=== PATIENT | male | born 1945 | race Caucasian/White ===

== ENCOUNTER 2020-01-21 09:49 | Outpatient (CLI) | payer MEDICARE, BC, SELFPAY ==
--- NOTE | 2020-01-21 10:15 | US_ITS ---
WS: [id number] RENAL ULTRASOUND HISTORY: stone COMPARISON: 07/17/2019 TECHNIQUE: 2-D and color Doppler imaging of the kidney submitted. Right kidney: 10.8 cm x 5.7 cm x 7.2 cm. Normal size kidney. Calcification lower pole RIGHT kidney measures 1.8 cm. Slightly increased in size since the prior examination. No hydronephrosis. No solid mass. Left kidney: 10.8 cm x 5.7 cm x 6.1 cm. Normal echogenicity with no hydronephrosis or mass. Exophytic cortical cyst from the mid kidney measu res 1.7 x 2.2 x 1.2 cm. Aorta: Normal. Urinary Bladder: Minimally distended urinary bladder. Prostate gland is enlarged measuring 5.1 x 3.2 x 4.7 cm. US/US renal BI* [id number] IMPRESSION: 1. No hydronephrosis or solid renal mass. 2. RIGHT renal calcification lower pole measures 1.8 cm with slight increase i n size since the prior study. 3. Prostate enlargement.
== END 2020-01-21 09:50 | disposition home or self-care (01) ==
LOC: RAD 09:53
PROVIDERS: Family Provider Family Medicine; Visit Provider Urology
DX: N20.0 Calculus of kidney (principal); N40.0 Benign prostatic hyperplasia without lower urinary tract symptoms
CPT/HCPCS: 76770; 81001

== ENCOUNTER 2020-12-21 13:49 | Outpatient (CLI) | payer MEDICARE, BC, SELFPAY ==
--- NOTE | 2020-12-21 13:57 | CT_ITS ---
WS: [id number] CT ABDOMEN PELVIS TECHNIQUE: Noncontrast CT of the abdomen and pelvis with coronal and sagittal reformatted images. CLINICAL INFORMATION: LOW BACK PAIN/HEMATURIA COMPARISON: CT March 2018 DLP: 1771.[address] scans at [facility] use at least one of these dose optimization techniques: automat ed exposure control; mA and/or kV adjustment per patient size (includes targeted exams where dose is matched to clinical indication); or iterative reconstruction. FINDINGS: Noncontrast liver is normal. Cholecystectomy. Normal GE junction. Normal noncontrast spleen. Small in cidental hepatic cyst. Normal GE junction. Lung bases are well aerated. Fatty atrophy of the pancreas . Adrenal glands are normal. Bilateral renal cortical atrophy. Numerous clustered right renal pelvic calculi with mild pelvocalie ctasis. No hydronephrosis. Right ureter is decompressed. No hydronephrosis in the left kidney. Left u reter is decompressed. Tiny calculus at the left UVJ measuring 1.7 mm. Minimal bladder wall thickenin g with mild prostate enlargement. Prostate measures 3.1 x 2.2 CM. No abdominal lymphadenopathy. Sigmoid diverticulosis. No evidence of acute diverticulitis. Prior righ t hemicolectomy and ileocolic anastomosis CT/CT kidney stone [id number] IMPRESSION: 1. Tiny 1.7 mm calculus at the left UVJ. No significant left ureterectasis or hydronephrosis. 2. Clustered calcifications in the right renal pelvis similar to 2018. No evid ence of acute obstruction. No hydronephrosis in right kidney. 3. Bilateral renal cysts are similar in appearance. 4. Mild diffuse bladder wall thickening with mild prominence of the prostate. 5. Prior cholecystectomy. 6. Sigmoid diverticulosis. No evidence of acute diverticulitis.
== END 2020-12-21 13:50 | disposition home or self-care (01) ==
PROVIDERS: PCP Family Medicine; Visit Provider Nurse Practitioner Family
DX: R31.9 Hematuria, unspecified (principal); R82.998 Other abnormal findings in urine; M54.5 Low back pain; K57.30 Diverticulosis of large intestine without perforation or abscess without bleeding; Z90.49 Acquired absence of other specified parts of digestive tract; Q61.02 Congenital multiple renal cysts; N20.0 Calculus of kidney
CPT/HCPCS: 74176; 81003

== ENCOUNTER → 2021-01-13 11:28 | Outpatient (BNVA) | payer MEDICARE, BC, SELFPAY | PROVIDERS: PCP Nurse Practitioner Family; Visit Provider Nurse Practitioner Family | DX: N30.00 Acute cystitis without hematuria (principal); N40.1 Benign prostatic hyperplasia with lower urinary tract symptoms; N20.9 Urinary calculus, unspecified | CPT/HCPCS: 81003; 87077; 87086; 87184 ==

== ENCOUNTER 2021-01-20 09:03 | Outpatient (CLI) | payer MEDICARE, BC, SELFPAY ==
--- NOTE | 2021-01-20 08:45 | US_ITS ---
WS: [id number] RENAL ULTRASOUND HISTORY: N40.1 - Benign prostatic hyperplasia with lower urinary tract hyperplasia. COMPARISON: 01/21/2020 TECHNIQUE: 2-D and color Doppler imaging of the kidney submitted. Right kidney: 11.4 cm x 5.7 cm x 8.1 cm. Normal size kidney. No cortical thinning. Mild increase in the sinus fat similar to the prior study. No solid mass. Calcification in the lower pole is not definitely visualized today. Left kidney: 10.2 cm x 5.9 cm x 6.6 cm. Normal size kidney. Hyperechoic focus measuring 5 mm in the mid renal cortex. May be a calcification or fat. Mild cortical thinning. Mild increase in sinus fat. No solid mass. Aorta: Normal. Urinary Bladder: Normally distended. US/US renal BI* [id number] IMPRESSION: 1. No hydronephrosis or solid mass. 2. Mild cortical thinning LEFT kidney. 3. No renal stones are identified by ultrasound today.
== END 2021-01-20 09:04 | disposition home or self-care (01) ==
LOC: RAD 09:05
PROVIDERS: PCP Nurse Practitioner Family; Visit Provider Urology
DX: N40.1 Benign prostatic hyperplasia with lower urinary tract symptoms (principal); N20.9 Urinary calculus, unspecified; R31.0 Gross hematuria
CPT/HCPCS: 76770; 81003

== ENCOUNTER 2021-05-05 14:33 | Outpatient (CLI) | payer MEDICARE, BC, SELFPAY ==
--- NOTE | 2021-05-05 15:00 | USCV_ITS ---
Antoine Denis Age: 76 Gender: M : 1945 Exam Date: 05/05/2021 15:13 Ordering Phys: Peng Dillon M.D ([email or web address]) Technologist: LYNDON [place] [facility] [place]: EDEMA BP: 137 / 67 HR: 59 Rhythm: Other Technical Quality: Technically difficult study MEASUREMENTS (Male / Female) Normal Values 2D ECHO LV Diastolic Diameter PLAX 4.8 cm 4.2 - 5.9 / 3.9 - 5.3 cm LV Systolic Diameter PLAX 3.2 cm IVS Diastolic Thickness 1.1 cm 0.6 - 1.0 / 0.6 - 0.9 cm IVS Systolic Thickness 1.4 cm LVPW Diastolic Thickness 1.4 cm 0.6 - 1.0 / 0.6 - 0.9 cm LVPW Systolic Thickness 2.2 cm LVOT Diameter 2.0 cm LV Ejection Fraction 2D Teich 61.7 % LV Ejection Fraction MOD 2C 64.6 % LV Ejection Fraction 2C AL 64.4 % LA Diameter 4.5 cm LA Width 4.5 cm LA Height 5.2 cm RA Width 4.0 cm RA Height 4.8 cm Aorta at Sinotubular Diameter 2.3 cm DOPPLER AV Peak Velocity 228.0 cm/s LVOT Peak Velocity 120.0 cm/s AV Area Cont Eq vti 1.6 cm squared AV Area Cont Eq pk 1.7 cm squared MV Peak Velocity 560.0 cm/s MV Area PHT 4.5 cm squared Mitral E to A Ratio 1.3 MV E' Velocity 35.0 cm/s Mitral E to MV E' Ratio 6.7 Mitral E to LV E' Lateral Ratio 6.2 Mitral E to LV E' Septal Ratio 7.5 TR Peak Velocity 153.5 cm/s TR Peak Gradient 9.4 mmHg TR Mean Velocity 126.9 cm/s TR Mean Gradient 6.6 mmHg TR Velocity Time Integral 39.6 cm Right Atrial Pressure 3.0 mmHg Pulmonary Artery Systolic Pressu 12.4 mmHg RV Acceleration Time 0.1 s RV Ejection Time 0.3 s RV AcT/ET 0.2 FINDINGS Left Ventricle Normal left ventricular size. LV systolic function is normal with EF of 55-60%.No regional wall motion abnormalities. Normal diastolic filling pattern. Right Ventricle The right ventricle is normal in size and function. Right Atrium The right atrium is normal in size. Left Atrium The left atrium is normal in size. Mitral Valve Thickened mitral valve without significant stenosis or prolapse. There is trace mitral regurgitation. Aortic Valve Thickened aortic valve. There is mild aortic stenosis with aortic valve area of 1.6cm2 and mean gradient across the aortic valve of 10.6mmHg. There is no aortic regurgitation. Tricuspid Valve Structurally normal tricuspid valve without significant stenosis or regurgitation. Insufficient TR jet to calculate RVSP Pulmonic Valve Structurally normal pulmonic valve without significant stenosis. There is no pulmonic regurgitation. Pericardium Normal pericardium without effusion. Aorta Normal ascending aorta dimension. CONCLUSIONS Technically limited quality echocardiogram because of poor ultrasonic windows. LV systolic function is normal LVEF of 55 to 60%. Normal diastolic function. Trace mitral regurgitation is seen. Thickened aortic valve. There is mild aortic stenosis with aortic valve area 1.6 cm squared and mean gradient across aortic valve of 10.6 mmHg. Compared to prior echocardiogram from 09/29/2016, no signficant changes are noted Peng Dillon MD (Electronically Signed) Final Date: 09 May 2021 12:35 S
== END 2021-05-05 14:34 | disposition home or self-care (01) ==
PROVIDERS: PCP Nurse Practitioner Family; Visit Provider Internal Medicine
DX: R60.0 Localized edema (principal); I35.0 Nonrheumatic aortic (valve) stenosis; I34.0 Nonrheumatic mitral (valve) insufficiency
CPT/HCPCS: 93306

== ENCOUNTER → 2021-08-30 16:07 | Outpatient (BNVA) | payer MEDICARE, SELFPAY | PROVIDERS: PCP Nurse Practitioner Family; Visit Provider Internal Medicine | DX: I48.91 Unspecified atrial fibrillation (principal); R00.2 Palpitations | CPT/HCPCS: 85610 ==

== ENCOUNTER → 2021-09-06 15:03 | Outpatient (BNVA) | payer MEDICARE, SELFPAY | PROVIDERS: PCP Nurse Practitioner Family; Visit Provider Internal Medicine | DX: I48.91 Unspecified atrial fibrillation (principal) | CPT/HCPCS: 85610 ==

== ENCOUNTER → 2021-09-13 14:56 | Outpatient (BNVA) | payer MEDICARE, SELFPAY | PROVIDERS: PCP Nurse Practitioner Family; Visit Provider Internal Medicine | DX: I48.91 Unspecified atrial fibrillation (principal) | CPT/HCPCS: 85610 ==

== ENCOUNTER → 2021-09-20 14:59 | Outpatient (BNVA) | payer MEDICARE, SELFPAY | PROVIDERS: PCP Nurse Practitioner Family; Visit Provider Internal Medicine | DX: I48.91 Unspecified atrial fibrillation (principal) | CPT/HCPCS: 85610 ==

== ENCOUNTER → 2021-10-18 14:59 | Outpatient (BNVA) | payer MEDICARE, SELFPAY | PROVIDERS: PCP Nurse Practitioner Family; Visit Provider Internal Medicine | DX: I48.91 Unspecified atrial fibrillation (principal); Z79.01 Long term (current) use of anticoagulants ==

== ENCOUNTER → 2021-11-15 14:52 | Outpatient (BNVA) | payer MEDICARE, SELFPAY | PROVIDERS: PCP Nurse Practitioner Family; Visit Provider Internal Medicine | DX: I48.91 Unspecified atrial fibrillation (principal); Z79.01 Long term (current) use of anticoagulants | CPT/HCPCS: 85610 ==

== ENCOUNTER → 2021-11-22 14:54 | Outpatient (BNVA) | payer MEDICARE, SELFPAY | PROVIDERS: PCP Nurse Practitioner Family; Visit Provider Internal Medicine | DX: I48.91 Unspecified atrial fibrillation (principal) | CPT/HCPCS: 85610 ==

== ENCOUNTER → 2021-11-29 14:54 | Outpatient (BNVA) | payer MEDICARE, SELFPAY | PROVIDERS: PCP Nurse Practitioner Family; Visit Provider Internal Medicine | DX: Z79.01 Long term (current) use of anticoagulants (principal) ==

== ENCOUNTER → 2021-12-10 12:52 | Outpatient (BNVA) | payer MEDICARE, SELFPAY | PROVIDERS: PCP Nurse Practitioner Family; Referring Provider Nurse Practitioner Family; Visit Provider Surgery | DX: C18.9 Malignant neoplasm of colon, unspecified (principal); I48.91 Unspecified atrial fibrillation | CPT/HCPCS: 99204 ==

== ENCOUNTER → 2021-12-13 14:52 | Outpatient (BNVA) | payer MEDICARE, SELFPAY | PROVIDERS: PCP Nurse Practitioner Family; Visit Provider Internal Medicine | DX: Z79.01 Long term (current) use of anticoagulants (principal) ==

== ENCOUNTER → 2021-12-20 14:56 | Outpatient (BNVA) | payer MEDICARE, SELFPAY | PROVIDERS: PCP Nurse Practitioner Family; Visit Provider Internal Medicine | DX: Z79.01 Long term (current) use of anticoagulants (principal) | CPT/HCPCS: 85610 ==

== ENCOUNTER → 2022-01-11 15:00 | Outpatient (BNVA) | payer MEDICARE, SELFPAY | PROVIDERS: PCP Nurse Practitioner Family; Visit Provider Internal Medicine | DX: Z79.01 Long term (current) use of anticoagulants (principal) | CPT/HCPCS: 85610 ==

== ENCOUNTER 2022-01-26 06:14 | Day surgery (SDC) | payer MEDICARE, SELFPAY ==
[2022-01-24 14:23] VITALS: BMI 32.5
[2022-01-26 06:51] VITALS: BP 163/115; PULSE 86; RESP 18; TEMP 36.3; O2SAT 98
[2022-01-26] MEDS: sodium chloride 0.9% 1,000 ML 30 ML IV (06:54)
--- NOTE | 2022-01-26 07:02 | P.HP_ITS ---
Same Day Surgery H&P Indication for Procedure/HPI DATE OF PROCEDURE: January 26, 2022 CHIEF COMPLAINT/INDICATIONFOR SURGICAL PROCEDURE: colonoscopy PREOP DIAGNOSIS: diagnostic PLANNED PROCEDURE: Operation Date: 01/26/22 07:45 Proposed Procedures p Colonoscopy 36703/c18.9(Not Applicable) - Callum Cortes MD Medications/Allergies* Home Medications Medication Instructions Recorded Confirmed Type finasteride 5 mg tablet 5 mg PO DAILY 01/20/20 01/24/22 History gemfibrozil 600 mg tablet 600 mg PO BID 01/20/20 01/24/22 History metformin 1,000 mg tablet See Rx Instructions PO .COMPLEX 01/20/20 01/24/22 History chlorthalidone 25 mg tablet 12.5 mg PO DAILY tab 08/19/20 01/24/22 History ascorbic acid (vitamin C) 500 mg 500 mg PO DAILY 01/13/21 01/24/22 History capsule garlic 300 mg PO DAILY 01/13/21 01/24/22 History lactobacillus combination no.8 3 3,000 mmu cells PO DAILY 01/13/21 01/24/22 History billion cell capsule (Adult Probiotic) phyto nutrients 01/13/21 12/28/21 History potassium citrate 15 mEq (1,620 15 meq PO BID 01/24/22 01/24/22 History mg) tablet,extended release tamsulosin 0.4 mg capsule 0.4 mg PO DAILY 01/24/22 01/24/22 History silver sulfadiazine 1 % topical 1 applic TOPICAL BID PRN 01/26/22 01/24/22 History cream Allergies/Adverse Reactions Allergy/AdvReac Type Severity Reaction Status Date / Time lisinopril Allergy NA Verified 12/28/21 14:54 Ymrrxwu-VAD-EzW Reductase Allergy Rash Verified 12/28/21 14:54 Inhibitor [Lyjlvwf-Bys-Nqi Reductase Inhibitor] Current Medications: Generic Name Dose Route Start Last Admin Trade Name Freq PRN Reason Stop Dose Admin Sodium Chloride 1,000 mls @ 30 mls/hr 01/26/22 06:45 01/26/22 06:54 Sodium Chloride 0.9% IV 01/27/22 06:44 30 mls/hr .Q24H TRACEY Administration Pertinent History/Comorbid Conditions* Medical History (Updated 12/10/21 @ 13:18 by Callum Cortes MD) Atrial fibrillation BPH loc w urin obs/LUTS Colon cancer Diabetes HTN (hypertension) Hyperlipidemia Subdural hematoma Uric acid urolithiasis Surgical History (Updated 12/10/21 @ 13:18 by Callum Cortes MD) History of colonoscopy S/P appendectomy S/P cholecystectomy S/P colon resection S/P shoulder surgery Family History (Updated 01/20/20 @ 09:22 by Mary Lim RN) Father, AGE 81 Mother, AGE 75 CAD (coronary artery disease) Mother Cancer Brother Family/Other Stroke Father Social History Smoking and tobacco status: former smoker Alcohol intake: current Alcohol intake frequency: holidays/special occasions only Alcohol type: beer Adopted: No Caregiver/support person: No Lives independently: No Household members: spouse Marital status: Current occupational status: retired History of recent travel: No Current gender identity: Male Pertinent Exam Findings alert, oriented x 3 and regular rate & rhythm Recommendations Surgery/Procedure today Coding Level of Care Code Acute [employer]er for Joyce Whyte
--- NOTE | 2022-01-26 07:09 | P.ANESASSM_ITS ---
Pre-Anesthetic Assessment Height/Weight: Height 1.78 m Weight 102.965 kg Temp Pulse Resp BP Pulse Ox 97.4 F L 86 18 163/115 98 01/26/22 06:51 01/26/22 06:51 01/26/22 06:51 01/26/22 06:51 01/26/22 06:51 Preop Diagnosis: diagnostic Operation Date: 01/26/22 07:45 Proposed Procedures p Colonoscopy 90376/c18.9(Not Applicable) - Callum Cortes MD Familial anesthetic complications: none Was Beta Sajan taken within 24 hours: N/A Was Clonidine taken within 24 hours: N/A Last intake: Intake Last Liquid Date 01/25/22 Last Liquid Time 22:45 Last Solid Date 01/25/22 Last Solid Time 09:00 Social No alcohol and No tobacco Exam alert, oriented x 3, clear to auscultation bilaterally and regular rate & rhythm Airway Mallampati: Class IV Dentition: false Pulmonary None reported CV/HEM Atrial Fibrillation and Hypertension None reported Hepatic None reported GI None reported Metabolic Diabetes Mellitus [facility] None reported Neuropsych None reported Anesthetic Plan Anesthesia: MAC Risk of > 500 ml blood loss (7ml/kg in children): No Medications/Allergies Home Medications Medication Instructions Recorded Confirmed Last Taken Type finasteride 5 mg tablet 5 mg PO DAILY 01/20/20 01/24/22 01/25/22 History gemfibrozil 600 mg tablet 600 mg PO BID 01/20/20 01/24/22 01/25/22 History metformin 1,000 mg tablet See Rx Instructions PO .COMPLEX 01/20/20 01/24/22 01/25/22 History chlorthalidone 25 mg tablet 12.5 mg PO DAILY tab 08/19/20 01/24/22 01/25/22 History ascorbic acid (vitamin C) 500 mg 500 mg PO DAILY 01/13/21 01/24/22 01/25/22 History capsule garlic 300 mg PO DAILY 01/13/21 01/24/22 Unknown History lactobacillus combination no.8 3 3,000 mmu cells PO DAILY 01/13/21 01/24/22 01/25/22 History billion cell capsule (Adult Probiotic) phyto nutrients 01/13/21 12/28/21 Unknown History losartan 25 mg tablet 25 mg PO DAILY #90 tab 05/20/21 01/24/22 01/25/22 Rx amiodarone 200 mg tablet 200 mg PO DIRECTED #90 tab 08/25/21 01/24/22 01/25/22 Rx warfarin 5 mg tablet 5 mg PO DAILY #90 tab 11/30/21 01/24/22 01/21/22 Rx potassium citrate 15 mEq (1,620 15 meq PO BID 01/24/22 01/24/22 01/25/22 History mg) tablet,extended release tamsulosin 0.4 mg capsule 0.4 mg PO DAILY 01/24/22 01/24/22 01/25/22 History silver sulfadiazine 1 % topical 1 applic TOPICAL BID PRN 01/26/22 01/24/22 Unknown History cream Allergies Allergy/AdvReac Type Severity Reaction Status Date / Time lisinopril Allergy NA Verified 12/28/21 14:54 Bfdpcxp-JIS-WlJ Reductase Allergy Rash Verified 12/28/21 14:54 Inhibitor [Zpzgqxq-Tee-Pem Reductase Inhibitor] Current Medications Generic Name Dose Route Start Last Admin Trade Name Freq PRN Reason Stop Dose Admin Sodium Chloride 1,000 mls @ 30 mls/hr 01/26/22 06:45 01/26/22 06:54 Sodium Chloride 0.9% IV 01/27/22 06:44 30 mls/hr .Q24H TRACEY Administration PFSH Anesthesia Medical History Atrial fibrillation BPH loc w urin obs/LUTS Colon cancer Diabetes HTN (hypertension) Hyperlipidemia Subdural hematoma Uric acid urolithiasis Surgical History History of colonoscopy S/P appendectomy S/P cholecystectomy S/P colon resection S/P shoulder surgery Family History Brother Cancer Family/Other Cancer Father , AGE 81 Stroke Mother , AGE 75 CAD (coronary artery disease) Social History Smoking and tobacco status: former smoker Alcohol intake: current Alcohol intake frequency: holidays/special occasions only Alcohol type: beer Adopted: No Caregiver/support person: No Lives independently: No Household members: spouse Marital status: Current occupational status: retired History of recent travel: No Current gender identity: Male Data Anesthesia Cardiac Studies: Echocardiogram 05/05/21 Holter Monitor 08/30/21
[2022-01-26 08:19] VITALS: BP 106/76; PULSE 91; RESP 16; TEMP 36.1; O2SAT 96
[2022-01-26 08:30] VITALS: BP 130/73; PULSE 86; RESP 18; O2SAT 96
--- NOTE | 2022-01-26 14:22 | ANE.PACU2 ---
Inpatient post-anesthesia follow up: Airway intact: Yes Vital signs: Temperature 97.0 F Pulse Rate 86 Respiratory Rate 18 Blood Pressure 130/73 Pulse Oximetry 96 Oxygen Delivery Me thod Room Air Oxygen Flow Rate Fraction of Inspir ed Oxygen Hydration adequate: Yes Nausea and vomiting: No Pain level: 1 Mental status: Baseline
== END 2022-01-26 08:50 | disposition home or self-care (01) ==
PROVIDERS: PCP Nurse Practitioner Family; Visit Provider Surgery
PROC: 0DJD8ZZ Inspection of Lower Intestinal Tract, Via Natural or Artificial Opening Endoscopic (ICD-10-PCS; CPT 45378; principal; 2022-01-26 07:45)
DX: C18.9 Malignant neoplasm of colon, unspecified (principal); D12.3 Benign neoplasm of transverse colon; K57.30 Diverticulosis of large intestine without perforation or abscess without bleeding; K64.8 Other hemorrhoids; I48.91 Unspecified atrial fibrillation; I10 Essential (primary) hypertension; E11.9 Type 2 diabetes mellitus without complications; Z79.84 Long term (current) use of oral hypoglycemic drugs; Z79.01 Long term (current) use of anticoagulants; N40.1 Benign prostatic hyperplasia with lower urinary tract symptoms; N13.8 Other obstructive and reflux uropathy; E78.5 Hyperlipidemia, unspecified; Z87.891 Personal history of nicotine dependence
CPT/HCPCS: 45385; 88305; J2704; J7030

== ENCOUNTER → 2022-02-04 14:47 | Outpatient (BNVA) | payer MEDICARE, SELFPAY | PROVIDERS: PCP Nurse Practitioner Family; Visit Provider Internal Medicine | DX: Z79.01 Long term (current) use of anticoagulants (principal) ==

== ENCOUNTER → 2022-02-11 10:47 | Outpatient (BNVA) | payer MEDICARE, SELFPAY | PROVIDERS: PCP Nurse Practitioner Family; Visit Provider Internal Medicine | DX: Z79.01 Long term (current) use of anticoagulants (principal) ==

== ENCOUNTER → 2022-02-18 13:46 | Outpatient (BNVA) | payer MEDICARE, SELFPAY | PROVIDERS: PCP Nurse Practitioner Family; Visit Provider Internal Medicine | DX: Z79.01 Long term (current) use of anticoagulants (principal) ==

== ENCOUNTER → 2022-02-25 13:27 | Outpatient (BNVA) | payer MEDICARE, SELFPAY | PROVIDERS: PCP Nurse Practitioner Family; Visit Provider Internal Medicine | DX: Z79.01 Long term (current) use of anticoagulants (principal) ==

== ENCOUNTER → 2022-03-08 10:40 | Outpatient (BNVA) | payer MEDICARE, SELFPAY | PROVIDERS: PCP Nurse Practitioner Family; Visit Provider Internal Medicine | DX: Z79.01 Long term (current) use of anticoagulants (principal) ==

== ENCOUNTER 2022-03-22 18:29 | Outpatient (CLI) | payer MEDICARE, SELFPAY ==
--- NOTE | 2022-03-22 | XRR_ITS ---
PROCEDURE INFORMATION: Exam: XR Chest Exam date and time: 03/22/2022 6:41 PM Age: 77 years old Clinical indication: Cough and shortness of breath; Additional info: Cough/sob TECHNIQUE: Imaging protocol: Radiologic exam of the chest. Views: 2 views. Total images: 318 COMPARISON: CR Chest 1 [place] [id number] 05/21/2019 3:25 AM FINDINGS: Lungs: No acute focal pulmonary opacities are detected. Pleural spaces: Unremarkable. No pleural effusion. No pneumothorax. Heart/Mediastinum: Mild cardiomegaly stable. Bones/joints: Osseous structures are unchanged from the prior exam. XR/XR chest 2V* [id number] IMPRESSION: 1. Mild cardiomegaly stable. 2. No acute focal pulmonary opacities are detected.
== END 2022-03-22 18:30 | disposition home or self-care (01) ==
PROVIDERS: PCP Nurse Practitioner Family; Visit Provider Nurse Practitioner Family
DX: R05.9 Cough, unspecified (principal); R06.02 Shortness of breath; I51.7 Cardiomegaly
CPT/HCPCS: 71046

== ENCOUNTER 2022-07-28 22:10 | Emergency (ER) | payer MEDICARE, SELFPAY ==
[2022-07-28 22:12] VITALS: BP 171/97; PULSE 98; RESP 16; O2SAT 94; BMI 31.4
--- NOTE | 2022-07-28 22:18 | CTR_ITS ---
PROCEDURE INFORMATION: Exam: CT Head Without Contrast Exam date and time: 07/28/2022 10:55 PM Age: 77 years old Clinical indication: Pain and condition or disease; Convulsions or seizures; Headache; Patient HX: Witnessed seizure. C/O LOVE. TECHNIQUE: Imaging protocol: Computed tomography of the head without contrast. Radiation optimization: All CT scans at this facility use at least one of these dose optimization techniques: automated exposure control; mA and/or kV adjustment per patient size (includes targeted exams where dose is matched to clinical indication); or iterative reconstruction. COMPARISON: CT head wo con* [id number] 07/17/2017 11:31 AM RADIATION DOSE METRICS: Total DLP (mGy-cm): 1055.08 FINDINGS: Brain: There is moderate cerebral atrophy. There is moderate diffuse heterogeneity of the white matter attenuation, consistent with chronic white matter ischemic changes. Negative for intracranial mass. Negative for intracranial hemorrhage. Negative for mass effect on the brain. Negative for midline shift of the brain. No acute brain ischemia. Swain matter and white matter interfaces are preserved. Cerebral ventricles: No ventriculomegaly. Paranasal sinuses: Visualized sinuses are unremarkable. No fluid levels. Mastoid air cells: Visualized mastoid air cells are well aerated. Bones/joints: Unremarkable. No acute fracture. Soft tissues: Unremarkable. CT/CT head wo con* [id number] IMPRESSION: Negative for acute intracranial abnormality.
--- NOTE | 2022-07-28 22:18 | ECG_ITS ---
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 Measurements Intervals [place] Rate: 86 P: 0 RI: 0 QRS: -69 QRSD: 145 T: 91 QT: 402 QTc: 483 Interpretive Statements ATRIAL FIBRILLATION RIGHT BUNDLE BRANCH BLOCK [120+ ms QRS DURATION, UPRIGHT V1, 40+ ms S IN I/aVL/V4/V5/V6] LEFT ANTERIOR FASCICULAR BLOCK [QRS AXIS <= -45, QR IN I, RS IN II] VOLTAGE CRITERIA FOR LVH [MEETS CRITERIA IN ONE OF: R(aVL), S(V1), R(V5), R(V5/V6)+S(V1)] POSSIBLE SEPTAL MYOCARDIAL INFARCTION , OF INDETERMINATE AGE [30 ms Q WAVE IN V1/V2] Compared to ECG 05/21/2019 03:05:31 Myocardial infarct finding now present Sinus rhythm no longer present First degree AV block no longer present ST (T wave) deviation no longer present Electronically Signed On 07-29-2022 13:47:00 BED LABORER by Peng Dillon M.D. [id number]
--- NOTE | 2022-07-28 22:18 | XRR_ITS ---
PROCEDURE INFORMATION: Exam: XR Chest Exam date and time: 07/28/2022 10:26 PM Age: 77 years old Clinical indication: Angina; Additional info: Cp TECHNIQUE: Imaging protocol: Radiologic exam of the chest. Views: 1 view. COMPARISON: CR XR chest 2V* [id number] 03/22/2022 6:41 PM FINDINGS: Lungs: Mild reticular changes of interstitium. No consolidation. Pleural spaces: Unremarkable. No pleural effusion. No pneumothorax. Heart/Mediastinum: Cardiac enlargement. Bones/joints: Unremarkable. XR/XR chest 1V portable [id number] IMPRESSION: No acute pulmonary disease identified.
--- NOTE | 2022-07-28 22:24 | W.ED.SEIZURE ---
HPI - Seizure General: Chief Complaint: Seizure Stated Complaint: SEIZURE Time Seen by Provider: 07/28/22 22:11 Source: patient and EMS Mode of arrival: EMS Limitations: no limitations History of Present Illness: HPI Narrative: 77-year-old male states he is not in his recliner this evening states he felt lightheaded and had a syncopal event roughly at 9 PM he states he is passed out for just a few seconds states that since waking up he is felt normal he denies any chest pain or headache before the event he states he had a similar event months ago unsure what caused that as well. He had no vomiting no diarrhea no fever Associated symptoms: Reports syncope; Deny chills or fever(s) Review of Systems Const: Denies: fever(s), chills, body aches or change in appetite Eyes: Denies: blurry vision or eye discomfort ENMT: Denies: throat pain or dental pain Card: Reports: syncope Resp: Denies: dyspnea GI: Denies: abdominal pain, nausea, vomiting or diarrhea : Denies: dysuria Musc: Denies: neck pain or back pain Skin/Breast: Denies: rash Neuro: Denies: headache(s) Psych: Denies: depression Gamal/Lymph: Denies: easy bruising All/Imm: Denies: urticaria PFSH ED PFSH: Medical History Atrial fibrillation BPH loc w urin obs/LUTS Colon cancer Diabetes HTN (hypertension) Hyperlipidemia Subdural hematoma Uric acid urolithiasis Surgical History History of colonoscopy (01/26/22) S/P appendectomy S/P cholecystectomy S/P colon resection S/P shoulder surgery Family History Brother Cancer Family/Other Cancer Father , AGE 81 Stroke Mother , AGE 75 CAD (coronary artery disease) Social History Smoking and tobacco status: former smoker Alcohol intake: current Alcohol intake frequency: holidays/special occasions only Alcohol type: beer Adopted: No Caregiver/support person: No Lives independently: No Household members: spouse Marital status: Current occupational status: retired History of recent travel: No Current gender identity: Male Physical Exam Const: COMMON NORMALS: no acute distress, patient oriented x3 and healthy appearing HENMT: COMMON NORMALS: normocephalic and atraumatic HEAD & SCALP: normocephalic and atraumatic Eye: COMMON NORMALS: Equal, round and reactive pupils present and EOMs intact bilaterally PUPIL: Yes Equal, round and reactive pupils present Neck/C-Spine: COMMON NORMALS: full ROM and supple Chest: COMMONS NORMALS: normal inspection of the chest and normal palpation of entire chest wall Resp: COMMON NORMALS: normal respiratory effort, No retractions, No use of accessory muscles and clear to auscultation bilaterally AUSCULTATION: clear to auscultation bilaterally Cardio: COMMON NORMALS: regular rate, regular rhythm and No murmurs present (Cardio) RATE: regular rate RHYTHM: regular rhythm GI: COMMON NORMALS: Normal to inspection, nondistended, normoactive bowel sounds present, Soft to palpation, non-tender and no masses PALPATION: Yes Soft to palpation Extremity: COMMON NORMALS: normal to inspection and full ROM Neuro: COMMON NORMALS: patient oriented x3, moves all extremities and no focal motor deficits Psych: COMMON NORMALS: mental status grossly normal, Normal thought process present and cooperative THOUGHT PROCESS: Normal thought process present Skin: COMMON NORMALS: no rashes or lesions noted and no wounds GENERAL SKIN EXAM: no rashes or lesions noted Course Vital Signs: Vital signs: Vital Signs Pulse Rate 82 07/29/22 01:06 Respiratory Rate 18 07/29/22 01:06 Blood Pressure 149/74 07/29/22 01:06 Pulse Oximetry 96 07/29/22 01:06 Oxygen Delivery Me thod 07/29/22 01:06 MDM - Seizure MDM Narrative Medical decision making narrative: Patient presents with a syncopal event he has been well-appearing here blood works normal patient stable for discharge he is to follow-up with PCP and return if worsening. Lab Data 07/28/22 22:17 07/28/22 22:17 Labs: Radiology Impressions Chest X-Ray 07/28/22 22:18 IMPRESSION: No acute pulmonary disease identified. Head CT 07/28/22 22:18 IMPRESSION: Negative for acute intracranial abnormality. Laboratory Results WBC 7.3 10^3/uL (4.0-10.0) 07/28/22 22:17 RBC 4.61 10^6/uL (4.1-5.3) 07/28/22 22:17 Hgb 14.0 g/dL (11.7-16.6) 07/28/22 22:17 Hct 42.1 % (42.0-52.0) 07/28/22 22:17 MCV 91.3 fl (80-94) 07/28/22 22:17 MCH 30.4 pg (28.0-34.0) 07/28/22 22:17 MCHC 33.3 g/dL (30.0-36.0) 07/28/22 22:17 RDW 12.9 % (12.1-15.1) 07/28/22:17 Plt Count 239 10^3/cmm (130-400) 07/28/22 22:17 MPV 11.3 fL (7.4-10.4) H 07/28/22 22:17 Neut % (Auto) 65.3 % 07/28/22 22:17 Lymph % (Auto) 24.9 % 07/28/22 22:17 Kimball % (Auto) 6.6 % 07/28/22 22:17 Eos % (Auto) 1.9 % 07/28/22 22:17 Baso % (Auto) 0.5 % 07/28/22 22:17 Neut # (Auto) 4.77 10^3/uL (1.8-7.7) 07/28/22 22:17 Lymph # (Auto) 1.8 10^3/uL (0.8-4.8) 07/28/22 22:17 Kimball # (Auto) 0.5 10^3/uL (0.2-0.9) 07/28/22 22:17 Eos # (Auto) 0.1 10^3/uL (0.0-0.8) 07/28/22 22:17 Baso # (Auto) 0.0 10^3/uL (0.0-0.1) 07/28/22 22:17 Nucleated RBC % (auto) 0 % 07/28/22 22:17 Nucleated RBCs # 0.0 /100WBC 07/28/22 22:17 PT 23.90 SECONDS (12.1-14.9) H 07/28/22 22:17 INR 2.10 (0.8-1.2) H 07/28/22 22:17 Sodium 142 mmol/L (136-145) 07/28/22 22:17 Potassium 4.0 mmol/L (3.5-5.1) 07/28/22 22:17 Chloride 103 mmol/L (98-107) 07/28/22 22:17 Carbon Dioxide 26 mmol/L (22-29) 07/28/22 22:17 Anion Gap 17.0 (5-19) 07/28/22 22:17 BUN 22 mg/dL (8-23) 07/28/22 22:17 Creatinine 1.4 mg/dL (0.7-1.2) H 07/28/22 22:17 GFR Calculation Not Reportable 07/28/22 22:17 Glucose 144 mg/dL (65-115) H 07/28/22 22:17 Calculated Osmolality 300 mOsm/kg (285-295) H 07/28/22 22:17 Calcium 9.7 mg/dL (8.5-10.5) 07/28/22 22:17 Total Bilirubin 0.3 mg/dL (0.15-1.2) 07/28/22 22:17 AST 14 U/L (0-40) 07/28/22 22:17 ALT 11 U/L (0-41) 07/28/22 22:17 Alkaline Phosphatase 108 U/L (40-130) 07/28/22 22:17 Troponin T Baseline 23 ng/L (0-15) H 07/28/22 22:17 Troponin T 120 Minute 29.47 ng/L (0-15) H 07/29/22 00:25 Delta Troponin T 6.47 ABS# (0-10) 07/29/22 00:25 Total Protein 7.6 g/dL (6.6-8.7) 07/28/22 22:17 Albumin 4.3 g/dL (3.5-5.2) 07/28/22 22:17 Globulin 3.3 g/dL (1.3-4.6) 07/28/22 22:17 Discharge Plan Discharge Patient Disposition: Home Clinical Impression: Syncope Condition: Stable Prescriptions: No Action garlic Tablet 300 mg PO DAILY (DME) phyto nutrients 0 .Route .MEDSUPPLY ascorbic acid (vitamin C) 500 mg capsule 500 mg PO DAILY Adult Probiotic 3 billion cell capsule 3,000 mmu cells PO DAILY Rx Instructions: administer with a meal amiodarone 200 mg tablet 200 mg PO DIRECTED Qty: 90 3RF Rx Instructions: Take 200mg twice daily for 1 week, then take 200mg daily finasteride 5 mg tablet 5 mg PO DAILY metformin 1,000 mg tablet See Rx Instructions PO .COMPLEX Rx Instructions: 500MG AM AND 1000MG PM PO; gemfibrozil 600 mg tablet 600 mg PO BID chlorthalidone 25 mg tablet 12.5 mg PO DAILY ketoconazole 2 % shampoo 1 applic topical ONCE Qty: 120 6RF Rx Instructions: Lather into scalp 2-3 times weekly. Allow to sit on scalp 5 minutes before rinsing warfarin 5 mg tablet 5 mg PO DAILY Qty: 90 0RF Protocol: Dose Management Condition: Monday Dose/Route: 2.5 mg Instruction: 0.5 x 5 mg tablets Condition: Monday Dose/Route: 2.5 mg Instruction: 0.5 x 5 mg tablets Condition: Monday Dose/Route: 2.5 mg Instruction: 0.5 x 5 mg tablets Condition: Monday Dose/Route: 5 mg Instruction: 1 x 5 mg tablet Condition: Dose/Route: 2.5 mg Instruction: 0.5 x 5 mg tablets Condition: Monday Dose/Route: 2.5 mg Instruction: 0.5 x 5 mg tablets Condition: Monday Dose/Route: 2.5 mg Instruction: 0.5 x 5 mg tablets Protocol Text: Adjustment Start Date: Monday07/27/22 INR Value: 2.1 INR Date: 07/25/22 Recheck Date: 08/03/22 Rx Instructions: 5mg 5 days a week 2.5mg 2 days a week tamsulosin 0.4 mg capsule 0.4 mg PO BID Qty: 60 6RF losartan 25 mg tablet 25 mg PO DAILY Qty: 90 0RF Rx Instructions: Needs follow-up for further refills potassium citrate 15 mEq tablet extended release 15 meq PO BID silver sulfadiazine 1 % cream 1 applic topical BID PRN (Reason: Outbreak) Rx Instructions: apply a 1.5 mm thickness Discharge Orders: Discharge ED (Routine); Ordered 07/29/22 Ordered By: Agnes Russo Referrals: Natasha Salas NP [Primary Care Provider] - 1-3 days Discharge Diet: Advance as tolerated Discharge Activity: Resume usual activity Patient Instructions: Syncope (ED) Coding Level of Care Code ED Mechanical Applications Engineer for Chg Fwd Exam Comprehensive
[2022-07-28 22:40] LABS: Basophils % 0.5 %; Eosinophils # 0.1 10^3/uL (0.0-0.8); Eosinophils % 1.9 %; Hematocrit 42.1 % (42.0-52.0); Lymphocytes # 1.8 10^3/uL (0.8-4.8); Lymphocytes % 24.9 %; Mean Corpuscular HGB Conc 33.3 g/dL (30.0-36.0); Mean Corpuscular Hemoglobin 30.4 pg (28.0-34.0); Mean Corpuscular Volume 91.3 fl (80-94); Mean Platelet Volume 11.3 fL (7.4-10.4); Monocytes # 0.5 10^3/uL (0.2-0.9); Monocytes % 6.6 %; Neutrophils # 4.77 10^3/uL (1.8-7.7); Neutrophils % 65.3 %; Nucleated Red Blood Cells % 0 %; Platelet Count 239 10^3/cmm (130-400); Red Blood Count 4.61 10^6/uL (4.1-5.3); Red Cell Distribution Width 12.9 % (12.1-15.1); White Blood Count 7.3 10^3/uL (4.0-10.0)
[2022-07-28 22:50] LABS: Alanine Aminotransferase 11 U/L (0-41); Albumin Level 4.3 g/dL (3.5-5.2); Alkaline Phosphatase 108 U/L (40-130); Aspartate Amino Transferase 14 U/L (0-40); Blood Urea Nitrogen 22 mg/dL (8-23); Calcium 9.7 mg/dL (8.5-10.5); Carbon Dioxide 26 mmol/L (22-29); Chloride 103 mmol/L (98-107); Creatinine Clr Calc Pharmacy 52.0456; Globulin 3.3 g/dL (1.3-4.6); Glucose 144 mg/dL (65-115); Osmolality Calculated 300 mOsm/kg (285-295); Sodium 142 mmol/L (136-145); Total Bilirubin 0.3 mg/dL (0.15-1.2); Total Protein 7.6 g/dL (6.6-8.7)
[2022-07-28 23:46] LABS: Troponin(5th) Baseline 23 ng/L (0-15)
--- NOTE | 2022-07-29 00:18 | ECG_ITS ---
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 Measurements Intervals [place] Rate: 83 P: 0 NM: 0 QRS: -70 QRSD: 154 T: 86 QT: 421 QTc: 497 Interpretive Statements ATRIAL FIBRILLATION RIGHT BUNDLE BRANCH BLOCK [120+ ms QRS DURATION, UPRIGHT V1, 40+ ms S IN I/aVL/V4/V5/V6] LEFT ANTERIOR FASCICULAR BLOCK [QRS AXIS <= -45, QR IN I, RS IN II] MODERATE VOLTAGE CRITERIA FOR LVH, CONSIDER NORMAL VARIANT [MEETS CRITERIA IN ONE OF: R(aVL), S(V1), R(V5), R(V5/V6)+S(V1)] ANTEROSEPTAL MYOCARDIAL INFARCTION , PROBABLY RECENT [40+ ms Q WAVE IN V1-V4] ACUTE NH Compared to ECG 07/28/2022 22:37:53 No significant changes Electronically Signed On 07-29-2022 13:51:52 COMPOSITOR APPRENTICE by Peng Dillon M.D. [id number]
[2022-07-29 00:51] LABS: Troponin 5 2HR 29.47 ng/L (0-15)
[2022-07-29 01:00] LABS: Troponin 5 2HR Delta 6.47 ABS# (0-10)
[2022-07-29 01:06] VITALS: BP 149/74; PULSE 82; RESP 18; O2SAT 96
== END 2022-07-29 01:22 | disposition home or self-care (01) ==
PROVIDERS: Emergency Provider Emergency Medicine; PCP Nurse Practitioner Family
DX: R55 Syncope and collapse (principal); Z79.84 Long term (current) use of oral hypoglycemic drugs; Z79.01 Long term (current) use of anticoagulants; Z87.891 Personal history of nicotine dependence; Z85.038 Personal history of other malignant neoplasm of large intestine; E11.9 Type 2 diabetes mellitus without complications; I10 Essential (primary) hypertension; E78.5 Hyperlipidemia, unspecified
CPT/HCPCS: 70450; 71045; 80053; 84484; 85025; 85610; 93005; 99285

== ENCOUNTER 2022-12-16 11:52 | Outpatient (CLI) | payer MEDICARE, SELFPAY ==
--- NOTE | 2022-12-16 13:21 | USCV_ITS ---
Antoine Denis Age: 77 Gender: M : 1945 Exam Date: 12/16/2022 13:52 Ordering Phys: Natasha Salas NP Technologist: Exam Location: [facility] [place] Indication: chest pain BP: 120 / 70 HR: 84 Rhythm: Atrial fibrillation Technical Quality: Suboptimal MEASUREMENTS (Male / Female) Normal Values 2D ECHO LV Diastolic Diameter PLAX 4.2 cm 4.2 - 5.9 / 3.9 - 5.3 cm LV Systolic Diameter PLAX 2.2 cm IVS Diastolic Thickness 1.1 cm 0.6 - 1.0 / 0.6 - 0.9 cm IVS Systolic Thickness 1.4 cm LVPW Diastolic Thickness 1.2 cm 0.6 - 1.0 / 0.6 - 0.9 cm LVPW Systolic Thickness 1.4 cm LVOT Diameter 2.2 cm LV Ejection Fraction 2D Teich 76.7 % LV Ejection Fraction MOD 2C 74.2 % LV Ejection Fraction 2C AL 75.8 % LA Diameter 5.1 cm Aorta at Sinotubular Diameter 2.7 cm IVC Diameter 2.4 cm M-MODE Aortic Annulus Diameter 3.9 cm LA Ao Ratio MM 1.2 MV E Point Septal Separation 1.3 cm DOPPLER AV Peak Velocity 277.7 cm/s LVOT Peak Velocity 97.0 cm/s AV Area Cont Eq vti 1.6 cm squared AV Area Cont Eq pk 1.3 cm squared MV Area PHT 5.9 cm squared Mitral E to A Ratio 4.4 MV E' Velocity 121.0 cm/s TR Peak Velocity 300.0 cm/s TR Peak Gradient 36.0 mmHg TV Peak E Velocity 76.0 cm/s Right Atrial Pressure 4.0 mmHg Pulmonary Artery Systolic Pressu 40.0 mmHg RV Acceleration Time 0.1 s FINDINGS Left Ventricle The rhythm is irregularly irregular and appears to be atrial fibrillation. The ventricle is normal in size and function. Ejection fraction 55 to 60%. No wall motion disturbances. Diastolic function cannot be determined due to the rhythm. Right Ventricle Normal right ventricular size and systolic function. Mild pulmonary hypertension, RVSP 40 mmHg. Right Atrium The right atrium is normal in size. Left Atrium Mildly increased left atrial size. Mitral Valve Structurally normal mitral valve. Mild mitral valve regurgitation. Aortic Valve Structurally normal trileaflet aortic valve. Mild aortic valve calcification. Mild aortic valve stenosis, mean gradient 14.2 mmHg, NOMI 1.6 cm squared. Mild aortic valve regurgitation. Tricuspid Valve Structurally normal tricuspid valve. Mild tricuspid valve regurgitation. Pulmonic Valve Pulmonic valve not well visualized. Pericardium Normal pericardium without effusion. Aorta Normal ascending aorta dimension. IVC The inferior vena cava appears normal. CONCLUSIONS The rhythm is irregularly irregular and appears to be atrial fibrillation. The ventricle is normal in size and function. Ejection fraction 55 to 60%. No wall motion disturbances. Diastolic function cannot be determined due to the rhythm. Normal right ventricular size and systolic function. Mild pulmonary hypertension, RVSP 40 mmHg. Mildly increased left atrial size. Structurally normal mitral valve. Mild mitral valve regurgitation. Structurally normal trileaflet aortic valve. Mild aortic valve calcification. Mild aortic valve stenosis, mean gradient 14.2 mmHg, NOMI 1.6 cm squared. Mild aortic valve regurgitation. From the previous study dated 05/09/2021, the atrial fibrillation is new. The aortic stenosis is the same. The aortic insufficiency is new. Dr. Colton Jeong MD (Electronically Signed) Final Date: 17 Dec 2022 09:42 S
== END 2022-12-16 11:53 | disposition home or self-care (01) ==
PROVIDERS: PCP Nurse Practitioner Family; Visit Provider Internal Medicine
DX: I48.91 Unspecified atrial fibrillation (principal); I10 Essential (primary) hypertension; E78.5 Hyperlipidemia, unspecified; E11.9 Type 2 diabetes mellitus without complications; Z87.891 Personal history of nicotine dependence; R60.0 Localized edema; I27.20 Pulmonary hypertension, unspecified; I51.7 Cardiomegaly
CPT/HCPCS: 93306; 99214

== ENCOUNTER 2023-04-28 12:42 | Emergency (ER) | payer MEDICARE, SELFPAY ==
--- NOTE | 2023-04-28 12:44 | XR_ITS ---
WS: [id number] Exam: XR chest 1V portable [id number] Date/Time of Exam: 04/28/2023 12:44 PM Reason For Exam: covid Comparison 03/22/2022. Mild ill-defined groundglass infiltrate in the mid LEFT lung suspicious for pneumonia. The lungs are otherwise clear and fully expanded. Mild plaque atelectasis in the lower RIGHT lung. Cardiac enlargem ent unchanged. The mediastinum and osseous thorax are unremarkable. IMPRESSION: 1. Mild ill-defined groundglass infiltrate in the mid LEFT lung suspicious for pneumonia. 2. Cardiac enlargement unchanged.
[2023-04-28 13:07] VITALS: BP 128/61; PULSE 78; RESP 17; TEMP 36.9; O2SAT 95; BMI 29.0
[2023-04-28 13:45] LABS: Basophils % 0.2 %; Eosinophils # 0.1 10^3/uL (0.0-0.8); Eosinophils % 0.9 %; Hematocrit 43.2 % (37-53); Lymphocytes # 1.1 10^3/uL (0.8-4.8); Mean Corpuscular HGB Conc 34.3 g/dL (30-55); Mean Corpuscular Hemoglobin 30.5 pg (27-33); Mean Corpuscular Volume 89.1 fl (82-101); Mean Platelet Volume 11.1 fL (7.4-10.4); Monocytes # 0.6 10^3/uL (0.2-0.9); Monocytes % 6.7 %; Neutrophils # 7.08 10^3/uL (1.8-7.7); Neutrophils % 79.2 %; Nucleated Red Blood Cells % 0 %; Platelet Count 286 10^3/cmm (157-399); Red Blood Count 4.85 10^6/uL (3.85-5.65); Red Cell Distribution Width 12.3 % (12.1-15.1); White Blood Count 8.94 10^3/uL (3.29-11.43)
--- NOTE | 2023-04-28 13:45 | W.ED.WEAKNES ---
HPI - Weakness General: Chief complaint: Weakness Stated complaint: covid+ Time Seen by Provider: 04/28/23 13:24 History of Present Illness: 78-year-old occasion male brought to emergency room by his due to generalized weakness, cough and positive home COVID testing. described patient's cough as productive cough with some yellow sputum. Patient has any shortness of breath, coughing up blood or vomiting blood. Cording to patient's patient is unable to eat or drink and was very weak prior comes emergency room today. No known sick contacts or foreign travel. No nausea, vomiting, dysuria, hematuria urine frequency. Associated symptoms: Denies chest pain, chills, diaphoresis, dysuria, fever(s), headache(s) or syncope Review of Systems General: Reports: 10 or more systems reviewed and unremarkable except in HPI and below Const: Reports: fatigue; Denies: fever(s), chills or diaphoresis Card: Denies: chest pain, palpitations, irregular heart rhythm, swelling of feet/ankles, lightheadedness or syncope Resp: Reports: productive cough; Denies: dyspnea, non-productive cough, pain on inspiration, hemoptysis, chest congestion or other : Denies: flank pain, difficulty urinating, dysuria, urinary frequency, urinary urgency, urinary hesitancy, urinary dribbling or difficulty starting urination Musc: Denies: joint swelling, joint redness, joint warmth, limited range of motion, muscle cramps, muscle weakness, decrease in muscle mass or loss of height Neuro: Reports: dizziness; Denies: headache(s), numbness in extremities, weakness in extremities, sensory changes, lack of coordination, difficulty walking, behavioral changes or Slurred speech present [facility] ED PFSH: Medical History Atrial fibrillation BPH loc w urin obs/LUTS Colon cancer Diabetes HTN (hypertension) Hyperlipidemia Subdural hematoma Uric acid urolithiasis Surgical History History of colonoscopy (01/26/22) S/P appendectomy S/P cholecystectomy S/P colon resection S/P shoulder surgery Family History Brother Cancer Family/Other Cancer Father , AGE 81 Stroke Mother , AGE 75 CAD (coronary artery disease) Social History Smoking and tobacco status: former smoker Alcohol intake: current Alcohol intake frequency: holidays/special occasions only Alcohol type: beer Substance/Drug Use: never Adopted: No Caregiver/support person: No Lives independently: No Household members: spouse Marital status: Current occupational status: retired Current gender identity: Male Physical Exam Const: COMMON NORMALS: no acute distress, average body habitus, patient oriented x3, no limitations, healthy appearing, alert and well nourished Neck/C-Spine: COMMON NORMALS: full ROM, no lymphadenopathy, supple, no meningeal signs, no JVD, Thyroid normal and No carotid bruits THYROID: Thyroid normal Chest: COMMONS NORMALS: normal inspection of the chest, normal palpation of entire chest wall, normal inspection of the breasts and normal palpation of the breasts Breast/axilla inspection: Yes normal inspection of the breasts BREAST/AXILLA PALPATION: Yes normal palpation of the breasts Resp: COMMON NORMALS: normal respiratory effort and No retractions; negative for No use of accessory muscles AUSCULTATION: diminished lung sounds, no bronchial breath sounds, no egophony, no tactile fremitus and No rub present Cardio: COMMON NORMALS: no JVD Neuro: COMMON NORMALS: patient oriented x3 SENSORIUM/ORIENTATION: Yes alert MENINGEAL SIGNS: Yes no meningeal signs SPEECH: speech normal MOTOR EXAM: 5/5 motor strength present throughout and Motor abnormalities not present Psych: COMMON NORMALS: mental status grossly normal, Normal thought process present, cooperative, normal affect, speech normal, activity/motor behavior normal, denies hallucinations, denies homicidal ideation and denies suicidal ideation SPEECH: Yes normal speech THOUGHT PROCESS: Normal thought process present Skin: COMMON NORMALS: no rashes or lesions noted, no wounds, turgor normal, no jaundice, no petechiae and no mottling GENERAL SKIN EXAM: no rashes or lesions noted and turgor normal Course Consultations: Consultation #1: Discussed patient with the hospitalist. Will admit patient for observation with IV fluid Vital Signs: Vital signs: Vital Signs Temperature 98.5 F 04/28/23 13:07 Pulse Rate 78 09/15/23 13:07 Respiratory Rate 17 04/28/23 13:07 Blood Pressure 128/61 04/28/23 13:07 Pulse Oximetry 95 04/28/23 13:07 Oxygen Delivery Me thod Room Air 04/28/23 13:07 MDM - Weakness Medical Decision Making Patient made comfortable emergency room. Patient was given IV fluid, IV antibiotics and IV steroid. Discussed patient with the hospitalist patient will be admitted for further evaluation and treatment. Differential Diagnosis Likely acute myocardial infarction, anemia, hypoglycemia, hypothyroidism, rhabdomyolysis, sepsis and dehydration Lab Data 04/28/23 13:31 04/28/23 13:31 Laboratory Results WBC 8.94 10^3/uL (3.29-11.43) 04/28/23 13:31 RBC 4.85 10^6/uL (3.85-5.65) 04/28/23 13:31 Hgb 14.80 g/dL (11.27-16.99) 04/28/23 13:31 Hct 43.2 % (37-53) 04/28/23 13:31 MCV 89.1 fl (82-101) 04/28/23 13:31 MCH 30.5 pg (27-33) 04/28/23 13:31 MCHC 34.3 g/dL (30-55) 04/28/23 13:31 RDW 12.3 % (12.1-15.1) 04/28/23 13:31 Plt Count 286 10^3/cmm (157-399) 04/28/23 13:31 MPV 11.1 fL (7.4-10.4) H 04/28/23 13:31 Neut % (Auto) 79.2 % 04/28/23 13:31 Lymph % (Auto) 12.0 % 04/28/23 13:31 [place] % (Auto) 6.7 % 04/28/23 13:31 Eos % (Auto) 0.9 % 04/28/23 13:31 Baso % (Auto) 0.2 % 04/28/23 13:31 Neut # (Auto) 7.08 10^3/uL (1.8-7.7) 04/28/23 13:31 Lymph # (Auto) 1.1 10^3/uL (0.8-4.8) 04/28/23 13:31 [place]idan # (Auto) 0.6 10^3/uL (0.2-0.9) 04/28/23 13:31 Eos # (Auto) 0.1 10^3/uL (0.0-0.8) 04/28/23 13:31 Baso # (Auto) 0.0 10^3/uL (0.0-0.1) 04/28/23 13:31 Nucleated RBC % (auto) 0 % 04/28/23 13:31 Nucleated RBCs # 0.0 /100WBC 04/28/23 13:31 Sodium 137 mmol/L (136-145) 04/28/23 13:31 Potassium 3.6 mmol/L (3.5-5.1) 04/28/23 13:31 Chloride 99 mmol/L (98-107) 04/28/23 13:31 Carbon Dioxide 25 mmol/L (22-29) 04/28/23 13:31 Anion Gap 16.6 (5-19) 04/28/23 13:31 BUN 21 mg/dL (8-23) 04/28/23 13:31 Creatinine 1.3 mg/dL (0.7-1.2) H 04/28/23 13:31 GFR Calculation Not Reportable 04/28/23 13:31 Glucose 134 mg/dL (65-115) H 04/28/23 13:31 Calculated Osmolality 289 mOsm/kg (285-295) 04/28/23 13:31 Lactic Acid 1.4 mmol/L (0.5-2.2) 04/28/23 13:37 Calcium 9.2 mg/dL (8.5-10.5) 04/28/23 13:31 Total Bilirubin 0.9 mg/dL (0.15-1.2) 04/28/23 13:31 AST 24 U/L (0-40) 04/28/23 13:31 ALT 34 U/L (0-41) 04/28/23 13:31 Alkaline Phosphatase 88 U/L (40-130) 04/28/23 13:31 Total Protein 7.7 g/dL (6.6-8.7) 04/28/23 13:31 Albumin 3.5 g/dL (3.5-5.2) 04/28/23 13:31 Globulin 4.2 g/dL (1.3-4.6) 04/28/23 13:31 XR interpretation done by ED provider, pending radiology final review Discharge Plan Discharge Patient Disposition: Placed in Observation Clinical Impression: Pneumonia, COVID, Weakness Coding Level of Care Code ED Cake Puncher for Joyce Whyte
[2023-04-28 14:12] LABS: Lactic Sepsis W/Reflex 1.4 mmol/L (0.5-2.2)
[2023-04-28] MEDS: cefTRIAXone 1,000 MG in sodium chloride 0.9% (plus) 50 ML 100 MG IV (14:14)
[2023-04-28] MEDS: sodium chloride 0.9% 1,000 ML 999 ML IV (14:15)
[2023-04-28 15:03] LABS: Alanine Aminotransferase 34 U/L (0-41); Albumin Level 3.5 g/dL (3.5-5.2); Alkaline Phosphatase 88 U/L (40-130); Blood Urea Nitrogen 21 mg/dL (8-23); Calcium 9.2 mg/dL (8.5-10.5); Carbon Dioxide 25 mmol/L (22-29); Chloride 99 mmol/L (98-107); Globulin 4.2 g/dL (1.3-4.6); Glucose 134 mg/dL (65-115); Osmolality Calculated 289 mOsm/kg (285-295); Sodium 137 mmol/L (136-145); Total Bilirubin 0.9 mg/dL (0.15-1.2); Total Protein 7.7 g/dL (6.6-8.7)
[2023-04-28 15:04] LABS: Anion Gap 16.6 (5-19); Aspartate Amino Transferase 24 U/L (0-40); Potassium 3.6 mmol/L (3.5-5.1)
== END 2023-04-28 16:56 | disposition still patient (30) ==
PROVIDERS: Emergency Medicine; Emergency Provider Family Medicine; PCP Nurse Practitioner Family
DX: U07.1 COVID-19 (principal); J12.82 Pneumonia due to coronavirus disease 2019; Z85.038 Personal history of other malignant neoplasm of large intestine; E11.9 Type 2 diabetes mellitus without complications; I10 Essential (primary) hypertension; E78.5 Hyperlipidemia, unspecified; Z87.891 Personal history of nicotine dependence
CPT/HCPCS: 36415; 71045; 80053; 83605; 85025; 87040; 96365; 99284; J0696; J7030

== ENCOUNTER → 2023-06-28 14:38 | Outpatient (BNVA) | payer MEDICARE, SELFPAY | PROVIDERS: PCP Nurse Practitioner Family; Visit Provider Dermatology | DX: L57.0 Actinic keratosis (principal); D36.11 Benign neoplasm of peripheral nerves and autonomic nervous system of face, head, and neck; L81.4 Other melanin hyperpigmentation; L57.8 Other skin changes due to chronic exposure to nonionizing radiation | CPT/HCPCS: 17000; 99214 ==

== ENCOUNTER 2024-01-02 14:48 | Outpatient (CLI) | payer MEDICARE, SELFPAY ==
--- NOTE | 2024-01-02 15:03 | XR_ITS ---
WS: [id number] KUB, AP view, 01/02/2024 Clinical Data: DYSURIA/ABDOMINAL PAIN Comparison: KUB, 07/17/2019 Findings: No abnormal intraabdominal masses or calcifications are seen. There is no dilatated small bowel or ev idence of obstruction. There are right upper quadrant surgical clips. 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 XR/XR KUB [id number] Impression: Negative KUB.
== END 2024-01-02 14:49 | disposition home or self-care (01) ==
PROVIDERS: PCP Nurse Practitioner Family; Visit Provider Nurse Practitioner Family
DX: R10.9 Unspecified abdominal pain (principal); R30.0 Dysuria
CPT/HCPCS: 74018

== ENCOUNTER → 2024-07-01 13:20 | Outpatient (BNVA) | payer MEDICARE, SELFPAY | PROVIDERS: PCP Nurse Practitioner Family; Visit Provider Nurse Practitioner Family | DX: D36.11 Benign neoplasm of peripheral nerves and autonomic nervous system of face, head, and neck (principal); L81.4 Other melanin hyperpigmentation; L57.8 Other skin changes due to chronic exposure to nonionizing radiation; D18.01 Hemangioma of skin and subcutaneous tissue; L57.0 Actinic keratosis | CPT/HCPCS: 17000; 99213 ==

== ENCOUNTER → 2024-11-01 11:39 | Outpatient (BNVA) | payer MEDICARE, SELFPAY | PROVIDERS: PCP Nurse Practitioner Family; Visit Provider Internal Medicine | DX: I48.91 Unspecified atrial fibrillation (principal); Z79.01 Long term (current) use of anticoagulants; I10 Essential (primary) hypertension; E78.5 Hyperlipidemia, unspecified; I35.0 Nonrheumatic aortic (valve) stenosis; E11.9 Type 2 diabetes mellitus without complications; Z79.84 Long term (current) use of oral hypoglycemic drugs; Z87.891 Personal history of nicotine dependence | CPT/HCPCS: 99214 ==

== ENCOUNTER 2024-11-18 09:08 | Outpatient (CLI) | payer OTHER, SELFPAY ==
[2024-11-18 09:51] LABS: Basophils # 0.1 10^3/uL (0.0-0.1); Basophils % 0.9 %; Eosinophils # 0.2 10^3/uL (0.0-0.8); Eosinophils % 2.6 %; Hematocrit 50.8 % (37-53); Lymphocytes # 1.8 10^3/uL (0.8-4.8); Lymphocytes % 22.6 %; Mean Corpuscular HGB Conc 32.7 g/dL (30-55); Mean Corpuscular Hemoglobin 29.5 pg (27-33); Mean Corpuscular Volume 90.2 fl (82-101); Mean Platelet Volume 11.5 fL (7.4-10.4); Monocytes # 0.5 10^3/uL (0.2-0.9); Monocytes % 5.9 %; Neutrophils # 5.35 10^3/uL (1.8-7.7); Neutrophils % 67.4 %; Nucleated Red Blood Cells % 0 %; Platelet Count 209 10^3/cmm (157-399); Red Blood Count 5.63 10^6/uL (3.85-5.65); Red Cell Distribution Width 12.9 % (12.1-15.1); White Blood Count 7.95 10^3/uL (3.29-11.43)
[2024-11-18 10:06] LABS: Albumin Level 4.2 g/dL (3.5-5.2); Anion Gap 15.8 (5-19); Blood Urea Nitrogen 28 mg/dL (8-23); Calcium 9.5 mg/dL (8.5-10.5); Calcium 9.6 mg/dL (8.5-10.5); Carbon Dioxide 27 mmol/L (22-29); Chloride 102 mmol/L (98-107); Glucose 138 mg/dL (65-115); Phosphorus 3.3 mg/dL (2.5-4.5); Potassium 3.8 mmol/L (3.5-5.1); Sodium 141 mmol/L (136-145)
[2024-11-18 10:13] LABS: Creatinine Urine, Random 79 mg/dL (39-259); Microalbum Creatinine Ratio Ur 13 mg/dL (0-20); Microalbumin Random Urine 1 ug/dL (0-20)
[2024-11-18 10:13] LABS: Parathyroid Hormone 86.8 pg/mL (15-65)
[2024-11-18 10:23] LABS: 25 Hydroxy Vitamin D 46 ng/mL (30-100)
== END 2024-11-18 09:09 | disposition home or self-care (01) ==
PROVIDERS: PCP Nurse Practitioner Family; Visit Provider Internal Medicine
DX: N18.32 Chronic kidney disease, stage 3b (principal)
CPT/HCPCS: 36415; 80069; 82044; 82306; 82310; 83970; 85025

== ENCOUNTER 2025-02-03 13:16 | Outpatient (CLI) | payer MEDICARE, SELFPAY ==
--- NOTE | 2025-02-03 13:30 | USCV_ITS ---
Antoine Denis Age: 80 Gender: M : 1945 Exam Date: 02/03/2025 13:42 Ordering Phys: Peng Dillon M.D ([email or web address]) Technologist: BRISSA Exam Location: [facility] Indication: Aortic Stenosis BP: 116 / 56 HR: 74 Rhythm: Sinus Technical Quality: Adequate MEASUREMENTS (Male / Female) Normal Values 2D ECHO LV Diastolic Diameter PLAX 3.9 cm 4.2 - 5.9 / 3.9 - 5.3 cm IVS Diastolic Thickness 1.5 cm 0.6 - 1.0 / 0.6 - 0.9 cm IVS Systolic Thickness 2.2 cm LVPW Diastolic Thickness 0.9 cm 0.6 - 1.0 / 0.6 - 0.9 cm LVPW Systolic Thickness 1.5 cm LVOT Diameter 2.1 cm LV Ejection Fraction 2D Teich 55.4 % LV Ejection Fraction MOD 4C 55.5 % LV Ejection Fraction MOD 2C 57.0 % LV Ejection Fraction 2C AL 59.4 % LA Diameter 3.5 cm RA Systolic Volume 4C AL 61.5 ml RA Systolic Volume 4C MOD 59.0 ml LA Sys Volume AL 100.2 cm cubed LA Sys Volume Index AL 44.1 cm cubed/m squared Aorta at Sinotubular Diameter 2.8 cm IVC Diameter 2.5 cm M-MODE LA Ao Ratio MM 1.6 AV Cusp Separation MM 1.5 cm DOPPLER AV Peak Velocity 230.0 cm/s LVOT Peak Velocity 71.0 cm/s AV Area Cont Eq vti 1.1 cm squared AV Area Cont Eq pk 1.0 cm squared MV Peak Velocity 92.0 cm/s MV Area PHT 3.3 cm squared Mitral E to A Ratio 3.3 TV Peak Velocity 258.5 cm/s TR Peak Velocity 265.0 cm/s TR Peak Gradient 28.1 mmHg TV Peak E Velocity 71.0 cm/s PV Peak Velocity 75.0 cm/s FINDINGS Left Ventricle Left ventricle is normal in size. LV systolic function is normal with EF of 55-60%. No regional wall motion abnormalities are seen. Right Ventricle Normal in size and function Right Atrium Normal in size Left Atrium Dilated Mitral Valve Grossly normal. Mild mitral regurgitation Aortic Valve Aortic valve is thickened. Mild to moderate aortic stenosis with aortic valve area 1.11 cm2 and mean gradient of 12 mmHg. Tricuspid Valve Mild tricuspid regurgitation. RVSP is 25-30 mmHg. Pulmonic Valve Not well visualized Pericardium Normal Aorta Normal in size IVC Appears to be dilated CONCLUSIONS LV systolic function is normal with EF of 55-60%. Left atrial dilation. Mild mitral regurgitation. Mild to moderate aortic stenosis. Mild tricuspid regurgitation. IVC appears to be dilated. Peng Dillon MD (Electronically Signed) Final Date: 17 February 2025 10:19 S
== END 2025-02-03 13:17 | disposition home or self-care (01) ==
PROVIDERS: PCP Nurse Practitioner Family; Visit Provider Internal Medicine
DX: I35.0 Nonrheumatic aortic (valve) stenosis (principal); I34.0 Nonrheumatic mitral (valve) insufficiency; I35.8 Other nonrheumatic aortic valve disorders; I07.1 Rheumatic tricuspid insufficiency; R93.1 Abnormal findings on diagnostic imaging of heart and coronary circulation
CPT/HCPCS: 93306

== ENCOUNTER 2025-04-06 20:10 | Emergency (ER) | payer OTHER, SELFPAY ==
--- OUTSIDE RECORDS SUMMARY | 2024-09-17 08:00 | XMS_ITS | Encounter Summary ---
Author Name [facility] Organization [facility] Address [address] [place] [address] Care Team Providers Care Missileman Name Role Phone ADAMS, BARBARA Primary Care Provider Unavailabl e Insurance Providers: All historical and current Section Date Range: From patient's date of to the date document was created. This section includes the names of all active insurance providers for the patient. Insurance Provider Type of Coverage Plan Name Start of Policy Coverage End of Policy Coverage Group Number Member ID Insurance Provider's Telephone Number Policy Polk's Name Patient's Relationship to Policy Polk Selected Encounter This section includes the information on record at [place] for the Encounter. Date/Time Encounter Type Encounter Description Reason Provider Source Sep 17, 2024 01:00 PM OFFICE O/P EST MOD 30 MIN PRIMARY CARE/MEDICINE ICD-10-CM Z23 Encounter for immunization JO-ANN LUONG Deana Encounter Template Text not used by [place] Assessments - Encounter Diagnoses This section includes the primary and secondary diagnoses documented for the Encounter. Date/Time Primary/Secondary Diagnosis Diagnosis Name Provider Source Sep 17, 2024 02:18 PM PRIMARY Encounter for immunization [facility] Sep 17, 2024 02:18 PM SECONDARY Chronic kidney disease, unspecified [facility]IA LU[facility] Sep 17, 2024 02:18 PM SECONDARY Chronic rhinitis [facility] Sep 17, 2024 02:18 PM SECONDARY Essential (primary) hypertension GIA LUONG [facility] Sep 17, 2024 02:18 PM SECONDARY Tinea pedis GIA LUONG [facility] Sep 17, 2024 02:18 PM SECONDARY Unspecified cataract GIA LUONG [facility] Plan of Treatment: Future Appointments (+ 6 months) and Future Tests (+/- 45 days) The Plan of Treatment section includes future care activities for the patient from all [facility]. This section includes future appointments and future orders which are active, pending or scheduled. Future Appointments This section includes appointments that were scheduled to occur 6 months from the date of the Encounter, up to a maximum of 20 appointments. The data comes from all [place] treatment facilities. Appointment Date/Time Appointment Type Appointme nt Facility Name Sep 26, 2024 02:30 PM AMBULATORY - [facility]IC[facility] [place] [facility] Oct 14, 2024 01:30 PM AMBULATORY - [facility]IC[facility] [place] [facility] Nov 06, 2024 01:15 PM [facility] - [facility]IC[facility] Lab Results: +/- 30 days of the encounter This section includes the Chemistry and Hematology Lab Results on record with [place] for the patient. Radiology Reports and Pathology Reports are provided separately, in subsequent sections. Lab Results This section contains the Chemistry/Hematology Results that were resulted 30 days before or 30 daysafter the date of the Encounter. Date/Time Source Result Type Result - Unit Interpretation Reference Range Specimen Type Comment Oct 16, 2024 08:51 AM [facility] HGA1C BLOOD Specimen Type: BLOOD No comment entered. Ordering Provider: GIA LUONG Report Released Date/Time: Oct 16, 2024 08:32 AM Reporting Lab: [place] [facility] [address] [place] [address] Performing Lab: [place] [facility] [address] [place] [address] HGA1C 7.1 H 4.0-6.0 Vital Signs: All taken on the encounter date This section contains inpatient and outpatient Vital Signs collected on the date of the Encounter. Date/Time Temperature Pulse Blood Pressure Respiratory Rate SP02 Pain Height Weight Body Mass Index Source Sep 17, 2024 01:30 PM 97.9 57 132/79 20 96 3 223.6 32 [facility] Immunizations: All administered on the encounter date This section contains immunizations associated to the Encounter. Immunization Series Date Issued Administered By Site Reaction Lot Number CVX Code Drug Eyeglass Frames Polisher Comment(s) Source TDAP Sep 17, 2024 MEAGAN ROLAND RIGHT DELTO ID [id number] [facility] Social History: Smoking Status (Most current) and Tobacco Use (All prior to encounter date) This section includes the most current, and the historical, smoking and tobacco- related health factors from the [place] facility where the Encounter took place. Current Smoking Status This section includes the most current smoking, or tobacco-related health factor, from the [place] facility where the Encounter took place. Date/Time Current Smoking Status Comment Facil ity Mar 12, 2024 01:45 PM [place]-TOBACCO FORMER USER [facility] Tobacco Use History This section includes a history of the smoking, or tobacco-related health factors, that were collected on or before the date of the Encounter. The data comes from the [facility] where the Encounter took place. Date/Time Smoking Status/Tobacco Use Comment F acility Mar 12, 2024 01:45 PM [place]-TOBACCO QUIT 15 YRS OR MORE [facility] Nov 14, 2005 10:49 AM CURRENT NON-TOBACC O USER-HX OF USE Pt stopped smoking 3 months ago [facility] Apr 14, 2005 09:32 AM CURRENT TOBACCO USER [facility] Oct 14, 2004 10:22 AM CURRENT TOBACCO USER [facility] Apr 29, 2004 08:37 AM CURRENT TOBACCO USER [facility] Oct 29, 2003 08:59 AM CURRENT NON-TOBACC O USER-HX OF USE [facility] May 14, 2003 09:03 AM CURRENT TOBACCO USER [facility] Nov 20, 2002 10:12 AM CURRENT TOBACCO USER [facility] Dec 07, 2001 08:10 AM TOB-SMOKES OR USES TOBACCO PRODUCTS 1 PK DAY [facility] Encounter Notes: All associated encounter notes This section contains the clinical notes associated to the Encounter. Date/Time Encounter Note(s) Provider Source Oct 21, 2024 06:50 AM GENERAL MEDICINE N OTE: LOCAL TITLE: General Note PB STANDARD TITLE: GENERAL MEDICINE NOTE DATE OF NOTE: OCT 21, 2024@06:50 ENTRY DATE: OCT 21, 2024@06:50:44 AUTHOR: GIA LUONG EXP COSIGNER: URGENCY: STATUS: COMPLETED please send the HgA1c to [facility] /syd[place]/ CHELSIE Gleason, MSN, Tito Muñoz [facility] Signed: 10/21/2024 06:52 Receipt Acknowledged By: 10/24/2024 14:43 /sydney/ LYNDSEY WILLIS [facility] [place] [facility] GIA LUONG [facility] Sep 17, 2024 01:46 PM PRIMARY CARE PROGR ESS NOTE: LOCAL TITLE: PRIMARY CARE CLINIC PROGRESS NOTE PB STANDARD TITLE: PRIMARY CARE PROGRESS NOTE DATE OF NOTE: SEP 17, 2024@13:46 ENTRY DATE: SEP 17, 2024@13:46:30 AUTHOR: GIA LUONG EXP COSIGNER: URGENCY: STATUS: COMPLETED Date & Time:Sep@13:48 This is a 79 year old MALE Allergies: SIMVASTATIN CC: 6-month follow-up complaining of pain into HPI: Addison presented today for a scheduled appointment for a 6-month follow-up lawn his diabetes and hypertension. denies complaints other than he is having pain in his toe on the left foot in between the fifth and fourth toe has a rash with skin peeling very moist prefers natural remedies instructed to use tea tree oil for fungal infections and it looked like it was athlete's foot. And it does and can be painful. 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 Mild lower extremity edema noted today. also states that he has cataracts and glaucoma and that he needs ophthalmology consult that will be placed today Temperature: 97.9 F [36.6 C] (09/17/2024 13:30) Respiratory Rate: 20 (09/17/2024 13:30) Pulse Rate: 57 (09/17/2024 13:30) Blood Pressure: 132/79 (09/17/2024 13:30) HT: 70 in [177.8 cm] (07/11/2006 08:07) WT: 223.6 lb [101.42 kg] (09/17/2024 13:30) BMI: 32.2 96% (09/17/2024 13:30) REVIEW OF SYSTEMS: HEENT: No headache. No blurry vision, vision loss, eye pain, red eyes, or foreign body. No runny nose, congestion, or nose bleed. No hearing loss, ringing in the ears, or vertigo. No sore throat or dental pain. RESPIRATORY: No cough, SOA, wheezing, or sputum production. CARDIOVASCULAR: No chest pain, palpitations, tachycardia, PND, or orthopnea. GI: No abdominal pain, nausea, vomiting, diarrhea, constipation, melena, or hematochezia. : No dysuria, hematuria, urinary frequency, weak stream, or post-void dribbling. MUSCULOSKELETAL: No muscle or joint pain. SKIN: No rash, lesions, or infection PSYCH: No depression and anxious at this time. Not suicidal. 1) BENIGN HYPERTENSION 2) LUMBAGO 3) SCREENING FOR DEPRESSION 4) SCREENING FOR ALCOHOLISM 5) TOBACCO USE DISORDER, UNSPECIFIED USE 6) Hyperlipidemia 7) Male erectile disorder (ICD-9-CM 302.72/607.84) 8) Atrial fibrillation 9) Benign localized hyperplasia of prostate 10) Diabetes Mellitus Type 2 ([facility] [id number]) 11) Chronic kidney disease 12) Essential hypertension 13) Chronic low back pain 14) History of calculus of kidney 15) Intermittent urinary incontinence 16) Carcinoma of colon 17) Glaucoma 18) Bilateral cataracts 19) Lower urinary tract symptoms due to benign prostatic hypertrophy Active Outpatient Medications (including Supplies): Active Outpatient Medications Status 1) ACCU-CHEK GUIDE (GLUCOSE) TEST STRIP USE 1 STRIP FOR BLOOD ACTIVE (S) TEST TWO TIMES PER WEEK Indication: FOR BLOOD SUGAR MONITORING 2) ALCOHOL PREP PAD USE/APPLY PAD TO AFFECTED AREA(S) ONCE A ACTIVE DAY NEEDED Indication: FOR WOUND CARE 3) AMIODARONE HCL (PACERONE) 200MG TAB TAKE ONE TABLET BY MOUTH ACTIVE ONCE A DAY AVOID TAKING WITH GRAPEFRUIT JUICE. USE OF SUNSCREEN IS RECOMMENDED. Indication: FOR VENTRICULAR ARRHYTHMIA 4) APIXABAN 5MG TAB TAKE ONE-HALF TABLET BY MOUTH TWICE A DAY ACTIVE Indication: FOR ANTICOAGULATION 5) CHLORTHALIDONE 25MG TAB TAKE ONE-HALF TABLET BY MOUTH ONCE A ACTIVE DAY Indication: FOR HIGH BLOOD PRESSURE 6) EMPAGLIFLOZIN 25MG TAB TAKE ONE-HALF TABLET BY MOUTH ONCE A ACTIVE DAY Indication: FOR DIABETES 7) FINASTERIDE 5MG TAB TAKE ONE TABLET BY MOUTH ONCE A DAY ACTIVE SWALLOW WHOLE, DO NOT CRUSH, SPLIT, OR CHEW. Indication: FOR BENIGN PROSTATIC HYPERPLASIA 8) FUROSEMIDE 20MG TAB TAKE ONE TABLET BY MOUTH TWICE DAILY ACTIVE NEEDED TAKE POTASSIUM WHEN TAKING Indication: FOR FLUID RETENTION (EDEMA) 9) GEMFIBROZIL 600MG TAB TAKE ONE TABLET BY MOUTH TWO TIMES A ACTIVE DAY BEFORE MEALS (30 MINUTES BEFORE A MEAL) Indication: FOR HIGH TRIGLYCERIDES 10) INCONT LINER DEPEND GUARDS USE/APPLY PAD THREE TIMES A ACTIVE DAY Indication: FOR INCONTINENCE CARE 11) LANCET,SOFTCLIX USE LANCET FOR BLOOD TEST TWO TIMES PER WEEK ACTIVE Indication: FOR BLOOD SUGAR MONITORING 12) LOSARTAN 50MG TAB TAKE ONE-HALF TABLET BY MOUTH ONCE A DAY ACTIVE Indication: FOR HIGH BLOOD PRESSURE 13) POTASSIUM CL 20MEQ SA TAB (DISPERSIBLE) TAKE ONE-HALF TABLET ACTIVE BY MOUTH ONCE A DAY NEEDED TAKE WITH FOOD WHEN TAKING FUROSEMIDE Indication: FOR POTASSIUM SUPPLEMENTATION 14) SITAGLIPTIN (EQV-ZITUVIO) 50MG TAB TAKE ONE TABLET BY MOUTH ACTIVE ONCE A DAY Indication: FOR DIABETES 15) TAMSULOSIN HCL 0.4MG CAP TAKE TWO CAPSULES BY MOUTH EVERY ACTIVE EVENING APPROXIMATELY 30 MINUTES AFTER THE SAME MEAL EACH DAY Indication: FOR BENIGN PROSTATIC HYPERPLASIA 16) TRIAMCINOLONE ACETONIDE 0.1% CREAM APPLY SPARINGLY TO ACTIVE AFFECTED AREA(S) FOUR TIMES A DAY NEEDED (EXTERNAL USE ONLY) Indication: FOR ATOPIC DERMATITIS Active Non-VA Medications Status 1) Non-VA ACETAMINOPHEN 325MG TAB 650MG BY MOUTH EVERY 6 HOURS ACTIVE NEEDED Indication: FOR PAIN 17 Total Medications OBJECTIVE: Physical Exam General: NAD noted, A&Ox3, pleasant, appears stated age HEENT: NCAT, TM's clear, pharynx slightly erythematous with cobble stoning negative Neck: Supple with normal active ROM, without any lymphadenopathy Heart: RRR, no murmur, clicks, or rub Resp: Lungs CTA bilaterally, respirations even and unlabored Abdomen: Soft, non-distended, non-tender Ext: No clubbing, cyanosis, or obvious deformity. Slight edema to lower extremities nonpitting Neuro: Grossly intact Psych: Affect normal, answers questions appropriately throughout visit Assessment/Plan: tinea pedis -current Plan to use tea tree all 2 toes if ineffective to notify clinic so that prescription can be mailed Cataracts -current Plan to place consult for ophthalmology Dr. Chery here in [facility] Chronic kidney disease -current Plan to continue taking furosemide as needed per nephrology's order's Hypertension -current plan to continue losartan Chronic rhinitis -current Plan to send Flonase in the mail Follow-up: ___6__ months and/or as needed. Discussed with patient that in the event of community imaging / testing being ordered in the future, once the imaging / testing has been completed, please notify PACT of completion at outside facility if not called with results within 1 week by a VA PACT member; this is due to intermittent lapses in notification of imaging completion within [facility]. All questions answered; agrees to plan of care. Follow up as listed above, annually, and as needed. Keep all appointments. Medications Reconciled. See AVS given to . Time spent 30 minutes. Gia HOLGUIN-BC *Hgb A1C 7 or >: The importance of exercise in relationship to blood sugar control was discussed with the patient. Diabetic dietary restrictions were discussed with the patient. Basic diet rules reviewed. Food Pyramid reviewed. /sydney/ CHELSIE Gleason, MSN, Tito Muñoz [facility] Signed: 09/17/2024 14:28 GIA LUONG [facility] Sep 17, 2024 01:11 PM PRIMARY CARE NURSI NG NOTE: LOCAL TITLE: PRIMARY CARE NURSING PROGRESS NOTE (TEXT) NURSING P STANDARD TITLE: PRIMARY CARE NURSING NOTE DATE OF NOTE: SEP 17, 2024@13:11 ENTRY DATE: SEP 17, 2024@13:12:02 AUTHOR: QUOC ROLAND COSIGNER: URGENCY: STATUS: COMPLETED Established Patient VALENTIN LÓPEZ IS A 79 YEAR OLD MALE BEING SEEN IN CLINIC SEP 17, 2024. = = REASON FOR VISIT: 6 month follow up. Left pinky toe pain x 2 months. Continued edema in bilateral feet and ankles, Needs opthamology consult for WP as Optometry recommended for Bilateral cataracts. Are you receiving care any where other than the [facility]? No HEALTH AND SURGICAL HISTORY: No new surgeries Does patient report using home oxygen? No CURRENT ACTIVE MEDICATIONS FOR REVIEW: Allergies/ADRs (Tool #5) FACILITY ALLERGY/ADR -------- No Remote Allergy/ADR Data available for this patient [facility] SIMVASTATIN Med. Reconciliation (Tool #1) INCLUDED IN THIS LIST: Alphabetical list of active outpatient prescriptions dispensed from this VA (local) and dispensed from another VA or DoD facility (remote) as well as inpatient orders (local pending and active), local clinic medications, locally documented non-VA medications, and local prescriptions that have or been discontinued in the past 90 days. Non-VA Meds Last Documented On: Mar 14, 2024 NOTE The display of VA prescriptions dispensed from another VA or DoD facility (remote) is limited to active outpatient prescription entries matched to National Drug File at the originating site and may not include some items such as investigational drugs, compounds, etc. NOT INCLUDED IN THIS LIST: Medications self-entered by the patient into personal health records (i.e. [employer]) are NOT included in this list. Non-VA medications documented outside this [place], remote inpatient orders (regardless of status) and remote clinic medications are NOT included in this list. The patient and provider must always discuss medications the patient is taking, regardless of where the medication was dispensed or obtained. Non-VA ACETAMINOPHEN 325MG TAB TAKE TWO TABLETS BY MOUTH EVERY 6 HOURS NEEDED Over The Counter Indication: FOR PAIN OUTPT AMIODARONE HCL (PACERONE) 200MG TAB (Status = Active) TAKE ONE TABLET BY MOUTH ONCE A DAY FOR VENTRICULAR ARRHYTHMIA AVOID TAKING WITH GRAPEFRUIT JUICE. USE OF SUNSCREEN IS RECOMMENDED. Rx# [id number] Last Released: 09/09/24 Qty/Days Supply: Rx Expiration Date: 03/15/25 Refills Remainin Indication: FOR VENTRICULAR ARRHYTHMIA OUTPT APIXABAN 5MG TAB (Status = Active) TAKE ONE-HALF TABLET BY MOUTH TWICE A DAY FOR ANTICOAGULATION Rx# [id number] Last Released: 09/14/24 Qty/Days Supply: Rx Expiration Date: 04/11/25 Refills Remainin Indication: FOR ANTICOAGULATION OUTPT CHLORTHALIDONE 25MG TAB (Status = Active) TAKE ONE-HALF TABLET BY MOUTH ONCE A DAY FOR HIGH BLOOD PRESSURE Rx# [id number] Last Released: 07/10/24 Qty/Days Supply: Rx Expiration Date: 03/15/25 Refills Remainin Indication: FOR HIGH BLOOD PRESSURE OUTPT EMPAGLIFLOZIN 25MG TAB (Status = Active) TAKE ONE-HALF TABLET BY MOUTH ONCE A DAY FOR DIABETES Rx# [id number] Last Released: 06/21/24 Qty/Days Supply: Rx Expiration Date: 03/20/25 Refills Remainin Indication: FOR DIABETES OUTPT FINASTERIDE 5MG TAB (Status = Active) TAKE ONE TABLET BY MOUTH ONCE A DAY FOR BENIGN PROSTATIC HYPERPLASIA SWALLOW WHOLE, DO NOT CRUSH, SPLIT, OR CHEW. Rx# [id number] Last Released: 03/20/24 Qty/Days Supply: 90/ Rx Expiration Date: 03/15/25 Refills Remainin Indication: FOR BENIGN PROSTATIC HYPERPLASIA OUTPT FUROSEMIDE 20MG TAB (Status = Active) TAKE ONE TABLET BY MOUTH TWICE DAILY NEEDED FOR FLUID RETENTION (EDEMA) TAKE POTASSIUM WHEN TAKING Rx# [id number] Last Released: 03/20/24 Qty/Days Supply: 180/ Rx Expiration Date: 03/15/25 Refills Remainin Indication: FOR FLUID RETENTION (EDEMA) OUTPT GEMFIBROZIL 600MG TAB (Status = Active) TAKE ONE TABLET BY MOUTH TWO TIMES A DAY BEFORE MEALS FOR HIGH TRIGLYCERIDES (30 MINUTES BEFORE A MEAL) Rx# [id number] Last Released: 08/24/24 Qty/Days Supply: 180/90 Rx Expiration Date: 03/15/25 Refills Remainin Indication: FOR HIGH TRIGLYCERIDES OUTPT LOSARTAN 50MG TAB (Status = Active) TAKE ONE-HALF TABLET BY MOUTH ONCE A DAY FOR HIGH BLOOD PRESSURE Rx# [id number] Last Released: 06/21/24 Qty/Days Supply: 45/ Rx Expiration Date: 06/18/25 Refills Remainin Indication: FOR HIGH BLOOD PRESSURE OUTPT POTASSIUM CL 20MEQ SA TAB (DISPERSIBLE) (Status = Active) TAKE ONE-HALF TABLET BY MOUTH ONCE A DAY NEEDED FOR POTASSIUM SUPPLEMENTATION TAKE WITH FOOD WHEN TAKING FUROSEMIDE Rx# [id number] Last Released: 03/19/24 Qty/Days Supply: 90/ Rx Expiration Date: 03/15/25 Refills Remainin Indication: FOR POTASSIUM SUPPLEMENTATION OUTPT SITAGLIPTIN (EQV-ZITUVIO) 50MG TAB (Status = Active) TAKE ONE TABLET BY MOUTH ONCE A DAY FOR DIABETES Rx# [id number] Last Released: 06/21/24 Qty/Days Supply: 90/ Rx Expiration Date: 03/15/25 Refills Remainin Indication: FOR DIABETES OUTPT TAMSULOSIN HCL 0.4MG CAP (Status = Active) TAKE TWO CAPSULES BY MOUTH EVERY EVENING FOR BENIGN PROSTATIC HYPERPLASIA APPROXIMATELY 30 MINUTES AFTER THE SAME MEAL EACH DAY Rx# [id number] Last Released: 07/04/24 Qty/Days Supply: 180/ Rx Expiration Date: 03/15/25 Refills Remainin Indication: FOR BENIGN PROSTATIC HYPERPLASIA OUTPT TRIAMCINOLONE ACETONIDE 0.1% CREAM (Status = Active) APPLY SPARINGLY TO AFFECTED AREA(S) FOUR TIMES A DAY NEEDED FOR ATOPIC DERMATITIS (EXTERNAL USE ONLY) Rx# [id number] Last Released: 03/20/24 Qty/Days Supply: 160/ Rx Expiration Date: 03/15/25 Refills Remainin Indication: FOR ATOPIC DERMATITIS SUPPLIES OUTPT ACCU-CHEK GUIDE (GLUCOSE) TEST STRIP (Status = Active/Suspended) USE 1 STRIP FOR BLOOD TEST TWO TIMES PER WEEK FOR BLOOD SUGAR MONITORING Rx# [id number] Last Released: 07/20/24 Qty/Days Supply: 50/ Rx Expiration Date: 07/18/25 Refills Remainin Indication: FOR BLOOD SUGAR MONITORING OUTPT ALCOHOL PREP PAD (Status = Active) USE/APPLY PAD TO AFFECTED AREA(S) ONCE A DAY NEEDED FOR WOUND CARE Rx# [id number] Last Released: 03/18/24 Qty/Days Supply: 200/90 Rx Expiration Date: 03/15/25 Refills Remainin Indication: FOR WOUND CARE OUTPT INCONT LINER DEPEND GUARDS (Status = Active) USE/APPLY PAD THREE TIMES A DAY FOR INCONTINENCE CARE Rx# [id number] Last Released: 08/18/24 Qty/Days Supply: 312/90 Rx Expiration Date: 03/15/25 Refills Remainin Indication: FOR INCONTINENCE CARE OUTPT LANCET,SOFTCLIX (Status = Active) USE LANCET FOR BLOOD TEST TWO TIMES PER WEEK FOR BLOOD SUGAR MONITORING Rx# [id number] Last Released: 03/20/24 Qty/Days Supply: 100/90 Rx Expiration Date: 03/15/25 Refills Remainin Indication: FOR BLOOD SUGAR MONITORING PHARMACY TERMS AND POSSIBLE PATIENT ACTIONS INPT = [place] inpatient order IV = [place] intravenous medication OUTPT = [place] outpatient prescription PHARMACY POSSIBLE PATIENT TERMS EXPLANATION ACTIONS -------- ---- ACTIVE A prescription that can be If you have refills, filled at the local [place] pharmacy. you may request a refill of this prescription from your VA pharmacy. CLINIC A medication you received during If you have questions a visit to a [place] clinic or about this medication emergency department. contact your [place] healthcare team. DISCONTINUED A prescription your provider has Contact your VA stopped. It is no longer healthcare team if you available to be sent to you or need more of this picked up at the [place] pharmacy medication. window. A prescription which is too old Contact your VA to fill. This does not refer to healthcare team if you the expiration date of the need more of this medication in the container. medication. NON-VA A medication that came from If this medication someplace other than a VA information is pharmacy. This may be a incorrect or out of prescription from either the VA date, please tell your or non VA providers that was VA healthcare team. filled outside the VA. Or, it may be an atjn-mmj-eusmzhm (OTC), herbal, dietary supplements or sample medication. ON HOLD An active prescription that will Contact your VA not be filled until pharmacy pharmacy when you need resolves the issue. more of this medication. PARKED An active prescription that will Contact your VA not be filled until the patient pharmacy when you need requests it. this medication. PENDING This prescription order has been If you have been sent to the pharmacy for review instructed to start and is not ready yet. this medication now, contact your VA pharmacy. SUSPENDED An active prescription that is Contact your VA not scheduled to be filled yet. pharmacy if you need You should receive it before this medication now. you run out. Patient reports taking medications as ordered. Taking Januvia 25mg daily IS PATIENT TAKING ANY OVER THE COUNTER MEDICATIONS, SUCH VITAMINS OR HERBAL SUPPLEMENTS, INCLUDING ANY MEDICATIONS PRESCRIBED BY ANOTHER PHYSICIAN? Yes, List: Zinc, Vit D Preservision ALLERGIES/ADVERSE REACTIONS: SIMVASTATIN Does patient have any new allergies to report since last visit? NO VITALS: TEMPERATURE: 98 F [36.7 C] (03/19/2024 14:46) BP: 122/72 (03/19/2024 14:52) RESP: 20 (03/19/2024 14:46) PULSE: 74 (03/19/2024 14:46) HT: 70 in [177.8 cm] (07/11/2006 08:07) WT: 226.3 lb [102.65 kg] (03/19/2024 14:46) BMI: 32.5 PAIN ASSESSMENT: (Most Recent Pain Score in Vitals Package: 0 (03/19/2024 14:46) ) The patient indicated that they and their close contacts have not traveled outside of the [place] in the past 21 days. The patient reports the following symptoms: No symptoms present The patient is not immunocompromised. The patient does not report having a history of Multi Drug Resistant Organism (MDRO) within the last five years. The patient does not report having been exposed to measles, chickenpox, or zoster in last 30 days. STRESS: Thank you for your service. Now let us serve you. At the [facility], we strive to provide you with exceptional health care that improves your health and well-being. Are you feeling sad, empty, or depressed? No Do you need to talk about things in your life that worry you or cause you stress? No Do you need to talk about personal problems, family problems, alcohol use, drug use, or mental or emotional illness? No SUICIDE SCREENING: The patient was asked, Over the past two weeks, how often have you been bothered by thoughts that you would be better off or of hurting yourself in some way? Not At All SPIRITUAL ASSESSMENT: Are there taoist practices or spiritual concerns you want the application development consultant, your physician, and other health care team members to immediately know about? No Patient advised to call the clinic for any concerns, questions, or symptoms. Patient and/or caregiver verbalized understanding of plan of care. RHS Screen - VS: RHS Screen Session Format: Face to Face Environmental Check Upon inquiry, the individual reports that the environment is safe to proceed. Informed Consent to Screen and Document The individual consents to proceed with screening. The individual consents to documentation of responses. PRIMARY SCREEN: In the past 12 months, how often did a current or former intimate partner (e.g., boyfriend, girlfriend, , , sexual partner): 1. Scream or curse at you Never 2. Insult or talk down to you Never 3. Threaten you with harm Never 4. Physically hurt you Never 5. Force or pressure you to have sexual contact against your will, or when you were unable to say no Never The HITS tool (items 1-4 above) is US copyright protected by Colton Grimaldo MD, and the user has full rights to use it throughout the [place] system. PRIMARY SCREEN RESULT: The Primary Screen is NEGATIVE. The individual answered never to all forms of IPV above (i.e., answered never to all 5 items) The individual accepts education and/or resources: Yes - Offered verbal universal education about IPV EDUCATION: The individual indicated readiness to learn. Education offered during this session as noted above. The individual indicated understanding by asking relevant questions and making appropriate comments. No barriers to learning were observed or identified. COVID-19 Immunization - L,N,P,PH,U: Refused Moderna Monovalent COVID-19 vaccine Immunization: COVID-19 (MODERNA), MRNA, LNP-S, PF, 50 MCG/0.5 ML (AGES 12+ YEARS) Refusal Reason: PATIENT DECISION Patient refuses all immunization(s) in the COVID-19 group Date Documented: 09/17/24 13:25 Influenza Immunization - L,N,P,PH,U: Deferral / Refusal The patient declines to receive the recommended dose of seasonal influenza vaccine. Immunization: INFLUENZA, UNSPECIFIED FORMULATION Refusal Reason: PATIENT DECISION Patient refuses all immunization(s) in the FLU group Date Documented: 09/17/24 13:25 Pneumococcal Conjugate Vaccine (PCV15/PCV20) - L,N,P,PH,U: Refuses PCV vaccine Immunization: PNEUMOCOCCAL CONJUGATE, UNSPECIFIED FORMULATION Refusal Reason: PATIENT DECISION Patient refuses all immunization(s) in the PneumoPCV group Date Documented: 09/17/24 13:26 Pain Assessment: - PAIN ASSESSMENT: .. Patient is reporting some pain. PAIN SCORE TODAY: 3 Patient's self identified pain goal: 0 Herpes Zoster (Shingles) Vaccine - L,N,P,PH,U: The patient declines to receive the recommended dose of zoster (shingles) vaccine. Immunization: ZOSTER RECOMBINANT Refusal Reason: PATIENT DECISION Patient refuses all immunization(s) in the ZOSTER group Date Documented: 09/17/24 13:26 Patient/Nurse Interview: * * Patient stated that adequate information was received regarding the condition and/or treatment. PAVE Foot Check - L,N,P,PH,PO,PT,U: A complete foot check was completed at this encounter. VISUAL INSPECTION: Includes inspection for skin breaks, deformity, erythema, trauma, pallor on elevation, dependent rubor, nail deformities, extensive callus and pitting edema. Visual exam results: Normal PEDAL PULSES: Includes palpation of dorsalis and posterior tibial pulses and signs/symptoms of vascular compromise like pain, pallor, parasthesia or paralysis. Present (even if diminished) SENSORY CHECK: Includes 10 gram Monofilament (Moore-Navarro) test of sensation. Intact (Greater than or equal to 80% of sites checked) Abnormal (Less than 80% of sites checked): Intact LOW-RISK: LOW RISK INFORMATION PROVIDED: 1. Advised patient not to walk barefoot. 2. Explained the importance of daily foot checks for changes. 3. Stressed the importance of daily foot hygiene, including bathing and complete drying. The patient verbalized understanding and was offered a detailed handout on diabetic foot care. Tdap Immunization - L,N,P,PH,U: Administered: TDAP Date Administered: Sep 17, 2024 13:00 Eyeglass Frames Polisher: [employer] Lot: [id number] Exp Date: May 11, 2025 [facility]: [phone] Admin Route/Site: INTRAMUSCULAR/RIGHT DELTOID Dosage: 0.5mL Vaccine Information Statement(s): TDAP (TETANUS, DIPHTHERIA, PERTUSSIS) VACCINE VIS Mar 19, 2021 (YI) Order By: Policy Administered By: Quoc Roland Vaccine Information Sheet (VIS) was given to the patient/caregiver, education regarding adverse reactions was discussed, as well as barriers to learning, if any, were acknowledged. Per [facility] Directive 1605.06, wristband documentation: Patient wristband was removed and destroyed by (staff name) Quoc Roland and placed in the designated [employer] bin. /es/ Quoc Roland MECHANICAL SPECIALIST TITO MUÑOZ [facility] Signed: 09/17/2024 13:42 QUOC ROLAND [facility]
--- OUTSIDE RECORDS SUMMARY | 2025-02-26 01:00 | XMS_ITS ---
Author Organization [facility] Address [address] [place] [address] Care Team Providers Care Dental Prosthetist Name Role Phone MAGO BEJARANO Unavailable [phone] ARAMIS DE SOUZA Unavailable [phone] REASON FOR VISIT PVP Encounters Encounter Location Date Provider Diagnosis [facility] [address] [facility] [place] [address] 02/26/2025 ARAMIS DE SOUZA Plan Of Treatment Next Appt Details Provider Name:MAGO BEJARANO, 1 10/05/2024 10:40:00 AM, [address] [facility] [place], [address], Progress Notes * Antoine LÓPEZDOB:1945 (80 yo M)Acc No.[id number]:02/26/2025 Patient: Antoine SABA Provider: Richard DE SOUZA MD :1945 A ge:80 Y S ex:Male Date:02/26/2025 Address:[address] [place] [phone] * Billing Information: * Visit Code: * Procedure Codes: * Electronic signature of AUST IN MD AP on 04/06/2025 at 08:28 PM CDT Sign off status: Pending * Provider: Richard DE SOUZA MD Date: 02/26/2025 Generated for Printi ng/Faxing/eTransmitting on: 04/06/2025 08:28 PM CDT
--- OUTSIDE RECORDS SUMMARY | 2025-03-17 08:57 | XMS_ITS | Encounter Summary ---
Author Name [facility] Address [address] [place] [address] Care Team Providers Care Manufacturing Tech Name Role Phone BARBARA ADAMS Primary Care Provider Unavailabl e Insurance Providers: [...] Encounter. Date/Time Encounter Type Encounter Description Reason Pro vider Source Mar 17, 2025 01:57 PM Outpatient Encounter ADMIN PAT ACTIVTIES (MASNONCT) IHE Encounter Template Text not used by [place] Plan of Treatment: Future Appointments (+ 6 months) and Future Tests (+/- 45 days) The Plan of Treatment section includes future care activities for the patient from all [place] treatmentfacilities. This section includes future appointments and future orders which are active, pending or scheduled. Future Appointments This section includes appointments that were scheduled to occur 6 months from the date of the Encounter, up to a maximum of 20 appointments. The data comes from all [place] treatment facilities. Appointment Date/Time Appointment Type Appointme nt Facility Name Mar 19, 2025 09:30 AM AMBULATORY - MEDICINE [facility] Lab Results: +/- 30 days of the encounter This section includes the Chemistry and Hematology Lab Results on record with [facility] for the patient. Radiology Reports and Pathology Reports are provided separately, in subsequent sections. Lab Results This section contains the Chemistry/Hematology Results that were resulted 30 days before or 30 daysafter the date of the Encounter. Date/Time Source Result Type Result - Unit Interpretation Reference Range Specimen Type Comment Mar 19, 2025 10:11 AM [facility] B12 SERUM Specimen Type: SERUM No comment entered. Ordering Provider: BARBARA ADAMS III Report Released Date/Time: Mar 19, 2025 08:15 AM Reporting Lab: [place] [facility] [address] [place] [address] Performing Lab: [place] [facility] [address] [place] [address] B12 299 pg/mL 213-816 Mar 19, 2025 10:11 AM [facility] FOLATE (PB) SERUM Specimen Typ e: SERUM No comment entered. Ordering Provider: BARBARA ADAMS III Report Released Date/Time: Mar 19, 2025 08:15 AM Reporting Lab: [place] [facility] [address] [place] [address] Performing Lab: [place] [facility] [address] [place] [address] FOLATE (PB) 10.2 ng/mL 7-20 Mar 19, 2025 10:11 AM [facility] HGA1C BLOOD Specimen Type: BLOOD No comment entered. Ordering Provider: BARBARA ADAMS III Report Released Date/Time: Mar 19, 2025 08:15 AM Reporting Lab: [place] [facility] [address] [place] [address] Performing Lab: [place] [facility] [address] [place] [address] HGA1C 7.3 H 4.0-6.0 Mar 19, 2025 10:11 AM [facility] COMPREHENSIVE METABOLIC PANEL PLASMA Specimen Type: PLASMA No comment entered. Ordering Provider: BARBARA ADAMS III Report Released Date/Time: Mar 19, 2025 08:15 AM Reporting Lab: [place] [facility] [address] [place] [address] Performing Lab: [place] [facility] [address] [place] [address] CREATININE 1.55 mg/dL H 0.7-1.3 UREA NITROGEN 27 mg/dL H 9-25 GLUCOSE 142 mg/dL H 72-99 SODIUM 143 meq/L 136-145 POTASSIUM 3.5 meq/L 3.5-5 CHLORIDE 104 meq/L 98-107 CARBON DIOXIDE 26 meq/L 22-31 CALCIUM 9.5 mg/dL 8.4-10.4 PROTEIN 7.4 g/dL 6-8.6 ALBUMIN 4.3 g/dL 3.4-5 TOTAL BILIRUBIN 0.6 mg/dL 0.2-1.2 ALKALINE PHOSPHATASE 80 U/L 40-150 AST/SGOT 19 U/L 5-34 ALT/SGPT 16 U/L 8-40 EGFR (CKD-EPI 2020) 44 Mar 19, 2025 10:11 AM [facility] CBC BLOOD Specimen Type: BLOOD No comment entered. Ordering Provider: BARBARA ADAMS III Report Released Date/Time: Mar 19, 2025 08:15 AM Reporting Lab: [place] [facility] [address] [place] [address] Performing Lab: [place] [facility] [address] [facility] [place] [address] WBC 8.8 10*3/uL 3.6-11.2 RBC 5.00 10*6/uL 4.10-5.70 HGB 15.3 g/dL 13.1-16.8 HCT 46.0 38.2-48.4 MCV 92.0 fL 80.0-100.0 MCH 30.6 pg 27.0-34.0 MCHC 33.3 g/dL 33.0-36.0 PLT 206 10*3/uL 150-400 MPV 12.2 fL H 7.5-11.2 RDW 12.8 11.8-15.1 LYMPHOCYTES, AUTO % 18.5 MONOCYTES, AUTO % 6.6 NEUTROPHILS, AUTO % 71.5 EOSINOPHILS, AUTO % 1.9 BASOPHILS, AUTO % 0.9 LYMPHOCYTES, ABSOLUTE 1.63 10*3/uL 0.77- 4.50 MONOCYTES, ABSOLUTE 0.58 10*3/uL 0.19-0. 8 NEUTROPHILS, ABSOLUTE 6.32 10*3/uL 2.10- 8.00 EOSINOPHILS, ABSOLUTE 0.17 10*3/uL 0.00- 0.60 BASOPHILS, ABSOLUTE 0.08 10*3/uL 0.00-0. 20 IMMATURE GRANS, AUTO % 0.6 IMMATURE GRANS, AUTO ABS 0.05 10*3/uL 0. 00-0.05 Mar 19, 2025 10:11 AM [facility] VITAMIN D, 25-HYDROXY SERUM Specimen Type: SE RUM No comment entered. Ordering Provider: BARBARA ADAMS III Report Released Date/Time: Mar 19, 2025 08:15 AM Reporting Lab: [place] [facility] [address] [place] [address] Performing Lab: [place] [facility] [address] [place] [phone] VITAMIN D, 25-HYDROXY 67.6 ng/mL 30-96 Mar 19, 2025 10:11 AM [facility] TSH (MA-PB) SERUM Specimen Typ e: SERUM No comment entered. Ordering Provider: BARBARA ADAMS III Report Released Date/Time: Mar 19, 2025 08:15 AM Reporting Lab: [place] [facility] [address] [place] [address] Performing Lab: [place] [facility] [address] [place] [phone] TSH 1.533 u[IU]/mL 0.47-5 Mar 19, 2025 10:11 AM [facility] URINALYSIS (STL-PB) URINE Specimen Type: URIN E No comment entered. Ordering Provider: BARBARA ADAMS III Report Released Date/Time: Mar 19, 2025 08:15 AM Reporting Lab: [place] [facility] [address] [place] [address] Performing Lab: [place] [facility] [address] [place] [address] URINE COLOR Light Yellow Yellow U.BILIRUBIN NEGATIVE mg/dL Negative U.PH 6.0 5.0-8.0 URINE WBC/HPF 17 /[HPF] H 0-5 URINE RBC/HPF 4 /[HPF] 0-5 APPEARANCE CLEAR Clear U.NITRITE NEGATIVE mg/dL Negative SQUAMOUS EPITH. <1 /[HPF] 0-5 MUCUS RARE /[LPF] Negative-Rare URN.GLUCOSE NORMAL mg/dL Negative URN.PROTEIN NEGATIVE mg/dL URN.UROBILINOGEN NORMAL mg/dL Normal URN.BLOOD 3+ mg/dL H Negative-Trace URN.KETONES NEGATIVE mg/dL Negative-Trac e URN.LEUK.EST. 250 H Negative-Trace URN.SPECIFIC GRAVITY 1.019 1.005-1.029 Mar 19, 2025 10:11 AM [facility] CHOLESTEROL PANEL (PB) PLASMA Specimen Type: P LASMA No comment entered. Ordering Provider: BARBARA ADAMS III Report Released Date/Time: Mar 19, 2025 08:15 AM Reporting Lab: [place] [facility] [address] [place] [address] Performing Lab: [place] [facility] [address] [place] [address] CHOLESTEROL 193 mg/dL 0-200 TRIGLYCERIDE 84 mg/dL 0-150 CALCULATED LDL 127.2 mg/dL HDL(New) 49.0 mg/dL H >40 HDL % OF TOTAL CHOLESTEROL (PB) 25.4 >25 Mar 19, 2025 10:11 AM [facility] MAGNESIUM PLASM A Specimen Type: PLASMA No comment entered. Ordering Provider: BARBARA ADAMS III Report Released Date/Time: Mar 19, 2025 08:15 AM Reporting Lab: [place] [facility] [address] [place] [address] Performing Lab: [place] [facility] [address] [place] [address] MAGNESIUM 1.92 mg/dL 1.6-2.6 Mar 19, 2025 10:11 AM [facility] URINE ALBUMIN PROFILE-ih (PB) URINE Specimen Type: URINE No comment entered. Ordering Provider: BARBARA ADAMS III Report Released Date/Time: Mar 19, 2025 08:15 AM Reporting Lab: [place] [facility] [address] [place] [address] Performing Lab: [place] [facility] [address] [place] [address] URINE ALBUMIN (PB-STL) 71.05 mg/L uACR (PB-MA) 64.71 mg/g H 0-30 CREATININE URINE/OTHERS 109.79 mg/dL Social History: Smoking Status (Most current) and [...] 12, 2024 01:45 PM [place]-TOBACCO FORMER USER [facility] Tobacco Use History This section includes a history of the smoking, or tobacco-related health factors, that were collected on or before the date of the Encounter. The data comes from the [place] facility where the Encounter took place. Date/Time Smoking Status/Tobacco Use Comment F acmarino Mar 12, 2024 01:45 PM [place]-TOBACCO QUIT 15 YRS OR MORE [facility] Nov 14, 2005 10:49 AM CURRENT NON-TOBACC O USER-HX OF USE Pt stopped smoking 3 months ago [facility] Apr 14, 2005 09:32 AM CURRENT TOBACCO USER [facility] Oct 14, 2004 10:22 AM CURRENT TOBACCO USER [facility] Apr 29, 2004 08:37 AM CURRENT TOBACCO USER [facility] Oct 29, 2003 08:59 AM CURRENT NON-TOBACC O USER-HX OF USE [facility] May 14, 2003 09:03 AM CURRENT TOBACCO USER [facility] Nov 20, 2002 10:12 AM CURRENT TOBACCO USER [facility] Dec 07, 2001 08:10 AM TOB-SMOKES OR USES TOBACCO PRODUCTS 1 PK DAY [facility] Encounter Notes: All associated encounter notes This section contains the clinical notes associated to the Encounter. Date/Time Encounter Note(s) Provider Source Mar 17, 2025 01:57 PM GENERAL MEDICINE N OTE: LOCAL TITLE: General Note PB STANDARD TITLE: GENERAL MEDICINE NOTE DATE OF NOTE: MAR 17, 2025@13:57 ENTRY DATE: MAR 17, 2025@13:57:46 AUTHOR: BRADLEY HOWARD EXP COSIGNER: URGENCY: STATUS: COMPLETED Eye Care At-Risk Screen - L,N,PH,U: Patient identified to be at risk for the following eye condition(s): DIABETIC RETINOPATHY: Diabetes Diagnosis Information: Encounter Diagnosis: 03/19/2024@14:01 E11.9 (ICD-10-CM) Type 2 Diabetes Mellitus without Complications rank: SECONDARY Prov. Narr. - Diabetes Mellitus Type 2 ([facility] [id number]) GLAUCOMA: Glaucoma Risk Factors Information: Problem Diagnosis: 03/14/2024 H40.9 (ICD-10-CM) Unspecified Glaucoma Date Entered: 03/14/2024; Date Last Modified: 03/14/2024 Status: ACTIVE; Priority: UNDEFINED Prov. Narr. - Glaucoma Action: No Referral Ordered: Eye exam completed elsewhere by an Cryptographic Vulnerability Analyst or Manager Sound Diabetic retinal exam result: Negative for Retinopathy Date: October 14, 2024 Location: [facility] Signed: 03/17/2025 14:06 BRADLEY HOWARD [facility]
--- OUTSIDE RECORDS SUMMARY | 2025-03-19 04:30 | XMS_ITS | Encounter Summary ---
Author Name [facility] Organization [facility] [place] Address [address] [place] [address] Care Team Providers Care Decision Support Manager Name Role Phone BARBARA ADAMS Primary Care [...] section includes the information on record at DC for the Encounter. Date/Time Encounter Type Encounter Description Reason Provider Source Mar 19, 2025 09:30 AM OFFICE O/P EST MOD 30 MIN PRIMARY CARE/MEDICINE ICD-10-CM M54.50 Low back pain, unspecified ADAMS,HOMER E III I[facility] Encounter Template Text not used by DC Assessments - Encounter Diagnoses This section includes the primary and secondary diagnoses documented for the Encounter. Date/Time Primary/Secondary Diagnosis Diagnosis Name Provider Source Mar 19, 2025 02:17 PM PRIMARY Low back pain, unspecified ADAMS,HOMER E III [facility] [facility] Mar 19, 2025 02:17 PM SECONDARY Chronic kidney disease, unspecified ADAMS,HOMER E III [facility] Mar 19, 2025 02:17 PM SECONDARY Encounter for immunization ALFONSO LOBATO [facility] Mar 19, 2025 02:17 PM SECONDARY Unspecified abnormalities of gait and mobility BARBARA ADAMS III [place] [facility] Mar 19, 2025 02:17 PM SECONDARY Unspecified atrial fibrillation BARBARA ADAMS III [facility] Lab Results: +/- 30 days [...] Type Comment Mar 19, 2025 10:11 AM [facility] B12 SERUM Specimen Type: SERUM No comment entered. Ordering Provider: BARBARA ADAMS III Report Released Date/Time: Mar 19, 2025 08:15 AM Reporting Lab: [place] [facility] [address] [place] [address] Performing Lab: [place] [facility] [address] [place] [address] B12 299 pg/mL 213-816 Mar 19, 2025 10:11 AM [facility] FOLATE (PB) SERUM Specimen Typ e: SERUM No comment entered. Ordering Provider: BARBARA ADAMS III Report Released Date/Time: Mar 19, 2025 08:15 AM Reporting Lab: [place] [facility] [address] [place] [address] Performing Lab: [place] [facility] [address] [place] [address] FOLATE (PB) 10.2 ng/mL 7-20 Mar 19, 2025 10:11 AM [facility] HGA1C BLOOD Specimen Type: BLOOD No comment entered. Ordering Provider: BARBARA ADAMS III Report Released Date/Time: Mar 19, 2025 08:15 AM Reporting Lab: [place] [facility] [address] [place] [address] Performing Lab: [place] [facility] [address] [place] [address] HGA1C 7.3 H 4.0-6.0 Mar 19, 2025 10:11 AM [facility] CBC BLOOD Specimen Type: BLOOD No comment entered. Ordering Provider: BARBARA ADAMS III Report Released Date/Time: Mar 19, 2025 08:15 AM Reporting Lab: [place] [facility] [address] [place] [address] Performing Lab: [place] [facility] [address] [place] [address] WBC 8.8 10*3/uL 3.6-11.2 RBC 5.00 10*6/uL [...] 0. 00-0.05 Mar 19, 2025 10:11 AM [facility] COMPREHENSIVE METABOLIC PANEL PLASMA Specimen Type: PLASMA No comment entered. Ordering Provider: BARBARA ADAMS III Report Released Date/Time: Mar 19, 2025 08:15 AM Reporting Lab: [place] [facility] [address] [place] [address] Performing Lab: [place] [facility] [address] [place] [address] CREATININE 1.55 mg/dL H 0.7-1.3 UREA NITROGEN [...] 2020) 44 Mar 19, 2025 10:11 AM [place] [facility] VITAMIN D, 25-HYDROXY SERUM Specimen Type: SE RUM No comment entered. Ordering Provider: BARBARA ADAMS III Report Released Date/Time: Mar 19, 2025 08:15 AM Reporting Lab: [place] [facility] [address] [place] [address] Performing Lab: [place] [facility] [address] [place] [address] VITAMIN D, 25-HYDROXY 67.6 ng/mL 30-96 Mar 19, 2025 10:11 AM [facility] TSH (MA-PB) SERUM Specimen Typ e: SERUM No comment entered. Ordering Provider: BARBARA ADAMS III Report Released Date/Time: Mar 19, 2025 08:15 AM Reporting Lab: [place] [facility] [address] [place] [address] Performing Lab: [place] [facility] [address] [place] [address] TSH 1.533 u[IU]/mL 0.47-5 Mar 19, 2025 10:11 AM [facility] [place] [facility] CHOLESTEROL PANEL (PB) PLASMA Specimen Type: P LASMA No comment entered. Ordering Provider: BARBARA ADAMS III Report Released Date/Time: Mar 19, 2025 08:15 AM Reporting Lab: [place] [facility] [address] [place] [address] Performing Lab: [place] [facility] [address] [place] [address] CHOLESTEROL 193 mg/dL 0-200 TRIGLYCERIDE 84 mg/dL 0-150 CALCULATED LDL 127.2 mg/dL HDL(New) 49.0 mg/dL H >40 HDL % OF TOTAL CHOLESTEROL (PB) 25.4 >25 Mar 19, 2025 10:11 AM [facility] URINALYSIS (STL-PB) URINE Specimen Type: URIN E No comment entered. Ordering Provider: BARBARA ADAMS III Report Released Date/Time: Mar 19, 2025 08:15 AM Reporting Lab: [place] [facility] [address] [place] [address] Performing Lab: [place] [facility] [address] [place] [address] URINE COLOR Light Yellow Yellow U.BILIRUBIN NEGATIVE [...] 1.019 1.005-1.029 Mar 19, 2025 10:11 AM [facility] MAGNESIUM PLASM A Specimen Type: PLASMA No comment entered. Ordering Provider: BARBARA ADAMS III Report Released Date/Time: Mar 19, 2025 08:15 AM Reporting Lab: [place] [facility] [address] [place] [address] Performing Lab: [place] [facility] [address] [place] [address] MAGNESIUM 1.92 mg/dL 1.6-2.6 Mar 19, 2025 10:11 AM [facility] URINE ALBUMIN PROFILE-ih (PB) URINE Specimen Type: URINE No comment entered. Ordering Provider: BARBARA ADAMS III Report Released Date/Time: Mar 19, 2025 08:15 AM Reporting Lab: [place] [facility] [address] [place] [address] Performing Lab: [place] [facility] [address] [place] [address] URINE ALBUMIN (PB-STL) 71.05 mg/L uACR (PB-MA) 64.71 mg/g H 0-30 CREATININE URINE/OTHERS 109.79 mg/dL Vital Signs: All taken on the encounter date This section contains inpatient and outpatient Vital Signs collected on the date of the Encounter. Date/Time Temperature Pulse Blood Pressure Respiratory Rate SP02 Pain Height Weight Body Mass Index Source Mar 19, 2025 09:41 AM 98 F 64 /min 132/82 mm[Hg] 20 /min 97 % 0 225.3 lb 32 [facility] Immunizations: All administered on the encounter date This section contains immunizations associated to the Encounter. 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 Current Smoking Status This section includes the most current smoking, or tobacco-related health factor, from the [place] facility where the Encounter took place. Date/Time Current Smoking Status Comment Bria mosqueda Mar 19, 2025 09:30 AM VA-TOBACCO USE FORMER CIGARETTES [facility] Tobacco Use History This section includes a history of the smoking, or tobacco-related health factors, that were collected on or before the date of the Encounter. The data comes from the [place] facility where the Encounter took place. Date/Time Smoking Status/Tobacco Use Comment F acility Mar 19, 2025 09:30 AM VA-TOBACCO USE FOR MARY BETH CIGARETTES [facility] Mar 12, 2024 01:45 PM VA-TOBACCO FORMER USER [facility] Mar 12, 2024 01:45 PM DC-TOBACCO QUIT 15 YRS OR MORE [facility] Nov 14, 2005 10:49 AM CURRENT NON-TOBACC O USER-HX OF USE Pt stopped smoking 3 months ago [facility] Apr 14, 2005 09:32 AM CURRENT [place]BAC[place] USER [facility] [place] [facility] Oct 14, 2004 10:22 AM CURRENT [place]BAC[place] US[place] [facility] Apr 29, 2004 08:37 AM CURRENT [place] US[place] [facility] [place] [facility] Oct 29, 2003 08:59 AM CURRENT NON-TOBACC O USER-HX OF USE [facility] May 14, 2003 09:03 AM CURRENT TOBACCO USER [facility] [place] Nov 20, 2002 10:12 AM CURRENT TOBACCO USER [facility] Dec 07, 2001 08:10 AM TOB-SMOKES OR USES TOBACCO PRODUCTS 1 PK DAY [facility] Encounter Notes: All associated encounter notes This section contains the clinical notes associated to the Encounter. Date/Time Encounter Note(s) Provider Source Mar 19, 2025 01:55 PM PRIMARY CARE PROGR ESS NOTE: LOCAL TITLE: PRIMARY CARE CLINIC PROGRESS NOTE PB STANDARD TITLE: PRIMARY CARE PROGRESS NOTE DATE OF NOTE: MAR 19, 2025@13:55 ENTRY DATE: MAR 19, 2025@13:55:27 AUTHOR: BARBARA ADAMS III EXP COSIGNER: URGENCY: STATUS: COMPLETED SUBJECTIVE: RENEVALENTIN CUEVAS is a 80 years old MALE. HPI: Presents to the clinic today for a periodic health maintenance visit. 80-year-old comes in today for 6-month follow-up. We discussed his Eliquis as he finds himself being somewhat thin in the blood arena and also feels like the Eliquis causes back pain. He had stopped taking the Eliquis for his prostate surgery and his back pain went away. Anyway, the Coumadin clinic is going to call him and discussed with him other options and if he chooses something else then I will be glad to talk to him about it. I did look at his creatinine and no dosage adjustment is appropriate for kidney function. Reviewed his other medications and there are 2 he is no longer taking. He does need a new rollator and has some chronic leg swelling. No other more serious symptomology. Past medical history includes: 1) Essential hypertension (SNOMED CT 16220292) 2) LUMBAGO 3) SCREENING FOR DEPRESSION 4) SCREENING FOR ALCOHOLISM 5) TOBACCO USE DISORDER, UNSPECIFIED USE 6) Hyperlipidemia 7) Male erectile disorder (ICD-9-CM 302.72/607.84) 8) Atrial fibrillation 9) Benign localised hyperplasia of prostate 10) Diabetes Mellitus Type 2 ([facility] [id number]) 11) Chronic kidney disease 12) Essential hypertension 13) Chronic low back pain 14) History of calculus of kidney 15) Intermittent urinary incontinence 16) Carcinoma of colon 17) Glaucoma 18) Bilateral cataracts 19) Lower urinary tract symptoms due to benign prostatic hypertrophy Active Outpatient Medications (including Supplies): Active Outpatient Medications Status 1) ACCU-CHEK GUIDE (GLUCOSE) TEST STRIP USE 1 STRIP FOR BLOOD ACTIVE TEST TWO TIMES PER WEEK Indication: FOR BLOOD SUGAR MONITORING 2) ALBUTEROL 90MCG (CFC-F) 200D ORAL INHL INHALE 2 PUFFS BY ACTIVE ORAL INHALATION FOUR TIMES A DAY SHAKE WELL. RINSE MOUTHPIECE FREQUENTLY TO PREVENT CLOGGING. Indication: FOR ASTHMA 3) APIXABAN 5MG TAB TAKE ONE-HALF TABLET BY MOUTH TWICE A DAY ACTIVE Indication: FOR ANTICOAGULATION 4) CETIRIZINE HCL 10MG TAB TAKE ONE TABLET BY MOUTH ONCE A DAY ACTIVE Indication: FOR ALLERGY SYMPTOMS 5) EMPAGLIFLOZIN 25MG TAB TAKE ONE-HALF TABLET BY MOUTH ONCE A ACTIVE DAY Indication: FOR DIABETES 6) FLUTICASONE PROP 50MCG 120D NASAL INHL INSTILL 1 SPRAY IN ACTIVE EACH NOSTRIL ONCE A DAY (MUST BE USED DIRECTED FOR MINIMUM OF 21 DAYS TO PROVIDE ADEQUATE BENEFITS) Indication: FOR RHINITIS 7) LATANOPROST 0.005% OPH SOLN INSTILL 1 DROP IN BOTH EYES ACTIVE EVERY EVENING KEEP REFRIGERATED UNTIL READY TO USE, THEN STORE AT ROOM TEMPERATURE FOR MAXIMUM OF 42 DAYS. Indication: FOR ELEVATED INTRAOCULAR PRESSURE 8) LOSARTAN 50MG TAB TAKE ONE-HALF TABLET BY MOUTH ONCE A DAY ACTIVE (S) Indication: FOR HIGH BLOOD PRESSURE 9) SITAGLIPTIN (EQV-ZITUVIO) 50MG TAB TAKE ONE TABLET BY MOUTH ACTIVE (S) ONCE A DAY Indication: FOR DIABETES 10) TIMOLOL MALEATE 0.25% OPH SOLN INSTILL 1 DROP IN BOTH EYES ACTIVE TWICE A DAY Indication: FOR ELEVATED INTRAOCULAR PRESSURE Pending Outpatient Medications Status 1) LIDOCAINE 5% PATCH APPLY 1 PATCH TO SKIN SITE ONCE A DAY PENDING APPLY PATCH AND PRESS FIRMLY FOR 10-15 SECONDS. KEEP ON FOR 12 HOURS THEN REMOVE PATCH FOR 12 HOURS. Indication: BACK PAIN Active Non-VA Medications Status 1) Non-VA ACETAMINOPHEN 325MG TAB 650MG BY MOUTH EVERY 6 HOURS ACTIVE NEEDED Indication: FOR PAIN 12 Total Medications Allergies: SIMVASTATIN No allergy or intolerance to Novocain Review of Systems: as per HPI and Systemic: Denies fatigue, fever, chills, or weight loss CV: Denies chest pain, palpitations Pulmonary: Denies hemoptysis, Shortness of breath, maybe some mild dyspnea on exertion GI: Denies constipation, bloody stools, diarrhea, indigestion, or n/v Ext: Positive chronic leg/ankle swelling Neuro: Denies slurred speech or dizziness Skin: Denies abnormal lesions; denies any new rashes, bruises easily PSYCH: Denies SI/HI; denies nightmares voices no additional complaints OBJECTIVE: Vital Signs Temperature: 98 F [36.7 C] (03/19/2025 09:41) Respiratory Rate: 20 (03/19/2025 09:41) Pulse Rate: 64 (03/19/2025 09:41) Blood Pressure: 132/82 (03/19/2025 09:41) HT: 70 in [177.8 cm] (07/11/2006 08:07) WT: 225.3 lb [102.19 kg] (03/19/2025 09:41) BMI: 32.4 97% (03/19/2025 09:41) Physical Exam General: NAD noted, A&Ox3, pleasant, appears stated age HEENT: NCAT, speech clear and appropriate oropharynx clear Neck: Supple with normal active ROM Heart: Irregular rate and rhythm Resp: Lungs CTA bilaterally, respirations even and unlabored, decreased flow Ext: No obvious deformity, positive edema Skin: Warm, pink, and dry, no rashes, bruise right forearm from IV stick for surgery Neuro: Grossly intact Psych: Affect normal, answers questions appropriately throughout visit A/P: ASSESSMENT and PLAN: Chronic atrial fibrillation> may want to consider other medications although the fact of the matter is that each of them has Cerone side effects. If he is otherwise stable on this it may be better the devil he knows. Will check CBC and liver function tests as well as kidney function test annually including today. His last creatinine was such that no dosage adjustment was necessary. Stage III chronic renal failure> by history, apparently improved, watch Disorder of gait> renew rollator, this also seems to help take some of the pressure off of his back Low back pain> try Lidoderm patch Hyperlipidemia> fasting lab today, continue medication and diet Diabetes> stable Other chronic medical conditions> stable continue current modalities RTC 6 months sooner as needed 1) Essential hypertension (SNOMED CT 05158611) 2) LUMBAGO 3) SCREENING FOR DEPRESSION 4) SCREENING FOR ALCOHOLISM 5) TOBACCO USE DISORDER, UNSPECIFIED USE 6) Hyperlipidemia 7) Male erectile disorder (ICD-9-CM 302.72/607.84) 8) Atrial fibrillation 9) Benign localised hyperplasia of prostate 10) Diabetes Mellitus Type 2 ([facility] [id number]) 11) Chronic kidney disease 12) Essential hypertension 13) Chronic low back pain 14) History of calculus of kidney 15) Intermittent urinary incontinence 16) Carcinoma of colon 17) Glaucoma 18) Bilateral cataracts 19) Lower urinary tract symptoms due to benign prostatic hypertrophy Overall medical conditions appear to be stable. Discussed medications with patient; med rec completed. Continue current regimen as prescribed by PCP and specialists. RTC as needed if developing anynew or worsening symptoms. Anticipatory guidance given, all questions answered; agrees to plan of care. Follow up as listed above, annually, and as needed. Keep all appointments. Medications Reconciled. See AVS given to [place]. Time spent 30 minutes. /es/ HOMER E ANGIE ELLIOTT, MD JUAN. [facility] Signed: 03/19/2025 14:18 BARBARA ADAMS III [facility] Mar 19, 2025 09:48 AM PRIMARY CARE MANAN ANDREA NOTE: LOCAL TITLE: PRIMARY CARE NURSING PROGRESS NOTE (TEXT) NURSING P STANDARD TITLE: PRIMARY CARE NURSING NOTE DATE OF NOTE: MAR 19, 2025@09:48 ENTRY DATE: MAR 19, 2025@09:48:45 AUTHOR: ALFONSO LOBATO COSIGNER: URGENCY: STATUS: COMPLETED Established Patient VALENTIN LÓPEZ IS A 80 YEAR OLD MALE BEING SEEN IN CLINIC MAR 19, 2025. == == REASON FOR VISIT: Here for 6 month follow up on chronic health condiions. Accompanied by his . Using walker to ambulate, walker has alot of duct tape on it. He was not aware he could get one from the [facility] so will request. Are you receiving care any where other than the [facility]? No HEALTH AND SURGICAL HISTORY: Laser to prostate February 26, 2025 / OU Cataract removal January 2025 Does patient report using home oxygen? CURRENT ACTIVE MEDICATIONS FOR REVIEW: If the list for review does not include a component, then it was not applicable to this patient. Allergies/ADRs (Tool #5) FACILITY ALLERGY/ADR -------- No Remote Allergy/ADR Data available for this patient [facility] SIMVASTATIN Med. Reconciliation (Tool #1) INCLUDED IN THIS LIST: Alphabetical list of active outpatient prescriptions dispensed from this DC (local) and dispensed from another DC or DoD facility (remote) as well as inpatient orders (local pending and active), local clinic medications, locally documented non-VA medications, and local prescriptions that have or been discontinued in the past 90 days. Non-VA Meds Last Documented On: Mar 14, 2024 NOTE The display of VA prescriptions dispensed from another DC or [facility] facility (remote) is limited to active outpatient prescription entries matched to National Drug File at the originating site and may not include some items such as investigational drugs, compounds, etc. NOT INCLUDED IN THIS LIST: Medications self-entered by the patient into personal health records (i.e. [email or web address]) are NOT included in this list. Non-VA medications documented outside this DC, remote inpatient orders (regardless of status) and remote clinic medications are NOT included in this list. The patient and provider must always discuss medications the patient is taking, regardless of where the medication was dispensed or obtained. Non-VA ACETAMINOPHEN 325MG TAB TAKE TWO TABLETS BY MOUTH EVERY 6 HOURS NEEDED Over The Counter Indication: FOR PAIN OUTPT ALBUTEROL 90MCG (CFC-F) 200D ORAL INHL (Status = Active) INHALE 2 PUFFS BY ORAL INHALATION FOUR TIMES A DAY FOR ASTHMA SHAKE WELL. RINSE MOUTHPIECE FREQUENTLY TO PREVENT CLOGGING. Rx# [id number] Last Released: 09/24/24 Qty/Days Supply: Rx Expiration Date: 09/18/25 Refills Remainin Indication: FOR ASTHMA OUTPT AMIODARONE HCL (PACERONE) 200MG TAB (Status = ) TAKE ONE TABLET BY MOUTH ONCE A DAY FOR VENTRICULAR ARRHYTHMIA AVOID TAKING WITH GRAPEFRUIT JUICE. USE OF SUNSCREEN IS RECOMMENDED. Rx# [id number] Last Released: 02/25/25 Qty/Days Supply: Rx Expiration Date: 03/15/25 Refills Remainin Indication: FOR VENTRICULAR ARRHYTHMIA OUTPT APIXABAN 5MG TAB (Status = Active) TAKE ONE-HALF TABLET BY MOUTH TWICE A DAY FOR ANTICOAGULATION Rx# [id number] Last Released: 01/28/25 Qty/Days Supply: Rx Expiration Date: 04/11/25 Refills Remainin Indication: FOR ANTICOAGULATION OUTPT CETIRIZINE HCL 10MG TAB (Status = Active) TAKE ONE TABLET BY MOUTH ONCE A DAY FOR ALLERGY SYMPTOMS Rx# [id number] Last Released: 09/18/24 Qty/Days Supply: Rx Expiration Date: 09/18/25 Refills Remainin Indication: FOR ALLERGY SYMPTOMS OUTPT CHLORTHALIDONE 25MG TAB (Status = ) TAKE ONE-HALF TABLET BY MOUTH ONCE A DAY FOR HIGH BLOOD PRESSURE Rx# [id number] Last Released: 01/10/25 Qty/Days Supply: Rx Expiration Date: 03/15/25 Refills Remainin Indication: FOR HIGH BLOOD PRESSURE OUTPT EMPAGLIFLOZIN 25MG TAB (Status = Discontinued) TAKE ONE-HALF TABLET BY MOUTH ONCE A DAY FOR DIABETES Rx# [id number] Last Released: 12/11/24 Qty/Days Supply: Rx Expiration Date: 03/20/25 Refills Remainin Indication: FOR DIABETES OUTPT EMPAGLIFLOZIN 25MG TAB (Status = Active) TAKE ONE-HALF TABLET BY MOUTH ONCE A DAY FOR DIABETES Rx# [id number] Last Released: 03/13/25 Qty/Days Supply: Rx Expiration Date: 03/12/26 Refills Remainin Indication: FOR DIABETES OUTPT FINASTERIDE 5MG TAB (Status = ) TAKE ONE TABLET BY MOUTH ONCE A DAY FOR BENIGN PROSTATIC HYPERPLASIA SWALLOW WHOLE, DO NOT CRUSH, SPLIT, OR CHEW. Rx# [id number] Last Released: 12/24/24 Qty/Days Supply: Rx Expiration Date: 03/15/25 Refills Remainin Indication: FOR BENIGN PROSTATIC HYPERPLASIA OUTPT FLUTICASONE PROP 50MCG 120D NASAL INHL (Status = Active) INSTILL 1 SPRAY IN EACH NOSTRIL ONCE A DAY FOR RHINITIS (MUST BE USED DIRECTED FOR MINIMUM OF 21 DAYS TO PROVIDE ADEQUATE BENEFITS) Rx# [id number] Last Released: 09/24/24 Qty/Days Supply: Rx Expiration Date: 09/18/25 Refills Remainin Indication: FOR RHINITIS OUTPT FUROSEMIDE 20MG TAB (Status = ) TAKE ONE TABLET BY MOUTH TWICE DAILY NEEDED FOR FLUID RETENTION (EDEMA) TAKE POTASSIUM WHEN TAKING Rx# [id number] Last Released: 03/20/24 Qty/Days Supply: Rx Expiration Date: 03/15/25 Refills Remainin Indication: FOR FLUID RETENTION (EDEMA) OUTPT GEMFIBROZIL 600MG TAB (Status = ) TAKE ONE TABLET BY MOUTH TWO TIMES A DAY BEFORE MEALS FOR HIGH TRIGLYCERIDES (30 MINUTES BEFORE A MEAL) Rx# [id number] Last Released: 02/25/25 Qty/Days Supply: Rx Expiration Date: 03/15/25 Refills Remainin Indication: FOR HIGH TRIGLYCERIDES OUTPT LATANOPROST 0.005% OPH SOLN (Status = Active) INSTILL 1 DROP IN BOTH EYES EVERY EVENING FOR ELEVATED INTRAOCULAR PRESSURE KEEP REFRIGERATED UNTIL READY TO USE, THEN STORE AT ROOM TEMPERATURE FOR MAXIMUM OF 42 DAYS. Rx# [id number] Last Released: 10/03/24 Qty/Days Supply: 7 Rx Expiration Date: 09/26/25 Refills Remainin Indication: FOR ELEVATED INTRAOCULAR PRESSURE OUTPT LOSARTAN 50MG TAB (Status = Active) TAKE ONE-HALF TABLET BY MOUTH ONCE A DAY FOR HIGH BLOOD PRESSURE Rx# [id number] Last Released: 12/18/24 Qty/Days Supply: 45 Rx Expiration Date: 06/18/25 Refills Remainin Indication: FOR HIGH BLOOD PRESSURE OUTPT POTASSIUM CL 20MEQ SA TAB (DISPERSIBLE) (Status = ) TAKE ONE-HALF TABLET BY MOUTH ONCE A DAY NEEDED FOR POTASSIUM SUPPLEMENTATION TAKE WITH FOOD WHEN TAKING FUROSEMIDE Rx# [id number] Last Released: 03/19/24 Qty/Days Supply: Rx Expiration Date: 03/15/25 Refills Remainin Indication: FOR POTASSIUM SUPPLEMENTATION OUTPT SITAGLIPTIN (EQV-ZITUVIO) 50MG TAB (Status = ) TAKE ONE TABLET BY MOUTH ONCE A DAY FOR DIABETES Rx# [id number] Last Released: 12/24/24 Qty/Days Supply: Rx Expiration Date: 03/15/25 Refills Remainin Indication: FOR DIABETES OUTPT TAMSULOSIN HCL 0.4MG CAP (Status = ) TAKE TWO CAPSULES BY MOUTH EVERY EVENING FOR BENIGN PROSTATIC HYPERPLASIA APPROXIMATELY 30 MINUTES AFTER THE SAME MEAL EACH DAY Rx# [id number] Last Released: 01/08/25 Qty/Days Supply: [id number] Rx Expiration Date: 03/15/25 Refills Remainin Indication: FOR BENIGN PROSTATIC HYPERPLASIA OUTPT TIMOLOL MALEATE 0.25% OPH SOLN (Status = Active) INSTILL 1 DROP IN BOTH EYES TWICE A DAY FOR ELEVATED INTRAOCULAR PRESSURE Rx# [id number] Last Released: 10/03/24 Qty/Days Supply: Rx Expiration Date: 09/26/25 Refills Remainin Indication: FOR ELEVATED INTRAOCULAR PRESSURE OUTPT TRIAMCINOLONE ACETONIDE 0.1% CREAM (Status = ) APPLY SPARINGLY TO AFFECTED AREA(S) FOUR TIMES A DAY NEEDED FOR ATOPIC DERMATITIS (EXTERNAL USE ONLY) Rx# [id number] Last Released: 03/20/24 Qty/Days Supply: 160 Rx Expiration Date: 03/15/25 Refills Remainin Indication: FOR ATOPIC DERMATITIS SUPPLIES OUTPT ACCU-CHEK GUIDE (GLUCOSE) TEST STRIP (Status = Active) USE 1 STRIP FOR BLOOD TEST TWO TIMES PER WEEK FOR BLOOD SUGAR MONITORING Rx# [id number] Last Released: 09/25/24 Qty/Days Supply: 50 Rx Expiration Date: 07/18/25 Refills Remainin Indication: FOR BLOOD SUGAR MONITORING OUTPT ALCOHOL PREP PAD (Status = ) USE/APPLY PAD TO AFFECTED AREA(S) ONCE A DAY NEEDED FOR WOUND CARE Rx# [id number] Last Released: 03/18/24 Qty/Days Supply: 200/90 Rx Expiration Date: 03/15/25 Refills Remainin Indication: FOR WOUND CARE OUTPT INCONT LINER DEPEND GUARDS (Status = ) USE/APPLY PAD THREE TIMES A DAY FOR INCONTINENCE CARE Rx# [id number] Last Released: 01/26/25 Qty/Days Supply: 312/90 Rx Expiration Date: 03/15/25 Refills Remainin Indication: FOR INCONTINENCE CARE OUTPT LANCET,SOFTCLIX (Status = ) USE LANCET FOR BLOOD TEST TWO TIMES PER WEEK FOR BLOOD SUGAR MONITORING Rx# [id number] Last Released: 03/20/24 Qty/Days Supply: 100/90 Rx Expiration Date: 03/15/25 Refills Remainin Indication: FOR BLOOD SUGAR MONITORING PHARMACY TERMS AND POSSIBLE PATIENT ACTIONS INPT = DC inpatient order IV = DC intravenous medication OUTPT = DC outpatient prescription PHARMACY POSSIBLE PATIENT TERMS EXPLANATION ACTIONS -------- ----- ACTIVE A prescription that can be If you have refills, filled at the local [place] pharmacy. you may request a refill of this prescription from your [facility] pharmacy. CLINIC A medication you received during If you have questions a visit to a [facility] clinic or about this medication emergency department. contact your [place] healthcare team. DISCONTINUED A prescription your provider has Contact your [facility] stopped. It is no longer healthcare team if you available to be sent to you or need more of this picked up at the [place] pharmacy medication. window. A prescription which is [...] the [facility]. Or, it may be an ikwz-ilv-bhccflw (OTC), herbal, dietary supplements or sample medication. [...] An active prescription that is Contact your [place] not scheduled to be filled yet. pharmacy if you need You should receive it before this medication now. you run out. Medication list reviewed with Patient not taking jardiance / not using latanoprost IS PATIENT TAKING ANY OVER THE COUNTER MEDICATIONS, SUCH VITAMINS OR HERBAL SUPPLEMENTS, INCLUDING ANY MEDICATIONS PRESCRIBED BY ANOTHER PHYSICIAN? Yes, List: Tylenol prn pain Does patient have any new allergies to report since last visit? VITALS: TEMPERATURE: 98 F [36.7 C] (03/19/2025 09:41) BP: 132/82 (03/19/2025 09:41) RESP: 20 (03/19/2025 09:41) PULSE: 64 (03/19/2025 09:41) HT: 70 in [177.8 cm] (07/11/2006 08:07) WT: 225.3 lb [102.19 kg] (03/19/2025 09:41) BMI: 32.4 PAIN ASSESSMENT: (Most Recent Pain Score in Vitals Package: 0 (03/19/2025 09:41) ) The patient indicated that they and [...] Now let us serve you. At the [facility], we strive to provide you with exceptional [...] Not At All SPIRITUAL ASSESSMENT: Are there gnosticist practices or spiritual concerns you want the urologist, your physician, and other health care team members to immediately know about? Patient advised to call the clinic for any concerns, questions, or symptoms. Patient and/or caregiver verbalized understanding of plan of care. Alcohol Use Screen (AUDIT-C) - V: Alcohol Screen: SCREEN FOR ALCOHOL (AUDIT-C) An alcohol screening test (AUDIT-C) was negative (score=1). 1. How often did you have a drink containing alcohol in the past year? Consider a drink to be a 12 ounce can or bottle of regular beer, 8 ounces of malt liquor, a 5 ounce glass of table wine, or a 1.5 ounce shot of liquor (like scotch, gin, or vodka). Monthly or less 2. How many drinks containing alcohol did you have on a typical day when you were drinking in the past year? One or two drinks 3. How often did you have six or more drinks on one occasion in the past year? Never Tobacco Use Screening - AT,DE,L,M,N,P,PH,PS,RT,S,U: The patient is a former cigarette smoker. The patient has never used other types of tobacco. Depression Screening - V: Perform PHQ-2 A PHQ-2 screen was performed. The score was 0 which is a negative screen for depression. Over the past two weeks, how often have you been bothered by the following problems? 1. Little interest or pleasure in doing things Not at all 2. Feeling down, depressed, or hopeless Not at all Suicide Screen - V: C-SSRS Screening [place] Suicide Severity Rating Scale (C-SSRS) screener 1. Over the past month, have you wished you were or wished you could go to sleep and not wake up? No 2. Over the past month, have you had any actual thoughts of killing yourself? No 3. Over the past month, have you been thinking about how you might do this? Response not required due to responses to other questions. 4. Over the past month, have you had these thoughts and had some intention of acting on them? Response not required due to responses to other questions. 5. Over the past month, have you started to work out or worked out the details of how to kill yourself? Response not required due to responses to other questions. 6. If yes, at any time in the past month did you intend to carry out this plan? Response not required due to responses to other questions. 7. In your lifetime, have you ever done anything, started to do anything, or prepared to do anything to end your life (for example, collected pills, obtained a gun, gave away valuables, went to the roof but didn't jump)? No 8. If YES, was this within the past 3 months? Response not required due to responses to other questions. Pain Assessment: - PAIN ASSESSMENT: .. Patient reports no pain at this visit. Pain Score = 0. Patient's self identified pain goal: 0 Herpes Zoster (Shingles) Vaccine - L,N,P,PH,U: The patient declines to receive the recommended dose of zoster (shingles) vaccine. Immunization: ZOSTER RECOMBINANT Refusal Reason: PATIENT DECISION Patient refuses all immunization(s) in the ZOSTER group Date Documented: 03/19/25 09:56 Patient/Nurse Interview: * * Patient states that questions were answered in a way that was easily understood. 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 The patient/caregiver denied any prior severe reaction to this vaccine or its components or a severe allergic reaction such as anaphylaxis to any vaccine or any injectable therapy. The patient/caregiver gave verbal consent to receive the vaccine. /sydney/ ALFONSO LOBATO LPN Signed: 03/19/2025 09:57 ALFOSNO LOBATO [facility]
--- OUTSIDE RECORDS SUMMARY | 2025-04-01 05:23 | XMS_ITS | Encounter Summary ---
Author Name [facility] Address [address] [place] [id number] Care Team Providers Care Scrip Clerk Name Role Phone BARBARA ADAMS Primary Care [...] section includes the information on record at [place] for the Encounter. Date/Time Encounter Type Encounter Description Reason Pro vider Source Apr 01, 2025 10:23 AM Outpatient Encounter TELEPHONE TRIAGE IHE Encounter Template Text not used by [place] Lab Results: +/- 30 days of the encounter This section includes the Chemistry and Hematology Lab Results on record with [place] for the patient. Radiology Reports and Pathology Reports are provided separately, in subsequent sections. Lab Results This section contains the Chemistry/Hematology Results that were resulted 30 days before or 30 daysafter the date of the Encounter. Date/Time Source Result Type Result - Unit Interpretation Reference Range Specimen Type Comment Mar 19, 2025 10:11 AM [facility] B12 SERUM Specimen Type: SERUM No comment entered. Ordering Provider: BARBARA ADAMS III Report Released Date/Time: Mar 19, 2025 08:15 AM Reporting Lab: [facility] [address] [place] [address] Performing Lab: [place] [facility] [address] [place] [address] B12 299 pg/mL 213-816 Mar 19, 2025 10:11 AM [facility] FOLATE (PB) SERUM Specimen Typ e: SERUM No comment entered. Ordering Provider: BARBARA ADAMS III Report Released Date/Time: Mar 19, 2025 08:15 AM Reporting Lab: [place] [facility] [address] [place] [address] Performing Lab: [place] [facility] [address] [place] [address] FOLATE (PB) 10.2 ng/mL 7-20 Mar 19, 2025 10:11 AM [facility] HGA1C BLOOD Specimen Type: BLOOD No comment entered. Ordering Provider: BARBARA ADAMS III Report Released Date/Time: Mar 19, 2025 08:15 AM Reporting Lab: [place] [facility] [address] [place] [address] Performing Lab: [place] [facility] [address] [place] [address] HGA1C 7.3 H 4.0-6.0 Mar 19, 2025 10:11 AM [facility] CBC BLOOD Specimen Type: BLOOD No comment entered. Ordering Provider: BARBARA ADAMS III Report Released Date/Time: Mar 19, 2025 08:15 AM Reporting Lab: [place] [facility] [address] [place] [address] Performing Lab: [place] [facility] [address] [place] [address] WBC 8.8 10*3/uL 3.6-11.2 RBC 5.00 10*6/uL [...] 0. 00-0.05 Mar 19, 2025 10:11 AM [facility] COMPREHENSIVE METABOLIC PANEL PLASMA Specimen Type: PLASMA No comment entered. Ordering Provider: BARBARA ADAMS III Report Released Date/Time: Mar 19, 2025 08:15 AM Reporting Lab: [place] [facility] [address] [facility] [address] Performing Lab: [place] [facility] [address] [facility] [address] CREATININE 1.55 mg/dL H 0.7-1.3 UREA NITROGEN [...] 2020) 44 Mar 19, 2025 10:11 AM [facility] VITAMIN D, 25-HYDROXY SERUM Specimen Type: SE RUM No comment entered. Ordering Provider: BARBARA ADAMS III Report Released Date/Time: Mar 19, 2025 08:15 AM Reporting Lab: [place] [facility] [address] [place] [address] Performing Lab: [place] [facility] [address] [place] [address] VITAMIN D, 25-HYDROXY 67.6 ng/mL 30-96 Mar 19, 2025 10:11 AM [facility] TSH (MA-PB) SERUM Specimen Typ e: SERUM No comment entered. Ordering Provider: BARBARA ADAMS III Report Released Date/Time: Mar 19, 2025 08:15 AM Reporting Lab: [place] [facility] [address] [place] [address] Performing Lab: [place] [facility] [address] [place] [address] TSH 1.533 u[IU]/mL 0.47-5 Mar 19, 2025 10:11 AM [facility] CHOLESTEROL PANEL (PB) PLASMA Specimen Type: P LASMA No comment entered. Ordering Provider: BARBARA ADAMS III Report Released Date/Time: Mar 19, 2025 08:15 AM Reporting Lab: [place] [facility] [address] [place] [address] Performing Lab: [place] [facility] [address] [place] [address] CHOLESTEROL 193 mg/dL 0-200 TRIGLYCERIDE 84 mg/dL 0-150 CALCULATED LDL 127.2 mg/dL HDL(New) 49.0 mg/dL H >40 HDL % OF TOTAL CHOLESTEROL (PB) 25.4 >25 Mar 19, 2025 10:11 AM [facility] URINALYSIS (STL-PB) URINE Specimen Type: URIN E No comment entered. Ordering Provider: BARBARA ADAMS III Report Released Date/Time: Mar 19, 2025 08:15 AM Reporting Lab: [place] [facility] [address] [place] [address] Performing Lab: [place] [facility] [address] [place] [address] URINE COLOR Light Yellow Yellow U.BILIRUBIN NEGATIVE [...] 1.019 1.005-1.029 Mar 19, 2025 10:11 AM [facility] MAGNESIUM PLASM A Specimen Type: PLASMA No comment entered. Ordering Provider: BARBARA ADAMS III Report Released Date/Time: Mar 19, 2025 08:15 AM Reporting Lab: [facility] [address] [facility] [address] Performing Lab: [facility] [address] [facility] [address] MAGNESIUM 1.92 mg/dL 1.6-2.6 Mar 19, 2025 10:11 AM [facility] CB URINE ALBUMIN PROFILE-ih (PB) URINE Specimen Type: URINE No comment entered. Ordering Provider: BARBARA ADAMS III Report Released Date/Time: Mar 19, 2025 08:15 AM Reporting Lab: [facility] [address] [place] [address] Performing Lab: [facility] [address] [facility] [address] URINE ALBUMIN (PB-STL) 71.05 mg/L uACR (PB-MA) 64.71 mg/g H 0-30 CREATININE URINE/OTHERS 109.79 mg/dL Social History: Smoking Status (Most current) and Tobacco Use (All prior to encounter date) This section includes the most current, and the historical, smoking and tobacco- related health factors from the [place] facility where the Encounter took place. Current Smoking Status This section includes the most current smoking, or tobacco-related health factor, from the [place] facility where the Encounter took place. Date/Time Current Smoking Status Neeta mosqueda Nov 21, 2002 12:12 PM CURRENT TOBACCO USER [facility] Encounter Notes: All associated encounter notes This section contains the clinical notes associated to the Encounter. Date/Time Encounter Note(s) Provider Source Apr 01, 2025 10:23 AM PHARMACY NOTE: LOCAL TITLE: PHARMACY CONTACT CENTER NOTE STANDARD TITLE: PHARMACY NOTE DATE OF NOTE: APR 01, 2025@10:23 ENTRY DATE: APR 01, 2025@10:23:44 AUTHOR: MARILUZ OGLESBY EXP COSIGNER: URGENCY: STATUS: COMPLETED MEDICATION RENEW [id number] SUBSTANCE: [facility] contacting [facility]? /Patient Requesting renewal of medication: CHLORTHALIDONE 25MG TAB [id number] 45 03/15/2025 03/14/2024 01/09/2025 0 BULMARO LUONG 1.6245 TAKE ONE-HALF TABLET BY MOUTH ONCE A DAY FOR HIGH BLOOD PRESSURE Contact via: Phone Please send medication: Mail Disposition: Notification forwarded to provider for review of renewal request. /sydney/ MARILUZ OGLESBY unscrambler VISN 15 [facility] OFFICE SERVICES REPRESENTATIVE Signed: 04/01/2025 10:24 Receipt Acknowledged By: * AWAITING SIGNATURE * BULMARO LUONG * AWAITING SIGNATURE * BARBARA ADAMS III, TRACEY A [place] [facility]
--- OUTSIDE RECORDS SUMMARY | 2025-04-06 15:27 | XMS_ITS | Continuity of Care Document ---
Author Name [facility] Organization [facility] Care Team Providers Care Coal Sample Tester Name Role Phone [facility] Unavailable Unavailable Problems Combined list of problems from Department of Defense and Veterans Affairs facilities. It does not include entries that were removed or entered in error. Problem Status Onset Date Problem Type Date of Resolution Comments Source Atrial fibrillation Active Condition [facility] Benign localised hyperplasia of prostate Active Condition [facility] Bilateral cataracts Active Condition [facility] Carcinoma of colon Active Condition [facility] Chronic kidney disease Active Condition [facility] Chronic low back pain Active Condition [facility] Diabetes Mellitus Type 2 (SCT 91588052) Active Condition [facility] Essential hypertension Active Condition [facility] Essential hypertension (SNOMED CT 30322251) Active Condition [place] [facility] Glaucoma Active Condition Mar 14 Entered By: JO-ANN LUONG Comment: bilateral [facility] History of calculus of kidney [facility] Hyperlipidemia Active Condition [place] [facility] Intermittent urinary incontinence Active Condition [facility] Lower urinary tract symptoms due to benign prostatic hypertrophy Active Condition [facility] LUMBAGO Active Condition [place] [facility] Male erectile disorder (ICD-9-CM 302.72/607.84) Active Condition [place] [facility] SCREENING FOR ALCOHOLISM Active Condition [place] [facility] SCREENING FOR DEPRESSION Active Condition [place] [facility] TOBACCO USE DISORDER, UNSPECIFIED USE Active Condition Dec 07, 2001 Entered By: KRUNAL CORMIER Comment: 1 DAY [place] [facility] Diagnosis: ICD-10-CM Z51.81 Encounter for therapeutic drug level monitoring Active Diagnosis [place] [facility] Diagnosis: ICD-10-CM M54.50 Low back pain, unspecified Active Diagnosis [facility] Diagnosis: ICD-10-CM Z23 Encounter for immunization Active Diagnosis [facility] Diagnosis: ICD-10-CM 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 Medication Details Route Status Patient Instructions Prescription Expires Prescription Number Last Dispense Date Ordering Provider Order Date Order Qty Source ACETAMINOPH EN 325MG TAB TAKE TWO TABLETS BY MOUTH EVERY 6 HOURS NEEDED ORAL ACTIVE TACHO LUONG 2023 [facility] ALBUTEROL SO4 90MCG/ACTUA T (CFC-F) INHL,ORAL,8 .5GM INHALE 2 PUFFS BY ORAL INHALATI ON FOUR TIMES A DAY FOR ASTHMA SHAKE WELL. RINSE MOUTHPIE CE FREQUENT LY TO PREVENT CLOGGING . RESPIR ATORY (INHAL ATION) ACTIVE 09/18/2025 [id number] 5 TACHO LUONG ISTEKayy G 2024 3 [facility] AMIODARONE HCL (PACERONE) 200MG TAB TAKE ONE TABLET BY MOUTH ONCE A DAY FOR VENTRICU LAR ARRHYTHM IA AVOID TAKING WITH GRAPEFRU IT JUICE. USE OF SUNSCREE N IS RECOMMEN DED. ORAL 03/15/2025 [id number] 5 TACHO LUONG ISTEKayy G 2023 90 [facility] APIXABAN 5MG TAB TAKE ONE-HALF TABLET BY MOUTH TWICE A DAY FOR ANTICOAG ULATION ORAL ACTIVE 04/11/2025 [id number] 5 CHRISTINE LARSON 2023 90 [place] [facility] APIXABAN 5MG TAB TAKE ONE-HALF TABLET BY MOUTH TWICE A DAY FOR ANTICOAG ULATION ORAL DISCONT INUED (EDIT) 03/20/2025 [id number] 4 CHRISTINE LARSON 2023 30 [place] [facility] CETIRIZINE HCL 10MG TAB TAKE ONE TABLET BY MOUTH ONCE A DAY FOR ALLERGY SYMPTOMS ORAL ACTIVE 09/18/2025 [id number] 5 TACHO LUONGTEL G [address] [facility] CHLORTHALID ONE 25MG TAB TAKE ONE-HALF TABLET BY MOUTH ONCE A DAY FOR HIGH BLOOD PRESSURE ORAL 03/15/2025 [id number] 5 TACHO LUONG ISTEL G [address] [facility] EMPAGLIFLOZ IN 25MG TAB TAKE ONE-HALF TABLET BY MOUTH ONCE A DAY FOR DIABETES ORAL ACTIVE 03/12/2026 [id number] 5 TACHO LUONGTEL G [address] [facility] EMPAGLIFLOZ IN 25MG TAB TAKE ONE-HALF TABLET BY MOUTH ONCE A DAY FOR DIABETES ORAL DISCONT INUED 03/20/2025 [id number] 5 TACHO LUONG ISTEL G [address] [facility] FINASTERIDE 5MG TAB TAKE ONE TABLET BY MOUTH ONCE A DAY FOR BENIGN PROSTATI C HYPERPLA TEENA SWALLOW WHOLE, DO NOT CRUSH, SPLIT, OR CHEW. ORAL 03/15/2025 [id number] 5 TACHO LUONG ISTEL G [address] [facility] FLUTICASONE PROPIONATE 50MCG/SPRAY SOLN,NASAL, 16GM INSTILL 1 SPRAY IN EACH NOSTRIL ONCE A DAY FOR RHINITIS (MUST BE USED DIRECTED FOR MINIMUM OF 21 DAYS TO PROVIDE ADEQUATE BENEFITS ) NASAL ACTIVE 09/18/2025 [id number] 5 TACHO LUONG ISTEL G [address] [facility] FUROSEMIDE 20MG TAB TAKE ONE TABLET BY MOUTH TWICE DAILY NEEDED FOR FLUID RETENTIO N (EDEMA) TAKE CELSA Urbano WHEN TAKING ORAL 03/15/2025 [id number] 4 TACHO LUONG ISTEL G [address] [facility] GEMFIBROZIL 600MG TAB TAKE ONE TABLET BY MOUTH TWO TIMES A DAY BEFORE MEALS FOR HIGH TRIGLYCE RIDES (30 MINUTES BEFORE A MEAL) ORAL 03/15/2025 [id number] 5 TACHO LUONG ISTEL G [address] [facility] LATANOPROST 0.005% SOLN,OPH INSTILL 1 DROP IN BOTH EYES EVERY EVENING FOR ELEVATED INTRAOCU LAR PRESSURE KEEP REFRIGER ATED UNTIL READY TO USE, THEN STORE AT ROOM TEMPERAT URE FOR MAXIMUM OF 42 DAYS. OPHTHA LMIC ACTIVE 09/26/2025 [id number] 5 TACHO LUONG ISTEL G [address] [facility] LIDOCAINE 5% PATCH APPLY 1 PATCH TO SKIN SITE ONCE A DAY BACK PAIN APPLY PATCH AND PRESS FIRMLY FOR 10-15 SECONDS. KEEP ON FOR 12 HOURS THEN REMOVE PATCH FOR 12 HOURS. TRANSD ERMAL ACTIVE 03/20/2026 [id number] 5 HAI ADAMS E III [address] [facility] LOSARTAN 50MG TAB TAKE ONE-HALF TABLET BY MOUTH ONCE A DAY FOR HIGH BLOOD PRESSURE ORAL ACTIVE 06/18/2025 [id number] 5 TACHO LUONG ISTEL G [address] [facility] POTASSIUM CHLORIDE 20MEQ TAB,SA (DISPERSIBL E) TAKE ONE-HALF TABLET BY MOUTH ONCE A DAY NEEDED FOR POTASSIU M SUPPLEME NTATION TAKE WITH FOOD WHEN TAKING FUROSEMI DE ORAL 03/15/2025 [id number] 4 TACHO LUONG ISTEL G [address] [facility] SITAGLIPTIN (EQV-ZITUVI O) 50MG TAB TAKE ONE TABLET BY MOUTH ONCE A DAY FOR DIABETES ORAL ACTIVE 03/20/2026 [id number] 5 HAI ADAMS MARY BETH E III [address] [facility] SITAGLIPTIN (EQV-ZITUVI O) 50MG TAB TAKE ONE TABLET BY MOUTH ONCE A DAY FOR DIABETES ORAL 03/15/2025 [id number] 5 TACHO LUONG ISTEL G [address] [facility] TAMSULOSIN HCL 0.4MG CAP TAKE TWO CAPSULES BY MOUTH EVERY EVENING FOR BENIGN PROSTATI C HYPERPLA TEENA APPROXIM ATELY 30 MINUTES AFTER THE SAME MEAL EACH DAY ORAL 03/15/2025 [id number] 5 TACHO LUONG ISTEL G [address] [facility] TIMOLOL MALEATE 0.25% SOLN,OPH INSTILL 1 DROP IN BOTH EYES TWICE A DAY FOR ELEVATED INTRAOCU LAR PRESSURE OPHTHA LMIC ACTIVE 09/26/2025 [id number] 5 TACHO LUONG ISTEL G [address] [facility] TRIAMCINOLO NE ACETONIDE 0.1% CREAM,TOP APPLY SPARINGL Y TO AFFECTED AREA(S) FOUR TIMES A DAY NEEDED FOR ATOPIC DERMATIT IS (EXTERNA L USE ONLY) TOPICA L 03/15/2025 [id number] 4 TACHO LUONG ISTEL G 2023 160 [facility] Allergies, Adverse Reactions, Alerts Combined list of allergies from Department of Defense and Veterans Affairs facilities. It does not include entries that were removed or entered in error. Substance Category Reaction Severity Reaction type Status Date Reported Comments Source SIMVASTATIN Propensity to adverse reactions to drug (finding) Eruption active 4 [facility] Immunizations Combined list of available immunizations from the Department of Defense and Veterans Affairs facilities. Immunization Series Date Given Administered By Site Reaction Lot Number CVX Code Drug Clinical Data Management Manager Status Comments Source PNEUMOCOCCAL CONJUGATE PCV20, POLYSACCHARID E [id number] CONJUGATE, ADJUVANT, PF 2024 ALFONSO PÉREZ RIGHT DELTO ID [id number] 216 complet ed [facility] AT [facility] TDAP 2024 [place] RIGHT DELTO ID [id number] 115 complet ed [facility] IN[facility], SPLIT VIRUS, TRIVALENT, PRESERVATIVE 6 2022 141 complet ed HISTORICA L INFORMATI ON - FROM OTHER [facility], [facility] INFLUENZA, SPLIT VIRUS, TRIVALENT, PRESERVATIVE 5 2020 141 complet ed HISTORICA L INFORMATI ON - FROM OTHER REGISTRY, [facility] INFLUENZA, SPLIT VIRUS, TRIVALENT, PRESERVATIVE 4 2019 141 complet ed HISTORICA L INFORMATI ON - FROM OTHER REGISTRY, [facility] INFLUENZA, SPLIT VIRUS, TRIVALENT, PF 3 2015 140 complet ed HISTORICA L INFORMATI ON - FROM OTHER REGISTRY, [facility] INFLUENZA, SPLIT VIRUS, TRIVALENT, PRESERVATIVE 2 2013 141 complet ed HISTORICA L INFORMATI ON - FROM OTHER REGISTRY, [facility] INFLUENZA, SPLIT VIRUS, TRIVALENT, PRESERVATIVE 1 2012 141 complet ed HISTORICA L INFORMATI ON - FROM OTHER REGISTRY, [facility] TD(ADULT) UNSPECIFIED FORMULATION 2008 139 complet ed HISTORICA L INFORMATI ON - FROM OTHER PROVIDER, [facility]- DIVISIO N INFLUENZA (HISTORICAL) 2007 88 [facility] INFLUENZA, UNSPECIFIED FORMULATION 2006 88 [facility] ed [facility] INFLUENZA (HISTORICAL) 2003 88 [facility] N INFLUENZA, UNSPECIFIED FORMULATION 2001 88 [facility] PNEUMOCOCCAL, UNSPECIFIED FORMULATION 2001 109 [facility]- DIVISIO N TD(ADULT) UNSPECIFIED FORMULATION 2000 139 [facility]ISIO N PNEUMOCOCCAL POLYSACCHARID E [id number] 1999 33 complet HISTORICA L INFORMATI ON - FROM OTHER PROVIDER, copy of vaccinati on record sent to scanning. [facility] Results Combined list of recent chemistry, hematology and other laboratory results from Department of Defense and Veterans Affairs, ranging from 15 months to all on record, depending upon the facility. Order Name Results Value Reference Range Date Interpretation Specimen Comments Source B12 COBALAMIN (VITAMIN B12) [MASS/VOLUME ] IN SERUM OR PLASMA 299 pg/mL 213 - 816 03/19 Specimen Type: SERUM No comment entered. Ordering Provider: HAI ADAMS III Report Released Date/Time : Mar 19, 2025 08:15 AM Reporting Lab: [place] [facility] [address] [place] [address] Performin g Lab: [place] [facility] [address] [place] [address] [facility] FOLATE (PB) FOLATE [MASS/VOLUME ] IN SERUM OR PLASMA 10.2 ng/mL 7 - 20 03/19 Specimen Type: SERUM No comment entered. Ordering Provider: HAI ADAMS III Report Released Date/Time : Mar 19, 2025 08:15 AM Reporting Lab: [place] [facility] [address] [place] [address] Performin g Lab: [place] [facility] [address] [place] [address] [facility] HGA1C HEMOGLOBIN A1C/HEMOGLOB IN.TOTAL IN BLOOD 7.3 4.0 - 6.0 03/19 H Specimen Type: BLOOD No comment entered. Ordering Provider: HAI ADAMS III Report Released Date/Time : Mar 19, 2025 08:15 AM Reporting Lab: [place] [facility] [address] [place] [address] Performin g Lab: [place] [facility] [address] [place] [address] [facility] CBC LEUKOCYTES [#/VOLUME] IN BLOOD BY AUTOMATED COUNT 8.8 10*3/uL 3.6 - 11.2 03/19 Specimen Type: BLOOD No comment entered. Ordering Provider: HAI ADAMS III Report Released Date/Time : Mar 19, 2025 08:15 AM Reporting Lab: [place] [facility] [address] [place] [address] Performin g Lab: [place] [facility] [address] [place] [address] [facility] CBC ERYTHROCYTES [#/VOLUME] IN BLOOD BY AUTOMATED COUNT 5.00 10*6/uL 4.10 - 5.70 03/19 Specimen Type: BLOOD No comment entered. Ordering Provider: HAI ADAMS III Report Released Date/Time : Mar 19, 2025 08:15 AM Reporting Lab: [place] [facility] [address] [place] [address] Performin g Lab: [place] [facility] [address] [place] [address] [address] [facility] CBC HEMOGLOBIN [MASS/VOLUME ] IN BLOOD 15.3 g/dL 13.1 - 16.8 03/19 Specimen Type: BLOOD No comment entered. Ordering Provider: HAI ADAMS III Report Released Date/Time : Mar 19, 2025 08:15 AM Reporting Lab: [place] [facility] [address] [place] [address] 8 Performin g Lab: [place] [facility] [address] [place] [address] [address] [facility] CBC HEMATOCRIT [VOLUME FRACTION] OF BLOOD 46.0 38.2 - 48.4 03/19 Specimen Type: BLOOD No comment entered. Ordering Provider: HAI ADAMS III Report Released Date/Time : Mar 19, 2025 08:15 AM Reporting Lab: [place] [facility] [address] [place] [address] Performin g Lab: [place] [facility] [address] [place] [address] [facility] CBC MCV [ENTITIC VOLUME] BY AUTOMATED COUNT 92.0 fL 80.0 - 100.0 03/19 Specimen Type: BLOOD No comment entered. Ordering Provider: HAI ADAMS III Report Released Date/Time : Mar 19, 2025 08:15 AM Reporting Lab: [place] [facility] [address] [place] [address] Performin g Lab: [place] [facility] [address] [place] [address] [facility] CBC MCH [ENTITIC MASS] BY AUTOMATED COUNT 30.6 pg 27.0 - 34.0 03/19 Specimen Type: BLOOD No comment entered. Ordering Provider: HAI ADAMS III Report Released Date/Time : Mar 19, 2025 08:15 AM Reporting Lab: [place] [facility] [address] [place] [address] Performin g Lab: [place] [facility] [address] [place] [address] [address] [facility] CBC MCHC [MASS/VOLUME ] BY AUTOMATED COUNT 33.3 g/dL 33.0 - 36.0 03/19 Specimen Type: BLOOD No comment entered. Ordering Provider: HAI ADAMS III Report Released Date/Time : Mar 19, 2025 08:15 AM Reporting Lab: [place] [facility] [address] [place] [address] Performin g Lab: [place] [facility] [address] [place] [address] [address] [facility] CBC PLATELETS [#/VOLUME] IN BLOOD BY AUTOMATED COUNT 206 10*3/uL 150 - 400 03/19 Specimen Type: BLOOD No comment entered. Ordering Provider: HAI ADAMS III Report Released Date/Time : Mar 19, 2025 08:15 AM Reporting Lab: [place] [facility] [address] [place] [address] 8 Performin g Lab: [place] [facility] [address] [place] [address] [address] [facility] CBC PLATELET MEAN VOLUME [ENTITIC VOLUME] IN BLOOD BY AUTOMATED COUNT 12.2 fL 7.5 - 11.2 03/19 H Specimen Type: BLOOD No comment entered. Ordering Provider: HAI ADAMS III Report Released Date/Time : Mar 19, 2025 08:15 AM Reporting Lab: [place] [facility] [address] [place] [address] Performin g Lab: [place] [facility] [address] [place] [address] [facility] CBC ERYTHROCYTE DISTRIBUTION WIDTH [RATIO] BY AUTOMATED COUNT 12.8 11.8 - 15.1 03/19 Specimen Type: BLOOD No comment entered. Ordering Provider: HAI ADAMS III Report Released Date/Time : Mar 19, 2025 08:15 AM Reporting Lab: [place] [facility] [address] [place] [address] Performin g Lab: [place] [facility] [address] [place] [address] [address] [facility] CBC LYMPHOCYTES/ 100 LEUKOCYTES IN BLOOD BY AUTOMATED COUNT 18.5 03/19 Specimen Type: BLOOD No comment entered. Ordering Provider: HAI ADAMS III Report Released Date/Time : Mar 19, 2025 08:15 AM Reporting Lab: [place] [facility] [address] [place] [address] Performin g Lab: [place] [facility] [address] [place] [address] [address] [facility] CBC MONOCYTES/10 0 LEUKOCYTES IN BLOOD BY AUTOMATED COUNT 6.6 03/19 Specimen Type: BLOOD No comment entered. Ordering Provider: HAI ADAMS III Report Released Date/Time : Mar 19, 2025 08:15 AM Reporting Lab: [place] [facility] [address] [place] [address] Performin g Lab: [place] [facility] [address] [place] [address] [facility] CBC NEUTROPHILS/ 100 LEUKOCYTES IN BLOOD BY AUTOMATED COUNT 71.5 03/19 Specimen Type: BLOOD No comment entered. Ordering Provider: HAI ADAMS III Report Released Date/Time : Mar 19, 2025 08:15 AM Reporting Lab: [place] [facility] [address] [place] [address] Performin g Lab: [place] [facility] [address] [place] [address] [facility] CBC EOSINOPHILS/ 100 LEUKOCYTES IN BLOOD BY AUTOMATED COUNT 1.9 03/19 Specimen Type: BLOOD No comment entered. Ordering Provider: HAI ADAMS III Report Released Date/Time : Mar 19, 2025 08:15 AM Reporting Lab: [place] [facility] [address] [place] [address] Performin g Lab: [place] [facility] [address] [place] [address] [address] [facility] CBC BASOPHILS/10 0 LEUKOCYTES IN BLOOD BY AUTOMATED COUNT 0.9 03/19 Specimen Type: BLOOD No comment entered. Ordering Provider: HAI ADAMS III Report Released Date/Time : Mar 19, 2025 08:15 AM Reporting Lab: [place] [facility] [address] [place] [address] Performin g Lab: [place] [facility] [address] [place] [address] [address] [facility] CBC LYMPHOCYTES [#/VOLUME] IN BLOOD BY AUTOMATED COUNT 1.63 10*3/uL 0.77 - 4.50 03/19 Specimen Type: BLOOD No comment entered. Ordering Provider: HAI ADAMS III Report Released Date/Time : Mar 19, 2025 08:15 AM Reporting Lab: [place] [facility] [address] [place] [address] Performin g Lab: [place] [facility] [address] [place] [address] [facility] CBC MONOCYTES [#/VOLUME] IN BLOOD BY AUTOMATED COUNT 0.58 10*3/uL 0.19 - 0.8 03/19 Specimen Type: BLOOD No comment entered. Ordering Provider: HAI ADAMS III Report Released Date/Time : Mar 19, 2025 08:15 AM Reporting Lab: [place] [facility] [address] [place] [address] Performin g Lab: [place] [facility] [address] [place] [address] [address] [facility] CBC NEUTROPHILS [#/VOLUME] IN BLOOD BY AUTOMATED COUNT 6.32 10*3/uL 2.10 - 8.00 03/19 Specimen Type: BLOOD No comment entered. Ordering Provider: HAI ADAMS III Report Released Date/Time : Mar 19, 2025 08:15 AM Reporting Lab: [place] [facility] [address] [place] [address] Performin g Lab: [place] [facility] [address] [place] [address] [address] [facility] CBC EOSINOPHILS [#/VOLUME] IN BLOOD BY AUTOMATED COUNT 0.17 10*3/uL 0.00 - 0.60 03/19 Specimen Type: BLOOD No comment entered. Ordering Provider: HAI ADAMS E III Report Released Date/Time : Mar 19, 2025 08:15 AM Reporting Lab: [place] [facility] [address] [place] [address] Performin g Lab: [place] [facility] [address] [place] [address] [facility] CBC BASOPHILS [#/VOLUME] IN BLOOD BY AUTOMATED COUNT 0.08 10*3/uL 0.00 - 0.20 03/19 Specimen Type: BLOOD No comment entered. Ordering Provider: HAI ADAMS E III Report Released Date/Time : Mar 19, 2025 08:15 AM Reporting Lab: [place] [facility] [address] [place] [address] Performin g Lab: [place] [facility] [address] [place] [address] [facility] CBC IMMATURE GRANULOCYTES /100 LEUKOCYTES IN BLOOD BY AUTOMATED COUNT 0.6 03/19 Specimen Type: BLOOD No comment entered. Ordering Provider: HAI ADAMS III Report Released Date/Time : Mar 19, 2025 08:15 AM Reporting Lab: [place] [facility] [address] [place] [address] Performin g Lab: [place] [facility] [address] [place] [address] [facility] CBC IMMATURE GRANULOCYTES [#/VOLUME] IN BLOOD BY AUTOMATED COUNT 0.05 10*3/uL 0.00 - 0.05 03/19 Specimen Type: BLOOD No comment entered. Ordering Provider: HAI ADAMS E III Report Released Date/Time : Mar 19, 2025 08:15 AM Reporting Lab: [place] [facility] [address] [place] [address] Performin g Lab: [place] [facility] [address] [place] [address] [facility] COMPREHENSI VE METABOLIC PANEL CREATININE [MASS/VOLUME ] IN SERUM OR PLASMA 1.55 mg/dL 0.7 - 1.3 03/19 H Specimen Type: PLASMA No comment entered. Ordering Provider: Chrissie ADAMS III Report Released Date/Time : Mar 19, 2025 08:15 AM Reporting Lab: [place] [facility] [address] [place] [address] Performin g Lab: [place] [facility] [address] [place] [address] [facility] [place] [facility] COMPREHENSI VE METABOLIC PANEL UREA NITROGEN [MASS/VOLUME ] IN SERUM OR PLASMA 27 mg/dL 9 - 25 03/19 H Specimen Type: PLASMA No comment entered. Ordering Provider: HAI ADAMS E III Report Released Date/Time : Mar 19, 2025 08:15 AM Reporting Lab: [place] [facility] [address] [place] [address] Performin g Lab: [place] [facility] [address] [place] [address] [facility] COMPREHENSI VE METABOLIC PANEL GLUCOSE [MASS/VOLUME ] IN SERUM OR PLASMA 142 mg/dL 72 - 99 03/19 H Specimen Type: PLASMA No comment entered. Ordering Provider: HAI ADAMS III Report Released Date/Time : Mar 19, 2025 08:15 AM Reporting Lab: [place] [facility] [address] [place] [address] Performin g Lab: [place] [facility] [address] [place] [address] [facility] COMPREHENSI VE METABOLIC PANEL SODIUM [MOLES/VOLUM E] IN SERUM OR PLASMA 143 meq/L 136 - 145 03/19 Specimen Type: PLASMA No comment entered. Ordering Provider: HAI ADAMS E III Report Released Date/Time : Mar 19, 2025 08:15 AM Reporting Lab: [place] [facility] [address] [place] [address] Performin g Lab: [place] [facility] [address] [place] [address] [facility] COMPREHENSI VE METABOLIC PANEL POTASSIUM [MOLES/VOLUM E] IN SERUM OR PLASMA 3.5 meq/L 3.5 - 5 03/19 Specimen Type: PLASMA No comment entered. Ordering Provider: HAI ADAMS E III Report Released Date/Time : Mar 19, 2025 08:15 AM Reporting Lab: [place] [facility] [address] [place] [address] 8 Performin g Lab: [place] [facility] [address] [place] [address] 8 [facility] COMPREHENSI VE METABOLIC PANEL CHLORIDE [MOLES/VOLUM E] IN SERUM OR PLASMA 104 meq/L 98 - 107 03/19 Specimen Type: PLASMA No comment entered. Ordering Provider: HAI ADAMS E III Report Released Date/Time : Mar 19, 2025 08:15 AM Reporting Lab: [place] [facility] [address] [place] [address] 8 Performin g Lab: [place] [facility] [address] [place] [address] [address] [facility] COMPREHENSI VE METABOLIC PANEL CARBON DIOXIDE, TOTAL [MOLES/VOLUM E] IN SERUM OR PLASMA 26 meq/L 22 - 31 03/19 Specimen Type: PLASMA No comment entered. Ordering Provider: HAI ADAMS E III Report Released Date/Time : Mar 19, 2025 08:15 AM Reporting Lab: [place] [facility] [address] [place] [address] 8 Performin g Lab: [place] [facility] [address] [place] [address] [address] [facility] COMPREHENSI VE METABOLIC PANEL CALCIUM [MASS/VOLUME ] IN SERUM OR PLASMA 9.5 mg/dL 8.4 - 10.4 03/19 Specimen Type: PLASMA No comment entered. Ordering Provider: HAI ADAMS E III Report Released Date/Time : Mar 19, 2025 08:15 AM Reporting Lab: [place] [facility] [address] [place] [address] Performin g Lab: [place] [facility] [address] [place] [address] 8 [facility] COMPREHEN[place] METABOLIC PANEL PROTEIN [MASS/VOLUME ] IN SERUM OR PLASMA 7.4 g/dL 6 - 8.6 03/19 Specimen Type: PLASMA No comment entered. Ordering Provider: HAI ADAMS E III Report Released Date/Time : Mar 19, 2025 08:15 AM Reporting Lab: [place] [facility] [address] [place] [address] [place]formin [place] [facility]: [place] [facility] [address] [place] [address] 8 [facility] COMPREHENSI VE METABOLIC PANEL ALBUMIN [MASS/VOLUME ] IN SERUM OR PLASMA 4.3 g/dL 3.4 - 5 03/19 Specimen Type: PLASMA No comment entered. Ordering Provider: HAI ADAMS E III Report Released Date/Time : Mar 19, 2025 08:15 AM Reporting Lab: [place] [facility] [address] [place] [address] 8 Performin g Lab: [place] [facility] [address] [place] [address] [address] [facility] COMPREHENSI VE METABOLIC PANEL BILIRUBIN.TO JUAN [MASS/VOLUME ] IN SERUM OR PLASMA 0.6 mg/dL 0.2 - 1.2 03/19 Specimen Type: PLASMA No comment entered. Ordering Provider: HAI ADAMS E III Report Released Date/Time : Mar 19, 2025 08:15 AM Reporting Lab: [place] [facility] [address] [place] [address] 8 Performin g Lab: [place] [facility] [address] [place] [address] [address] [facility] COMPREHENSI VE METABOLIC PANEL ALKALINE PHOSPHATASE [ENZYMATIC ACTIVITY/VOL UME] IN SERUM OR PLASMA 80 U/L 40 - 150 03/19 Specimen Type: PLASMA No comment entered. Ordering Provider: HAI ADAMS E III Report Released Date/Time : Mar 19, 2025 08:15 AM Reporting Lab: [place] [facility] [address] [place] [address] Performin g Lab: [place] [facility] [address] [place] [address] [address] [facility] COMPREHENSI VE METABOLIC PANEL ASPARTATE AMINOTRANSFE RASE [ENZYMATIC ACTIVITY/VOL UME] IN SERUM OR PLASMA 19 U/L 5 - 34 03/19 Specimen Type: PLASMA No comment entered. Ordering Provider: HAI ADAMS III Report Released Date/Time : Mar 19, 2025 08:15 AM Reporting Lab: [place] [facility] [address] [place] [address] 8 Performin g Lab: [place] [facility] [address] [place] [address] [facility] COMPREHENSI VE METABOLIC PANEL ALANINE AMINOTRANSFE RASE [ENZYMATIC ACTIVITY/VOL UME] IN SERUM OR PLASMA 16 U/L 8 - 40 03/19 Specimen Type: PLASMA No comment entered. Ordering Provider: HAI ADAMS III Report Released Date/Time : Mar 19, 2025 08:15 AM Reporting Lab: [place] [facility] [address] [place] [address] 8 Performin g Lab: [place] [facility] [address] [place] [address] [address] [facility] COMPREHENSI VE METABOLIC PANEL GLOMERULAR FILTRATION RATE/1.73 SQ M.PREDICTED [VOLUME RATE/AREA] IN SERUM, PLASMA OR BLOOD BY CREATININE-B ASED FORMULA (CKD-EPI 2020) 44 03/19 Specimen Type: PLASMA No comment entered. Ordering Provider: HAI ADAMS III Report Released Date/Time : Mar 19, 2025 08:15 AM Reporting Lab: [place] [facility] [address] [place] [address] 8 Performin g Lab: [place] [facility] [address] [place] [address] [facility] VITAMIN D, 25-HYDROXY 25-HYDROXYVI TAMIN D3 [MASS/VOLUME ] IN SERUM OR PLASMA 67.6 ng/mL 30 - 96 03/19 Specimen Type: SERUM No comment entered. Ordering Provider: HAI ADAMS III Report Released Date/Time : Mar 19, 2025 08:15 AM Reporting Lab: [place] [facility] [address] [place] [address] 8 Performin g Lab: [place] [facility] [address] [place] [address] [facility] TSH (MA-PB) THYROTROPIN [UNITS/VOLUM E] IN SERUM OR PLASMA 1.533 u[IU]/m L 0.47 - 5 03/19 Specimen Type: SERUM No comment entered. Ordering Provider: HAI ADAMS III Report Released Date/Time : Mar 19, 2025 08:15 AM Reporting Lab: [place] [facility] [address] [place] [address] 8 Performin g Lab: [place] [facility] [address] [place] [address] [facility] CHOLESTEROL PANEL (PB) CHOLESTEROL [MASS/VOLUME ] IN SERUM OR PLASMA 193 mg/dL 0 - 200 03/19 Specimen Type: PLASMA No comment entered. Ordering Provider: HAI ADAMS III Report Released Date/Time : Mar 19, 2025 08:15 AM Reporting Lab: [place] [facility] [address] [place] [address] 8 Performin g Lab: [place] [facility] [address] [place] [address] [facility] CHOLESTEROL PANEL (PB) TRIGLYCERIDE [MASS/VOLUME ] IN SERUM OR PLASMA 84 mg/dL 0 - 150 03/19 Specimen Type: PLASMA No comment entered. Ordering Provider: HAI ADAMS III Report Released Date/Time : Mar 19, 2025 08:15 AM Reporting Lab: [place] [facility] [address] [place] [address] 8 Performin g Lab: [place] [facility] [address] [place] [address] [facility] CHOLESTEROL PANEL (PB) CHOLESTEROL IN LDL [MASS/VOLUME ] IN SERUM OR PLASMA BY CALCULATION 127.2 mg/dL 03/19 Specimen Type: PLASMA No comment entered. Ordering Provider: HAI ADAMS III Report Released Date/Time : Mar 19, 2025 08:15 AM Reporting Lab: [place] [facility] [address] [place] [address] 8 Performin g Lab: [place] [facility] [address] [place] [address] [facility] CHOLESTEROL PANEL (PB) CHOLESTEROL IN HDL [MASS/VOLUME ] IN SERUM OR PLASMA 49.0 mg/dL 40 03/19 H Specimen Type: PLASMA No comment entered. Ordering Provider: HAI ADAMS III Report Released Date/Time : Mar 19, 2025 08:15 AM Reporting Lab: [place] [facility] [address] [place] [address] 8 Performin g Lab: [place] [facility] [address] [place] [address] [facility] CHOLESTEROL PANEL (PB) CHOLESTEROL IN HDL/CHOLESTE ROL.TOTAL [MASS RATIO] IN SERUM OR PLASMA 25.4 25 03/19 Specimen Type: PLASMA No comment entered. Ordering Provider: HAI ADAMS III Report Released Date/Time : Mar 19, 2025 08:15 AM Reporting Lab: [place] [facility] [address] [place] [address] 8 Performin g Lab: [place] [facility] [address] [place] [address] [facility] URINALYSIS (STL-PB) COLOR OF URINE Light Yellow 03/19 Specimen Type: URINE No comment entered. Ordering Provider: HAI ADAMS III Report Released Date/Time : Mar 19, 2025 08:15 AM Reporting Lab: [place] [facility] [address] [place] [address] 8 Performin g Lab: [place] [facility] [address] [place] [address] [facility] URINALYSIS (STL-PB) BILIRUBIN.TO JUAN [PRESENCE] IN URINE BY TEST STRIP NEGATIV Emg/dL 03/19 Specimen Type: URINE No comment entered. Ordering Provider: HAI ADAMS III Report Released Date/Time : Mar 19, 2025 08:15 AM Reporting Lab: [place] [facility] [address] [place] [address] 8 Performin g Lab: [place] [facility] [address] [place] [address] [facility] URINALYSIS (STL-PB) PH OF URINE BY TEST STRIP 6.0 5.0 - 8.0 03/19 Specimen Type: URINE No comment entered. Ordering Provider: HAI ADAMS III Report Released Date/Time : Mar 19, 2025 08:15 AM Reporting Lab: [place] [facility] [address] [place] [address] 8 Performin g Lab: [place] [facility] [address] [place] [address] [facility] URINALYSIS (STL-PB) LEUKOCYTES [#/AREA] IN URINE SEDIMENT BY MICROSCOPY HIGH POWER FIELD 17 /[HPF] 0 - 5 03/19 H Specimen Type: URINE No comment entered. Ordering Provider: HAI ADAMS III Report Released Date/Time : Mar 19, 2025 08:15 AM Reporting Lab: [place] [facility] [address] [place] [address] 8 Performin g Lab: [place] [facility] [address] [place] [address] [facility] URINALYSIS (STL-PB) ERYTHROCYTES [#/VOLUME] IN URINE SEDIMENT BY MICROSCOPY HIGH POWER FIELD 4 /[HPF] 0 - 5 03/19 Specimen Type: URINE No comment entered. Ordering Provider: HAI ADAMS III Report Released Date/Time : Mar 19, 2025 08:15 AM Reporting Lab: [place] [facility] [address] [place] [address] 8 Performin g Lab: [place] [facility] [address] [place] [address] [facility] URINALYSIS (STL-PB) APPEARANCE OF URINE CLEAR 03/19 Specimen Type: URINE No comment entered. Ordering Provider: HAI ADAMS III Report Released Date/Time : Mar 19, 2025 08:15 AM Reporting Lab: [place] [facility] [address] [place] [address] 8 Performin g Lab: [place] [facility] [address] [place] [address] [facility] URINALYSIS (STL-PB) NITRITE [PRESENCE] IN URINE BY TEST STRIP NEGATIV Emg/dL 03/19 Specimen Type: URINE No comment entered. Ordering Provider: HAI ADAMS III Report Released Date/Time : Mar 19, 2025 08:15 AM Reporting Lab: [place] [facility] [address] [place] [address] 8 Performin g Lab: [place] [facility] [address] [place] [address] [facility] URINALYSIS (STL-PB) EPITHELIAL CELLS [#/AREA] IN URINE SEDIMENT BY MICROSCOPY LOW POWER FIELD <1/[HPF ] 0 - 5 03/19 Specimen Type: URINE No comment entered. Ordering Provider: HAI ADAMS III Report Released Date/Time : Mar 19, 2025 08:15 AM Reporting Lab: [place] [facility] [address] [place] [address] 8 Performin g Lab: [place] [facility] [address] [place] [address] [facility] URINALYSIS (STL-PB) MUCUS [PRESENCE] IN URINE SEDIMENT BY LIGHT MICROSCOPY RARE/[L PF] 03/19 Specimen Type: URINE No comment entered. Ordering Provider: HAI ADAMS III Report Released Date/Time : Mar 19, 2025 08:15 AM Reporting Lab: [place] [facility] [address] [place] [address] 8 Performin g Lab: [place] [facility] [address] [place] [address] [facility] URINALYSIS (STL-PB) GLUCOSE [MASS/VOLUME ] IN URINE BY TEST STRIP NORMALm g/dL 03/19 Specimen Type: URINE No comment entered. Ordering Provider: HAI ADAMS III Report Released Date/Time : Mar 19, 2025 08:15 AM Reporting Lab: [place] [facility] [address] [place] [address] 8 Performin g Lab: [place] [facility] [address] [place] [address] [facility] URINALYSIS (STL-PB) PROTEIN [MASS/VOLUME ] IN URINE BY TEST STRIP NEGATIV Emg/dL 03/19 Specimen Type: URINE No comment entered. Ordering Provider: HAI ADAMS III Report Released Date/Time : Mar 19, 2025 08:15 AM Reporting Lab: [place] [facility] [address] [place] [address] 8 Performin g Lab: [place] [facility] [address] [place] [address] [facility] URINALYSIS (STL-PB) URN.UROBILIN OGEN NORMALm g/dL 03/19 Specimen Type: URINE No comment entered. Ordering Provider: HAI ADAMS III Report Released Date/Time : Mar 19, 2025 08:15 AM Reporting Lab: [place] [facility] [address] [place] [address] Performin g Lab: [place] [facility] [address] [place] [address] [facility] URINALYSIS (STL-PB) HEMOGLOBIN [MASS/VOLUME ] IN URINE BY TEST STRIP 3+mg/dL 03/19 H Specimen Type: URINE No comment entered. Ordering Provider: HAI ADAMS III Report Released Date/Time : Mar 19, 2025 08:15 AM Reporting Lab: [place] [facility] [address] [place] [address] 8 Performin g [place]: [place] [facility] [address] [place] [address] [facility] URINALYSIS (STL-PB) KETONES [MASS/VOLUME ] IN URINE BY TEST STRIP NEGATIV Emg/dL 03/19 Specimen Type: URINE No comment entered. Ordering Provider: HAI ADAMS III Report Released Date/Time : Mar 19, 2025 08:15 AM Reporting Lab: [place] [facility] [address] [place] [address] 8 Performin g Lab: [place] [facility] [address] [place] [address] [facility] URINALYSIS (STL-PB) URN.LEUK.EST . 250 03/19 H Specimen Type: URINE No comment entered. Ordering Provider: HAI ADAMS III Report Released Date/Time : Mar 19, 2025 08:15 AM Reporting Lab: [place] [facility] [address] [place] [address] 8 Performin g Lab: [place] [facility] [address] [place] [address] [facility] URINALYSIS (STL-PB) SPECIFIC GRAVITY OF URINE 1.019 1.005 - 1.029 03/19 Specimen Type: URINE No comment entered. Ordering Provider: HAI ADAMS III Report Released Date/Time : Mar 19, 2025 08:15 AM Reporting Lab: [place] [facility] [address] [place] [address] 8 Performin g Lab: [place] [facility] [address] [place] [address] [facility] MAGNESIUM MAGNESIUM [MASS/VOLUME ] IN SERUM OR PLASMA 1.92 mg/dL 1.6 - 2.6 03/19 Specimen Type: PLASMA No comment entered. Ordering Provider: HAI ADAMS III Report Released Date/Time : Mar 19, 2025 08:15 AM Reporting Lab: [place] [facility] [address] [place] [address] Performin g Lab: [place] [facility] [address] [place] [address] [facility] V[facility] Signs Combined list of inpatient and outpatient Vital Signs from Department of Defense and Veterans Affairs, ranging from 12 months to all on record, depending upon the facility. Vital Sign Value Date Comments Source SYSTOLIC BLOOD PRESSURE 132 03/19/2025 09:41:[address] [facility] DIASTOLIC BLOOD PRESSURE 82 03/19/2025 09:41:19 [facility] PULSE OXIMETRY 97 % 03/19/2025 09:41:19 [facility] WEIGHT 225.3 03/19/2025 09:41:[address] [facility] BMI 32 kg/m2 03/19/2025 09:41:[address] [facility] PAIN 0 03/19/2025 09:41:[address] [facility] TEMPERATURE 98 03/19/2025 09:41:19 [facility] [facility] PULSE 64 03/19/2025 09:41:19 [place] [facility] RESPIRATION 20 03/19/2025 09:41:19 [place] [facility] SYSTOLIC BLOOD PRESSURE 132 09/17/2024 13:30:00 [place] [facility] DIASTOLIC BLOOD PRESSURE 79 09/17/2024 13:30:[address] [facility] PULSE OXIMETRY 96 09/17/2024 13:30:00 [facility] WEIGHT 223.6 09/17/2024 13:30:00 [place] [facility] BMI 32 kg/m2 09/17/2024 13:30:00 [place] [facility] PAIN 3 09/17/2024 13:30:[address] [facility] TEMPERATURE 97.9 09/17/2024 13:30:[address] [facility] PULSE 57 09/17/2024 13:30:[address] [facility] RESPIRATION 20 09/17/2024 13:30:[address] [facility] Encounters Combined list of: 1) Encounters from Department of [facility] Affairs facilities going backup to the last 18 months, not all [facility] inpatient encounters are included; 2) Encounters from the Department of [facility] facilities going backup to 280 months. Location Location Details Encounter Type Encounter Number Reason For Visit Attending Provider ADM Date DC Date Status Disposition Source [facility] Outpatient Encounter [id number] 12/05 [facility] Outpatient [facility]counter [id number] 12/05 [facility] Outpatient Encounter [id number] 12/17 [facility] OFF/OP EST DECEMBER X REQ PHY/QHP [id number] Diagnos is: ICD-10- CM Z71.9 Oxygen Therapy Technician ing, omairai ANNA Barfield 03/[address] [facility] Outpatient Encounter [id number] 03/12 [facility] Outpatient Encounter [id number] 03/14 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 Outpatient Encounter [id number] Sudneep PATEL 03/[address] [facility] Outpatient Encounter [id number] 03/25 [facility] Outpatient Encounter [id number] 03/27 [facility] Outpatient Encounter [id number] 03/27 [facility] Outpatient Encounter [id number] 03/28 [facility] [place] [facility] EST 15 MIN [id number] Diagnos is: ICD-10- CM Z51.81 Encount er for therape utic drug level monitor CHRISTINE Cox 03/28 [place] [facility] Outpatient Encounter [id number] 04/02 [facility] EST 15 MIN [id number] Diagnos is: ICD-10- CM Z51.81 Encount er for therape utic drug level monitor CHRISTINE Cox 04/11 [place] [facility] [place] [facility] MTMS BY PHARM EST 15 MIN [id number] Diagnos is: ICD-10- CM Z51.81 Encount er for therape utic drug level monitor CHRISTINE Cox 05/09 [place] [facility] [place] [facility] Outpatient Encounter [id number] 07/09 [place] [facility] Outpatient Encounter [id number] 07/17 [facility] EST 15 MIN [id number] Diagnos is: ICD-10- CM Z51.81 Encount er for therape utic drug level monitor CHRISTINE Cox 07/17 [place] [facility] Outpatient Encounter [id number] 08/20 [facility] Outpatient Encounter [id number] 08/21 [facility] OFFICE O/P EST MOD 30 MIN [id number] Diagnos is: ICD-10- CM Z23 Encount er for immuniz LEXUS Rao G 09/17 [facility] Outpatient Encounter [id number] 09/23 [facility] N [facility] Outpatient Encounter [id number] 09/25 [facility] Outpatient Encounter [id number] 09/26 [facility] Outpatient Encounter [id number] 10/14 [facility] Outpatient Encounter [id number] 10/14 [facility] Outpatient Encounter [id number] 10/22 [facility] Outpatient Encounter [id number] 11/05 [facility] Outpatient Encounter [id number] 11/06 [facility] Out[facility] Encounter [id number] 11/18 [facility] Outpatient Encounter [id number] 11/26 [facility] Outpatient Encounter [id number] 12/04 [facility] Outpatient Encounter [id number] 03/17 [facility] OFFICE O/P EST MOD 30 MIN [id number] Diagnos is: ICD-10- CM M54.50 Low back pain, unspeci fied ADAMS,MATHEUS ER E III 03/19 [facility] Outpatient Encounter [id number] 03/19 [facility] [facility] EST 15 MIN [id number] Diagnos is: ICD-10- CM Z51.81 Encount er for therape utic drug level monitor CHRISTINE Cox 03/19 [facility] Outpatient Encounter [id number] 122 04/01 [facility] Social History Combined list of available smoking, tobacco, and other social history from Department of Defense and Veterans Affairs facilities. Social History Type Response Date Comment Source Tobacco smoking status NHIS VA-TOBACCO USE FORMER CIGARETTES 03/19/2025 [facility] History of tobacco use [place]-TOBACCO NEVER USED OTHER TYPE 03/19/2025 [facility] History of tobacco use VA-TOBACCO FORMER USER 03/12/2024 [facility] History of tobacco use QUIT TOBACCO >12 MO and <7 YRS AGO 07/19/2008 [facility] History of tobacco use QUIT TOBACCO IN THE LAST 12 MONTHS 12/06/2007 [facility] History of tobacco use CURRENT NON-TOBACCO USER-HX OF USE 11/14/2005 Pt stopped smoking 3 months ago [facility] History of tobacco use CURRENT TOBACCO USER 04/14/2005 [facility] History of tobacco use CURRENT TOBACCO USER 10/14/2004 [facility] History of tobacco use CURRENT TOBACCO USER 04/29/2004 [facility] History of tobacco use CURRENT NON-TOBACCO USER-HX OF USE 10/29/2003 [facility] History of tobacco use CURRENT TOBACCO USER 05/14/2003 [facility] History of tobacco use CURRENT TOBACCO USER 11/21/2002 [facility] History of tobacco use CURRENT TOBACCO USER 11/20/2002 [facility] History of tobacco use TOB-SMOKES OR USES TOBACCO PRODUCTS 12/07/2001 1 PK DAY [facility]
[2025-04-06 20:13] VITALS: BP 194/78; PULSE 83; RESP 16; TEMP 36.7; O2SAT 95; BMI 32.0
--- OUTSIDE RECORDS SUMMARY | 2025-04-06 20:29 | XMS_ITS | Patient Health Record ---
Author Organization [facility] Address [address] [place] [address] Care Team Providers Care Machine Pan Greaser Name Role Phone Natasha Salas APRN Primary Care Provider Ana Matta Unavailable [phone] Thomas Ordaz Unavailable [phone] Allergies No Known Allergies Reason For Referral No Information Medications Medication SIG (Take, Route, Frequency, Duration) Notes Start Date End Date Status Warfarin Sodium 5 MG Tablet 1 tablet Ora lly Once a day Active Furosemide 20 MG Tablet 1 tablet Orally twice a day Active Zinc Active Potassium Chloride ER 10 MEQ Tablet Extended Release 1 tablet Orally once a day Active Tamsulosin HCl 0.4 MG Capsule 1 capsule Orally twice a day Active Gemfibrozil 600 MG Tablet 1 tablet Orall y Twice a day Active Losartan Potassium 25 MG Tablet 1 tablet Orally Once a day Active Jardiance 10 MG Tablet 1 tablet Orally O nce a day; Duration: 30 days 12/12/2023 Active PreserVision AREDS A ctive Amiodarone HCl 200 MG Tablet 1 tablet Or ally Once a day Active Vitamin D Active Chlorthalidone 25 MG Tablet 1/2 tablet O rally once a day Active Triamcinolone Acet & Anesth 40 MG/ML Kit as directed Combination Acti ve Januvia 25 MG Tablet 1 tablet Orally onc e a day Active Social History Tobacco Use: Social History Observation Description Date Details (start date - stop date) Former Smoker NA - NA Social History Tobacco Use: Social Info Question Answer Notes Tobacco Control (Standard) Tobacco use: Former smoker How long has it been since you last smoked? Greater than 10 years Additional Details Category Social Info Options Details Drugs/Alcohol: Do you smoke marijuana? De nies Do you drink alcohol? 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) Active confirmed Problem Chronic kidney disease stage 3A (disorder) (966454150) Chronic kidney disease, stage 3a (N18.31) Active confirmed Plan Of Treatment Pending Test Test Name Order Date Albumin 90170 03/27/2024 Basic Metabolic Panel (BMP) 35503 2023 Hemoglobin 93987 03/27/2024 Magnesium (B) 13906 03/27/2024 Phosphorus (B) 26430 03/27/2024 Protein (U) Random 70673 03/27/2024 Uric Acid (B) 62611 03/27/2024 Creatinine (U) 39889 03/27/2024 UA Reflex Micro, Reflex Cult 55890, 8101 5, 84468 03/27/2024 PTH Intact 96126 03/27/2024 Insurance Providers Payer Name Payer Address Payer Phone Subscriber Number Group Number Insured Name Patient Relationship to Insured Coverage Start Date Coverage End Date [employer] [place] [address] [place] [address] [id number] VALENTIN LÓPEZ Self - patient is the insured [place] [address] [place] [phone] [id number] VALENTIN LÓPEZ Self - patient is the insured [employer] Medicare Replacement [address] [address] [place] [address] [id number] VALENTIN LÓPEZ Self - patient is the insured Medical (General) History Medical History History ICD Code Diabetes Kidney disease Kidney stones Colon cancer A-fib High cholesterol Chronic back or neck pain Surgical History Surgery Date(Month/Year) cholecystectomy Appendectomy Hernia surgery Hospitalization History Reason Date(Month/Year) See surgical history
--- OUTSIDE RECORDS SUMMARY | 2025-04-06 20:29 | XMS_ITS | Encounter Summary ---
Author Organization [facility] Address [address] [facility] [address] [place] [address] Phone Care Team Providers Care Reinstatement Clerk Name Role Phone Unavailable Primary Care Provider Unavailabl e Encounter Details Date Type Department Care Team (Late st Contact Info) Description 01/26/2024 [facility] Only [facility] [address] [facility] [address] [place] [address] Disorder of kidney and ureter, unspecified Social History Tobacco Use Types Packs/Day Years Used Date Smoking Tobacco: Never Assessed Sex and Gender Information Value Date Recorded Sex Assigned at Not on file Legal Sex Male 12:56 PM EDT Gender Identity Not on file Sexual Orientation Not on file documented as of this encounter Plan of Treatment Upcoming Encounters Date Type Department Care Team (Late st Contact Info) Description 05/27/2025 1:30 PM CDT [facility] Visit [facility] [address] [place] [id number] Raquel Mortensen NP [address] [facility] [address] [place] [address] documented as of this encounter Visit Diagnoses Diagnosis Disorder of kidney and ureter, unspecified documented in this encounter
--- OUTSIDE RECORDS SUMMARY | 2025-04-06 20:29 | XMS_ITS | Clinical Summary ---
Author Organization [facility] Address [address] [place] [address] Phone Care Team Providers Care Storm Window Installer Name Role Phone Unavailable Primary Care Provider Unavailabl e Allergies Active Allergy Reactions Criticality Noted Date Comments Cyclobenzaprine Shortness of breath High 03/13/2024 Lisinopril Nausea 12/16/2022 Simvastatin Rash Low 04/29/2004 Statins Rash Low 12/16/2022 Medications amiodarone (PACERONE) 200 MG tablet Take 200 mg by mouth 1 (one) time each day 4 Active chlorthalidone 25 MG tablet Take 12.5 mg by mouth 1 (one) time each day 4 Active Jardiance 10 MG tablet Take 10 mg by mouth 1 (one) time each day 4 Active finasteride (PROSCAR) 5 MG tablet Take 5 mg by mouth 1 (one) time each day 4 Active SITagliptin (JANUVIA) 25 MG tablet Take 25 mg by mouth 1 (one) time each day 4 Active tamsulosin (FLOMAX) 0.4 MG 24 hr capsule Take 0.8 mg by mouth 1 (one) time each day 4 Active furosemide (LASIX) 20 MG tablet Take 20 mg by mouth 1 (one) time each day if needed Active gemfibrozil (LOPID) 600 MG tablet Take 600 mg by mouth 1 (one) time each day Active potassium chloride 10 MEQ CR tablet Take 10 mEq by mouth 1 (one) time each day if needed (with Lasix) Do not crush, chew, or split. Active triamcinolone (KENALOG) 0.1 % cream Apply topically 2 (two) times a day Active acetaminophen (TYLENOL) 325 MG tablet Take 650 mg by mouth every 6 (six) hours if needed for mild pain or moderate pain (Rarely) 7 Active latanoprost (XALATAN) 0.005 % ophthalmic solution Administer 1 drop into both eyes every night 4 Active losartan (COZAAR) 25 MG tablet Take 25 mg by mouth 1 (one) time each day Active Multiple Vitamins-Minera ls (PRESERVISION AREDS PO) Take 1 tablet by mouth 1 (one) time each day Active VITAMIN D PO Take 1 tablet by mouth 1 (one) time each day Active Multiple Vitamins-Minera ls (ZINC PO) Take 1 tablet by mouth 1 (one) time each day Active albuterol HFA (PROVENTIL HFA;VENTOLIN HFA) 108 (90 Base) MCG/ACT inhaler Inhale 1 puff every 4 (four) hours if needed 5 Active apixaban (Eliquis) 2.5 MG tablet Take 2.5 mg by mouth in the morning and 2.5 mg in the evening. Active Active Problems No known active problems Family History Medical History Relation Comments Stroke Father Coronary artery disease Mother Diabetes Mother Heart attack Mother Hypertension Mother Relation Status Comments Father Mother Social History Tobacco Use Types Packs/Day Years Used Date Smoking Tobacco: Former Cigarettes Passive Smoke Exposure: Past Smokeless Tobacco: Never Tobacco Cessation:Counseling Given: Not Answered Alcohol Use Standard Drinks/Week Comments Not Currently 7 (1 standard drink = 0.6 oz pur e alcohol) Sex and Gender Information Value Date Recorded Sex Assigned at Not on file Legal Sex Male 12:56 PM EDT Gender Identity Not on file Sexual Orientation Not on file Last Filed Vital Signs Vital Sign Reading Time Taken Comments Blood Pressure 140/72 11/26/2024 1:29 PM CDT Pulse 70 11/26/2024 1:29 PM CDT Temperature - - Respiratory Rate - - Oxygen Saturation 97% 11/26/2024 1:29 PM CDT Inhaled Oxygen Concentration - - Weight 56.4 kg (124 lb 4.8 oz) 11/26/2024 1:29 P M CDT Height 175.3 cm (5' 9 ) 11/26/2024 1:29 PM CDT Body Mass Index 18.36 11/26/2024 1:29 PM CDT Plan of Treatment Upcoming Encounters Date Type Department Care Team (Late st Contact Info) Description 05/27/2025 1:30 PM CDT Office Visit [facility] [address] [place] [address] Raquel Mortensen, GAME TRAPPER [address] [facility] [address] [place] [address] Health Maintenance Due Date Last Done Comments Pneumococcal Vaccine: 50+ Years (3 of 3 - PCV) 05/26/2010 05/26/2009, 08/14/2001, 02/18/2000 Diabetes: Hemoglobin A1C 02/06/2024 Diabetes: Ophthalmology Exam 02/06/2024 Diabetes: Pedal Pulse Checked 02/06/2024 Diabetes: Sensory Foot Exam 02/06/2024 Diabetes: Visual Foot Exam 02/06/2024 Influenza Vaccine (#1) 2025 8, 06/13/2016, 07/22/2008, Additional history exists Hepatitis B Vaccine Aged Out No longe r eligible based on patient's age to complete this topic [place] [address] [place] [address] [employer] 1,2,3 (VACCN)
--- OUTSIDE RECORDS SUMMARY | 2025-04-06 20:29 | XMS_ITS | Patient Health Record ---
Author Organization [employer] Address [address] [place] [address] Care Team Providers Care Tongue Trimmer Name Role Phone SALLY BEJARANO Unavailable [phone] VUONGPB CARDOZA Unavailable [phone] DE SOUZAARAMIS VU Unavailable [phone] Allergies Allergen (clinical drug ingredient) Drug/Non Drug Allergy documented on EMR Reaction Allergy Type Onset Date Status Substance with 8-zuxlopo-7-methylgluta ryl-coenzyme A reductase inhibitor mechanism of action (substance) Statins Unknown Drug Allergy Active Results Component Value Reference Range Notes CULTURE, URINE, ROUTINE (395 ) Reviewed date:02/17/2025 08:06:49 AM Interpretation: Performing Lab:[id number] [id number] Juliann Starr MD Notes/Report: NON-FASTING CULTURE, URINE, ROUTINE SEE NOTE CULTURE, URINE, ROUTINE Micro Number: [id number] Test Status: Final Specimen Source: Urine, clean catch Specimen Quality: Adequate Result: Less than 10,000 CFU/mL of single Gram positive organism isolated. No further testing will be performed. If clinically indicated, recollection using a method to minimize contamination, with prompt transfer to Urine Culture Transport Tube, is recommended. Comment: No collection date was provided. The specimen is generally defined as stable up to 48 hours. The result(s) need(s) to be interpreted cautiously. Clinicopathologic correlation is required. Repeat testing is recommended as clinically indicated. Customer Service is available with questions or comments based on your area of interest: [employer] ([phone]) NO COLLECTION DATE RECEIVED. WE HAVE USED THE DATE THE SPECIMEN WAS RECEIVED BY THIS LABORATORY THE COLLECTION DATE. IF THIS IS INCORRECT, PLEASE CONTACT CLIENT SERVICES. PHONE NUMBER: [phone] Urinalysis, Routine Reviewed date:02/13/2025 01:46:03 PM Interpretation: Performing Lab: Notes/Report: Urine-Color Yellow Appearance clear Glucose 3+ Bilirubin - Ketones - Specific [place] 1.015 Occult Blood - pH 6.0 Urine Protein - Urobilinogen,Semi-Qn - Nitrite, Urine - WBC Esterase - Urinalysis Gross Exam - Urinalysis, Routine Reviewed date:03/24/2025 10:37:30 AM Interpretation: Performing Lab: Notes/Report: Urine-Color yellow Appearance clear Glucose - Bilirubin - Ketones - Specific [place] 1.015 Occult Blood 3+ pH 6.0 Urine Protein - Urobilinogen,Semi-Qn - Nitrite, Urine - WBC Esterase 2+ Urinalysis, Routine Reviewed date:10/28/2024 01:43:06 PM Interpretation: Performing Lab: Notes/Report: Urine-Color yellow Appearance clear Glucose 3+ Bilirubin - Ketones - Specific [place] 1.015 Occult Blood - pH 6.0 Urine Protein - Urobilinogen,Semi-Qn - Nitrite, Urine - WBC Esterase - Reason For Referral No Information Medications Medication SIG (Take, Route, Frequency, Duration) Notes Start Date End Date Status Warfarin Sodium 5 MG 1 tablet Orally Onc e a day Not-Taking Jardiance 10 MG 1/2 tablet Orally On ce a day Not-Taking Amiodarone HCl 200 MG 1 tablet Orally On ce a day Active Januvia 25 MG as directed Orally Active Tamsulosin HCl 0.4 MG 2 capsules Orally Once a day; Duration: 90 days Active Finasteride 5 MG 1 tablet Orally Once a day; Duration: 90 days Active Vitamin D Active PreserVision AREDS 2 Active Gemfibrozil 600 MG 1 tablet 30 minutes before morning and evening meals Orally Twice a day Active Furosemide 20 MG 1 tablet Orally Once a day Active Chlorthalidone 25 MG 1 tablet in the morning with food Orally Active Losartan Potassium 25 MG 1 tablet Orally Once a day Active Eliquis 2.5 MG 1 tablet Orally twic e a day Active Zinc Active Potassium Chloride ER 10 MEQ 1 tablet with food Orally Twice a day Active Triamcinolone (oint)-Silicone Active Social History Tobacco Use: Social History Observation Description Date Details (start date - stop date) Former Smoker NA - NA Tobacco Control (Standard) Question Answer Notes Tobacco use: Former smoker Problems Problem Type SNOMED Code ICD Code Onset Dates Problem Status W/U Status Risk Notes Problem Urge incontinenc e (N39.41) Active confirmed Problem Lower urinary tract symptoms due to benign prostatic hypertrophy (18259646633369) Benign prostatic hyperplasia with lower urinary tract symptoms (N40.1) Active confirmed Problem Use of anticoagulation (618903447) Chronic anticoagulation (Z79.01) Active confirmed Problem BPH loc w urin obs/LUTS (N40.1) Active confirmed Vital Signs Heart Rate 84 /min 03/24/2025 Height-cm 175.26 cm 03/24/2025 Blood pressure diastolic 78 mm Hg 03/24/2025 Weight-kg 98.43 kg 03/24/2025 Height 69 in 03/24/2025 Blood pressure systolic 135 mm Hg 03/24/2025 Weight 217 lbs 03/24/2025 BMI 32.04 kg/m2 03/24/2025 Procedures Procedure Date Ordered Date Performed Result Body Sit e Bladder Scan 09/26/2024 09/26/2024 137ml UroFlow 09/26/2024 09/26/2024 done Voiding Trial 02/28/2025 02/28/2025 N/A Bladder Scan 03/24/2025 03/24/2025 N/A Encounters Encounter Location Date Provider Diagnosis [employer], [facility] [address] [address] 02/26/2025 ARAMIS DE SOUZA [employer], [facility] [address] [address] 09/26/2024 SALLY BEJARANO BPH loc w urin obs/L UTS N40.1 ; Urge incontinence N39.41 ; Nocturia R35.1 ; Incomplete bladder emptying R33.9 ; History of nephrolithiasis Z87.442 ; Family history of kidney cancer Z80.51 ; Family history of prostate cancer Z80.42 and History of smoking Z87.891 [employer], [facility] 140 [facility] [address] [place] [address] 10/28/2024 ARAMIS DE SOUZA BPH loc w urin obs/L UTS N40.1 ; Urge incontinence N39.41 ; Nocturia R35.1 ; Incomplete bladder emptying R33.9 ; History of nephrolithiasis Z87.442 ; Family history of kidney cancer Z80.51 ; Family history of prostate cancer Z80.42 and History of smoking Z87.891 [facility] [employer] [facility] [address] [place] [address] 02/13/2025 SALLY BEJARANO Preoperative examina tion Z01.818 ; BPH loc w urin obs/LUTS N40.1 ; Urge incontinence N39.41 ; Nocturia R35.1 ; Incomplete bladder emptying R33.9 ; History of nephrolithiasis Z87.442 ; Family history of kidney cancer Z80.51 ; Family history of prostate cancer Z80.42 ; History of smoking Z87.891 and Chronic anticoagulation Z79.01 [facility] [employer] [facility] [address] [place] [address] 02/28/2025 PB [facility] Catheter (urine) hira nge required Z46.6 and BPH loc w urin obs/LUTS N40.1 [facility] [employer], [facility] [address] [place] [address] 03/24/2025 ARAMIS DE SOUZA BPH loc w urin obs/L UTS N40.1 ; Urge incontinence N39.41 ; Nocturia R35.1 ; Incomplete bladder emptying R33.9 ; History of nephrolithiasis Z87.442 ; Family history of kidney cancer Z80.51 ; Family history of prostate cancer Z80.42 ; History of smoking Z87.891 and Chronic anticoagulation Z79.01 [facility] [employer], [facility] [address] [place] [address] 12/19/2024 SALLY BEJARANO [facility] [address] [place] [address] 12/19/2024 SALLY BEJARANO Assessments Encounter Date Diagnosis (ICD Code) Assessment Notes Treatment Notes Treatment Clinical Notes Section Notes 09/26/2024 Urge incontinence (ICD-10 - N39.41) 09/26/2024 BPH loc w urin obs/LUTS (ICD-10 - N40.1) 03/24/2025 Urge incontinence (ICD-10 - N39.41) Primary Diagnosis: - Encounter for follow-up examination after completed treatment for conditions other than malignant neoplasm (Z09) Secondary Diagnoses: - Status post photoselective vaporization of prostate (Z98.89) - Benign prostatic hyperplasia (N40.0) - Microscopic hematuria (R31.1) - Nocturia (R35.1) - Urinary urgency (R39.15) 80-year-old male status post photoselective vaporization of prostate (PVP) on 02/26/2025 with good post-operative recovery. Patient showing significant improvement in urinary flow and post-void residual volumes, with expected post-procedure symptoms of urgency and microscopic hematuria that should continue to resolve with time. 03/24/2025 BPH loc w urin obs/LUTS (ICD-10 - N40.1) Primary Diagnosis: - Encounter for follow-up examination after completed treatment for conditions other than malignant neoplasm (Z09) Secondary Diagnoses: - Status post photoselective vaporization of prostate (Z98.89) - Benign prostatic hyperplasia (N40.0) - Microscopic hematuria (R31.1) - Nocturia (R35.1) - Urinary urgency (R39.15) 80-year-old male status post photoselective vaporization of prostate (PVP) on 02/26/2025 with good post-operative recovery. Patient showing significant improvement in urinary flow and post-void residual volumes, with expected post-procedure symptoms of urgency and microscopic hematuria that should continue to resolve with time. 02/28/2025 Catheter (urine) change required (ICD-10 - Z46.6) Pt here s/p PVP for v/t. He tolerated well and will return as scheduled for post operative follow up 02/28/2025 BPH loc w urin obs/LUTS (ICD-10 - N40.1) Pt here s/p PVP for v/t. He tolerated well and will return as scheduled for post operative follow up 02/13/2025 BPH loc w urin obs/LUTS (ICD-10 - N40.1) 10/28/2024 Urge incontinence (ICD-10 - N39.41) 79 yo male with BPH with LUTs on maximal medical management. Cysto shows 3.5cm trilobar obstructing prostate. Cysto findings reviewed. He was counseled on BPH surgical options and elected for PVP. The R/B/A of surgery were discussed in detail. Plan: schedule PVP at [facility] all questions answered continue flomax and proscar 02/13/2025 Preoperative examination (ICD-10 - Z01.818) 10/28/2024 BPH loc w urin obs/LUTS (ICD-10 - N40.1) 79 yo male with BPH with LUTs on maximal medical management. Cysto shows 3.5cm trilobar obstructing prostate. Cysto findings reviewed. He was counseled on BPH surgical options and elected for PVP. The R/B/A of surgery were discussed in detail. Plan: schedule PVP at [facility] all questions answered continue flomax and proscar 10/28/2024 Nocturia (ICD-10 - R35.1) 79 yo male with BPH with LUTs on maximal medical management. Cysto shows 3.5cm trilobar obstructing prostate. Cysto findings reviewed. He was counseled on BPH surgical options and elected for PVP. The R/B/A of surgery were discussed in detail. Plan: schedule PVP at [facility] all questions answered continue flomax and proscar 02/13/2025 Urge incontinence (ICD-10 - N39.41) 03/24/2025 Nocturia (ICD-10 - R35.1) Primary Diagnosis: - Encounter for follow-up examination after completed treatment for conditions other than malignant neoplasm (Z09) Secondary Diagnoses: - Status post photoselective vaporization of prostate (Z98.89) - Benign prostatic hyperplasia (N40.0) - Microscopic hematuria (R31.1) - Nocturia (R35.1) - Urinary urgency (R39.15) 80-year-old male status post photoselective vaporization of prostate (PVP) on 02/26/2025 with good post-operative recovery. Patient showing significant improvement in urinary flow and post-void residual volumes, with expected post-procedure symptoms of urgency and microscopic hematuria that should continue to resolve with time. 09/26/2024 Nocturia (ICD-10 - R35.1) 09/26/2024 Incomplete bladder emptying (ICD-10 - R33.9) 03/24/2025 Incomplete bladder emptying (ICD-10 - R33.9) Primary Diagnosis: - Encounter for follow-up examination after completed treatment for conditions other than malignant neoplasm (Z09) Secondary Diagnoses: - Status post photoselective vaporization of prostate (Z98.89) - Benign prostatic hyperplasia (N40.0) - Microscopic hematuria (R31.1) - Nocturia (R35.1) - Urinary urgency (R39.15) 80-year-old male status post photoselective vaporization of prostate (PVP) on 02/26/2025 with good post-operative recovery. Patient showing significant improvement in urinary flow and post-void residual volumes, with expected post-procedure symptoms of urgency and microscopic hematuria that should continue to resolve with time. 02/13/2025 Nocturia (ICD-10 - R35.1) 10/28/2024 Incomplete bladder emptying (ICD-10 - R33.9) 79 yo male with BPH with LUTs on maximal medical management. Cysto shows 3.5cm trilobar obstructing prostate. Cysto findings reviewed. He was counseled on BPH surgical options and elected for PVP. The R/B/A of surgery were discussed in detail. Plan: schedule PVP at [facility] all questions answered continue flomax and proscar 10/28/2024 History of nephrolithiasis (ICD-10 - Z87.442) 79 yo male with BPH with LUTs on maximal medical management. Cysto shows 3.5cm trilobar obstructing prostate. Cysto findings reviewed. He was counseled on BPH surgical options and elected for PVP. The R/B/A of surgery were discussed in detail. Plan: schedule PVP at [facility] all questions answered continue flomax and proscar 02/13/2025 Incomplete bladder emptying (ICD-10 - R33.9) 03/24/2025 History of nephrolithiasis (ICD-10 - Z87.442) Primary Diagnosis: - Encounter for follow-up examination after completed treatment for conditions other than malignant neoplasm (Z09) Secondary Diagnoses: - Status post photoselective vaporization of prostate (Z98.89) - Benign prostatic hyperplasia (N40.0) - Microscopic hematuria (R31.1) - Nocturia (R35.1) - Urinary urgency (R39.15) 80-year-old male status post photoselective vaporization of prostate (PVP) on 02/26/2025 with good post-operative recovery. Patient showing significant improvement in urinary flow and post-void residual volumes, with expected post-procedure symptoms of urgency and microscopic hematuria that should continue to resolve with time. 09/26/2024 History of nephrolithiasis (ICD-10 - Z87.442) 09/26/2024 Family history of kidney cancer (ICD-10 - Z80.51) 03/24/2025 Family history of kidney cancer (ICD-10 - Z80.51) Primary Diagnosis: - Encounter for follow-up examination after completed treatment for conditions other than malignant neoplasm (Z09) Secondary Diagnoses: - Status post photoselective vaporization of prostate (Z98.89) - Benign prostatic hyperplasia (N40.0) - Microscopic hematuria (R31.1) - Nocturia (R35.1) - Urinary urgency (R39.15) 80-year-old male status post photoselective vaporization of prostate (PVP) on 02/26/2025 with good post-operative recovery. Patient showing significant improvement in urinary flow and post-void residual volumes, with expected post-procedure symptoms of urgency and microscopic hematuria that should continue to resolve with time. 10/28/2024 Family history of kidney cancer (ICD-10 - Z80.51) 79 yo male with BPH with LUTs on maximal medical management. Cysto shows 3.5cm trilobar obstructing prostate. Cysto findings reviewed. He was counseled on BPH surgical options and elected for PVP. The R/B/A of surgery were discussed in detail. Plan: schedule PVP at [facility] all questions answered continue flomax and proscar 02/13/2025 History of nephrolithiasis (ICD-10 - Z87.442) 10/28/2024 Family history of prostate cancer (ICD-10 - Z80.42) 79 yo male with BPH with LUTs on maximal medical management. Cysto shows 3.5cm trilobar obstructing prostate. Cysto findings reviewed. He was counseled on BPH surgical options and elected for PVP. The R/B/A of surgery were discussed in detail. Plan: schedule PVP at [facility] all questions answered continue flomax and proscar 02/13/2025 Family history of kidney cancer (ICD-10 - Z80.51) 03/24/2025 Family history of prostate cancer (ICD-10 - Z80.42) Primary Diagnosis: - Encounter for follow-up examination after completed treatment for conditions other than malignant neoplasm (Z09) Secondary Diagnoses: - Status post photoselective vaporization of prostate (Z98.89) - Benign prostatic hyperplasia (N40.0) - Microscopic hematuria (R31.1) - Nocturia (R35.1) - Urinary urgency (R39.15) 80-year-old male status post photoselective vaporization of prostate (PVP) on 02/26/2025 with good post-operative recovery. Patient showing significant improvement in urinary flow and post-void residual volumes, with expected post-procedure symptoms of urgency and microscopic hematuria that should continue to resolve with time. 09/26/2024 Family history of prostate cancer (ICD-10 - Z80.42) 09/26/2024 History of smoking (ICD-10 - Z87.891) 03/24/2025 History of smoking (ICD-10 - Z87.891) Primary Diagnosis: - Encounter for follow-up examination after completed treatment for conditions other than malignant neoplasm (Z09) Secondary Diagnoses: - Status post photoselective vaporization of prostate (Z98.89) - Benign prostatic hyperplasia (N40.0) - Microscopic hematuria (R31.1) - Nocturia (R35.1) - Urinary urgency (R39.15) 80-year-old male status post photoselective vaporization of prostate (PVP) on 02/26/2025 with good post-operative recovery. Patient showing significant improvement in urinary flow and post-void residual volumes, with expected post-procedure symptoms of urgency and microscopic hematuria that should continue to resolve with time. 02/13/2025 Family history of prostate cancer (ICD-10 - Z80.42) 10/28/2024 History of smoking (ICD-10 - Z87.891) 79 yo male with BPH with LUTs on maximal medical management. Cysto shows 3.5cm trilobar obstructing prostate. Cysto findings reviewed. He was counseled on BPH surgical options and elected for PVP. The R/B/A of surgery were discussed in detail. Plan: schedule PVP at [facility] all questions answered continue flomax and proscar 02/13/2025 History of smoking (ICD-10 - Z87.891) 03/24/2025 Chronic anticoagulation (ICD-10 - Z79.01) Primary Diagnosis: - Encounter for follow-up examination after completed treatment for conditions other than malignant neoplasm (Z09) Secondary Diagnoses: - Status post photoselective vaporization of prostate (Z98.89) - Benign prostatic hyperplasia (N40.0) - Microscopic hematuria (R31.1) - Nocturia (R35.1) - Urinary urgency (R39.15) 80-year-old male status post photoselective vaporization of prostate (PVP) on 02/26/2025 with good post-operative recovery. Patient showing significant improvement in urinary flow and post-void residual volumes, with expected post-procedure symptoms of urgency and microscopic hematuria that should continue to resolve with time. 02/13/2025 Chronic anticoagulation (ICD-10 - Z79.01) 09/26/2024 Other Uroflow: Peak effect at 8.6 ml/s with voided volume of 125.5 ml, with slow, weak urinary stream with intermittency. PVR 137ml. He is unhappy with LUTS on max med management and agreeable to cystoscopy to assess for candidacy for BPH procedure. He will RTC for next available cysto. . 02/13/2025 Other Patient schedul ed for [facility] PVP on 02/26/[address] De Souza. How the procedure was performed was discussed along with risks/benefits/al ternatives and postprocedural expectations. Patient takes Eliquis, clearance form has not been received back. However, I will call with instruction once received. We typically ask that he hold x 3 days prior to surgery. Denies problems with anesthesia in the past, no new medications or diagnoses since last visit. Patient has presurgical [facility] at [facility] at [facility]. Urine sent for culture and we will treat as indicated preoperatively. All questions that were asked were answered and elects to proceed with procedure as scheduled. Patient will RTC postoperatively and is satisfied with plan of care. 03/24/2025 Other # Status post PVP Discontinue Flomax (tamsulosin) and finasteride as patient is showing good improvement in urinary flow. Reassured patient that current urgency and microscopic hematuria are normal parts of the healing process and should continue to improve. # Follow-up Schedule follow-up appointment with LINDA Zavala in 4 months to assess long-term outcomes of PVP procedure. Patient to call sooner if experiencing gross hematuria, inability to void, severe pain, fever, or other concerning symptoms. You had a follow-up visit today after your prostate procedure (PVP) from February 26. Your urine flow has improved, and you're emptying your bladder much better than before. What to expect: - Some urgency and nighttime urination is normal after this procedure and should get better with time - Small amounts of blood in your urine that you can't see may continue as you heal Medication changes: - Stop taking Flomax and finasteride starting today Follow-up care: - Return in 4 months to see Sally the nurse practitioner - Call our office sooner if you see blood in your urine, can't urinate, have severe pain, fever, or other worrying symptoms Primary Diagnosis: - Encounter for follow-up examination after completed treatment for conditions other than malignant neoplasm (Z09) Secondary Diagnoses: - Status post photoselective vaporization of prostate (Z98.89) - Benign prostatic hyperplasia (N40.0) - Microscopic hematuria (R31.1) - Nocturia (R35.1) - Urinary urgency (R39.15) 80-year-old male status post photoselective vaporization of prostate (PVP) on 02/26/2025 with good post-operative recovery. Patient showing significant improvement in urinary flow and post-void residual volumes, with expected post-procedure symptoms of urgency and microscopic hematuria that should continue to resolve with time. Plan Of Treatment Next Appt Details Provider Name:SALLY BEJARANO, 1 10/05/2024 10:40:00 AM, [address] [place], [address], Insurance Providers Payer Name Payer Address Payer Phone Subscriber Number Group Number Insured Name Patient Relationship to Insured Coverage Start Date Coverage End Date [employer] [address] [place], [place] [id number] Antoine Denis Self - patient is the insured Medical (General) History Medical History History ICD Code colon cancer type 2 DM HBP CKD ED kidney stones LUTS Surgical History Surgery Date(Month/Year) colon resection appendix hernia cataracts surgery PVP 02/2025 Hospitalization History Reason Date(Month/Year) colon cancer cellulitis
--- NOTE | 2025-04-06 20:35 | CTR_ITS ---
PROCEDURE INFORMATION: Exam: CT Abdomen And Pelvis With Contrast Exam date and time: 04/06/2025 9:50 PM Age: 80 years old Clinical indication: Abdominal pain; Localized; Left lower quadrant (llq); Prior surgery; Surgery date: 6+ months; Surgery type: Gb. Appy. Colon resection. C/O llq pain. History of colorectal cancer. ; Additional info: Severe abd pain, HX of rectal cancer TECHNIQUE: Imaging protocol: Computed tomography of the abdomen and pelvis with contrast. Radiation optimization: All CT scans at this facility use at least one of these dose optimization techniques: automated exposure control; mA and/or kV adjustment per patient size (includes targeted exams where dose is matched to clinical indication); or iterative reconstruction. Contrast material: OMNI 350; Contrast volume: 80 ml; Contrast route: INTRAVENOUS (IV); COMPARISON: CT kidney stone [id number] 12/21/2020 2:06 PM RADIATION DOSE METRICS: Total DLP (mGy-cm): 954.3 FINDINGS: Lung bases: No consolidation. No evidence of pleural effusion. Liver: There is a stable 8 mm hypodense lesion in segment 2 of the liver (series 4, image 14). Gallbladder and biliary ducts: Cholecystectomy. No ductal dilation. Pancreas: Normal. No ductal dilation. Spleen: Normal. No splenomegaly. Adrenal glands: Normal. No mass. Kidneys and ureters: There is mild perinephric stranding on the left side. The left renal pelvis and left ureter are mildly distended. There is a 1.5 cm cortical cyst associated with the lower pole of the left kidney which is stable There is an obstructing calculus measuring 2 mm in the distal left ureter (series 4, image 75). The previously noted calculi associated with the right kidney and in the right renal pelvis are not identified on this study. Stomach and bowel: There is evidence of right hemicolectomy. Sigmoid diverticulosis is noted. There is no evidence of acute diverticulitis. Appendix: No evidence of appendicitis. There is evidence of right hemicolectomy. Intraperitoneal space: Unremarkable. No free air. No significant fluid collection. Vasculature: There is extensive calcific plaque associated with the abdominal aorta extending into some branch vessels and into the iliac arteries. No abdominal aortic aneurysm. Lymph nodes: Unremarkable. No enlarged lymph nodes. Urinary bladder: There is mild urinary bladder wall thickening which is noted diffusely. Reproductive: Unremarkable as visualized. Bones/joints: Spondylosis and degenerative disc disease is noted. 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 No acute fracture. Soft tissues: There are small stable fat containing inguinal hernias. CT/CT abdomen pelvis w con* [id number] IMPRESSION: 1. There is a 2 mm obstructing calculus in the distal left ureter. 2. Previously noted right renal calculi along with stones in the right renal pelvis are no longer identified. 3. Mild diffuse urinary bladder wall thickening is noted. This may represent evidence of cystitis. Correlation with urinalysis is recommended.
--- NOTE | 2025-04-06 20:44 | W.ED.ABDPA2 ---
HPI - Abdominal Pain General: Chief Complaint: Abdominal Pain Stated Complaint: Left Side Abd Pain Time Seen by Provider: 04/06/25 20:14 Source: patient Mode of arrival: ambulatory Limitations: no limitations History of Present Illness: This patient is an 80-year-old male with a history of rectal cancer status post 15 inch bowel resection 10 years ago, atrial fibrillation on Eliquis, chronic kidney disease, prior appendectomy, and umbilical hernia who presents with left lower abdominal pain that began this morning after a bowel movement. He describes the pain as a constant ache with intermittent sharp episodes. States that the pain now feels more diffuse and more severe. Also reporting associated nausea and a decrease in his appetite, but he denies any vomiting, rectal bleeding, diarrhea, or urinary complaints. He also reports a fall 2 days ago without any apparent injuries. He has a history of kidney stones but has never passed them spontaneously, stating he is always required a lithotripsy procedure. He does see urology for this. He continues to make urine. He has not experienced any fever, chills, chest pain, shortness of breath, or other systemic symptoms. He notes pain is new and persistent, he is concerned of his prior abdominal surgeries and anticoagulation. Hypertensive at this time, likely secondary to pain however he also takes losartan for blood pressure. Denies a history of diverticulitis. MD elicited complaint: abdominal pain Pertinent past history: other (Rectal cancer and bowel resection) Onset (ago): hour(s) Pain Consistency: constant Location: LLQ Severity: moderate Quality: aching and sharp Associated Symptoms: Reports nausea; Denies bloating, change in stool character, chills, constipation, diarrhea, dysuria, fever(s), hematochezia and vomiting Related Data Home Medications ?Medication ?Instructions ?Recorded ?Confirmed finasteride 5 mg tablet 5 mg PO DAILY 01/20/20 11/01/24 gemfibrozil 600 mg tablet 600 mg PO BID 01/20/20 11/01/24 chlorthalidone 25 mg tablet 12.5 mg PO DAILY 08/19/20 11/01/24 ascorbic acid (vitamin C) 500 mg 500 mg PO DAILY 01/13/21 11/01/24 capsule phyto nutrients 01/13/21 12/16/22 silver sulfadiazine 1 % topical 1 applic topical BID PRN Outbreak 06/15/22 05/05/23 cream apixaban 5 mg tablet (Eliquis) 2.5 mg PO BID 11/01/24 11/01/24 empagliflozin 25 mg tablet 12.5 mg PO DAILY 11/01/24 11/01/24 (Jardiance) furosemide 20 mg tablet 20 mg PO BID PRN 11/01/24 11/01/24 potassium citrate 15 mEq (1,620 15 meq PO BID PRN 11/01/24 11/01/24 mg) tablet,extended release sitagliptin phosphate 50 mg tablet 50 mg PO DAILY 11/01/24 11/01/24 (Januvia) Previous Rx's ?Medication ?Instructions ?Recorded ketoconazole 2 % shampoo 1 applic topical ONCE #120 mL 06/27/22 tamsulosin 0.4 mg capsule 0.4 mg PO BID #180 caps 08/03/22 amiodarone 200 mg tablet 200 mg PO DAILY #90 tabs 03/05/24 losartan 25 mg tablet 25 mg PO DAILY #90 tabs 03/14/24 cefdinir 300 mg capsule 300 mg PO BID 10 days #20 caps 04/06/25 hydrocodone 7.5 mg-acetaminophen 1 tab PO Q8H PRN pain #10 tabs 04/06/25 325 mg tablet polyethylene glycol 3350 17 4 g PO DAILY #119 grams 04/06/25 gram/dose oral powder (Miralax) Allergies Allergy/AdvReac Type Severity Reaction Status Date / Time lisinopril Allergy NA Verified 04/06/25 20:21 Xnasclk-HBG-ZwE Reductase Allergy Rash Verified 04/06/25 20:21 Inhibitor (Wyewjhu-Fdh-Hwq Reductase Inhibitor) Review of Systems General: Reports: 10 or more systems reviewed and unremarkable except in HPI and below Const: Reports: change in appetite; Denies: fever(s), chills, change in weight or diaphoresis ENMT: Denies: throat pain or hoarseness Card: Denies: chest pain, palpitations or lightheadedness Resp: Denies: dyspnea, productive cough or wheezing GI: Reports: abdominal pain and nausea; Denies: vomiting, diarrhea, constipation, bloating, change in stool character or hematochezia : Denies: flank pain, difficulty urinating, dysuria, urinary frequency or urinary urgency Musc: Denies: neck pain or back pain Skin/Breast: Denies: rash or new lesions Neuro: Denies: headache(s) or dizziness PFSH ED PFSH: Medical History Subdural hematoma Uric acid urolithiasis Hyperlipidemia Colon cancer Diabetes HTN (hypertension) Atrial fibrillation BPH loc w urin obs/LUTS Surgical History History of colonoscopy (01/26/22) S/P cholecystectomy S/P shoulder surgery S/P appendectomy S/P colon resection Family History Brother Cancer Family/Other Cancer Father , AGE 81 Stroke Mother , AGE 75 CAD (coronary artery disease) Social History Smoking and tobacco/nicotine status: former use of tobacco/nicotine Alcohol intake: current Alcohol intake frequency: holidays/special occasions only Alcohol type: beer Substance/Drug Use: never Adopted: No Caregiver/support person: No Lives independently: No Household members: spouse Marital status: Current occupational status: retired Current gender identity: Male Physical Exam Const: COMMON NORMALS: patient oriented x3, alert and well nourished GENERAL APPEARANCE: cooperative NUTRITIONAL APPEARANCE: obese ORIENTATION/CONSCIOUSNESS: Yes awake Eye: COMMON NORMALS: Equal, round and reactive pupils present and EOMs intact bilaterally PUPIL: Yes Equal, round and reactive pupils present Neck/C-Spine: COMMON NORMALS: full ROM and no meningeal signs Resp: COMMON NORMALS: normal respiratory effort, No retractions, No use of accessory muscles and clear to auscultation bilaterally AUSCULTATION: clear to auscultation bilaterally, no crackles, no rales, no rhonchi and no wheezes Cardio: COMMON NORMALS: regular rate, S1 normal heart sound present, S2 normal heart sound present, No gallops present (Cardio), No clicks present (Cardio), No murmurs present (Cardio) and No rub (Cardio) RATE: regular rate RHYTHM: abnormal rhythm irregularly irregular HEART SOUNDS: S1 normal heart sound present and S2 normal heart sound present GI: INSPECTION: Yes abdominal distension and Yes central obesity AUSCULTATION: Yes normoactive bowel sounds PALPATION: Yes Guarding due to palpation present (GI) (Involuntary guarding diffusely) RECTAL EXAM: Yes deferred OTHER: There is diffuse easily reproducible abdominal tenderness to palpation, and some appreciable rebound tenderness diffusely. No flank bruising. : COMMON NORMALS: Yes no CVA tenderness BLADDER/KIDNEY EXAM: Yes no CVA tenderness Back/Pelvis: COMMON NORMALS: no CVA tenderness Extremity: COMMON NORMALS: normal to inspection and full ROM Neuro: COMMON NORMALS: patient oriented x3, moves all extremities, no focal motor deficits and no sensory deficits noted SENSORIUM/ORIENTATION: Yes alert MENINGEAL SIGNS: Yes no meningeal signs Psych: COMMON NORMALS: mental status grossly normal, cooperative and speech normal SPEECH: Yes normal speech Skin: COMMON NORMALS: no rashes or lesions noted GENERAL SKIN EXAM: no rashes or lesions noted Course Vital Signs: Vital signs: Vital Signs Temperature 98.0 F 04/06/25 20:13 Pulse Rate 84 04/07/25 00:22 Respiratory Rate 16 04/07/25 00:22 Blood Pressure 167/80 04/07/25 00:22 Pulse Oximetry 93 04/07/25 00:22 Oxygen Delivery Me thod Room Air 04/06/25 22:09 MDM - Abdominal Pain Medical Decision Making This is an 80-year-old male with history of rectal cancer status post bowel resection, CKD, atrial fibrillation on Eliquis, and prior nephrolithiasis who presented with acute left lower abdominal pain. Workup revealed leukocytosis with left shift, minimally elevated anion gap, and a UA with pyuria and hematuria. CT abdomen pelvis demonstrated a 2 mm obstructing calculus in the distal left ureter. Renal function is at his baseline. Lactate was within normal limits but not consistent with ischemia or severe sepsis. He is afebrile, hemodynamically stable, and remains nontoxic on his exam. Pain was adequately controlled with Dilaudid here in the emergency department. He will have [place] sent to pharmacy along with MiraLAX for constipation prophylaxis, and he is given a dose of Flomax here in the ED to facilitate stone passage as this is only 2 mm and highly likely to pass on its own. He will be prescribed cefdinir for suspected concomitant UTI. Given his stability, preserved renal function, and the size of the stone, he is appropriate for outpatient management. He will follow-up with his urologist tomorrow and he is counseled on strict return precautions for fever, worsening pain, inability to urinate, vomiting, or any other concerning symptoms. Patient agrees with this plan. Lab Data 04/06/25 20:44 04/06/25 20:44 Labs/Radiology: Radiology Impressions Abdomen/Pelvis CT 04/06/25 20:35 IMPRESSION: 1. There is a 2 mm obstructing calculus in the distal left ureter. 2. Previously noted right renal calculi along with stones in the right renal pelvis are no longer identified. 3. Mild diffuse urinary bladder wall thickening is noted. This may represent evidence of cystitis. Correlation with urinalysis is recommended. Laboratory Results WBC 14.77 10^3/uL (3.29-11.43) H 04/06/25 20:44 RBC 5.29 10^6/uL (3.85-5.65) 04/06/25 20:44 Hgb 16.20 g/dL (11.27-16.99) 04/06/25 20:44 Hct 47.4 % (37-53) 04/06/25 20:44 MCV 89.6 fl (82-101) 04/06/25 20:44 MCH 30.6 pg (27-33) 04/06/25 20:44 MCHC 34.2 g/dL (30-55) 04/06/25 20:44 RDW 12.6 % (12.1-15.1) 04/06/25 20:44 Plt Count 215 10^3/cmm (157-399) 04/06/25 20:44 MPV 11.3 fL (7.4-10.4) H 04/06/25 20:44 Neut % (Auto) 84.3 % 04/06/25 20:44 Lymph % (Auto) 10.4 % 04/06/25 20:44 Douglas % (Auto) 4.2 % 04/06/25 20:44 Eos % (Auto) 0.2 % 04/06/25 20:44 Baso % (Auto) 0.4 % 04/06/25 20:44 Neut # (Auto) 12.44 10^3/uL (1.8-7.7) H 04/06/25 20:44 Lymph # (Auto) 1.5 10^3/uL (0.8-4.8) 04/06/25 20:44 Douglas # (Auto) 0.6 10^3/uL (0.2-0.9) 04/06/25 20:44 Eos # (Auto) 0.0 10^3/uL (0.0-0.8) 04/06/25 20:44 Baso # (Auto) 0.1 10^3/uL (0.0-0.1) 04/06/25 20:44 Nucleated RBC % (auto) 0 % 04/06/25 20:44 Nucleated RBCs # 0.0 /100WBC 04/06/25 20:44 PT 14.00 SECONDS (12.1-14.9) 04/06/25 20:44 INR 1.01 (0.8-1.2) 04/06/25 20:44 APTT 28.6 SECONDS (23.9-36.7) 04/06/25 20:44 Sodium 139 mmol/L (136-145) 04/06/25 20:44 Potassium 4.2 mmol/L (3.5-5.1) 04/06/25 20:44 Chloride 100 mmol/L (98-107) 04/06/25 20:44 Carbon Dioxide 21 mmol/L (22-29) L 04/06/25 20:44 Anion Gap 22.2 (5-19) H 04/06/25 20:44 BUN 26 mg/dL (8-23) H 04/06/25 20:44 Creatinine 1.7 mg/dL (0.7-1.2) H 04/06/25 20:44 GFR Calculation Not Reportable 04/06/25 20:44 Glucose 169 mg/dL (65-115) H 04/06/25 20:44 Calculated Osmolality 297 mOsm/kg (285-295) H 04/06/25 20:44 Lactic Acid 1.9 mmol/L (0.5-2.2) 04/06/25 20:44 Calcium 9.6 mg/dL (8.5-10.5) 04/06/25 20:44 Total Bilirubin 0.6 mg/dL (0.15-1.2) 04/06/25 20:44 AST 16 U/L (0-40) 04/06/25 20:44 ALT 12 U/L (0-41) 04/06/25 20:44 Alkaline Phosphatase 87 U/L (40-130) 04/06/25 20:44 Total Protein 7.9 g/dL (6.6-8.7) 04/06/25 20:44 Albumin 4.3 g/dL (3.5-5.2) 04/06/25 20:44 Globulin 3.6 g/dL (1.3-4.6) 04/06/25 20:44 Lipase 29 U/L (13-60) 04/06/25 20:44 Urine Color Yellow (Yellow) 04/06/25 20:55 Urine Appearance Clear (CLEAR) 04/06/25 20:55 Urine pH 6.0 (5-7) 04/06/25 20:55 Ur Specific [place] 1.020 (1.005-1.030) 04/06/25 20:55 Urine Protein 1+ (Negative) A 04/06/25 20:55 Urine Glucose (UA) Negative (Normal) 04/06/25 20:55 Urine Ketones Trace (Negative) 04/06/25 20:55 Urine Blood 2+ (Negative) A 04/06/25 20:55 Urine Nitrate Negative (Negative) 04/06/25 20:55 Urine Bilirubin Negative (Negative) 04/06/25 20:55 Urine Urobilinogen 1.0 mg/dL (Negative) 04/06/25 20:55 Ur Leukocyte Esterase 1+ (Negative) A 04/06/25 20:55 Urine RBC 11-20 /hpf (0-2) H 04/06/25 20:55 Urine WBC 21-50 /hpf (0-5) H 04/06/25 20:55 Ur Squamous Epith Cells 0-5 /hpf (0-5) 04/06/25 20:55 Amorphous Sediment Not Reportable 04/06/25 20:55 Urine Bacteria None seen /hpf (NONE) 04/06/25 20:55 Hyaline Casts 0.81 /lpf 04/06/25 20:55 All radiology interpretation(s) finalized by discharge Discharge Plan Discharge Patient Disposition: Home Clinical Impression: Ureterolithiasis Urinary tract infection Qualifiers: Urinary tract infection type: acute cystitis Hematuria presence: without hematuria Qualified Code(s): N30.00 - Acute cystitis without hematuria Condition: Stable Prescriptions: New hydrocodone-acetaminophen 7.5-325 mg tablet 1 tab PO Q8H PRN (Reason: pain) Qty: 10 0RF cefdinir 300 mg capsule 300 mg PO BID 10 Days Qty: 20 0RF polyethylene glycol 3350 [Miralax] 17 gram/dose powder 4 g PO DAILY Qty: 119 0RF No Action (DME) phyto nutrients 0 .Route .MEDSUPPLY ascorbic acid (vitamin C) 500 mg capsule 500 mg PO DAILY finasteride 5 mg tablet 5 mg PO DAILY gemfibrozil 600 mg tablet 600 mg PO BID chlorthalidone 25 mg tablet 12.5 mg PO DAILY ketoconazole 2 % shampoo 1 applic topical ONCE Qty: 120 6RF Rx Instructions: Lather into scalp 2-3 times weekly. Allow to sit on scalp 5 minutes before rinsing furosemide 20 mg tablet 20 mg PO BID PRN potassium citrate 15 mEq tablet extended release 15 meq PO BID PRN Eliquis 5 mg tablet 2.5 mg PO BID Jardiance 25 mg tablet 12.5 mg PO DAILY Januvia 50 mg tablet 50 mg PO DAILY tamsulosin 0.4 mg capsule 0.4 mg PO BID Qty: 180 3RF amiodarone 200 mg tablet 200 mg PO DAILY Qty: 90 3RF losartan 25 mg tablet 25 mg PO DAILY Qty: 90 0RF Rx Instructions: Patient MUST make appointment and be seen for further refills silver sulfadiazine 1 % cream 1 applic topical BID PRN (Reason: Outbreak) Rx Instructions: apply a 1.5 mm thickness Discharge Orders: Discharge ED (Routine); Ordered 04/06/25 Ordered By: Percy Lama Patient Instructions: Patient Portal & Mauro Instructions Activity Restrictions/Additional Instructions: Ureteral Stone Discharge Instructions Diagnosis and Summary: 80-year-old male with a 2 mm left ureteral stone at the ureterovesical junction and associated urinary tract infection. Patient is nontoxic, afebrile, and stable for outpatient management. Cefdinir prescribed for UTI; [place] for pain control. Urology follow-up arranged. Antibiotic Therapy: - Initiate cefdinir as prescribed for urinary tract infection. - Complete the full course of antibiotics, even if symptoms improve early, to reduce risk of resistance and recurrence. - Monitor for adverse effects, including diarrhea and signs of superinfection. - Avoid antacids containing magnesium or aluminum, and iron supplements within 2 hours of cefdinir dosing due to absorption interference. - If renal function is impaired (creatinine clearance <30 mL/min), adjust cefdinir dose accordingly. Pain Management: - [place] (hydrocodone/acetaminophen) prescribed for pain. Use the lowest effective dose for the shortest duration necessary. - Monitor for side effects such as constipation, sedation, or confusion, especially in older adults. Stone Management and Expulsion: - Stones <=5 mm at the distal ureterovesical junction have a high likelihood of spontaneous passage. - Encourage oral hydration to achieve urine output >2.5 L/day, unless contraindicated. - Medical expulsive therapy (e.g., alpha-blockers) may be considered, but is not universally indicated for stones <=2 mm. - Adhere to a low-sodium diet; maintain normal calcium intake if stone is calcium-based. Follow-Up: - Contact urology provider within 24 hours to arrange outpatient follow-up and definitive management planning. - If symptoms persist or worsen, or if stone does not pass, further imaging and intervention may be required. Return Precautions: - Seek immediate care for any of the following: - Fever >38?C (100.4?F) - Rigors or chills - Severe or worsening pain unresponsive to medication - Nausea/vomiting preventing oral intake - Decreased urine output or anuria - Confusion or altered mental status - Signs of allergic reaction to medications (rash, swelling, difficulty breathing) - These may indicate progression to sepsis or obstructive uropathy requiring urgent intervention. Additional Instructions: - Avoid skipping doses of antibiotics; incomplete therapy increases risk of resistance and treatment failure. - Do not take aero-vza-dmuwldi medications or supplements without consulting your provider, especially those affecting kidney function or interacting with prescribed drugs. - If diarrhea develops and persists, or if blood is noted in stool, contact your provider due to risk of antibiotic-associated colitis. Summary of Evidence: - The [employer] recommends antibiotic therapy for bacteriuria in the setting of ureteral calculi. - Small distal ureteral stones are often managed conservatively with observation and supportive care. - Early urology follow-up is essential for definitive management and to monitor for complications. - Antibiotic stewardship and patient education are critical to prevent resistance and adverse outcomes. Print Language: Argentine Coding Level of Care Code ED Laundry Aid for Joyce Whyte
[2025-04-06 20:50] LABS: Hematocrit 47.4 % (37-53); Hemoglobin 16.20 g/dL (11.27-16.99); Mean Corpuscular HGB Conc 34.2 g/dL (30-55); Mean Corpuscular Hemoglobin 30.6 pg (27-33); Mean Corpuscular Volume 89.6 fl (82-101); Nucleated Red Blood Cells % 0 %; Platelet Count 215 10^3/cmm (157-399); Red Blood Count 5.29 10^6/uL (3.85-5.65); White Blood Count 14.77 10^3/uL (3.29-11.43)
[2025-04-06] MEDS: ondansetron 2 mg/ML SDV 2 mL 4 MG IVP (20:56)
[2025-04-06] MEDS: HYDROmorphone 0.5 MG/0.5 ML INJ IVP ×2 (20:56→22:15)
[2025-04-06 21:02] LABS: INR 1.01 (0.8-1.2); Prothrombin Time 14.00 SECONDS (12.1-14.9)
[2025-04-06 21:03] LABS: Partial Thromboplastin Time 28.6 SECONDS (23.9-36.7)
[2025-04-06 21:09] LABS: Lactic Sepsis W/Reflex 1.9 mmol/L (0.5-2.2)
[2025-04-06 21:10] LABS: Alanine Aminotransferase 12 U/L (0-41); Albumin Level 4.3 g/dL (3.5-5.2); Alkaline Phosphatase 87 U/L (40-130); Anion Gap 22.2 (5-19); Aspartate Amino Transferase 16 U/L (0-40); Blood Urea Nitrogen 26 mg/dL (8-23); Calcium 9.6 mg/dL (8.5-10.5); Carbon Dioxide 21 mmol/L (22-29); Chloride 100 mmol/L (98-107); Globulin 3.6 g/dL (1.3-4.6); Glucose 169 mg/dL (65-115); Lipase 29 U/L (13-60); Osmolality Calculated 297 mOsm/kg (285-295); Potassium 4.2 mmol/L (3.5-5.1); Sodium 139 mmol/L (136-145); Total Protein 7.9 g/dL (6.6-8.7)
[2025-04-06 21:17] LABS: Creatinine Clr Calc Pharmacy 38.7576
[2025-04-06 21:19] LABS: Glucose Urine UA Negative (Normal); Nitrate Urine Negative (Negative); Specific Gravity, Urine 1.020 (1.005-1.030)
[2025-04-06 21:25] LABS: Add Urine Microscopic? YES
[2025-04-06] MEDS: iohexol 350 mg/mL 500 mL Btl (per mL) IV (21:51)
[2025-04-06 22:09] VITALS: BP 159/83; PULSE 92; RESP 18; O2SAT 92
[2025-04-06] MEDS: HYDROcodone-acetaminophen 7.5-325 mg Tablet 2 TAB PO (23:38)
--- NOTE | 2025-04-06 23:47 | PC.NURSE ---
2 tabs of [place] sent home per MD Anne in prescription bottle.
[2025-04-07 00:22] VITALS: BP 167/80; PULSE 84; RESP 16; O2SAT 93
== END 2025-04-06 23:45 | disposition home or self-care (01) ==
PROVIDERS: Emergency Provider Physician Assistant
DX: N20.1 Calculus of ureter (principal); N30.00 Acute cystitis without hematuria; Z79.01 Long term (current) use of anticoagulants; Z87.891 Personal history of nicotine dependence; E78.5 Hyperlipidemia, unspecified; E11.9 Type 2 diabetes mellitus without complications; I10 Essential (primary) hypertension; Z85.038 Personal history of other malignant neoplasm of large intestine
CPT/HCPCS: 36415; 74177; 80053; 81001; 83605; 83690; 85025; 85610; 85730; 87040; 87086; 96361; 96374; 96375; 96376; 99285; J1171; J2405; J7030; J9999

== ENCOUNTER 2025-04-09 09:33 | Inpatient (IN) | payer OTHER, MEDICARE, SELFPAY ==
--- OUTSIDE RECORDS SUMMARY | 2025-02-26 01:00 | XMS_ITS ---
Author Organization [facility] Address [address] [facility] [place] [address] Care Team Providers Care Rocket Engine Mechanic Name Role Phone MAGO BEJARANO Unavailable [phone] ARAMIS DE SOUZA Unavailable [phone] REASON FOR VISIT PVP Encounters Encounter Location Date Provider Diagnosis [facility] [address] [facility] [place] [address] 02/26/2025 ARAMIS DE SOUZA Plan Of Treatment Next Appt Details Provider Name:MAGO BEJARANO, 1 10/05/2024 10:40:00 AM, [address] [place], [address], Progress Notes * Antoine LÓPEZDOB:1945 (80 yo M)Acc No.[id number]:02/26/2025 Patient: Antoine SABA Provider: Richard DE SOUZA MD :1945 A ge:80 Y S ex:Male Date:02/26/2025 Address:[address] [place] [phone] * Billing Information: * Visit Code: * Procedure Codes: * Electronic signature of AUST IN MD AP on 04/09/2025 at 09:41 AM CDT Sign off status: Pending * Provider: Richard DE SOUZA MD Date: 02/26/2025 Generated for Printi ng/Faxing/eTransmitting on: 04/09/2025 09:41 AM CDT
--- OUTSIDE RECORDS SUMMARY | 2025-04-07 06:19 | XMS_ITS | Encounter Summary ---
Author Name [facility] [facility] [place] Organization [facility] [place] Address [address] [place] [address] Care Team Providers Care Ticket Sorter Name Role Phone ADAMSBARBARA Primary Care Provider Unavailabl e Insurance Providers: [...] section includes the information on record at [place] for the Encounter. Date/Time Encounter Type Encounter Description Reason Provider Source Apr 07, 2025 11:19 AM Outpatient Encounter COMMUNITY CARE CONSULT MACIEL Kayy Deana Encounter Template Text not used by [place] Plan of Treatment: Future Appointments (+ 6 months) and Future Tests (+/- 45 days) The Plan of Treatment section includes future care activities for the patient from all [place] treatmentfacilities. This section includes future appointments and future orders which are active, pending or scheduled. Future Appointments This section includes appointments that were scheduled to occur 6 months from the date of the Encounter, up to a maximum of 20 appointments. The data comes from all [place] treatment facilities. Appointment Date/Time Appointment Type Appointme nt Facility Name Apr 09, 2025 08:15 AM AMBULATORY - MEDICINE [facility] Apr 09, 2025 09:15 AM AM[facility]ATORY [place]ICINE [place] [facility] Active, Pending, and Scheduled Orders This section includes a listing of several types of active, pending, and scheduled orders, including clinic medications orders, diagnostic test orders, procedure orders and consult orders; where the start date of the order is 45 days before the date of the Encounter or 45 days after the date of theEncounter. The data comes from all [place] treatment facilities. Test Date/Time Test Type Test Details Facility Name Apr 09, 2025 09:09 AM Consult Order [facility]-EMERGENCY ROOM [id number] Cons Blueprint Reader's Choice [facility] Lab Results: +/- 30 days of the encounter This section includes the Chemistry and Hematology Lab Results on record with [place] for the patient. Radiology Reports and Pathology Reports are provided separately, in subsequent sections. Lab Results This section contains the Chemistry/Hematology Results that were resulted 30 days before or 30 daysafter the date of the Encounter. Date/Time Source Result Type Result - Unit Interpretation Reference Range Specimen Type Comment Mar 19, 2025 10:11 AM [facility] B12 SERUM Specimen Type: SERUM No comment entered. Ordering Provider: BARBARA ADAMS III Report Released Date/Time: Mar 19, 2025 08:15 AM Reporting Lab: [place] [facility] [address] [place] [address] Performing Lab: [place] [facility] [address] [place] [address] B12 299 pg/mL 213-816 Mar 19, 2025 10:11 AM [facility] FOLATE (PB) SERUM Specimen Typ e: SERUM No comment entered. Ordering Provider: BARBARA ADAMS III Report Released Date/Time: Mar 19, 2025 08:15 AM Reporting Lab: [place] [facility] [address] [place] [address] Performing Lab: [place] [facility] [address] [place] [address] FOLATE (PB) 10.2 ng/mL 7-20 Mar 19, 2025 10:11 AM [facility] HGA1C BLOOD Specimen Type: BLOOD No comment entered. Ordering Provider: BARBARA ADAMS III Report Released Date/Time: Mar 19, 2025 08:15 AM Reporting Lab: [place] [facility] [address] [place] [address] Performing Lab: [place] [facility] [address] [place] [address] HGA1C 7.3 H 4.0-6.0 Mar 19, 2025 10:11 AM [facility] VITAMIN D, 25-HYDROXY SERUM Specimen Type: SE RUM No comment entered. Ordering Provider: BARBARA ADAMS III Report Released Date/Time: Mar 19, 2025 08:15 AM Reporting Lab: [place] [facility] [address] [place] [address] Performing Lab: [place] [facility] [address] [place] [address] VITAMIN D, 25-HYDROXY 67.6 ng/mL 30-96 Mar 19, 2025 10:11 AM [facility] COMPREHENSIVE METABOLIC PANEL PLASMA Specimen Type: PLASMA No comment entered. Ordering Provider: BARBARA ADAMS III Report Released Date/Time: Mar 19, 2025 08:15 AM Reporting Lab: [place] [facility] [address] [place] [address] Performing Lab: [place] [facility] [address] [place] [address] CREATININE 1.55 mg/dL H 0.7-1.3 UREA NITROGEN [...] 2020) 44 Mar 19, 2025 10:11 AM [facility] CBC BLOOD Specimen Type: BLOOD No comment entered. Ordering Provider: BARBARA ADAMS III Report Released Date/Time: Mar 19, 2025 08:15 AM Reporting Lab: [place] [facility] [address] [place] [id number] Performing Lab: [place] [facility] [address] [place] [id number] WBC 8.8 10*3/uL 3.6-11.2 RBC 5.00 10*6/uL [...] AM [facility] TSH (MA-PB) SERUM Specimen Typ e: SERUM No comment entered. Ordering Provider: BARBARA ADAMS III Report Released Date/Time: Mar 19, 2025 08:15 AM Reporting Lab: [place] [facility] [address] [place] [facility] Performing Lab: [place] [facility] [address] [place] [address] TSH 1.533 u[IU]/mL 0.47-5 Mar 19, 2025 10:11 AM [facility] CHOLESTEROL PANEL (PB) PLASMA Specimen Type: P LASMA No comment entered. Ordering Provider: ADAMS,HOMER E III Report Released Date/Time: Mar 19, 2025 08:15 AM Reporting Lab: [place] [facility] [address] [place] [address] Performing Lab: [place] [facility] [address] [place] [address] CHOLESTEROL 193 mg/dL 0-200 TRIGLYCERIDE 84 mg/dL 0-150 CALCULATED LDL 127.2 mg/dL HDL(New) 49.0 mg/dL H >40 HDL % OF TOTAL CHOLESTEROL (PB) 25.4 >25 Mar 19, 2025 10:11 AM [facility] MAGNESIUM PLASM A Specimen Type: PLASMA No comment entered. Ordering Provider: BARBARA ADAMS III Report Released Date/Time: Mar 19, 2025 08:15 AM Reporting Lab: [place] [facility] [address] [place] [address] Performing Lab: [place] [facility] [address] [place] [facility] MAGNESIUM 1.92 mg/dL 1.6-2.6 Mar 19, 2025 10:11 AM [facility] URINALYSIS (STL-PB) URINE Specimen Type: URIN E No comment entered. Ordering Provider: BARBARA ADAMS III Report Released Date/Time: Mar 19, 2025 08:15 AM Reporting Lab: [place] [facility] [address] [place] [address] Performing Lab: [place] [facility] [address] [place] [address] URINE COLOR Light Yellow Yellow U.BILIRUBIN NEGATIVE [...] 1.019 1.005-1.029 Mar 19, 2025 10:11 AM [facility] URINE ALBUMIN PROFILE-ih (PB) URINE Specimen Type: URINE No comment entered. Ordering Provider: BARBARA ADAMS III Report Released Date/Time: Mar 19, 2025 08:15 AM Reporting Lab: [place] [facility] [address] [place] [address] Performing Lab: [place] [facility] [address] [place] [address] URINE ALBUMIN (PB-STL) 71.05 mg/L uACR (PB-MA) 64.71 mg/g H 0-30 CREATININE URINE/OTHERS 109.79 mg/dL Social History: Smoking Status (Most current) and Tobacco Use (All prior to encounter date) This section includes the most current, and the historical, smoking and tobacco- related health factors from the [place] facility where the Encounter took place. Current Smoking Status This section includes the most current smoking, or tobacco-related health factor, from the [place] facility where the Encounter took place. Date/Time Current Smoking Status Comment Bria mosqueda Jul 19, 2008 11:21 AM QUIT TOBACCO >12 M O & <7 YRS AGO [facility] Tobacco Use History This section includes a history of the smoking, or tobacco-related health factors, that were collected on or before the date of the Encounter. The data comes from the [place] facility where the Encounter took place. Date/Time Smoking Status/Tobacco Use Comment F acmarino Dec 06, 2007 02:33 PM QUIT TOBACCO IN E LAST 12 MONTHS [facility] Radiology Reports: +/- 30 days of the encounter Radiology Reports For cases when an order for radiology services may have been completed prior to the date of the Encounter, the report list includes the Radiology Reports that were completed up to 30 days before dateof the Encounter. For cases when an order for radiology services may have been completed after the date of the Encounter, the report list also includes the Radiology Reports that were completed up to30 days after date of the Encounter. The data comes from all [place] treatment facilities. Date/Time Radiology Report Provider Source Apr 09, 2025 08:35 AM OBSTRUCTIVE SERIES : VALENTIN LÓPEZ [id number] -1945 M Exm Date: APR 09, 2025@08:35 Req Phys: ADAMS,HOMER E III Pat Loc: PB-MOHINDER PACT CALDERON RAYMUNDO (Req'g L Img Loc: PB-XRAY [facility] Service: [place] [address] (Case [id number] COMPLETE) OBSTRUCTIVE SERIES (RAD Detailed) CPT:71799 Reason for Study: Contstipaion and abdominal pain Clinical History: Contstipaion and abdominal pain Report Status: Verified Date Reported: APR 09, 2025 Date Verified: APR 09, 2025 Project Engineering Director E-Sig: Report: Multiple views of the abdomen and a single AP view of the chest reveal degenerative skeletal change and mild scoliosis, compatible with paraspinous muscle spasm. There are multiple loops of gas-filled large and small bowel without obvious bowel obstruction. There is no appreciable ascites or pneumoperitoneum. There is no identified urinary tract stone. There is moderate generalized cardiomegaly with normal pulmonary vessels. There is no active infiltrate or effusion. Impression: Abnormal bowel pattern compatible with ileus Follow-up abdominal series in 3-5 day should be obtained for assessing interval change. Primary Interpreting Staff: CAPRICE PEREZ, RADIOLOGIST (Project Engineering Director, no e-sig) /CAPRICE Tee [facility] Encounter Notes: All associated encounter notes This section contains the clinical notes associated to the Encounter. Date/Time Encounter Note(s) Provider Source Apr 06, 2025 08:25 PM NONVA NOTE: LOCAL TITLE: COMMUNITY CARE-AMADO SELF PRESENTING CARE COORD PLAN STANDARD TITLE: NONVA NOTE DATE OF NOTE: APR 06, 2025@20:25 ENTRY DATE: APR 07, 2025@11:19:50 AUTHOR: NOE ST EXP COSIGNER: URGENCY: STATUS: COMPLETED COMMUNITY CARE-AMADO SELF PRESENTING CARE COORD PLAN 657A4 PB Has ADDENDA Emergency Notification Intake Date Presenting to the Facility: 04/06/2025 09:15 AM Method of Contact: Provider Notification ID: [id number] [facility] Referral #: Portal Generated Hospital: [facility] City: [place] State: [place] Chief complaint: Left Side Pain Date of discharge: Mar Discharge to home This is an 80-year-old male with history of rectal cancer status post bowel resection, CKD, atrial fibrillation on Eliquis, and prior nephrolithiasis who presented with acute left lower abdominal pain. Workup revealed leukocytosis with left shift, minimally elevated anion gap, and a UA with pyuria and hematuria. CT abdomen pelvis demonstrated a 2 mm obstructing calculus in the distal left ureter. Renal function is at his baseline. Lactate was within normal limits but not consistent with ischemia or severe sepsis. He is afebrile, hemodynamically stable, and remains nontoxic on his exam. Pain was adequately controlled with Dilaudid here in the emergency department. He will have Chavies sent to pharmacy along with MiraLAX for constipation prophylaxis, and he is given a dose of Flomax here in the ED to facilitate stone passage as this is only 2 mm and highly likely to pass on its own. He will be prescribed cefdinir for suspected concomitant UTI. Given his stability, preserved renal function, and the size of the stone, he is appropriate for outpatient management. He will follow-up with his urologist tomorrow and he is counseled on strict return precautions for fever, worsening pain, inability to urinate, vomiting, or any other concerning symptoms. Patient agrees with this plan. Clinical Impression: Ureterolithiasis Urinary tract infection Qualifiers: Urinary tract infection type: acute cystitis Hematuria presence: without hematuria: N30.00 Prescriptions: New hydrocodone-acetaminophen 7.5-325 mg tablet 1 tab PO Q8H PRN (Reason: pain) Qty: 10 0RF cefdinir 300 mg capsule 300 mg PO BID 10 Days Qty: 20 0RF polyethylene glycol 3350 [Miralax] 17 gram/dose powder 4 g PO DAILY Qty: 119 0RF Follow-Up: - Contact urology provider within 24 hours to arrange outpatient follow-up and definitive management planning. - If symptoms persist or worsen, or if stone does not pass, further imaging and intervention may be required. (ED Provider: Phil Anne DO/ROMEO Miles) Urology consult entered/held for provider review/sig. if they concur. /sydney/ NOE EDWARDS,RN Signed: 04/07/2025 11:25 Receipt Acknowledged By: 04/09/2025 08:38 /es/ MD TITO HENDRIX III [facility] * AWAITING SIGNATURE * ALFONSO PÉREZ * AWAITING SIGNATURE * JAYDA CA * AWAITING SIGNATURE * LYNDSEY WILLIS 04/07/2025 ADDENDUM STATUS: COMPLETED VistA Imaging Scanned Document - Addendum. [facility] SCANNED DOCUMENT SIGNATURE NOT REQUIRED Electronically Filed: 04/07/2025 by: LAZARO Webb [facility] 04/08/2025 ADDENDUM STATUS: COMPLETED -[id number], [id number] Clinical Review /sydney/ NOVEMBER Kayy EDWARDSRN Signed: 04/08/2025 15:[address] [facility]
[2025-04-09] VITALS (13 sets, daily range): BP systolic 115–150; BP diastolic 57–99; PULSE 67–101; RESP 15–21; TEMP 36.1–36.5; O2SAT 91–96; BMI 33.2; BMI 34.1
--- OUTSIDE RECORDS SUMMARY | 2025-04-09 03:15 | XMS_ITS | Encounter Summary ---
Author Name [facility] [place] [facility] [place] Address [address] [place] [id number] Care Team Providers Care Nurse Practitioner Per Diem Name Role Phone ADAMS, BARBARA Primary Care [...] section includes the information on record at [place] for the Encounter. Date/Time Encounter Type Encounter Description Reason Pro vider Source Apr 09, 2025 08:15 AM Outpatient Encounter PRIMARY CARE/MEDICINE [facility] Encounter Template Text not used by [place] Plan of Treatment: Future Appointments (+ 6 months) and Future Tests (+/- 45 days) The Plan of Treatment section includes future care activities for the patient from all [place] treatmentfacilities. This section includes future appointments and future orders which are active, pending or scheduled. Active, Pending, and Scheduled Orders This section includes a listing of several types of active, pending, and scheduled orders, including clinic medications orders, diagnostic test orders, procedure orders and consult orders; where the start date of the order is 45 days before the date of the Encounter or 45 days after the date of theEncounter. The data comes from all [place] treatment facilities. Test Date/Time Test Type Test Details Facility Name Apr 09, 2025 09:09 AM Consult Order [facility]-EMERGENCY ROOM [id number] Cons Personnel Training Officer's Choice [place] [facility] Lab Results: +/- 30 days of [...] Type Comment Mar 19, 2025 10:11 AM [facility] [place] [facility] B12 SERUM Specimen Type: SERUM No comment entered. Ordering Provider: BARBARA ADAMS III Report Released Date/Time: Mar 19, 2025 08:15 AM Reporting Lab: [place] [facility] [address] [place] [address] Performing Lab: [place] [facility] [address] [place] [address] B12 299 pg/mL [phone] Mar 19, 2025 10:11 AM [facility] FOLATE (PB) SERUM Specimen Typ e: SERUM No comment entered. Ordering Provider: BARBARA ADAMS III Report Released Date/Time: Mar 19, 2025 08:15 AM Reporting Lab: [place] [facility] [address] [place] [address] Performing Lab: [place] [facility] [address] [place] [address] FOLATE (PB) 10.2 ng/mL 7-20 Mar 19, 2025 10:11 AM [facility] HGA1C BLOOD Specimen Type: BLOOD No comment entered. Ordering Provider: BARBARA ADAMS III Report Released Date/Time: Mar 19, 2025 08:15 AM Reporting Lab: [place] [facility] [address] [place] [address] Performing Lab: [place] [facility] [address] [place] [address] HGA1C 7.3 H 4.0-6.0 Mar 19, 2025 10:11 AM [facility] [place] [facility] VITAMIN D, 25-HYDROXY SERUM Specimen Type: SE RUM No comment entered. Ordering Provider: BARBARA ADAMS III Report Released Date/Time: Mar 19, 2025 08:15 AM Reporting Lab: [place] [facility] [address] [place] [address] Performing Lab: [place] [facility] [address] [place] [address] VITAMIN D, 25-HYDROXY 67.6 ng/mL 30-96 Mar 19, 2025 10:11 AM [facility] COMPREHENSIVE METABOLIC PANEL PLASMA Specimen Type: PLASMA No comment entered. Ordering Provider: BARBARA ADAMS III Report Released Date/Time: Mar 19, 2025 08:15 AM Reporting Lab: [place] [facility] [address] [place] [address] Performing Lab: [place] [facility] [address] [place] [address] CREATININE 1.55 mg/dL H 0.7-1.3 UREA NITROGEN [...] 2020) 44 Mar 19, 2025 10:11 AM [facility] CBC BLOOD Specimen Type: BLOOD No comment entered. Ordering Provider: BARBARA ADAMS III Report Released Date/Time: Mar 19, 2025 08:15 AM Reporting Lab: [place] [facility] [address] [place] [address] Performing Lab: [place] [facility] [address] [place] [address] WBC 8.8 10*3/uL 3.6-11.2 RBC 5.00 10*6/uL [...] 0. 00-0.05 Mar 19, 2025 10:11 AM [facility] TSH (MA-PB) SERUM Specimen Typ e: SERUM No comment entered. Ordering Provider: BARBARA ADAMS III Report Released Date/Time: Mar 19, 2025 08:15 AM Reporting Lab: [place] [facility] [address] [place] [address] Performing Lab: [place] [facility] [address] [place] [address] TSH 1.533 u[IU]/mL 0.47-5 Mar 19, 2025 10:11 AM [facility] CHOLESTEROL PANEL (PB) PLASMA Specimen Type: P LASMA No comment entered. Ordering Provider: BARBARA ADAMS III Report Released Date/Time: Mar 19, 2025 08:15 AM Reporting Lab: [place] [facility] [address] [place] [address] Performing Lab: [place] [facility] [address] [place] [address] CHOLESTEROL 193 mg/dL 0-200 TRIGLYCERIDE 84 mg/dL 0-150 CALCULATED LDL 127.2 mg/dL HDL(New) 49.0 mg/dL H >40 HDL % OF TOTAL CHOLESTEROL (PB) 25.4 >25 Mar 19, 2025 10:11 AM [facility] MAGNESIUM PLASM A Specimen Type: PLASMA No comment entered. Ordering Provider: BARBARA ADAMS III Report Released Date/Time: Mar 19, 2025 08:15 AM Reporting Lab: [place] [facility] [address] [place] [facility] Performing Lab: [place] [facility] [address] [place] [address] MAGNESIUM 1.92 mg/dL 1.6-2.6 Mar 19, 2025 10:11 AM [facility] URINALYSIS (STL-PB) URINE Specimen Type: URIN E No comment entered. Ordering Provider: BARBARA ADAMS III Report Released Date/Time: Mar 19, 2025 08:15 AM Reporting Lab: [place] [facility] [address] [place] [facility] Performing Lab: [place] [facility] [address] [place] [address] URINE COLOR Light Yellow Yellow U.BILIRUBIN NEGATIVE [...] 1.019 1.005-1.029 Mar 19, 2025 10:11 AM [facility] URINE ALBUMIN PROFILE-ih (PB) URINE Specimen Type: URINE No comment entered. Ordering Provider: BARBARA ADAMS III Report Released Date/Time: Mar 19, 2025 08:15 AM Reporting Lab: [place] [facility] [address] [place] [address] Performing Lab: [place] [facility] [address] [place] [address] URINE ALBUMIN (PB-STL) 71.05 mg/L uACR (PB-MA) 64.71 mg/g H 0-30 CREATININE URINE/OTHERS 109.79 mg/dL Vital Signs: All taken on the encounter date This section contains inpatient and outpatient Vital Signs collected on the date of the Encounter. Date/Time Temperature Pulse Blood Pressure Respiratory Rate SP02 Pain Height Weight Body Mass Index Source Apr 09, 2025 08:52 AM 98.2 F 82 /min 131/76 mm[Hg] 18 /min 95 % 7 225.7 lb 32 [facility] Social History: Smoking Status (Most current) and Tobacco Use (All prior to encounter date) This section includes the most current, and the historical, smoking and tobacco- related health factors from the [place] facility where the Encounter took place. Current Smoking Status This section includes the most current smoking, or tobacco-related health factor, from the [place] facility where the Encounter took place. Date/Time Current Smoking Status Comment Bria mosqueda Mar 19, 2025 09:30 AM VA-TOBACCO USE FORMER CIGARETTES [facility] Tobacco Use History This section includes a history of the smoking, or tobacco-related health factors, that were collected on or before the date of the Encounter. The data comes from the [place] facility where the Encounter took place. Date/Time Smoking Status/Tobacco Use Comment F pita Mar 19, 2025 09:30 AM VA-TOBACCO USE FOR MARY BETH CIGARETTES [facility] Mar 12, 2024 01:45 PM VA-TOBACCO FORMER USER [facility] Mar 12, 2024 01:45 PM VA-TOBACCO QUIT 15 YRS OR MORE [facility] Nov 14, 2005 10:49 AM CURRENT NON-TOBACC O USER-HX OF USE Pt stopped smoking 3 months ago [facility] Apr 14, 2005 09:32 AM CURRENT TOBACCO USER [facility] Oct 14, 2004 10:22 AM CURRENT TOBACCO USER [facility] Apr 29, 2004 08:37 AM CURRENT TOBACCO USER [facility] Oct 29, 2003 08:59 AM CURRENT NON-TOBACC O USER-HX OF USE [facility] May 14, 2003 09:03 AM CURRENT TOBACCO USER [facility] Nov 20, 2002 10:12 AM CURRENT TOBACCO USER [facility] Dec 07, 2001 08:10 AM TOB-SMOKES OR USES TOBACCO PRODUCTS 1 DAY [facility] Radiology Reports: +/- 30 days of the [...] the Encounter. The data comes from all [place] treatment facilities. Date/Time Radiology Report Provider Source Apr 09, 2025 08:35 AM OBSTRUCTIVE SERIES : VALENTIN LÓPEZ [id number] -[id number] M Exm Date: APR 09, 2025@08:35 Req Phys: BARBARA ADAMS E III Pat Loc: PB-MOHINDER PACT CALDERON RAYMUNDO (Req'g L Img Loc: PB-XRAY [place] Service: [place] [address] (Case [id number] COMPLETE) OBSTRUCTIVE SERIES (RAD Detailed) CPT:99250 Reason for Study: Contstipaion and abdominal pain Clinical History: Contstipaion and abdominal pain Report Status: Verified Date Reported: APR 09, 2025 Date Verified: APR 09, 2025 Ethylene Plant Helper E-Sig: Report: Multiple views of the abdomen [...] assessing interval change. Primary Interpreting Staff: CAPRICE PEREZ RADIOLOGIST (Ethylene Plant Helper, no e-sig) /CAPRICE Tee [facility]
--- OUTSIDE RECORDS SUMMARY | 2025-04-09 04:38 | XMS_ITS | Continuity of Care Document ---
Author Name [facility] Organization [facility] Care Team Providers Care Displayer Merchandise Name Role Phone [facility] Unavailable Unavailable Problems Combined list of problems from Department of Defense and Veterans Affairs facilities. It does not include entries that were removed or entered in error. Problem Status Onset Date Problem Type Date of Resolution Comments Source Atrial fibrillation Active Condition [facility] Benign localised hyperplasia of prostate Active Condition [facility] Bilateral cataracts Active Condition [facility] Carcinoma of colon Active [facility] Chronic kidney disease Active Condition [facility] Chronic low back pain Active Condition [facility] Diabetes Mellitus Type 2 (SCT 92836094) Active Condition [facility] Essential hypertension Active Condition [facility] Essential hypertension (SNOMED CT 52826053) Active Condition [facility] Glaucoma Active Condition Mar 14 Entered By: JO-ANN LUONG Comment: bilateral [facility] History of calculus of kidney [facility] Hyperlipidemia Active Condition [facility] Intermittent urinary incontinence Active Condition [facility] Lower urinary tract symptoms due to benign prostatic hypertrophy Active Condition [facility] LUMBAGO Active Condition [facility] Male erectile disorder (ICD-9-CM 302.72/607.84) Active Condition [facility] SCREENING FOR ALCOHOLISM Active Condition [facility] SCREENING FOR DEPRESSION Active Condition [facility] TOBACCO USE DISORDER, UNSPECIFIED USE Active Condition Dec 07, 2001 Entered By: KRUNAL CORMIER Comment: 1 DAY [facility] Diagnosis: ICD-10-CM Z51.81 Encounter for therapeutic drug level monitoring Active Diagnosis [facility] Diagnosis: ICD-10-CM M54.50 Low back pain, unspecified Active Diagnosis [facility] Diagnosis: ICD-10-CM Z23 Encounter for immunization Active Diagnosis [facility] [place] [facility] Diagnosis: ICD-10-CM 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 RINSE MOUTHPIE CE FREQUENT LY TO PREVENT CLOGGING . RESPIR ATORY (INHAL ATION) ACTIVE 09/18/2025 [id number] 5 TACHO LUONG ISTEKayy G 2024 3 [facility] AMIODARONE HCL (PACERONE) 200MG TAB TAKE ONE TABLET BY MOUTH ONCE A DAY FOR VENTRICU LAR ARRHYTHM IA AVOID TAKING WITH GRAPEFRU IT JUICE. USE OF SUNSCREE N IS RECOMMEN DED. ORAL 03/15/2025 [id number] 5 TACHO LUONG ISTEKayy G 2023 90 [facility] APIXABAN 5MG TAB TAKE ONE-HALF TABLET BY MOUTH TWICE A DAY FOR ANTICOAG ULATION ORAL ACTIVE 04/11/2025 [id number] 5 CHRISTINE LARSON 2023 90 [facility] APIXABAN 5MG TAB TAKE ONE-HALF TABLET BY MOUTH TWICE A DAY FOR ANTICOAG ULATION ORAL DISCONT INUED (EDIT) 03/20/2025 [id number] 4 CHRISTINE LARSON 2023 30 [facility] CETIRIZINE HCL 10MG TAB TAKE ONE TABLET BY MOUTH ONCE A DAY FOR ALLERGY SYMPTOMS ORAL ACTIVE 09/18/2025 [id number] 5 TACHO LUONG G [address] [place] [address] [facility] CHLORTHALID ONE 25MG TAB TAKE ONE-HALF TABLET BY MOUTH ONCE A DAY FOR HIGH BLOOD PRESSURE ORAL ACTIVE 04/09/2026 [id number] 5 TACHO LUONGTEL G 2024 45 [facility] CHLORTHALID ONE 25MG TAB TAKE ONE-HALF TABLET BY MOUTH ONCE A DAY FOR HIGH BLOOD PRESSURE ORAL DISCONT INUED 03/15/2025 [id number] 5 TACHO LUONG G [address] [place] [address] [facility] EMPAGLIFLOZ IN 25MG TAB TAKE ONE-HALF TABLET BY MOUTH ONCE A DAY FOR DIABETES ORAL ACTIVE 03/12/2026 [id number] 5 TACHO LUONG [address] [place] [address] [facility] EMPAGLIFLOZ IN 25MG TAB TAKE ONE-HALF TABLET BY MOUTH ONCE A DAY FOR DIABETES ORAL DISCONT INUED 03/20/2025 [id number] 5 TACHO LUONGTEKayy G [address] [place] [address] [facility] FINASTERIDE 5MG TAB TAKE ONE TABLET BY MOUTH ONCE A DAY FOR BENIGN PROSTATI C HYPERPLA TEENA SWALLOW WHOLE, DO NOT CRUSH, SPLIT, OR CHEW. ORAL 03/15/2025 [id number] 5 TACHO LUONG G [address] [place] [address] [facility] FLUTICASONE PROPIONATE 50MCG/SPRAY SOLN,NASAL, 16GM INSTILL 1 SPRAY IN EACH NOSTRIL ONCE A DAY FOR RHINITIS (MUST BE USED DIRECTED FOR MINIMUM OF 21 DAYS TO PROVIDE ADEQUATE BENEFITS ) NASAL ACTIVE 09/18/2025 [id number] 5 TACHO LUONGTEKayy G [address] [place] [address] [facility] FUROSEMIDE 20MG TAB TAKE ONE TABLET BY MOUTH TWICE DAILY NEEDED FOR FLUID RETENTIO N (EDEMA) TAKE CELSA Urbano WHEN TAKING ORAL 03/15/2025 [id number] 4 TACHO LUONG ISTEL G 2023 180 [place] [facility] GEMFIBROZIL 600MG TAB TAKE ONE TABLET BY MOUTH TWO TIMES A DAY BEFORE MEALS FOR HIGH TRIGLYCE RIDES (30 MINUTES BEFORE A MEAL) ORAL 03/15/2025 [id number] 5 TACHO LUONG ISTEL G 2023 180 [place] [facility] LATANOPROST 0.005% SOLN,OPH INSTILL 1 DROP IN BOTH EYES EVERY EVENING FOR ELEVATED INTRAOCU LAR PRESSURE KEEP REFRIGER ATED UNTIL READY TO USE, THEN STORE AT ROOM TEMPERAT URE FOR MAXIMUM OF 42 DAYS. OPHTHA LMIC ACTIVE 09/26/2025 [id number] 5 TACHO LUONGTEL G 2024 7.5 [facility] [place] [place] [facility] LIDOCAINE 5% PATCH APPLY 1 PATCH TO SKIN SITE ONCE A DAY BACK PAIN APPLY PATCH AND PRESS FIRMLY FOR 10-15 SECONDS. KEEP ON FOR 12 HOURS THEN REMOVE PATCH FOR 12 HOURS. TRANSD ERMAL ACTIVE 03/20/2026 [id number] 5 HAI ADAMS E III 2024 90 [place] [facility] LOSARTAN 50MG TAB TAKE ONE-HALF TABLET BY MOUTH ONCE A DAY FOR HIGH BLOOD PRESSURE ORAL ACTIVE 06/18/2025 [id number] 5 TACHO LUONG ISTEL G 2023 45 [place] [facility] POTASSIUM CHLORIDE 20MEQ TAB,SA (DISPERSIBL E) TAKE ONE-HALF TABLET BY MOUTH ONCE A DAY NEEDED FOR POTASSIU M SUPPLEME NTATION TAKE WITH FOOD WHEN TAKING FUROSEMI DE ORAL 03/15/2025 [id number] 4 TACHO LUONG ISTEL G 2023 90 [place] [facility] SITAGLIPTIN (EQV-ZITUVI O) 50MG TAB TAKE ONE TABLET BY MOUTH ONCE A DAY FOR DIABETES ORAL ACTIVE 03/20/2026 [id number] 5 HAI ADAMS MARY BETH E III 2024 90 [place] [facility] SITAGLIPTIN (EQV-ZITUVI O) 50MG TAB TAKE ONE TABLET BY MOUTH ONCE A DAY FOR DIABETES ORAL 03/15/2025 [id number] 5 TACHO LUONG ISTEL G 2023 90 [facility] TAMSULOSIN HCL 0.4MG CAP TAKE TWO CAPSULES BY MOUTH EVERY EVENING FOR BENIGN PROSTATI C HYPERPLA TEENA APPROXIM ATELY 30 MINUTES AFTER THE SAME MEAL EACH DAY ORAL 03/15/2025 [id number] 5 TACHO LUONG ISTEL G 2023 180 [facility] TIMOLOL MALEATE 0.25% SOLN,OPH INSTILL 1 DROP IN BOTH EYES TWICE A DAY FOR ELEVATED INTRAOCU LAR PRESSURE OPHTHA LMIC ACTIVE 09/26/2025 [id number] 5 TACHO LUONG ISTEL G 2024 10 [facility] TRIAMCINOLO NE ACETONIDE 0.1% CREAM,TOP APPLY SPARINGL Y TO AFFECTED AREA(S) FOUR TIMES A DAY NEEDED FOR ATOPIC DERMATIT IS (EXTERNA L USE ONLY) TOPICA L 03/15/2025 [id number] 4 TACHO LUONG ISTEL G 2023 160 [facility] Allergies, Adverse Reactions, Alerts Combined list of allergies from Department of Defense and Veterans Affairs facilities. It does not include entries that were removed or entered in error. Substance Category Reaction Severity Reaction type Status Date Reported Comments Source SIMVASTATIN Propensity to adverse reactions to drug (finding) Eruption active 4 [facility] Immunizations Combined list of available immunizations from the Department of Defense and Veterans Affairs facilities. Immunization Series Date Given Administered By Site Reaction Lot Number CVX Code Drug Pecan Grower Status Comments Source PNEUMOCOCCAL CONJUGATE PCV20, POLYSACCHARID E [id number] CONJUGATE, ADJUVANT, PF 2024 ALFONSO PÉREZ RIGHT DELTO ID [id number] 216 complet ed [facility] TDAP 2024 [place] RIGHT DELTO ID [id number] 115 complet ed [facility] INFLUENZA, SPLIT VIRUS, TRIVALENT, PRESERVATIVE 6 2022 141 complet ed HISTORICA L INFORMATI ON - FROM OTHER REGISTRY, [facility] INFLUENZA, SPLIT VIRUS, TRIVALENT, PRESERVATIVE 5 2020 141 complet ed HISTORICA L INFORMATI ON - FROM OTHER REGISTRY, [facility] INFLUENZA, SPLIT VIRUS, TRIVALENT, PRESERVATIVE 4 2019 141 complet ed HISTORICA L INFORMATI ON - FROM OTHER REGISTRY, [facility] INFLUENZA, SPLIT VIRUS, TRIVALENT, PF 3 2015 140 complet ed HISTORICA L INFORMATI ON - FROM OTHER REGISTRY, [facility] INFLUENZA, SPLIT VIRUS, TRIVALENT, PRESERVATIVE 2 2013 141 complet ed HISTORICA L INFORMATI ON - FROM OTHER REGISTRY, [facility] INFLUENZA, SPLIT VIRUS, TRIVALENT, PRESERVATIVE 1 2012 141 complet ed HISTORICA L INFORMATI ON - FROM OTHER [facility], [facility] N TD(ADULT) UNSPECIFIED FORMULATION 2008 139 complet HISTORICA L INFORMATI ON - FROM OTHER PROVIDER, [facility] DIVISIO N INFLUENZA, UNSPECIFIED FORMULATION 2007 88 [facility] INFLUENZA, UNSPECIFIED FORMULATION 2006 88 [facility] INFLUEN[facility] (HISTORICAL) 2003 88 [facility] N INFLUENZA, UNSPECIFIED FORMULATION 2001 88 [facility] OUTSIDE PNEUMOVAX (HISTORICAL) 2001 109 [facility] DIVISIO N TD(ADULT) UNSPECIFIED FORMULATION 2000 139 [facility] N PNEUMOCOCCAL POLYSACCHARID E [id number] 1999 33 complet ed HISTORICA L INFORMATI ON - FROM OTHER PROVIDER, copy of vaccinati on record [facility] Results Combined list of recent chemistry, hematology and other laboratory results from Department of Defense and Veterans Affairs, ranging from 15 months to all on record, depending upon the facility. Order Name Results Value Reference Range Date Interpretation Specimen Comments Source FOLATE (PB) FOLATE [MASS/VOLUME ] IN SERUM OR PLASMA 10.2 ng/mL 7 - 20 03/19 Specimen Type: SERUM No comment entered. Ordering Provider: HAI ADAMS III Report Released Date/Time : Mar 19, 2025 08:15 AM Reporting Lab: [place] [facility] [address] [place] [address] Performin g Lab: [place] [facility] [address] [place] [address] [facility] B12 COBALAMIN (VITAMIN B12) [MASS/VOLUME ] IN SERUM OR PLASMA 299 pg/mL 213 - 816 03/19 Specimen Type: SERUM No comment entered. Ordering Provider: HAI ADAMS III Report Released Date/Time : Mar 19, 2025 08:15 AM Reporting Lab: [place] [facility] [address] [place] [address] Performin g Lab: [place] [facility] [address] [place] [address] [facility] HGA1C HEMOGLOBIN A1C/HEMOGLOB IN.TOTAL IN BLOOD 7.3 4.0 - 6.0 03/19 H Specimen Type: BLOOD No comment entered. Ordering Provider: HAI ADAMS III Report Released Date/Time : Mar 19, 2025 08:15 AM Reporting Lab: [place] [facility] [address] [place] [address] Performin g Lab: [place] [facility] [address] [place] [address] [facility] VITAMIN D, 25-HYDROXY 25-HYDROXYVI TAMIN D3 [MASS/VOLUME ] IN SERUM OR PLASMA 67.6 ng/mL 30 - 96 03/19 Specimen Type: SERUM No comment entered. Ordering Provider: HAI ADAMS III Report Released Date/Time : Mar 19, 2025 08:15 AM Reporting Lab: [place] [facility] [address] [place] [address] Performin g Lab: [place] [facility] [address] [place] [address] [facility] CBC LEUKOCYTES [#/VOLUME] IN BLOOD BY AUTOMATED COUNT 8.8 10*3/uL 3.6 - 11.2 03/19 Specimen Type: BLOOD No comment entered. Ordering Provider: HAI ADAMS III Report Released Date/Time : Mar 19, 2025 08:15 AM Reporting Lab: [place] [facility] [address] [place] [address] Performin g Lab: [place] [facility] [address] [place] [address] [facility] CBC ERYTHROCYTES [#/VOLUME] IN BLOOD BY AUTOMATED COUNT 5.00 10*6/uL 4.10 - 5.70 03/19 Specimen Type: BLOOD No comment entered. Ordering Provider: HAI ADAMS III Report Released Date/Time : Mar 19, 2025 08:15 AM Reporting Lab: [place] [facility] [address] [place] [address] Performin g Lab: [place] [facility] [address] [place] [phone] [facility] CBC HEMOGLOBIN [MASS/VOLUME ] IN BLOOD 15.3 g/dL 13.1 - 16.8 03/19 Specimen Type: BLOOD No comment entered. Ordering Provider: HAI ADAMS III Report Released Date/Time : Mar 19, 2025 08:15 AM Reporting Lab: [place] [facility] [address] [place] [address] Performin g Lab: [place] [facility] [address] [place] [address] [facility] CBC HEMATOCRIT [VOLUME FRACTION] OF BLOOD 46.0 38.2 - 48.4 03/19 Specimen Type: BLOOD No comment entered. Ordering Provider: HAI ADAMS III Report Released Date/Time : Mar 19, 2025 08:15 AM Reporting Lab: [place] [facility] [address] [place] [address] Performin g Lab: [place] [facility] [address] [place] [address] [place] [place] [facility] CBC MCV [ENTITIC VOLUME] BY AUTOMATED COUNT 92.0 fL 80.0 - 100.0 03/19 Specimen Type: BLOOD No comment entered. Ordering Provider: HAI ADAMS III Report Released Date/Time : Mar 19, 2025 08:15 AM Reporting Lab: [place] [facility] [address] [place] [address] Performin g Lab: [place] [facility] [address] [place] [address] [facility] CBC MCH [ENTITIC MASS] BY AUTOMATED COUNT 30.6 pg 27.0 - 34.0 03/19 Specimen Type: BLOOD No comment entered. Ordering Provider: HAI ADAMS III Report Released Date/Time : Mar 19, 2025 08:15 AM Reporting Lab: [place] [facility] [address] [place] [address] Performin g Lab: [place] [facility] [address] [place] [address] [facility] CBC MCHC [MASS/VOLUME ] BY AUTOMATED COUNT 33.3 g/dL 33.0 - 36.0 03/19 Specimen Type: BLOOD No comment entered. Ordering Provider: HAI ADAMS III Report Released Date/Time : Mar 19, 2025 08:15 AM Reporting Lab: [place] [facility] [address] [place] [address] Performin g Lab: [place] [facility] [address] [place] [address] [facility] CBC PLATELETS [#/VOLUME] IN BLOOD BY AUTOMATED COUNT 206 10*3/uL 150 - 400 03/19 Specimen Type: BLOOD No comment entered. Ordering Provider: HAI ADAMS III Report Released Date/Time : Mar 19, 2025 08:15 AM Reporting Lab: [place] [facility] [address] [place] [address] Performin g Lab: [place] [facility] [address] [place] [address] [facility] CBC PLATELET MEAN VOLUME [ENTITIC VOLUME] IN BLOOD BY AUTOMATED COUNT 12.2 fL 7.5 - 11.2 03/19 H Specimen Type: BLOOD No comment entered. Ordering Provider: HAI ADAMS III Report Released Date/Time : Mar 19, 2025 08:15 AM Reporting Lab: [place] [facility] [address] [place] [address] Performin g Lab: [place] [facility] [address] [place] [address] [facility] CBC ERYTHROCYTE DISTRIBUTION WIDTH [RATIO] BY AUTOMATED COUNT 12.8 11.8 - 15.1 03/19 Specimen Type: BLOOD No comment entered. Ordering Provider: HAI ADAMS III Report Released Date/Time : Mar 19, 2025 08:15 AM Reporting Lab: [place] [facility] [address] [place] [address] Performin g Lab: [place] [facility] [address] [place] [address] [facility] CBC LYMPHOCYTES/ 100 LEUKOCYTES IN BLOOD BY AUTOMATED COUNT 18.5 03/19 Specimen Type: BLOOD No comment entered. Ordering Provider: HAI ADAMS III Report Released Date/Time : Mar 19, 2025 08:15 AM Reporting Lab: [place] [facility] [address] [place] [address] Performin g Lab: [place] [facility] [address] [place] [address] [facility] CBC MONOCYTES/10 0 LEUKOCYTES IN BLOOD BY AUTOMATED COUNT 6.6 03/19 Specimen Type: BLOOD No comment entered. Ordering Provider: HAI ADAMS III Report Released Date/Time : Mar 19, 2025 08:15 AM Reporting Lab: [place] [facility] [address] [place] [address] Performin g Lab: [place] [facility] [address] [place] [address] 8 [facility] CBC NEUTROPHILS/ 100 LEUKOCYTES IN BLOOD BY AUTOMATED COUNT 71.5 03/19 Specimen Type: BLOOD No comment entered. Ordering Provider: HAI ADAMS E III Report Released Date/Time : Mar 19, 2025 08:15 AM Reporting Lab: [place] [facility] [address] [place] [address] Performin g Lab: [place] [facility] [address] [place] [address] 8 [facility] CBC EOSINOPHILS/ 100 LEUKOCYTES IN BLOOD BY AUTOMATED COUNT 1.9 03/19 Specimen Type: BLOOD No comment entered. Ordering Provider: HAI ADAMS III Report Released Date/Time : Mar 19, 2025 08:15 AM Reporting Lab: [place] [facility] [address] [place] [address] Performin g Lab: [place] [facility] [address] [place] [address] 8 [facility] CBC BASOPHILS/10 0 LEUKOCYTES IN BLOOD BY AUTOMATED COUNT 0.9 03/19 Specimen Type: BLOOD No comment entered. Ordering Provider: HAI ADAMS III Report Released Date/Time : Mar 19, 2025 08:15 AM Reporting Lab: [place] [facility] [address] [place] [address] Performin g Lab: [place] [facility] [address] [place] [address] [facility] CBC LYMPHOCYTES [#/VOLUME] IN BLOOD BY AUTOMATED COUNT 1.63 10*3/uL 0.77 - 4.50 03/19 Specimen Type: BLOOD No comment entered. Ordering Provider: HAI ADAMS III Report Released Date/Time : Mar 19, 2025 08:15 AM Reporting Lab: [place] [facility] [address] [place] [address] Performin g Lab: [place] [facility] [address] [place] [address] [facility] CBC MONOCYTES [#/VOLUME] IN BLOOD BY AUTOMATED COUNT 0.58 10*3/uL 0.19 - 0.8 03/19 Specimen Type: BLOOD No comment entered. Ordering Provider: HAI ADAMS III Report Released Date/Time : Mar 19, 2025 08:15 AM Reporting Lab: [place] [facility] [address] [place] [address] Performin g Lab: [place] [facility] [address] [place] [address] [facility] CBC NEUTROPHILS [#/VOLUME] IN BLOOD BY AUTOMATED COUNT 6.32 10*3/uL 2.10 - 8.00 03/19 Specimen Type: BLOOD No comment entered. Ordering Provider: HAI ADAMS III Report Released Date/Time : Mar 19, 2025 08:15 AM Reporting Lab: [place] [facility] [address] [place] [address] Performin g Lab: [place] [facility] [address] [place] [address] 8 [facility] CBC EOSINOPHILS [#/VOLUME] IN BLOOD BY AUTOMATED COUNT 0.17 10*3/uL 0.00 - 0.60 03/19 Specimen Type: BLOOD No comment entered. Ordering Provider: HAI ADAMS III Report Released Date/Time : Mar 19, 2025 08:15 AM Reporting Lab: [place] [facility] [address] [place] [address] Performin g Lab: [place] [facility] [address] [place] [address] [facility] CBC BASOPHILS [#/VOLUME] IN BLOOD BY AUTOMATED COUNT 0.08 10*3/uL 0.00 - 0.20 03/19 Specimen Type: BLOOD No comment entered. Ordering Provider: HAI ADAMS III Report Released Date/Time : Mar 19, 2025 08:15 AM Reporting Lab: [place] [facility] [address] [place] [address] Performin g Lab: [place] [facility] [address] [place] [address] [facility] CBC IMMATURE GRANULOCYTES /100 LEUKOCYTES IN BLOOD BY AUTOMATED COUNT 0.6 03/19 Specimen Type: BLOOD No comment entered. Ordering Provider: HAI ADAMS III Report Released Date/Time : Mar 19, 2025 08:15 AM Reporting Lab: [place] [facility] [address] [place] [address] Performin g Lab: [place] [facility] [address] [place] [address] [facility] CBC IMMATURE GRANULOCYTES [#/VOLUME] IN BLOOD BY AUTOMATED COUNT 0.05 10*3/uL 0.00 - 0.05 03/19 Specimen Type: BLOOD No comment entered. Ordering Provider: HAI ADAMS III Report Released Date/Time : Mar 19, 2025 08:15 AM Reporting Lab: [place] [facility] [address] [place] [address] Performin g Lab: [place] [facility] [address] [place] [address] [facility] COMPREHENSI VE METABOLIC PANEL CREATININE [MASS/VOLUME ] IN SERUM OR PLASMA 1.55 mg/dL 0.7 - 1.3 03/19 H Specimen Type: PLASMA No comment entered. Ordering Provider: HAI ADAMS III Report Released Date/Time : Mar 19, 2025 08:15 AM Reporting Lab: [place] [facility] [address] [place] [address] Performin g Lab: [place] [facility] [address] [place] [address] [facility] COMPREHENSI VE METABOLIC PANEL UREA NITROGEN [MASS/VOLUME ] IN SERUM OR PLASMA 27 mg/dL 9 - 25 03/19 H Specimen Type: PLASMA No comment entered. Ordering Provider: HAI ADAMS III Report Released Date/Time : Mar 19, 2025 08:15 AM Reporting Lab: [place] [facility] [address] [place] [address] Performin g Lab: [place] [facility] [address] [place] [address] [facility] COMPREHENSI VE METABOLIC PANEL GLUCOSE [MASS/VOLUME ] IN SERUM OR PLASMA 142 mg/dL 72 - 99 03/19 H Specimen Type: PLASMA No comment entered. Ordering Provider: HAI ADAMS E III Report Released Date/Time : Mar 19, 2025 08:15 AM Reporting Lab: [place] [facility] [address] [place] [address] Performin g Lab: [place] [facility] [address] [place] [address] [facility] COMPREHENSI VE METABOLIC PANEL SODIUM [MOLES/VOLUM E] IN SERUM OR PLASMA 143 meq/L 136 - 145 03/19 Specimen Type: PLASMA No comment entered. Ordering Provider: HAI ADAMS E III Report Released Date/Time : Mar 19, 2025 08:15 AM Reporting Lab: [place] [facility] [address] [place] [address] Performin g Lab: [place] [facility] [address] [place] [address] 8 [facility] COMPREHENSI VE METABOLIC PANEL POTASSIUM [MOLES/VOLUM E] IN SERUM OR PLASMA 3.5 meq/L 3.5 - 5 03/19 Specimen Type: PLASMA No comment entered. Ordering Provider: HAI ADAMS III Report Released Date/Time : Mar 19, 2025 08:15 AM Reporting Lab: [place] [facility] [address] [place] [address] Performin g Lab: [place] [facility] [address] [place] [address] 8 [facility] COMPREHENSI VE METABOLIC PANEL CHLORIDE [MOLES/VOLUM E] IN SERUM OR PLASMA 104 meq/L 98 - 107 03/19 Specimen Type: PLASMA No comment entered. Ordering Provider: HAI ADAMS E III Report Released Date/Time : Mar 19, 2025 08:15 AM Reporting Lab: [place] [facility] [address] [place] [address] 8 Performin g Lab: [place] [facility] [address] [place] [address] 8 [facility] COMPREHENSI VE METABOLIC PANEL CARBON DIOXIDE, TOTAL [MOLES/VOLUM E] IN SERUM OR PLASMA 26 meq/L 22 - 31 03/19 Specimen Type: PLASMA No comment entered. Ordering Provider: HAI ADAMS E III Report Released Date/Time : Mar 19, 2025 08:15 AM Reporting Lab: [place] [facility] [address] [place] [address] 8 Performin g Lab: [place] [facility] [address] [place] [address] 8 [facility] COMPREHENSI VE METABOLIC PANEL CALCIUM [MASS/VOLUME ] IN SERUM OR PLASMA 9.5 mg/dL 8.4 - 10.4 03/19 Specimen Type: PLASMA No comment entered. Ordering Provider: HAI ADAMS E III Report Released Date/Time : Mar 19, 2025 08:15 AM Reporting Lab: [place] [facility] [address] [place] [address] 8 Performin g Lab: [place] [facility] [address] [place] [address] 8 [facility] COMPREHENSI VE METABOLIC PANEL PROTEIN [MASS/VOLUME ] IN SERUM OR PLASMA 7.4 g/dL 6 - 8.6 03/19 Specimen Type: PLASMA No comment entered. Ordering Provider: HAI ADAMS III Report Released Date/Time : Mar 19, 2025 08:15 AM Reporting Lab: [place] [facility] [address] [place] [address] 8 Performin g Lab: [place] [facility] [address] [place] [address] 8 [facility] COMPREHENSI VE METABOLIC PANEL ALBUMIN [MASS/VOLUME ] IN SERUM OR PLASMA 4.3 g/dL 3.4 - 5 03/19 Specimen Type: PLASMA No comment entered. Ordering Provider: HAI ADAMS E III Report Released Date/Time : Mar 19, 2025 08:15 AM Reporting Lab: [place] [facility] [address] [place] [address] Performin g Lab: [place] [facility] [address] [place] [address] 8 [facility] COMPREHENSI VE METABOLIC PANEL BILIRUBIN.TO JUAN [MASS/VOLUME ] IN SERUM OR PLASMA 0.6 mg/dL 0.2 - 1.2 03/19 Specimen Type: PLASMA No comment entered. Ordering Provider: HAI ADAMS E III Report Released Date/Time : Mar 19, 2025 08:15 AM Reporting Lab: [place] [facility] [address] [place] [address] 8 Performin g Lab: [place] [facility] [address] [place] [address] 8 [place] [facility] COMPREHENSI VE METABOLIC PANEL ALKALINE PHOSPHATASE [ENZYMATIC ACTIVITY/VOL UME] IN SERUM OR PLASMA 80 U/L 40 - 150 03/19 Specimen Type: PLASMA No comment entered. Ordering Provider: HAI ADAMS III Report Released Date/Time : Mar 19, 2025 08:15 AM Reporting Lab: [place] [facility] [address] [place] [address] Performin g Lab: [place] [facility] [address] [place] [address] 8 [facility] COMPREHENSI VE METABOLIC PANEL ASPARTATE AMINOTRANSFE RASE [ENZYMATIC ACTIVITY/VOL UME] IN SERUM OR PLASMA 19 U/L 5 - 34 03/19 Specimen Type: PLASMA No comment entered. Ordering Provider: HAI ADAMS III Report Released Date/Time : Mar 19, 2025 08:15 AM Reporting Lab: [place] [facility] [address] [place] [address] Performin g Lab: [place] [facility] [address] [place] [address] 8 [facility] COMPREHENSI VE METABOLIC PANEL ALANINE AMINOTRANSFE RASE [ENZYMATIC ACTIVITY/VOL UME] IN SERUM OR PLASMA 16 U/L 8 - 40 03/19 Specimen Type: PLASMA No comment entered. Ordering Provider: HAI ADAMS III Report Released Date/Time : Mar 19, 2025 08:15 AM Reporting Lab: [place] [facility] [address] [place] [address] 8 Performin g Lab: [place] [facility] [address] [place] [address] 8 [facility] COMPREHENSI VE METABOLIC PANEL GLOMERULAR FILTRATION RATE/1.73 SQ M.PREDICTED [VOLUME RATE/AREA] IN SERUM, PLASMA OR BLOOD BY CREATININE-B ASED FORMULA (CKD-EPI 2020) 44 03/19 Specimen Type: PLASMA No comment entered. Ordering Provider: HAI ADAMS E III Report Released Date/Time : Mar 19, 2025 08:15 AM Reporting Lab: [place] [facility] [address] [place] [address] 8 Performin g Lab: [place] [facility] [address] [place] [address] 8 [facility] TSH (MA-PB) THYROTROPIN [UNITS/VOLUM E] IN SERUM OR PLASMA 1.533 u[IU]/m L 0.47 - 5 03/19 Specimen Type: SERUM No comment entered. Ordering Provider: HAI ADAMS III Report Released Date/Time : Mar 19, 2025 08:15 AM Reporting Lab: [place] [facility] [address] [place] [address] 8 Performin g Lab: [place] [facility] [address] [place] [address] 8 [facility] URINALYSIS (STL-PB) COLOR OF URINE Light Yellow 03/19 Specimen Type: URINE No comment entered. Ordering Provider: HAI ADAMS III Report Released Date/Time : Mar 19, 2025 08:15 AM Reporting Lab: [place] [facility] [address] [place] [address] 8 Performin g Lab: [place] [facility] [address] [place] [address] 8 [facility] URINALYSIS (STL-PB) BILIRUBIN.TO JUAN [PRESENCE] IN URINE BY TEST STRIP NEGATIV Emg/dL 03/19 Specimen Type: URINE No comment entered. Ordering Provider: HAI ADAMS III Report Released Date/Time : Mar 19, 2025 08:15 AM Reporting Lab: [place] [facility] [address] [place] [address] Performin g Lab: [place] [facility] [address] [place] [address] 8 [facility] URINALYSIS (STL-PB) PH OF URINE BY TEST STRIP 6.0 5.0 - 8.0 03/19 Specimen Type: URINE No comment entered. Ordering Provider: ADAMS,HO MARY BETH E III Report Released Date/Time : Mar 19, 2025 08:15 AM Reporting Lab: [place] [facility] [address] [place] [address] 8 Performin g Lab: [place] [facility] [address] [place] [address] 8 [facility] URINALYSIS (STL-PB) LEUKOCYTES [#/AREA] IN URINE SEDIMENT BY MICROSCOPY HIGH POWER FIELD 17 /[HPF] 0 - 5 03/19 H Specimen Type: URINE No comment entered. Ordering Provider: HAI ADAMS III Report Released Date/Time : Mar 19, 2025 08:15 AM Reporting Lab: [place] [facility] [address] [place] [address] Performin g Lab: [place] [facility] [address] [place] [address] 8 [facility] URINALYSIS (STL-PB) ERYTHROCYTES [#/VOLUME] IN URINE SEDIMENT BY MICROSCOPY HIGH POWER FIELD 4 /[HPF] 0 - 5 03/19 Specimen Type: URINE No comment entered. Ordering Provider: HAI ADAMS III Report Released Date/Time : Mar 19, 2025 08:15 AM Reporting Lab: [place] [facility] [address] [place] [address] Performin g Lab: [place] [facility] [address] [place] [address] 8 [facility] URINALYSIS (STL-PB) APPEARANCE OF URINE CLEAR 03/19 Specimen Type: URINE No comment entered. Ordering Provider: HAI ADAMS III Report Released Date/Time : Mar 19, 2025 08:15 AM Reporting Lab: [place] [facility] [address] [place] [address] 8 Performin g Lab: [place] [facility] [address] [place] [address] 8 [facility] URINALYSIS (STL-PB) NITRITE [PRESENCE] IN URINE BY TEST STRIP NEGATIV Emg/dL 03/19 Specimen Type: URINE No comment entered. Ordering Provider: HAI ADAMS III Report Released Date/Time : Mar 19, 2025 08:15 AM Reporting Lab: [place] [facility] [address] [place] [address] Performin g Lab: [place] [facility] [address] [place] [address] 8 [facility] URINALYSIS (STL-PB) EPITHELIAL CELLS [#/AREA] IN URINE SEDIMENT BY MICROSCOPY LOW POWER FIELD <1/[HPF ] 0 - 5 03/19 Specimen Type: URINE No comment entered. Ordering Provider: HAI ADAMS III Report Released Date/Time : Mar 19, 2025 08:15 AM Reporting Lab: [place] [facility] [address] [place] [address] Performin g Lab: [place] [facility] [address] [place] [address] 8 [facility] URINALYSIS (STL-PB) MUCUS [PRESENCE] IN URINE SEDIMENT BY LIGHT MICROSCOPY RARE/[L PF] 03/19 Specimen Type: URINE No comment entered. Ordering Provider: HAI ADAMS III Report Released Date/Time : Mar 19, 2025 08:15 AM Reporting Lab: [place] [facility] [address] [place] [address] Performin g Lab: [place] [facility] [address] [place] [address] 8 [facility] URINALYSIS (STL-PB) GLUCOSE [MASS/VOLUME ] IN URINE BY TEST STRIP NORMALm g/dL 03/19 Specimen Type: URINE No comment entered. Ordering Provider: HAI ADAMS III Report Released Date/Time : Mar 19, 2025 08:15 AM Reporting Lab: [place] [facility] [address] [place] [address] 8 Performin g Lab: [place] [facility] [address] [place] [address] 8 [facility] URINALYSIS (STL-PB) PROTEIN [MASS/VOLUME ] IN URINE BY TEST STRIP NEGATIV Emg/dL 03/19 Specimen Type: URINE No comment entered. Ordering Provider: ADAMS,H GAL E III Report Released Date/Time : Mar 19, 2025 08:15 AM Reporting Lab: [place] [facility] [address] [place] [address] 8 Performin g Lab: [place] [facility] [address] [place] [address] 8 [facility] URINALYSIS (STL-PB) URN.UROBILIN OGEN NORMALm g/dL 03/19 Specimen Type: URINE No comment entered. Ordering Provider: HAI ADAMS III Report Released Date/Time : Mar 19, 2025 08:15 AM Reporting Lab: [place] [facility] [address] [place] [address] 8 Performin g Lab: [place] [facility] [address] [place] [address] 8 [facility] URINALYSIS (STL-PB) HEMOGLOBIN [MASS/VOLUME ] IN URINE BY TEST STRIP 3+mg/dL 03/19 H Specimen Type: URINE No comment entered. Ordering Provider: HAI ADAMS III Report Released Date/Time : Mar 19, 2025 08:15 AM Reporting Lab: [place] [facility] [address] [place] [address] 8 Performin g Lab: [place] [facility] [address] [place] [address] 8 [facility] URINALYSIS (STL-PB) KETONES [MASS/VOLUME ] IN URINE BY TEST STRIP NEGATIV Emg/dL 03/19 Specimen Type: URINE No comment entered. Ordering Provider: HAI ADAMS III Report Released Date/Time : Mar 19, 2025 08:15 AM Reporting Lab: [place] [facility] [address] [place] [address] Performin g Lab: [place] [facility] [address] [place] [address] 8 [facility] URINALYSIS (STL-PB) URN.LEUK.EST . 250 03/19 H Specimen Type: URINE No comment entered. Ordering Provider: HAI ADAMS III Report Released Date/Time : Mar 19, 2025 08:15 AM Reporting Lab: [place] [facility] [address] [place] [address] 8 Performin g Lab: [place] [facility] [address] [place] [address] 8 [facility] URINALYSIS (STL-PB) SPECIFIC GRAVITY OF URINE 1.019 1.005 - 1.029 03/19 Specimen Type: URINE No comment entered. Ordering Provider: HAI ADAMS III Report Released Date/Time : Mar 19, 2025 08:15 AM Reporting Lab: [place] [facility] [address] [place] [address] 8 Performin g Lab: [place] [facility] [address] [place] [address] 8 [facility] CHOLESTEROL PANEL (PB) CHOLESTEROL [MASS/VOLUME ] IN SERUM OR PLASMA 193 mg/dL 0 - 200 03/19 Specimen Type: PLASMA No comment entered. Ordering Provider: HAI ADAMS III Report Released Date/Time : Mar 19, 2025 08:15 AM Reporting Lab: [place] [facility] [address] [place] [address] 8 Performin g Lab: [place] [facility] [address] [place] [address] 8 [facility] CHOLESTEROL PANEL (PB) TRIGLYCERIDE [MASS/VOLUME ] IN SERUM OR PLASMA 84 mg/dL 0 - 150 03/19 Specimen Type: PLASMA No comment entered. Ordering Provider: HAI ADAMS III Report Released Date/Time : Mar 19, 2025 08:15 AM Reporting Lab: [place] [facility] [address] [place] [address] Performin g Lab: [place] [facility] [address] [place] [address] 8 [facility] CHOLESTEROL PANEL (PB) CHOLESTEROL IN LDL [MASS/VOLUME ] IN SERUM OR PLASMA BY CALCULATION 127.2 mg/dL 03/19 Specimen Type: PLASMA No comment entered. Ordering Provider: HAI ADAMS III Report Released Date/Time : Mar 19, 2025 08:15 AM Reporting Lab: [place] [facility] [address] [place] [address] Performin g Lab: [place] [facility] [address] [place] [address] 8 [facility] CHOLESTEROL PANEL (PB) CHOLESTEROL IN HDL [MASS/VOLUME ] IN SERUM OR PLASMA 49.0 mg/dL 40 03/19 H Specimen Type: PLASMA No comment entered. Ordering Provider: HAI ADAMS III Report Released Date/Time : Mar 19, 2025 08:15 AM Reporting Lab: [place] [facility] [address] [place] [address] 8 Performin g Lab: [place] [facility] [address] [place] [address] 8 [facility] CHOLESTEROL PANEL (PB) CHOLESTEROL IN HDL/CHOLESTE ROL.TOTAL [MASS RATIO] IN SERUM OR PLASMA 25.4 25 03/19 Specimen Type: PLASMA No comment entered. Ordering Provider: HAI ADAMS III Report Released Date/Time : Mar 19, 2025 08:15 AM Reporting Lab: [place] [facility] [address] [place] [address] Performin g Lab: [place] [facility] [address] [place] [address] 8 [facility] MAGNESIUM MAGNESIUM [MASS/VOLUME ] IN SERUM OR PLASMA 1.92 mg/dL 1.6 - 2.6 03/19 Specimen Type: PLASMA No comment entered. Ordering Provider: HAI ADAMS III Report Released Date/Time : Mar 19, 2025 08:15 AM Reporting Lab: [place] [facility] [address] [place] [address] Performin g Lab: [place] [facility] [address] [place] [address] 8 [facility] Vital Signs Combined list of inpatient and outpatient Vital Signs from Department of Defense and Veterans Affairs, ranging from 12 months to all on record, depending upon the facility. Vital Sign Value Date Comments Source SYSTOLIC BLOOD PRESSURE 131 04/09/2025 08:52:41 [facility] DIASTOLIC BLOOD PRESSURE 76 04/09/2025 08:52:41 [place] [facility] PULSE OXIMETRY 95 % 04/09/2025 08:52:41 [facility] [place] [facility] WEIGHT 225.7 04/09/2025 08:52:41 [facility] [place] [facility] BMI 32 kg/m2 04/09/2025 08:52:41 [place] [facility] PAIN 7 04/09/2025 08:52:41 [facility] [place] [facility] TEMPERATURE 98.2 04/09/2025 08:52:41 [facility] [place] [facility] PULSE 82 04/09/2025 08:52:41 [facility] RESPIRATION 18 04/09/2025 08:52:41 [place] [facility] SYSTOLIC BLOOD PRESSURE 132 03/19/2025 09:41:19 [place] [facility] DIASTOLIC BLOOD PRESSURE 82 03/19/2025 09:41:19 [facility] [place] [facility] PULSE OXIMETRY 97 % 03/19/2025 09:41:19 [facility] [place] [facility] WEIGHT 225.3 03/19/2025 09:41:19 [place] [facility] BMI 32 kg/m2 03/19/2025 09:41:19 [facility] [place] [facility] PAIN 0 03/19/2025 09:41:19 [place] [facility] TEMPERATURE 98 03/19/2025 09:41:19 [place] [facility] PULSE 64 03/19/2025 09:41:19 [place] [facility] RESPIRATION 20 03/19/2025 09:41:19 [place] [facility] SYSTOLIC BLOOD PRESSURE 132 09/17/2024 13:30:00 [place] [facility] DIASTOLIC BLOOD PRESSURE 79 09/17/2024 13:30:00 [facility] [place] [facility] PULSE OXIMETRY 96 09/17/2024 13:30:00 [facility] [place] [facility] WEIGHT 223.6 09/17/2024 13:30:00 [place] [facility] BMI 32 kg/m2 09/17/2024 13:30:00 [facility] [place] [facility] PAIN 3 09/17/2024 13:30:00 [facility] [place] [facility] TEMPERATURE 97.9 09/17/2024 13:30:00 [place] [facility] PULSE 57 09/17/2024 13:30:00 [place] [facility] RESPIRATION 20 09/17/2024 13:30:00 [facility] Encounters Combined list of: 1) Encounters from Department of [facility] Affairs facilities going backup to the last 18 months, not all VA inpatient encounters are included; 2) Encounters from the Department of [facility] facilities going backup to 280 months. Location Location Details Encounter Type Encounter Number Reason For Visit Attending Provider ADM Date DC Date Status Disposition Source [facility] Outpatient Encounter [id number] 12/05 [facility] Outpatient Encounter [id number] 12/05 [facility] Outpatient Encounter [id number] 12/17 [facility] OFF/OP EST DECEMBER X REQ PHY/QHP [id number] Diagnos is: ICD-10- CM Z71.9 Science Analyst ing, unspeci ANNA Barfield A 03/12 [facility] Outpatient Encounter [id number] 03/12 [facility] Outpatient Encounter [id number] 03/14 [facility] Outpatient Encounter [id number] 03/19 [facility] OFFICE O/P EST HI 40 MIN [id number] Diagnos is: ICD-10- CM Z00.00 Encntr for general adult medical exam w/o abnorma l finding s LEXUS LUONG G 03/19 [facility] [place] [facility] MTMS BY PHARM BSS SOLUTION ARCHITECT 15 MIN [id number] Diagnos is: ICD-10- CM Z79.01 MCFP (curren t) use of anticoa gulants CHRISTINE LARSON 03/19 [facility] Outpatient Encounter [id number] 03/19 [facility] [id number] 03/20 [facility] Outpatient Encounter [id number] Sundeep PATEL 03/20 [facility] Outpatient Encounter [id number] 03/25 [facility] Outpatient Encounter [id number] 03/27 [facility] Outpatient Encounter [id number] 03/27 [facility] Outpatient Encounter [id number] 03/28 [facility] MTMS BY PHARM EST 15 MIN [id number] Diagnos is: ICD-10- CM Z51.81 Encount er for therape utic drug level monitor CHRISTINE Cox 03/28 [facility] Outpatient Encounter [id number] 04/02 [facility] MTMS BY PHARM EST 15 MIN [id number] Diagnos is: ICD-10- CM Z51.81 Encount er for therape utic drug level monitor CHRISTINE Cox 04/11 [facility] MTMS BY PHARM EST 15 MIN [id number] Diagnos is: ICD-10- CM Z51.81 Encount er for therape utic drug level monitor CHRISTINE Cox 05/[address] [place] [facility] Outpatient Encounter [id number] [facility] Out[facility] Encounter [id number] 07/17 [facility] MTHI BY PHARM EST 15 MIN [id number] Diagnos is: ICD-10- CM Z51.81 Encount er for therape utic drug level monitor CHRISTINE Cox 07/17 [facility] Outpatient Encounter [id number] 08/20 [facility] Outpatient Encounter [id number] 08/21 [facility] CB OFFICE O/P EST MOD 30 MIN [id number] Diagnos is: ICD-10- CM Z23 Encount er for immuniz LEXUS Rao G 09/17 [facility] [id number] 09/23 [facility] Outpatient Encounter [id number] 09/25 [facility] Outpatient Encounter [id number] 09/26 [facility] Outpatient Encounter [id number] 10/14 [facility] Outpatient Encounter [id number] 10/14 [facility] Outpatient Encounter [id number] 10/22 [facility] Outpatient Encounter [id number] 11/05 [facility] [id number] 11/06 [facility] En[facility] [id number] 11/18 [facility] Outpatient Encounter [id number] 11/26 [facility] Outpatient Encounter [id number] 12/04 [facility] En[facility] [id number] 03/17 [facility] OFF[facility]P EST MOD 30 MIN [id number] Diagnos is: ICD-10- CM M54.50 Low back pain, unspeci fied ADAMS,MATHEUS ER E III 03/19 [facility] Outpatient Encounter [id number] 03/19 [facility] [facility] MTMS BY PHARM EST 15 MIN [id number] Diagnos is: ICD-10- CM Z51.81 Encount er for therape uti drug level monitor CHRISTINE Cox 03/19 [place] [place] Outpatient Encounter [id number] 04/01 [place] [facility] Outpatient Encounter [id number] L 04/07 [facility] En[facility] [id number] 04/09 [facility] Social History Combined list of available smoking, tobacco, and other social history from Department of Defense and Veterans Affairs facilities. Social History Type Response Date Comment Source Tobacco smoking status [facility] USE FORMER CIGARETTES 03/19/2025 [facility] of [facility]2025 [facility] History of tobacco use IN-TOBACCO FORMER USER 03/12/2024 [facility] History of tobacco use QUIT TOBACCO >12 MO and <7 YRS AGO 07/19/2008 [facility] History of tobacco use QUIT TOBACCO IN THE LAST 12 MONTHS 12/06/2007 [facility] History of tobacco use CURRENT NON-TOBACCO USER-HX OF USE 11/14/2005 Pt stopped smoking 3 months ago [facility] History of tobacco use CURRENT TOBACCO USER 04/14/2005 [facility] History of tobacco use CURRENT TOBACCO USER 10/14/2004 [facility] History of tobacco use CURRENT TOBACCO USER 04/29/2004 [facility] History of tobacco use CURRENT NON-TOBACCO USER-HX OF USE 10/29/2003 [facility] History of tobacco use CURRENT TOBACCO USER 05/14/2003 [facility] History of tobacco use CURRENT TOBACCO USER 11/21/2002 [facility] History of tobacco use CURRENT TOBACCO USER 11/20/2002 [facility] History of tobacco use TOB-SMOKES OR USES TOBACCO PRODUCTS 12/07/2001 1 [facility] Plan of Care List of future care activities from Department of Veterans Affairs facilities. Additional future care activities may be listed in the Assessment and Plan section. Date/Time Care Activity Care Activity Detail Facili ty 04/09/2025 AMBULATORY - MEDICINE [facility]
--- OUTSIDE RECORDS SUMMARY | 2025-04-09 09:41 | XMS_ITS | Encounter Summary ---
Author Organization [facility], [facility] Address [address] [facility] [address] [place] [address] Phone Care Team Providers Care Station Captain Name Role Phone Unavailable Primary Care Provider Unavailabl e Encounter Details Date Type Department Care Team (Late st Contact Info) Description 01/26/2024 [facility] [address] [facility] [address] [place] [address] Disorder of kidney and ureter, [...] Description 05/27/2025 1:30 PM CDT Office Visit [facility], [facility] [address] [place] [id number] Raquel Mortensen NP [address] [address] [place] [address] documented as of this encounter Visit Diagnoses Diagnosis Disorder of kidney and ureter, unspecified documented in this encounter
--- OUTSIDE RECORDS SUMMARY | 2025-04-09 09:41 | XMS_ITS | Patient Health Record ---
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 Problem Chronic kidney disease stage 3A (disorder) (269619056) Chronic kidney disease, stage 3a (N18.31) Active confirmed Plan Of Treatment Pending Test Test Name Order Date Albumin 50296 03/27/2024 Basic Metabolic Panel (BMP) 56918 2023 Hemoglobin 05412 03/27/2024 Magnesium (B) 51131 03/27/2024 Phosphorus (B) 97352 03/27/2024 Protein (U) Random 94129 03/27/2024 Uric Acid (B) 12808 03/27/2024 Creatinine (U) 65182 03/27/2024 UA Reflex Micro, Reflex Cult 82637, 8101 5, 78990 03/27/2024 PTH Intact 77970 03/27/2024 Insurance Providers Payer Name Payer Address Payer Phone Subscriber Number Group Number Insured Name Patient Relationship to Insured Coverage Start Date Coverage End Date [employer] [place] [address] [place] [address] [id number] VALENTIN LÓPEZ Self - patient is the insured [place] Medicare [address] [place] [phone] [id number] VALENTIN LÓPEZ Self - patient is the insured [employer] Medicare Replacement [address] [address] [place] [address] [id number] VALENTIN LÓPEZ Self - patient is the insured Medical (General) History Medical History History ICD Code Diabetes Kidney disease Kidney stones Colon cancer A-fib High cholesterol Chronic back or neck pain Surgical History Surgery Date(Month/Year) cholecystectomy Appendectomy Hernia surgery Hospitalization History Reason Date(Month/Year) See surgical history
--- OUTSIDE RECORDS SUMMARY | 2025-04-09 09:42 | XMS_ITS | Patient Health Record ---
Author Organization [facility] Address [address] [place] [address] Care Team Providers Care Electrolog Operator Name Role Phone SALLY BEJARANO Unavailable [phone] VUONGPB CARDOZA Unavailable [phone] ARAMIS FERGUSON Unavailable [phone] Allergies Allergen (clinical drug ingredient) Drug/Non Drug Allergy documented on EMR Reaction Allergy Type Onset Date Status Substance with 4-nrgcpet-8-methylgluta ryl-coenzyme A reductase inhibitor mechanism of action (substance) Statins Unknown Drug Allergy Active Results Component Value Reference Range Notes Urinalysis, Routine Reviewed date:02/13/2025 01:46:03 PM Interpretation: Performing Lab: Notes/Report: Urine-Color Yellow Appearance clear Glucose 3+ Bilirubin - Ketones - Specific Mesa 1.015 Occult Blood - pH 6.0 Urine Protein - Urobilinogen,Semi-Qn - Nitrite, Urine - WBC Esterase - Urinalysis Gross Exam - CULTURE, URINE, ROUTINE (351 ) Reviewed date:02/17/2025 08:06:49 AM Interpretation: Performing Lab:[place], [id number], [id number] Juliann Starr MD Notes/Report: NON-FASTING CULTURE, URINE, ROUTINE SEE NOTE CULTURE, URINE, ROUTINE Micro Number: [id number] Test Status: Final Specimen Source: Urine, clean [...] comments based on your area of interest: [place] ([phone]) NO COLLECTION DATE RECEIVED. WE HAVE USED THE DATE THE SPECIMEN WAS RECEIVED BY THIS LABORATORY THE COLLECTION DATE. IF THIS IS INCORRECT, PLEASE CONTACT CLIENT SERVICES. PHONE NUMBER: [phone] Urinalysis, Routine Reviewed date:03/24/2025 10:37:30 AM Interpretation: Performing Lab: Notes/Report: Urine-Color yellow Appearance clear Glucose - Bilirubin - Ketones - Specific Mesa 1.015 Occult Blood 3+ pH 6.0 Urine Protein - Urobilinogen,Semi-Qn - Nitrite, Urine - WBC Esterase 2+ Urinalysis, Routine Reviewed date:10/28/2024 01:43:06 PM Interpretation: Performing Lab: Notes/Report: Urine-Color yellow Appearance clear Glucose 3+ Bilirubin - Ketones - Specific Mesa 1.015 Occult Blood - pH 6.0 Urine [...] Status W/U Status Risk Notes Problem Urge incontinence of urine (93792653) Urge incontinence (N39.41) Active confirmed Problem Lower urinary tract symptoms due to benign prostatic hypertrophy (65490657429909) Benign prostatic hyperplasia with lower urinary tract symptoms (N40.1) Active confirmed Problem Use of anticoagulation (491362563) Chronic anticoagulation (Z79.01) Active confirmed Problem Benign prostatic hypertrophy with outflow obstruction (407709102) BPH loc w urin obs/LUTS (N40.1) Active confirmed Vital Signs Heart Rate 84 /min 03/24/2025 Blood pressure diastolic 78 mm Hg 03/24/2025 Height-cm 175.26 cm 03/24/2025 Weight-kg 98.43 kg 03/24/2025 Height 69 in 03/24/2025 Blood pressure systolic 135 mm Hg 03/24/2025 Weight 217 lbs 03/24/2025 BMI 32.04 kg/m2 03/24/2025 Procedures Procedure Date Ordered Date Performed Result Body Sit e Bladder Scan 09/26/2024 09/26/2024 137ml UroFlow 09/26/2024 09/26/2024 done Voiding Trial 02/28/2025 02/28/2025 N/A Bladder Scan 03/24/2025 03/24/2025 N/A Encounters Encounter Location Date Provider Diagnosis [employer], [facility] [address] [address] 02/26/2025 ARAMIS FERGUSON [facility], [facility] [address] [place] [address] 09/26/2024 SALLY BEJARANO BPH loc w urin obs/L UTS N40.1 ; Urge incontinence N39.41 ; Nocturia R35.1 ; Incomplete bladder emptying R33.9 ; History of nephrolithiasis Z87.442 ; Family history of kidney cancer Z80.51 ; Family history of prostate cancer Z80.42 and History of smoking Z87.891 [employer], [facility] [address] [facility] [address] [place] [address] 10/28/2024 ARAMIS FERGUSON BPH loc w urin obs/L UTS N40.1 ; Urge incontinence N39.41 ; Nocturia R35.1 ; Incomplete bladder emptying R33.9 ; History of nephrolithiasis Z87.442 ; Family history of kidney cancer Z80.51 ; Family history of prostate cancer Z80.42 and History of smoking Z87.891 [facility] [employer], [facility] [address] [place] [address] 02/13/2025 SALLY BEJARANO Preoperative examina tion Z01.818 ; BPH loc w urin obs/LUTS N40.1 ; Urge incontinence N39.41 ; Nocturia R35.1 ; Incomplete bladder emptying R33.9 ; History of nephrolithiasis Z87.442 ; Family history of kidney cancer Z80.51 ; Family history of prostate cancer Z80.42 ; History of smoking Z87.891 and Chronic anticoagulation Z79.01 [facility] [employer], [facility] [address] [place] [address] 02/28/2025 PB VUONG Catheter (urine) hira nge required Z46.6 and BPH loc w urin obs/LUTS N40.1 [facility] [place], [facility] [address] [place] [address] 03/24/2025 ARAMIS FERGUSON BPH loc w urin obs/L UTS N40.1 ; Urge incontinence N39.41 ; Nocturia R35.1 ; Incomplete bladder emptying R33.9 ; History of nephrolithiasis Z87.442 ; Family history of kidney cancer Z80.51 ; Family history of prostate cancer Z80.42 ; History of smoking Z87.891 and Chronic anticoagulation Z79.01 [facility] [place], [facility] [address] [place] [address] 12/19/2024 SALLY BEJARANO [facility] [place], [facility] [address] [place] [address] 12/19/2024 SALLY BEJARANO [facility] [place], [facility] [address] [place] [address] 04/07/2025 SALLY BEJARANO Assessments Encounter Date Diagnosis (ICD Code) Assessment Notes Treatment Notes Treatment Clinical Notes Section Notes 09/26/2024 Urge incontinence (ICD-10 - N39.41) 09/26/2024 BPH loc w urin obs/LUTS (ICD-10 - N40.1) 02/13/2025 Preoperative examination (ICD-10 - Z01.818) 02/13/2025 BPH loc w urin obs/LUTS (ICD-10 - N40.1) 02/28/2025 Catheter (urine) change required (ICD-10 - Z46.6) Pt here s/p PVP for v/t. He tolerated well and will return as scheduled for post operative follow up 02/28/2025 BPH loc w urin obs/LUTS (ICD-10 - N40.1) Pt here s/p PVP for v/t. He tolerated well and will return as scheduled for post operative follow up 03/24/2025 Urge incontinence (ICD-10 - N39.41) Primary [...] should continue to resolve with time. 10/28/2024 Urge incontinence (ICD-10 - N39.41) 79 yo male with BPH with LUTs on maximal medical management. Cysto shows 3.5cm trilobar obstructing prostate. Cysto findings reviewed. He was counseled on BPH surgical options and elected for PVP. The R/B/A of surgery were discussed in detail. Plan: schedule PVP at [facility] all questions answered continue flomax and proscar 10/28/2024 BPH loc w urin obs/LUTS (ICD-10 [...] all questions answered continue flomax and proscar 03/24/2025 Nocturia (ICD-10 - R35.1) Primary Diagnosis: [...] should continue to resolve with time. 02/13/2025 Urge incontinence (ICD-10 - N39.41) 09/26/2024 Nocturia (ICD-10 - R35.1) 02/13/2025 Nocturia (ICD-10 - R35.1) 03/24/2025 Incomplete bladder emptying (ICD-10 - R33.9) [...] should continue to resolve with time. 09/26/2024 Incomplete bladder emptying (ICD-10 - R33.9) 10/28/2024 Incomplete bladder emptying (ICD-10 - R33.9) [...] all questions answered continue flomax and proscar 09/26/2024 History of nephrolithiasis (ICD-10 - Z87.442) 02/13/2025 Incomplete bladder emptying (ICD-10 - R33.9) [...] resolve with time. 09/26/2024 Family history of kidney cancer (ICD-10 - Z80.51) 02/13/2025 History of nephrolithiasis (ICD-10 - Z87.442) 03/24/2025 Family history of kidney cancer (ICD-10 [...] discussed in detail. Plan: schedule PVP at [facility] all questions answered continue flomax and proscar 10/28/2024 Family history of prostate cancer (ICD-10 [...] discussed in detail. Plan: schedule PVP at [facility] all questions answered continue flomax and [...] schedul ed for [employer] PVP on 02/26/[address] [facility] [address] Ferguson. How the procedure was performed was discussed [...] Patient has presurgical testing at today at [facility]. Urine sent for culture and we will [...] improve. # Follow-up Schedule follow-up appointment with INFECTION CONTROL PREVENTIONIST Sally in 4 months to assess long-term outcomes [...] 1 10/05/2024 10:40:00 AM, [address] [place], [address], Insurance Providers Payer Name Payer Address Payer Phone Subscriber Number Group Number Insured Name Patient Relationship to Insured Coverage Start Date Coverage End Date [employer] [address] [place], [place] [id number] Antoine Denis Self - patient is the insured Medical (General) History Medical History History ICD Code colon cancer type 2 DM HBP CKD ED kidney stones LUTS Surgical History Surgery Date(Month/Year) colon resection appendix hernia cataracts surgery PVP 02/2025 Hospitalization History Reason Date(Month/Year) colon cancer cellulitis
--- OUTSIDE RECORDS SUMMARY | 2025-04-09 09:42 | XMS_ITS | Clinical Summary ---
Author Organization [facility], [facility] Address [address] [place] [address] Phone Care Team Providers Care Service Coordinator Name Role Phone Unavailable Primary Care Provider [...] Description 05/27/2025 1:30 PM CDT Office Visit [facility] [address] [place] [address] Raquel Mortensen, [employer]ET[place] SCIENTIST [address] [facility] [address] [place] [address] Health Maintenance Due Date Last [...] patient's age to complete this topic [place] [address] [place] [address] [employer] 1,2,3 (VACCN)
--- NOTE | 2025-04-09 10:24 | CT_ITS ---
WS: [id number] CT ABDOMEN PELVIS TECHNIQUE: Noncontrast CT of the abdomen and pelvis with coronal and sagittal reformatted images. CLINICAL INFORMATION: Abdominal pain COMPARISON: 04/06/2025 DLP: 968.[address] scans at [facility] use at least one of these dose optimization techniques: automated exposure control; mA and/or kV adjustment per patient size (includes targeted exams where dose is matched to clinical indication); or iterative reconstruction. FINDINGS: New distended small bowel loops with air-fluid levels in the mid abdomen suspicious for developing small bowel obstruction. This is new from previous. Evidence of prior partial RIGHT colon resection. A few collapsed loops of small bowel in the LEFT lower quadrant may be site of transition see bookmarked images. Recommend interval follow-up. Prior cholecystectomy. Prior appendectomy. Subsegmental atelectasis in the lung bases. Small cyst LEFT hepatic lobe. Tiny calculus in the distal LEFT ureter is no longer visualized. No calculi in the bladder. No hydronephrosis in the LEFT kidney. No hydronephrosis in the RIGHT kidney. No obstructing renal or ureteral calculi today. Small esophageal hiatal hernia. Bilateral renal cortical atrophy. Adrenal glands are normal. Fatty atrophy of the pancreas. Small increased attenuation RIGHT renal lesion likely hemorrhagic or proteinaceous cyst. Aortic calcification. Sigmoid diverticulosis. No evidence of acute diverticulitis. CT/CT abdomen pelvis wo con [id number] IMPRESSION: 1. Previously described LEFT UVJ calculus has passed. No obstructing renal or ureteral calculi today. 2. New dilated loops of small bowel with air-fluid levels suspicious for devel oping small bowel obstruction. Evidence of prior RIGHT colon resection. Transit ion point in the LEFT mid lower quadrant may be due to adhesions near the site of anastomosis. Recommend interval follow-up. 3. Diverticulosis. No evidence of acute diverticulitis. 4. No other acute findings.
[2025-04-09 10:46] LABS: Hematocrit 44.5 % (37-53); Hemoglobin 14.80 g/dL (11.27-16.99); Mean Corpuscular HGB Conc 33.3 g/dL (30-55); Mean Corpuscular Hemoglobin 30.2 pg (27-33); Mean Corpuscular Volume 90.8 fl (82-101); Nucleated Red Blood Cells % 0 %; Platelet Count 207 10^3/cmm (157-399); Red Blood Count 4.90 10^6/uL (3.85-5.65); White Blood Count 10.57 10^3/uL (3.29-11.43)
--- NOTE | 2025-04-09 10:57 | PC.PHAR ---
Pt is [facility]spouse has current med list. Pt has not taken any medications today. Pt no longer takes Flomax 0.4mg or Finasteride 5mg, due to surgery performed.
[2025-04-09 11:09] LABS: Alanine Aminotransferase 13 U/L (0-41); Albumin Level 4.0 g/dL (3.5-5.2); Alkaline Phosphatase 74 U/L (40-130); Anion Gap 16.7 (5-19); Aspartate Amino Transferase 15 U/L (0-40); Blood Urea Nitrogen 24 mg/dL (8-23); Calcium 9.5 mg/dL (8.5-10.5); Carbon Dioxide 24 mmol/L (22-29); Chloride 100 mmol/L (98-107); Creatinine Clr Calc Pharmacy 35.2932; Globulin 3.7 g/dL (1.3-4.6); Glucose 150 mg/dL (65-115); Lipase 49 U/L (13-60); Osmolality Calculated 291 mOsm/kg (285-295); Potassium 3.7 mmol/L (3.5-5.1); Sodium 137 mmol/L (136-145); Total Protein 7.7 g/dL (6.6-8.7)
[2025-04-09 11:14] LABS: Glucose Urine UA Negative (Normal); Nitrate Urine Negative (Negative); Specific Gravity, Urine 1.015 (1.005-1.030)
[2025-04-09 11:19] LABS: Add Urine Microscopic? YES
--- NOTE | 2025-04-09 11:24 | W.ED.ABDPA2 ---
HPI - Abdominal Pain General: Chief Complaint: Abdominal Pain Stated Complaint: [facility] bowel [facility], abd pain Time Seen by Provider: 04/09/25 10:29 History of Present Illness: 80-year-old male presents emergency room complaining abdominal pain and bloating. He was seen at the [place] there is a concern of possible bowel obstruction. Patient previously has had colon cancer with a bowel resection has had an appendectomy and cholecystectomy. He has not had any fever sweats or chills no dysuria urgency or frequency. His last bowel movement was 3 days ago. He has been nauseous but did not had any vomiting. No chest pain no shortness of breath Associated Symptoms: Reports bloating, constipation, GI cramping and nausea; Denies chills, diarrhea, dysuria, fever(s) and vomiting Related Data Home Medications ?Medication ?Instructions ?Recorded ?Confirmed gemfibrozil 600 mg tablet 600 mg PO BID 01/20/20 04/09/25 chlorthalidone 25 mg tablet 12.5 mg PO DAILY 08/19/20 04/09/25 ascorbic acid (vitamin C) 500 mg 500 mg PO DAILY 01/13/21 04/09/25 capsule phyto nutrients 01/13/21 04/09/25 apixaban 5 mg tablet (Eliquis) 2.5 mg PO BID 11/01/24 04/09/25 empagliflozin 25 mg tablet 12.5 mg PO DAILY 11/01/24 04/09/25 (Jardiance) furosemide 20 mg tablet 20 mg PO BID PRN Edema 11/01/24 04/09/25 sitagliptin phosphate 50 mg tablet 50 mg PO DAILY 11/01/24 04/09/25 (Januvia) albuterol sulfate 90 mcg/actuation 1 inh inhalation QID PRN Shortness 04/09/25 04/09/25 aerosol inhaler Of Breath cetirizine 10 mg tablet 10 mg PO DAILY 04/09/25 04/09/25 fluticasone propionate 50 1 spray intranasal DAILY 04/09/25 04/09/25 mcg/actuation nasal spray,suspension latanoprost 0.005 % eye drops See Rx Instructions .Route .COMPLEX 04/09/25 04/09/25 lidocaine 5 % topical patch 1 patch topical DAILY 04/09/25 04/09/25 losartan 50 mg tablet 25 mg PO DAILY 04/09/25 04/09/25 potassium chloride 20 mEq 10 meq PO DAILY PRN while on 04/09/25 04/09/25 tablet,extended release furosemide timolol maleate 0.25 % eye drops 1 drp ophthalmic (eye) DAILY 04/09/25 04/09/25 Previous Rx's ?Medication ?Instructions ?Recorded amiodarone 200 mg tablet 200 mg PO DAILY #90 tabs 03/05/24 cefdinir 300 mg capsule 300 mg PO BID 10 days #20 caps 04/06/25 hydrocodone 7.5 mg-acetaminophen 1 tab PO Q8H PRN pain #10 tabs 04/06/25 325 mg tablet polyethylene glycol 3350 17 4 g PO DAILY #119 grams 04/06/25 gram/dose oral powder (Miralax) Allergies Allergy/AdvReac Type Severity Reaction Status Date / Time lisinopril Allergy NA Verified 04/06/25 20:21 Kcchnsp-TCL-GiQ Reductase Allergy Rash Verified 04/06/25 20:21 Inhibitor (Tnnvhdg-Sra-Vsv Reductase Inhibitor) Review of Systems Const: Denies: fever(s) or chills Card: Denies: chest pain Resp: Denies: dyspnea GI: Reports: abdominal pain, nausea, constipation, bloating and GI cramping; Denies: vomiting or diarrhea : Denies: dysuria, urinary frequency or urinary urgency Musc: Denies: neck pain or back pain Skin/Breast: Denies: rash PFSH ED PFSH: Medical History Subdural hematoma Uric acid urolithiasis Hyperlipidemia Colon cancer Diabetes HTN (hypertension) Atrial fibrillation BPH loc w urin obs/LUTS Surgical History History of colonoscopy (01/26/22) S/P cholecystectomy S/P shoulder surgery S/P appendectomy S/P colon resection Family History Brother Cancer Family/Other Cancer Father , AGE 81 Stroke Mother , AGE 75 CAD (coronary artery disease) Social History Smoking and tobacco/nicotine status: former use of tobacco/nicotine Alcohol intake: current Alcohol intake frequency: holidays/special occasions only Alcohol type: beer Substance/Drug Use: never Adopted: No Caregiver/support person: No Lives independently: No Household members: spouse Marital status: Current occupational status: retired Current gender identity: Male Physical Exam Const: COMMON NORMALS: no acute distress GENERAL APPEARANCE: cooperative and comfortable ORIENTATION/CONSCIOUSNESS: Yes awake, Yes oriented to person, Yes oriented to place and Yes oriented to time HENMT: COMMON NORMALS: normocephalic, atraumatic and hearing grossly normal bilaterally HEAD & SCALP: normocephalic and atraumatic Resp: COMMON NORMALS: normal respiratory effort, No retractions, No use of accessory muscles and clear to auscultation bilaterally AUSCULTATION: clear to auscultation bilaterally Cardio: COMMON NORMALS: regular rate, regular rhythm and No murmurs present (Cardio) RATE: regular rate RHYTHM: regular rhythm GI: COMMON NORMALS: No hepatosplenomegaly present INSPECTION: Yes abdominal distension AUSCULTATION: Yes normoactive bowel sounds PALPATION: Yes Tenderness to palpation present (GI), No Guarding due to palpation present (GI) and Yes No hepatosplenomegaly present PERCUSSION: tympanic to percussion Extremity: COMMON NORMALS: normal to inspection, capillary refill normal, no clubbing, cyanosis or edema, no calf tenderness and no pedal edema Neuro: SENSORIUM/ORIENTATION: Yes oriented to person, Yes oriented to place and Yes oriented to time Skin: COMMON NORMALS: no rashes or lesions noted GENERAL SKIN EXAM: no rashes or lesions noted Course Vital Signs: Vital signs: Vital Signs Temperature 97.7 F 04/09/25 09:36 Pulse Rate 101 H 04/09/25 09:36 Respiratory Rate 16 04/09/25 09:36 Blood Pressure 133/74 04/09/25 09:36 Pulse Oximetry 95 04/09/25 09:36 Oxygen Delivery Me thod Room Air 04/09/25 09:36 MDM - Abdominal Pain Medical Decision Making Partial small bowel obstruction with identifiable potential transition point near the previous anastomosis for his colon resection. Admit NG placed. Was seen earlier this week with kidney stones those have passed. Discussed with surgery they will see the patient also discussed with Dr. Ortiz he will admit as attending. Medical Records I reviewed the patient's medical records. Lab Data I reviewed the patient's lab results. 04/09/25 10:38 04/09/25 10:38 Labs/Radiology: Radiology Impressions Abdomen/Pelvis CT 04/09/25 10:24 IMPRESSION: 1. Previously described LEFT UVJ calculus has passed. No obstructing renal or ureteral calculi today. 2. New dilated loops of small bowel with air-fluid levels suspicious for developing small bowel obstruction. Evidence of prior RIGHT colon resection. Transition point in the LEFT mid lower quadrant may be due to adhesions near the site of anastomosis. Recommend interval follow-up. 3. Diverticulosis. No evidence of acute diverticulitis. 4. No other acute findings. Laboratory Results WBC 10.57 10^3/uL (3.29-11.43) 04/09/25 10:38 RBC 4.90 10^6/uL (3.85-5.65) 04/09/25 10:38 Hgb 14.80 g/dL (11.27-16.99) 04/09/25 10:38 Hct 44.5 % (37-53) 04/09/25 10:38 MCV 90.8 fl (82-101) 04/09/25 10:38 MCH 30.2 pg (27-33) 04/09/25 10:38 MCHC 33.3 g/dL (30-55) 04/09/25 10:38 RDW 12.6 % (12.1-15.1) 04/09/25 10:38 Plt Count 207 10^3/cmm (157-399) 04/09/25 10:38 MPV 11.5 fL (7.4-10.4) H 04/09/25 10:38 Neut % (Auto) 79.0 % 04/09/25 10:38 Lymph % (Auto) 13.6 % 04/09/25 10:38 [place] % (Auto) 6.0 % 04/09/25 10:38 Eos % (Auto) 0.4 % 04/09/25 10:38 Baso % (Auto) 0.4 % 04/09/25 10:38 Neut # (Auto) 8.36 10^3/uL (1.8-7.7) H 04/09/25 10:38 Lymph # (Auto) 1.4 10^3/uL (0.8-4.8) 04/09/25 10:38 [place] # (Auto) 0.6 10^3/uL (0.2-0.9) 04/09/25 10:38 Eos # (Auto) 0.0 10^3/uL (0.0-0.8) 04/09/25 10:38 Baso # (Auto) 0.0 10^3/uL (0.0-0.1) 04/09/25 10:38 Nucleated RBC % (auto) 0 % 04/09/25 10:38 Nucleated RBCs # 0.0 /100WBC 04/09/25 10:38 Sodium 137 mmol/L (136-145) 04/09/25 10:38 Potassium 3.7 mmol/L (3.5-5.1) 04/09/25 10:38 Chloride 100 mmol/L (98-107) 04/09/25 10:38 Carbon Dioxide 24 mmol/L (22-29) 04/09/25 10:38 Anion Gap 16.7 (5-19) 04/09/25 10:38 BUN 24 mg/dL (8-23) H 04/09/25 10:38 Creatinine 1.9 mg/dL (0.7-1.2) H 04/09/25 10:38 GFR Calculation Not Reportable 04/09/25 10:38 Glucose 150 mg/dL (65-115) H 04/09/25 10:38 Calculated Osmolality 291 mOsm/kg (285-295) 04/09/25 10:38 Calcium 9.5 mg/dL (8.5-10.5) 04/09/25 10:38 Total Bilirubin 0.7 mg/dL (0.15-1.2) 04/09/25 10:38 AST 15 U/L (0-40) 04/09/25 10:38 ALT 13 U/L (0-41) 04/09/25 10:38 Alkaline Phosphatase 74 U/L (40-130) 04/09/25 10:38 Total Protein 7.7 g/dL (6.6-8.7) 04/09/25 10:38 Albumin 4.0 g/dL (3.5-5.2) 04/09/25 10:38 Globulin 3.7 g/dL (1.3-4.6) 04/09/25 10:38 Lipase 49 U/L (13-60) 04/09/25 10:38 Urine Color Yellow (Yellow) 04/09/25 10:50 Urine Appearance Cloudy (CLEAR) A 04/09/25 10:50 Urine pH 5.5 (5-7) 04/09/25 10:50 Ur Specific [place] 1.015 (1.005-1.030) 04/09/25 10:50 Urine Protein 1+ (Negative) A 04/09/25 10:50 Urine Glucose (UA) Negative (Normal) 04/09/25 10:50 Urine Ketones Negative (Negative) 04/09/25 10:50 Urine Blood 3+ (Negative) A 04/09/25 10:50 Urine Nitrate Negative (Negative) 04/09/25 10:50 Urine Bilirubin Negative (Negative) 04/09/25 10:50 Urine Urobilinogen 1.0 mg/dL (Negative) 04/09/25 10:50 Ur Leukocyte Esterase 2+ (Negative) A 04/09/25 10:50 Urine RBC 6-10 /hpf (0-2) 04/09/25 10:50 Urine WBC 21-50 /hpf (0-5) H 04/09/25 10:50 Ur Squamous Epith Cells 0-5 /hpf (0-5) 04/09/25 10:50 Amorphous Sediment Not Reportable 04/09/25 10:50 Urine Bacteria None seen /hpf (NONE) 04/09/25 10:50 Hyaline Casts 0-4 /lpf H 04/09/25 10:50 All radiology interpretation(s) finalized by discharge Discharge Plan Discharge Patient Disposition: Admitted As Inpatient Clinical Impression: Small bowel obstruction, Acute cystitis Condition: Stable Coding Level of Care Code ED Care Transition Mgr for Joyce Whyte
[2025-04-09] MEDS: morphine 4 mg/mL SDV 1 mL 2 MG IVP (13:36)
[2025-04-09] MEDS: ondansetron 2 mg/ML SDV 2 mL 4 MG IVP (13:36)
--- NOTE | 2025-04-09 14:14 | XR_ITS ---
WS: [id number] Exam: XR chest 1V portable [id number] Date/Time of Exam: 04/09/2025 2:14 PM Reason For Exam: NG PLACEMENT Comparison 04/28/2023. An enteric tube is noted and appears to and in the fundus of the stomach. The lungs are clear and fully expanded as visualized. The lung apices are out of the [id number]-ea-auur. Mild cardiac enlargement unchanged. No pleural effusions. Visualized bony structures are intact. XR/XR chest 1V portable [id number] IMPRESSION: 1. Enteric tube appearing to end in the gastric fundus. 2. Limited exam. No acute cardiopulmonary finding.
[2025-04-09 14:22] LABS: Lactic Sepsis W/Reflex 1.5 mmol/L (0.5-2.2)
--- NOTE | 2025-04-09 15:02 | PM.HP ---
Providers/Chief Complaint Admitting Physician: Alvaro Maguire Primary Care Provider: Ochoa Pereira MD Chief Complaint: [facility] bowel [facility], abd pain History of Present Illness Antoine Denis is a 80 year old gentleman with a history of colon cancer treated with right colon resection, chronic kidney disease, hypertension, atrial fibrillation on apixaban, diabetes mellitus, benign prostatic hyperplasia, hyperlipidemia, prior subdural hematoma, and recent kidney stone who presents with abdominal pain, distention, and bloating that began prior to arrival at the [facility] ([place]) hospital. He reports dry heaving but minimal vomiting. The last bowel movement was on Monday, with minimal passage of flatus and frequent belching since then. He was evaluated earlier this week for a kidney stone that has now passed on current imaging. At the [place] emergency department he received ondansetron, morphine, and ceftriaxone for a suspected urinary tract infection. CT abdomen/pelvis showed dilated loops of small bowel with air?fluid levels and a transition point in the left mid-lower quadrant near a prior anastomosis, concerning for a developing partial small-bowel obstruction. Vital signs in the ED were blood pressure 133/74 mmHg, heart rate 101 bpm, respiratory rate 16, temperature 97.7 ?F, and oxygen saturation 95 % on room air. Laboratory results revealed sodium 137 mmol/L, potassium 3.7 mmol/L, blood urea nitrogen 24 mg/dL, creatinine 1.9 mg/dL (worse than baseline), and urinalysis notable for cloudy urine with 20 WBCs/vdqv-yziom-hpaao and 6-10 RBCs/eunn-uxnvx-gcapg. General surgery has been consulted for conservative management of the possible obstruction. The patient denies fever, chest pain, dyspnea, black or bloody stools, and rashes. He is a former smoker, denies alcohol or illicit drug use, and currently experiences leg swelling chronically. Review of Systems Const: Reports: change in appetite; Denies: fever(s), chills, body aches or malaise ENMT: Denies: throat pain Card: Denies: chest pain, edema, pre-syncope or dyspnea on exertion Resp: Denies: dyspnea, productive cough, change in phlegm color or hemoptysis GI: Reports: abdominal pain, nausea, bloating and other (Dry heaving); Denies: vomiting, diarrhea, constipation, hematochezia or melena : Denies: flank pain, difficulty urinating, urinary frequency or hematuria Musc: Denies: back pain, joint swelling or joint redness Skin/Breast: Denies: rash or new lesions Neuro: Denies: headache(s) or confusion Medications/Allergies Home Medications ?Medication ?Instructions ?Recorded ?Confirmed ?Last Taken ?Type gemfibrozil 600 mg tablet 600 mg PO BID 01/20/20 04/09/25 04/08/25 History chlorthalidone 25 mg tablet 12.5 mg PO DAILY 08/19/20 04/09/25 04/08/25 History ascorbic acid (vitamin C) 500 mg 500 mg PO DAILY 01/13/21 04/09/25 01/25/22 History capsule phyto nutrients 01/13/21 04/09/25 Unknown History amiodarone 200 mg tablet 200 mg PO DAILY #90 tabs 03/05/24 04/09/25 04/08/25 Rx apixaban 5 mg tablet (Eliquis) 2.5 mg PO BID 11/01/24 04/09/25 04/08/25 History empagliflozin 25 mg tablet 12.5 mg PO DAILY 11/01/24 04/09/25 04/08/25 History (Jardiance) furosemide 20 mg tablet 20 mg PO BID PRN Edema 11/01/24 04/09/25 Unknown History sitagliptin phosphate 50 mg tablet 50 mg PO DAILY 11/01/24 04/09/25 04/08/25 History (Januvia) cefdinir 300 mg capsule 300 mg PO BID 10 days #20 caps 04/06/25 04/09/25 04/08/25 Rx hydrocodone 7.5 mg-acetaminophen 1 tab PO Q8H PRN pain #10 tabs 04/06/25 04/09/25 Unknown Rx 325 mg tablet polyethylene glycol 3350 17 4 g PO DAILY #119 grams 04/06/25 04/09/25 04/08/25 Rx gram/dose oral powder (Miralax) albuterol sulfate 90 mcg/actuation 1 inh inhalation QID PRN Shortness 04/09/25 04/09/25 Unknown History aerosol inhaler Of Breath cetirizine 10 mg tablet 10 mg PO DAILY 04/09/25 04/09/25 04/08/25 History fluticasone propionate 50 1 spray intranasal DAILY 04/09/25 04/09/25 04/08/25 History mcg/actuation nasal spray,suspension latanoprost 0.005 % eye drops See Rx Instructions .Route .COMPLEX 04/09/25 04/09/25 04/08/25 History lidocaine 5 % topical patch 1 patch topical DAILY 04/09/25 04/09/25 04/08/25 History losartan 50 mg tablet 25 mg PO DAILY 04/09/25 04/09/25 04/08/25 History potassium chloride 20 mEq 10 meq PO DAILY PRN while on 04/09/25 04/09/25 Unknown History tablet,extended release furosemide timolol maleate 0.25 % eye drops 1 drp ophthalmic (eye) DAILY 04/09/25 04/09/25 04/08/25 History Allergies Allergy/AdvReac Type Severity Reaction Status Date / Time lisinopril Allergy NA Verified 04/06/25 20:21 Gqchzyn-OJI-KaX Reductase Allergy Rash Verified 04/06/25 20:21 Inhibitor (Edugajd-Zmy-Yxo Reductase Inhibitor) PFSH Acute PFSH: Medical History Subdural hematoma Uric acid urolithiasis Hyperlipidemia Colon cancer Diabetes HTN (hypertension) Atrial fibrillation BPH loc w urin obs/LUTS Surgical History History of colonoscopy (01/26/22) S/P cholecystectomy S/P shoulder surgery S/P appendectomy S/P colon resection Family History Brother Cancer Family/Other Cancer Father , AGE 81 Stroke Mother , AGE 75 CAD (coronary artery disease) Social History Smoking and tobacco/nicotine status: former use of tobacco/nicotine Alcohol intake: current Alcohol intake frequency: holidays/special occasions only Alcohol type: beer Substance/Drug Use: never Adopted: No Caregiver/support person: No Lives independently: No Household members: spouse Marital status: Current occupational status: retired Current gender identity: Male Vitals/I&O/Wt Last Vital Signs Temp 97.7 F 04/09/25 09:36 Pulse 101 H 04/09/25 09:36 Resp 16 04/09/25 09:36 BP 133/74 04/09/25 09:36 Pulse Ox 95 04/09/25 09:36 O2 Del Method Room Air 04/09/25 09:36 Weight last 48 hrs Weight 102.058 kg Physical Exam Const: COMMON NORMALS: patient oriented x3 and alert GENERAL APPEARANCE: cooperative ORIENTATION/CONSCIOUSNESS: Yes awake HENMT: COMMON NORMALS: oropharynx normal Neck/C-Spine: COMMON NORMALS: no JVD Resp: COMMON NORMALS: normal respiratory effort and clear to auscultation bilaterally AUSCULTATION: clear to auscultation bilaterally Cardio: COMMON NORMALS: no JVD, regular rhythm, S1 normal heart sound present, S2 normal heart sound present and No murmurs present (Cardio) RHYTHM: regular rhythm HEART SOUNDS: S1 normal heart sound present and S2 normal heart sound present GI: COMMON NORMALS: Normal to inspection, nondistended, normoactive bowel sounds present, Soft to palpation and non-tender PALPATION: Yes Soft to palpation Extremity: COMMON NORMALS: no joint enlargement and no pedal edema Neuro: COMMON NORMALS: patient oriented x3 and moves all extremities SENSORIUM/ORIENTATION: Yes alert Skin: COMMON NORMALS: no rashes or lesions noted GENERAL SKIN EXAM: no rashes or lesions noted Data 04/09/25 10:38 04/09/25 10:38 A&P Assessment and plan 1. Small bowel obstruction: Dilated small-bowel loops with air?fluid levels and transition point on CT; patient symptomatic with abdominal distention, pain, dry heaving. Differential includes adhesive obstruction versus ileus. Conservative approach favored to avoid operative risks. Reviewed vitals, CBC, CMP, UA, CT abdomen pelvis, chest x-ray, ED provider note, discussed with ED provider. Surgery note. - Keep nothing by mouth (NPO). - Decompress stomach (intermittent NG suction) to relieve distention. Monitor for risk of electrolyte deficiency. Repeat chemistry. Check magnesium. - Encourage ambulation once able (walking to stimulate bowel function). - Consult general surgery (already involved) for ongoing evaluation. - Avoid opioid analgesics when possible because they slow bowel motility; use IV morphine only for severe breakthrough pain; consider IV or NH acetaminophen as alternative. - Monitor for return of bowel function (flatus, bowel movement) before initiating oral intake. - Hold Eliquis for now in case ends up requiring surgery. - Lovenox VTE prophylaxis for now. Discussed with patient and his . Plan: Urinary tract infection : Cloudy urine with pyuria; prior urine culture from 04/06 grew mixed urogenital brandon; patient started on ceftriaxone in ED and had outpatient antibiotics. - Continue intravenous ceftriaxone (pending current culture results). - Review prior and current urine cultures when available to tailor antibiotic therapy to organism and sensitivities. Acute kidney injury on chronic kidney disease : Creatinine 1.9 mg/dL, elevated over baseline; BUN 24 mg/dL; likely multifactorial from dehydration and recent obstruction. - Hold diuretics ( cortile presumed torsemide) and other nephrotoxic agents. - Hold Triamterene and losartan due to concern for acute kidney injury (LIZ). - Hold sitagliptin (Januvia) during LIZ. - Provide intravenous fluids cautiously to address possible dehydration. - Monitor intake and output and trend serum creatinine. Atrial fibrillation : Chronic condition; rate controlled with amiodarone; anticoagulated with apixaban. - Monitor heart rate; transition to intravenous amiodarone while NPO until oral intake resumes. Require CSU admission for this. Monitor for risk of bradycardia. - Hold apixaban for stroke prophylaxis in case require surgery. Hypertension : History of hypertension; current ED BP 133/74 mmHg. - Monitor blood pressures regularly during hospitalization. - Hold losartan temporarily while renal function is reassessed. PDMP PDMP Reviewed: Not Reviewed Attestations Medical Necessity Statement*: Admission of over 2 midnights anticipated for assessment and management of SBO with transition point with multiple prior abdominal surgeries and bowel resection, UTI, LIZ on CKD in a gentleman with history of A-fib, currently unable to take oral intake or medications. Diagnoses Small bowel obstruction K56.609
--- NOTE | 2025-04-09 15:06 | PM.CONSULT ---
Providers/Reason For Consult Consulting Physician/Specialty*: General Surgery Reason for Consult*: Small bowel obstruction Attending Physician: Alvaro Maguire Primary Care Provider: Ochoa Pereira MD History of Present Illness History of Present Illness Antoine Denis is a 80 year old male with history of multiple intra-abdominal operations including appendectomy, partial colectomy, umbilical hernia repair. Presents to the hospital with obstipation for the last 3 days, abdominal pain and distention. Denies nausea and vomiting, pain is rated at 3/10. Laboratory workup as well as labs are unremarkable the CT scan show evidence of small bowel obstruction with a transition point in the left hemiabdomen, likely due to adhesions Review of Systems General: Reports: 10 or more systems reviewed and unremarkable except in HPI and below Medications/Allergies Home Medications ?Medication ?Instructions ?Recorded ?Confirmed ?Last Taken ?Type gemfibrozil 600 mg tablet 600 mg PO BID 01/20/20 04/09/25 04/08/25 History chlorthalidone 25 mg tablet 12.5 mg PO DAILY 08/19/20 04/09/25 04/08/25 History ascorbic acid (vitamin C) 500 mg 500 mg PO DAILY 01/13/21 04/09/25 01/25/22 History capsule phyto nutrients 01/13/21 04/09/25 Unknown History amiodarone 200 mg tablet 200 mg PO DAILY #90 tabs 03/05/24 04/09/25 04/08/25 Rx apixaban 5 mg tablet (Eliquis) 2.5 mg PO BID 11/01/24 04/09/25 04/08/25 History empagliflozin 25 mg tablet 12.5 mg PO DAILY 11/01/24 04/09/25 04/08/25 History (Jardiance) furosemide 20 mg tablet 20 mg PO BID PRN Edema 11/01/24 04/09/25 Unknown History sitagliptin phosphate 50 mg tablet 50 mg PO DAILY 11/01/24 04/09/25 04/08/25 History (Januvia) cefdinir 300 mg capsule 300 mg PO BID 10 days #20 caps 04/06/25 04/09/25 04/08/25 Rx hydrocodone 7.5 mg-acetaminophen 1 tab PO Q8H PRN pain #10 tabs 04/06/25 04/09/25 Unknown Rx 325 mg tablet polyethylene glycol 3350 17 4 g PO DAILY #119 grams 04/06/25 04/09/25 04/08/25 Rx gram/dose oral powder (Miralax) albuterol sulfate 90 mcg/actuation 1 inh inhalation QID PRN Shortness 04/09/25 04/09/25 Unknown History aerosol inhaler Of Breath cetirizine 10 mg tablet 10 mg PO DAILY 04/09/25 04/09/25 04/08/25 History fluticasone propionate 50 1 spray intranasal DAILY 04/09/25 04/09/25 04/08/25 History mcg/actuation nasal spray,suspension latanoprost 0.005 % eye drops See Rx Instructions .Route .COMPLEX 04/09/25 04/09/25 04/08/25 History lidocaine 5 % topical patch 1 patch topical DAILY 04/09/25 04/09/25 04/08/25 History losartan 50 mg tablet 25 mg PO DAILY 04/09/25 04/09/25 04/08/25 History potassium chloride 20 mEq 10 meq PO DAILY PRN while on 04/09/25 04/09/25 Unknown History tablet,extended release furosemide timolol maleate 0.25 % eye drops 1 drp ophthalmic (eye) DAILY 04/09/25 04/09/25 04/08/25 History Allergies Allergy/AdvReac Type Severity Reaction Status Date / Time lisinopril Allergy NA Verified 04/06/25 20:21 Sqybeba-FKK-FiW Reductase Allergy Rash Verified 04/06/25 20:21 Inhibitor (Lfrwpke-Nyy-Nzt Reductase Inhibitor) PFSH Acute PFSH: Medical History (Updated 04/09/25 @ 13:53 by Luis Alfredo Wills DO) Subdural hematoma Uric acid urolithiasis Hyperlipidemia Colon cancer Diabetes HTN (hypertension) Atrial fibrillation BPH loc w urin obs/LUTS Surgical History History of colonoscopy (01/26/22) S/P cholecystectomy S/P shoulder surgery S/P appendectomy S/P colon resection Family History Brother Cancer Family/Other Cancer Father , AGE 81 Stroke Mother , AGE 75 CAD (coronary artery disease) Social History (Reviewed 04/09/25 @ 11:39 by YUNIOR Bernal Smoking and tobacco/nicotine status: former use of tobacco/nicotine Alcohol intake: current Alcohol intake frequency: holidays/special occasions only Alcohol type: beer Substance/Drug Use: never Adopted: No Caregiver/support person: No Lives independently: No Household members: spouse Marital status: Current occupational status: retired Current gender identity: Male Vitals/I&O/Wt Last Vital Signs Temp 97.7 F 04/09/25 09:36 Pulse 101 H 04/09/25 09:36 Resp 16 04/09/25 09:36 BP 133/74 04/09/25 09:36 Pulse Ox 95 04/09/25 09:36 O2 Del Method Room Air 04/09/25 09:36 Weight last 48 hrs Weight 225 lb Physical Exam Narrative: Abdominal examination is benign abdomen is soft is appropriately tender to palpation is distended and has decreased bowel sounds. Data 04/09/25 10:38 04/09/25 10:38 A&P Assessment and plan 1. Small bowel obstruction: Plan: 80-year-old male with a small bowel obstruction likely in the setting of adhesions from previous intra-abdominal operations. This is the first episode of a small bowel obstruction. We will attempt nonoperative management with decompression for the next 48 hours followed by a Gastrografin trial to determine if the obstruction has resolved. At the moment there is no evidence of bowel suffering laboratory workup is unremarkable will continue to monitoring lactate levels will well as CBC and vital signs. Patient shows understanding agrees with the plan PDMP PDMP Reviewed: Not Reviewed Coding Level of Care Code Acute Code for [facility] Fwd Diagnoses Small bowel obstruction K56.609
[2025-04-09] MEDS: cefTRIAXone 1,000 mg SDV 1000 MG IVP (15:20)
[2025-04-09] MEDS: D5-NS 0.45% + KCL 20 mEq 20 MEQ/1,000 ML BAG 100 MEQ IV ×2 (16:54→17:36)
--- NOTE | 2025-04-09 18:38 | PC.NURSE ---
received in to room 107 from er at 1640.report received.pt is alert and awake and oriented x 4.controlled afib on monitor.denies pain at present.ngt checked for placement and was connected to low intermittent suction Draining small amt of clear drainage.pt has positive bowel sounds and states he is passing flatus.last bm was monday.oriented to room environment.instructed to notify staff for any pain,vomiting,if needs to get out of bed...or for any concerns at all.pt verb understanding of instructions
[2025-04-10] VITALS (23 sets, daily range): BP systolic 116–165; BP diastolic 59–80; PULSE 71–87; RESP 17–33; TEMP 36.3–37.2; O2SAT 92–96
[2025-04-10 04:47] LABS: Hematocrit 39.3 % (37-53); Hemoglobin 13.40 g/dL (11.27-16.99); Mean Corpuscular HGB Conc 34.1 g/dL (30-55); Mean Corpuscular Hemoglobin 31.0 pg (27-33); Mean Corpuscular Volume 91.0 fl (82-101); Nucleated Red Blood Cells % 0 %; Platelet Count 189 10^3/cmm (157-399); Red Blood Count 4.32 10^6/uL (3.85-5.65); White Blood Count 8.38 10^3/uL (3.29-11.43)
[2025-04-10 05:08] LABS: Anion Gap 14.5 (5-19); Blood Urea Nitrogen 20 mg/dL (8-23); Calcium 8.8 mg/dL (8.5-10.5); Carbon Dioxide 24 mmol/L (22-29); Chloride 105 mmol/L (98-107); Creatinine Clr Calc Pharmacy 43.7784; Glucose 145 mg/dL (65-115); Osmolality Calculated 295 mOsm/kg (285-295); Potassium 3.5 mmol/L (3.5-5.1); Sodium 140 mmol/L (136-145)
[2025-04-10 05:13] LABS: Magnesium 1.8 mg/dL (1.7-2.3)
--- NOTE | 2025-04-10 06:22 | PC.NURSE ---
this nurse disconnected NG from suction to walk to the bathroom, after hooking patient back up to suction, the patient hit his light, this nurse went into room and patient had pulled out the NG tube, called doctor about him pulling it out and his output for the night, doctor ordered to replace NG tube
--- NOTE | 2025-04-10 06:38 | P.PN_ITS ---
Subjective 2 Subjective: Patient appears to have good progress over the last 24 hours. He has been able to pass some gas, NG tube output has been about 200 cc unfortunately he pulled out his NG tube overnight and it had to be replaced this morning. Vitals/I&O/Wt Last Vital Signs Temp 98.0 F 04/10/25 03:25 Pulse 74 04/10/25 05:22 Resp 20 H 04/10/25 03:25 BP 116/59 04/10/25 03:25 Pulse Ox 92 04/10/25 03:25 O2 Del Method Room Air 04/10/25 03:25 04/09/25 04/09/25 04/10/25 14:59 22:59 06:59 Intake Total 0 / 0 1200 / 1200 Output Total 400 / 400 455 / 855 Balance -400 / -400 745 / 345 Weight last 48 hrs Weight 223 lb 1.6 oz Weight 224 lb 5 oz Weight 225 lb Physical Exam 2 GI: OTHER: Abdomen is soft, distended, improved bowel sounds were compared to yesterday. Data 04/10/25 04:36 04/10/25 04:36 A&P Assessment and plan 1. Small bowel obstruction: Plan: Patient showing good progression over the last 24 hours has passed some gas NG tube output has been low but unfortunately NG tube was discontinued overnight. G-tube was replaced this morning will place a 2 intermittent suction, plan is to decompress another 24 hours and after that do a Gastrografin trial. Indicates that the patient has a bowel movement earlier than this we will proceed with Gastrografin trial today. She shows understanding agrees with the plan, laboratory workup and vital signs appear to be stable LIZ is improving. He is also started on ceftriaxone for UTI per primary team. PDMP PDMP Reviewed: Not Reviewed Attestations 2 Medical Necessity Statement*: Per medical Coding Level of Care Code Acute Code for [facility] Fwd Diagnoses Small bowel obstruction K56.609
--- NOTE | 2025-04-10 06:38 | XR_ITS ---
WS: [id number] Exam: XR chest 1V portable [id number] Date/Time of Exam: 04/10/2025 6:48 AM Reason For Exam: NG tube placement Comparison 04/09/2025. An NG tube has been placed and appears to end in the body the stomach. The lungs are clear as visualized. The lateral RIGHT lower lung base is out of the eeicl-lh-cmtu. Mild cardiac enlargement. No pleural effusion. Monitoring leads superimpose the chest. Bony structures are intact. XR/XR chest 1V portable [id number] IMPRESSION: 1. Enteric tube ending in the body of the stomach. The chest is otherwise uncha nged.
[2025-04-10] MEDS: cefTRIAXone 1,000 mg SDV 1000 MG IVP (08:38)
--- NOTE | 2025-04-10 11:49 | P.PN_ITS ---
Subjective 2 Subjective: Patient appears to have good progress and passing flatus He has been able to pass some gas, NG tube output has been about 130 cc overnight, unfortunately he pulled out his NG tube overnight and it had to be replaced this morning. Vitals/I&O/Wt Last Vital Signs Temp 97.7 F 04/10/25 07:41 Pulse 80 04/10/25 07:41 Resp 21 H 04/10/25 07:41 BP 131/65 04/10/25 07:41 Pulse Ox 92 04/10/25 07:41 O2 Del Method Room Air 04/10/25 03:25 04/09/25 04/10/25 04/10/25 22:59 06:59 14:59 Intake Total 0 / 0 1200 / 1200 Output Total 400 / 400 455 / 855 75 / 75 Balance -400 / -400 745 / 345 -75 / -75 Weight last 48 hrs Weight 101.196 kg Weight 101.746 kg Weight 102.058 kg Physical Exam 2 Narrative: General: Alert oriented x3, patient seen comfortably with NG tube at suction HEENT: Normocephalic, atraumatic, EOMI, breathing at room air Cardio: Regular rate rhythm, normal S1-S2, no murmurs rubs gallops, JVD normal Respiratory: Good bilateral air entry, no wheezes no rhonchi appreciated GI: Abdomen soft, nondistended mildly tender, normoactive bowel sounds present all 4 quadrants, no organomegaly Neuro: Cranial nerves II to XII intact, strength 5/5, sensation 5/5, no gross neurological deficit Behavior: Appropriate and cooperative Extremities: Pulses 2+, no edema, no cyanosis Skin: Visible skin intact, no rashes Data 04/10/25 04:36 04/10/25 04:36 A&P Assessment and plan 1. Small bowel obstruction: Dilated small-bowel loops with air?fluid levels and transition point on CT; patient symptomatic with abdominal distention, pain, dry heaving. Differential includes adhesive obstruction versus ileus. Conservative approach favored to avoid operative risks as per the surgery Reviewed vitals, CBC, CMP, UA, CT abdomen pelvis, chest x-ray, ED provider note, discussed with ED provider. Surgery note. - Keep nothing by mouth (NPO) and NGT at suction - gastrograffin study as per the surgery and to follow - monitoring and correction of electrolytes accordingly - Encourage ambulation once able (walking to stimulate bowel function). - Avoid opioid analgesics when possible because they slow bowel motility; use IV morphine only for severe breakthrough pain; consider IV or CA acetaminophen as alternative. - Monitor for return of bowel function (flatus, bowel movement) before initiating oral intake. - Hold Eliquis for now in case ends up requiring surgery. - Lovenox VTE prophylaxis for now. Plan: Urinary tract infection : Cloudy urine with pyuria; prior urine culture from 04/06 grew mixed urogenital brandon; patient started on ceftriaxone in ED and had outpatient antibiotics. - Continue intravenous ceftriaxone (pending current culture results). - Review prior and current urine cultures when available to tailor antibiotic therapy to organism and sensitivities. Acute kidney injury on chronic kidney disease : likely multifactorial from dehydration and recent obstruction, - hold anti HTN and nephrotoxic drugs - Provide intravenous fluids and monitor renal parametrs - intake and output monitoring Atrial fibrillation : Chronic condition; rate controlled with amiodarone; anticoagulated with apixaban. - Monitor heart rate; transition to intravenous amiodarone while NPO until oral intake resumes. Require CSU admission for this. Monitor for risk of bradycardia. - Hold apixaban for stroke prophylaxis in case require surgery. Hypertension : History of hypertension;currently controlled - Monitor blood pressures regularly during hospitalization. - Hold losartan temporarily while renal function is reassessed. PDMP PDMP Reviewed: Not Reviewed Attestations 2 Medical Necessity Statement*: patient will continue to stay due to SBO and following with the surgery, LIZ on CKD management with monitoring of the rest of the comorbid illnesses Time Spent in Patient Care: 16 - 35 minutes (>than 50% of time sp ent in counselling and/or direct pt care on unit) . Other Attestations: Patient condition has been discussed at length with the patient/family, I have independently reviewed the chart labs imaging and diagnostics and EKG. the goals of care and code status with the patient/family/NOK/legal visitor services representative, and documented accordingly. The patient/family has been informed about the current condition and further plan of care. Agreed with the plan of care and understood without any language barrier. This documentation was created by [email or web address] newspaper distributor supervisor software. Every effort was made to ensure accuracy of newspaper distributor supervisor. Any obvious errors or omissions should be clarified with the author of the document. Coding Level of Care Code 62145 Diagnoses Small bowel obstruction K56.609
[2025-04-11] VITALS (36 sets, daily range): BP systolic 139–192; BP diastolic 71–108; PULSE 66–85; RESP 17–26; TEMP 36.4–37.1; O2SAT 94–98; BMI 33.3
[2025-04-11 04:18] LABS: Hematocrit 40.3 % (37-53); Hemoglobin 13.40 g/dL (11.27-16.99); Mean Corpuscular HGB Conc 33.3 g/dL (30-55); Mean Corpuscular Hemoglobin 30.2 pg (27-33); Mean Corpuscular Volume 90.8 fl (82-101); Nucleated Red Blood Cells % 0 %; Platelet Count 190 10^3/cmm (157-399); Red Blood Count 4.44 10^6/uL (3.85-5.65); White Blood Count 9.54 10^3/uL (3.29-11.43)
[2025-04-11 04:49] LABS: Alanine Aminotransferase 13 U/L (0-41); Albumin Level 3.4 g/dL (3.5-5.2); Alkaline Phosphatase 65 U/L (40-130); Anion Gap 19.3 (5-19); Aspartate Amino Transferase 19 U/L (0-40); Blood Urea Nitrogen 15 mg/dL (8-23); Calcium 9.2 mg/dL (8.5-10.5); Carbon Dioxide 23 mmol/L (22-29); Chloride 105 mmol/L (98-107); Creatinine Clr Calc Pharmacy 46.9054; Globulin 3.5 g/dL (1.3-4.6); Glucose 114 mg/dL (65-115); Osmolality Calculated 300 mOsm/kg (285-295); Potassium 3.3 mmol/L (3.5-5.1); Sodium 144 mmol/L (136-145); Total Protein 6.9 g/dL (6.6-8.7)
--- NOTE | 2025-04-11 07:57 | P.PN_ITS ---
Subjective 2 Subjective: 80-year-old male who presents to the [facility] with symptoms concerning for SBO. Has been having good progression over the last 24 hours has passed gas and had a bowel movement. Abdominal exam is improved NG output was about 700 cc. Vitals/I&O/Wt Last Vital Signs Temp 97.6 F 04/11/25 07:48 Pulse 78 04/11/25 07:48 Resp 22 H 04/11/25 07:48 BP 192/94 04/11/25 07:48 Pulse Ox 98 04/11/25 04:00 O2 Del Method Room Air 04/11/25 04:00 04/10/25 04/11/25 04/11/25 22:59 06:59 14:59 Intake Total 200 / 200 200 / 400 Output Total 800 / 875 350 / 1225 Balance -600 / -675 -150 / -825 Weight last 48 hrs Weight 219 lb 2 oz Weight 223 lb 1.6 oz Weight 224 lb 5 oz Weight 225 lb Physical Exam 2 GI: OTHER: Benign abdominal exam abdomen soft mildly distended mildly tender. Better bowel sounds. Data 04/11/25 03:49 04/11/25 03:49 Micro: Microbiology 04/09/25 10:50 Urine Culture - Preliminary Urine,Clean Catch A&P Assessment and plan 1. Small bowel obstruction: Plan: Excellent progression over the last 24 hours. Will do a Gastroview trial today to verify that these small bowel obstruction is resolving as in select cases patient can still have bowel movements despite more proximal obstruction. If the Gastrografin prior shows evidence of contrast passing into the colon the NG tube will be discontinued and the patient will allow to have GI soft diet and allowed to transition to the outpatient setting. He shows understanding agrees with the plan. Gastrografin was administered this morning around 7 AM first x- ray will be around 11 AM. PDMP PDMP Reviewed: Not Reviewed Attestations 2 Medical Necessity Statement*: Per medical team Coding Level of Care Code Acute Code for Chg Fwd Diagnoses Small bowel obstruction K56.609
--- NOTE | 2025-04-11 08:09 | XR_ITS ---
WS: [id number] Exam: XR KUB portable [id number] Date/Time of Exam: 04/11/2025 8:14 AM Reason For Exam: bowel obstruction 1 hour KUB following administration of GI contrast is submitted. There is contrast in the stomach, small bowel as well as the ascending and transverse colon. No findings at this time to suggest acute small bowel obstruction. No pneumoperitoneum. An enteric tube is noted in the body the stomach. Signs of prior cholecystectomy. XR/XR KUB portable [id number] IMPRESSION: 1. Radiographic contrast identified throughout the small bowel as well as the a scending and transverse: Signifying that the bowel is patent thus far into the study. Follow-up KUB in 45 minutes to 1 hour is suggested.
--- NOTE | 2025-04-11 08:09 | PC.NURSE ---
Dr. Vargas ordered to take an Xray once the patient had a bowel movement after contrast was given.
[2025-04-11] MEDS: cefTRIAXone 1,000 mg SDV 1000 MG IVP (10:37)
[2025-04-11] MEDS: lidocaine 1% 5 ML in potassium chloride premix 100 ML 52.5 ML IV ×2 (10:38→13:05)
--- NOTE | 2025-04-11 11:05 | PM.MISC ---
Miscellaneous Note Purpose of Documentation: Update on patient care Note: Patient had a bowel movement after administration the Gastrografin, immediately after we did an x-ray that shows evidence of passage of the contrast into the large bowel. This rules out the small bowel obstruction the bowel pattern is nonobstructive. NG tube was removed patient will be allowed to have a GI soft diet. He will be started on once a day MiraLAX in the long-term and he will follow-up with us in 2 weeks. Once patient is tolerating diet he is cleared to discharge from the general surgery standpoint
--- NOTE | 2025-04-11 11:06 | PC.NURSE ---
Dr. Vargas came into the room to remove NG tube. NG tube was successfully removed.
--- NOTE | 2025-04-11 11:42 | PM.DCS ---
Discharge Providers Date of Admission: 04/09/25 14:05 Date of Discharge: April 11, 2025 Attending Provider at Admission: Alvaro Maguire Attending Provider at Discharge: Argentina Barry MD Primary Care Provider: Ochoa Pereira MD Diagnoses at Discharge Discharge Diagnosis 1. Small bowel obstruction: Reason for Visit Reason for Visit: [facility], poss bowel obstruction, abd pain Brief History: history as per the previous notes and the patient: Antoine Denis is a 80 year old gentleman with a history of colon cancer treated with right colon resection, chronic kidney disease, hypertension, atrial fibrillation on apixaban, diabetes mellitus, benign prostatic hyperplasia, hyperlipidemia, prior subdural hematoma, and recent kidney stone who presents with abdominal pain, distention, and bloating that began prior to arrival at the [facility] ([facility]. He reports dry heaving but minimal vomiting. The last bowel movement was on Monday, with minimal passage of flatus and frequent belching since then. He was evaluated earlier this week for a kidney stone that has now passed on current imaging. Hospital Course Hospital Course At the [facility] emergency department he received ondansetron, morphine, and ceftriaxone for a suspected urinary tract infection. CT abdomen/pelvis showed dilated loops of small bowel with air?fluid levels and a transition point in the left mid-lower quadrant near a prior anastomosis, concerning for a developing partial small-bowel obstruction. at presentation in the ED, Vital signs in the ED were blood pressure 133/74 mmHg, heart rate 101 bpm, respiratory rate 16, temperature 97.7 ?F, and oxygen saturation 95 % on room air. Laboratory results revealed sodium 137 mmol/L, potassium 3.7 mmol/L, blood urea nitrogen 24 mg/dL, creatinine 1.9 mg/dL (worse than baseline), and urinalysis notable for cloudy urine with 20 WBCs/vplh-bdjhf-dgvmi and 6-10 RBCs/qmks-dvyve-vbjdg. General surgery has been consulted for conservative management of the possible obstruction. The patient denies fever, chest pain, dyspnea, black or bloody stools, and rashes. He is a former smoker, denies alcohol or illicit drug use, and currently experiences leg swelling chronically. the patient was seen by the general surgery, placed on NGT suction and bowel rest. his medications were held but kept on amiodrip since he was having at fib and amiodarone as oral medication. he remained stable during his hosp stay and passed flatus and bowel motion. gastrograffin study was done and showed appropriate passage of contrast in the bowels. surgery cleared the patient and removed the NGT. started on GI soft diet and established tolerability of the diet and to be discharged on augmentin for 7 days at home to clear any intra abdominal infective source leading to SBO. Abd XR revealed resolution of the SBO. the patient tolerated diet and to be discharged. electrolytes and renal parameters were monitored and corrected accordingly. labs and investigations reviewed independently, and stability established before discharge with a follow up plan. Patient condition has been discussed at length with the patient/family, I have independently reviewed the chart labs imaging and diagnostics and EKG. the goals of care and code status with the patient/family/NOK/legal manufacturing sales representative, and documented accordingly. The patient/family has been informed about the current condition and further plan of care. Agreed with the plan of care and understood without any language barrier. This documentation was created by [employer] pile driver operator helper software. Every effort was made to ensure accuracy of pile driver operator helper. Any obvious errors or omissions should be clarified with the author of the document. Physical Exam Narrative: General: Alert oriented x3, patient seen comfortably HEENT: Normocephalic, atraumatic, EOMI, breathing at room air Cardio: Regular rate rhythm, normal S1-S2, no murmurs rubs gallops, JVD normal Respiratory: Good bilateral air entry, no wheezes no rhonchi appreciated GI: Abdomen soft, nondistended mildly tender, normoactive bowel sounds present all 4 quadrants, no organomegaly Neuro: Cranial nerves II to XII intact, strength 5/5, sensation 5/5, no gross neurological deficit Behavior: Appropriate and cooperative Extremities: Pulses 2+, no edema, no cyanosis Skin: Visible skin intact, no rashes Discharge Data Studies Completed and Pending Completed Studies During Hospitalization Category Date Time Status CT abdomen pelvis wo con [id number] Stat Cat Scan 04/09/25 10:24 Completed XR KUB portable [id number] Stat Exams 04/11/25 08:09 Completed XR chest 1V portable [id number] Routine Exams 04/09/25 14:14 Completed XR chest 1V portable [id number] Stat Exams 04/10/25 06:38 Completed Pending at discharge Category Date Time Status Basic Metabolic Panel AM LABS Lab 04/12/25 04:00 Ordered Complete Blood Count w/Auto AM LABS Lab 04/12/25 04:00 Ordered Radiology Impressions Abdomen/Pelvis CT 04/09/25 10:24 IMPRESSION: 1. Previously described LEFT UVJ calculus has passed. No obstructing renal or ureteral calculi today. 2. New dilated loops of small bowel with air-fluid levels suspicious for developing small bowel obstruction. Evidence of prior RIGHT colon resection. Transition point in the LEFT mid lower quadrant may be due to adhesions near the site of anastomosis. Recommend interval follow-up. 3. Diverticulosis. No evidence of acute diverticulitis. 4. No other acute findings. Chest X-Ray 04/10/25 06:38 IMPRESSION: 1. Enteric tube ending in the body of the stomach. The chest is otherwise unchanged. KUB X-Ray 04/11/25 08:09 IMPRESSION: 1. Radiographic contrast identified throughout the small bowel as well as the ascending and transverse: Signifying that the bowel is patent thus far into the study. Follow-up KUB in 45 minutes to 1 hour is suggested. Laboratory Results WBC 9.54 10^3/uL (3.29-11.43) 04/11/25 03:49 RBC 4.44 10^6/uL (3.85-5.65) 04/11/25 03:49 Hgb 13.40 g/dL (11.27-16.99) 04/11/25 03:49 Hct 40.3 % (37-53) 04/11/25 03:49 MCV 90.8 fl (82-101) 04/11/25 03:49 MCH 30.2 pg (27-33) 04/11/25 03:49 MCHC 33.3 g/dL (30-55) 04/11/25 03:49 RDW 12.5 % (12.1-15.1) 04/11/25 03:49 Plt Count 190 10^3/cmm (157-399) 04/11/25 03:49 MPV 11.6 fL (7.4-10.4) H 04/11/25 03:49 Neut % (Auto) 71.5 % 04/11/25 03:49 Lymph % (Auto) 17.8 % 04/11/25 03:49 [place] % (Auto) 8.6 % 04/11/25 03:49 Eos % (Auto) 1.5 % 04/11/25 03:49 Baso % (Auto) 0.3 % 04/11/25 03:49 Neut # (Auto) 6.82 10^3/uL (1.8-7.7) 04/11/25 03:49 Lymph # (Auto) 1.7 10^3/uL (0.8-4.8) 04/11/25 03:49 [place] # (Auto) 0.8 10^3/uL (0.2-0.9) 04/11/25 03:49 Eos # (Auto) 0.1 10^3/uL (0.0-0.8) 04/11/25 03:49 Baso # (Auto) 0.0 10^3/uL (0.0-0.1) 04/11/25 03:49 Nucleated RBC % (auto) 0 % 04/11/25 03:49 Nucleated RBCs # 0.0 /100WBC 04/11/25 03:49 Sodium 144 mmol/L (136-145) 04/11/25 03:49 Potassium 3.3 mmol/L (3.5-5.1) L 04/11/25 03:49 Chloride 105 mmol/L (98-107) 04/11/25 03:49 Carbon Dioxide 23 mmol/L (22-29) 04/11/25 03:49 Anion Gap 19.3 (5-19) H 04/11/25 03:49 BUN 15 mg/dL (8-23) 04/11/25 03:49 Creatinine 1.4 mg/dL (0.7-1.2) H 04/11/25 03:49 GFR Calculation Not Reportable 04/11/25 03:49 Glucose 114 mg/dL (65-115) 04/11/25 03:49 POC Glucose 128 mg/dL (70-110) H 04/11/25 11:10 Calculated Osmolality 300 mOsm/kg (285-295) H 04/11/25 03:49 Lactic Acid 1.5 mmol/L (0.5-2.2) 04/09/25 14:00 Calcium 9.2 mg/dL (8.5-10.5) 04/11/25 03:49 Magnesium 1.8 mg/dL (1.7-2.3) 04/10/25 04:36 Total Bilirubin 0.4 mg/dL (0.15-1.2) 04/11/25 03:49 AST 19 U/L (0-40) 04/11/25 03:49 ALT 13 U/L (0-41) 04/11/25 03:49 Alkaline Phosphatase 65 U/L (40-130) 04/11/25 03:49 Total Protein 6.9 g/dL (6.6-8.7) 04/11/25 03:49 Albumin 3.4 g/dL (3.5-5.2) L 04/11/25 03:49 Globulin 3.5 g/dL (1.3-4.6) 04/11/25 03:49 Lipase 49 U/L (13-60) 04/09/25 10:38 Urine Color Yellow (Yellow) 04/09/25 10:50 Urine Appearance Cloudy (CLEAR) A 04/09/25 10:50 Urine pH 5.5 (5-7) 04/09/25 10:50 Ur Specific [place] 1.015 (1.005-1.030) 04/09/25 10:50 Urine Protein 1+ (Negative) A 04/09/25 10:50 Urine Glucose (UA) Negative (Normal) 04/09/25 10:50 Urine Ketones Negative (Negative) 04/09/25 10:50 Urine Blood 3+ (Negative) A 04/09/25 10:50 Urine Nitrate Negative (Negative) 04/09/25 10:50 Urine Bilirubin Negative (Negative) 04/09/25 10:50 Urine Urobilinogen 1.0 mg/dL (Negative) 04/09/25 10:50 Ur Leukocyte Esterase 2+ (Negative) A 04/09/25 10:50 Urine RBC 6-10 /hpf (0-2) 04/09/25 10:50 Urine WBC 21-50 /hpf (0-5) H 04/09/25 10:50 Ur Squamous Epith Cells 0-5 /hpf (0-5) 04/09/25 10:50 Amorphous Sediment Not Reportable 04/09/25 10:50 Urine Bacteria None seen /hpf (NONE) 04/09/25 10:50 Hyaline Casts 0-4 /lpf H 04/09/25 10:50 Vitals Last Vital Signs Temp 97.6 F 04/11/25 07:48 Pulse 78 04/11/25 07:48 Resp 22 H 04/11/25 07:48 BP 192/94 04/11/25 07:48 Pulse Ox 98 04/11/25 04:00 O2 Del Method Room Air 04/11/25 04:00 Discharge Plan Discharge Patient Disposition: Home Condition: Stable Prescriptions: New polyethylene glycol 3350 [Miralax] 17 gram powder in packet 17 g PO DAILY Qty: 30 0RF amoxicillin-pot clavulanate [Augmentin] 500-125 mg tablet 1 tab PO Q8H 7 Days Qty: 21 0RF Continued (DME) phyto nutrients 0 .Route .MEDSUPPLY ascorbic acid (vitamin C) 500 mg capsule 500 mg PO DAILY gemfibrozil 600 mg tablet 600 mg PO BID chlorthalidone 25 mg tablet 12.5 mg PO DAILY furosemide 20 mg tablet 20 mg PO BID PRN (Reason: Edema) Eliquis 5 mg tablet 2.5 mg PO BID Jardiance 25 mg tablet 12.5 mg PO DAILY Januvia 50 mg tablet 50 mg PO DAILY amiodarone 200 mg tablet 200 mg PO DAILY Qty: 90 3RF hydrocodone-acetaminophen 7.5-325 mg tablet 1 tab PO Q8H PRN (Reason: pain) Qty: 10 0RF cefdinir 300 mg capsule 300 mg PO BID 10 Days Qty: 20 0RF polyethylene glycol 3350 [Miralax] 17 gram/dose powder 4 g PO DAILY Qty: 119 0RF losartan 50 mg Tablet 25 mg PO DAILY latanoprost 0.005 % drops See Rx Instructions .ROUTE .COMPLEX Rx Instructions: INSTILL 1 DROP INTO BOTH EYES EVERY EVENING (DISCARD BOTTLE 42 DAYS AFTER OPENING). cetirizine 10 mg Tablet 10 mg PO DAILY timolol maleate 0.25 % drops 1 drp ophthalmic (eye) DAILY lidocaine 5 % Adhesive Patch,Medicated 1 patch TOPICAL DAILY Rx Instructions: leave on most painful area for up to 12 hrs albuterol sulfate 90 mcg/actuation Hfa Aerosol Inhaler 1 inh INHALATION QID PRN (Reason: Shortness Of Breath) fluticasone propionate 50 mcg/actuation Bowman,Suspension 1 spray INTRANASAL DAILY Rx Instructions: administer into each nostril potassium chloride 20 mEq Tablet Extended Release 10 meq PO DAILY PRN (Reason: while on furosemide) Drill Rig Operator OK for DC: Surgery Discharge Order = DC NOW: Discharge Order (Routine); Ordered 04/11/25 Ordered By: Argentina Barry Referrals: Percy Vargas MD [Physician, General Surgery] - 04/23/25 11:00 am Referral Note: 2 weeks Ochoa Pereira MD [Primary Care Provider, [facility]] - 04/16/25 1:30 pm Referral Note: Discharge Diet: GI Soft Discharge Activity: Resume usual activity and Increase activity as tolerated Patient Instructions: Bowel Obstruction, Amoxicillin (By mouth), Polyethylene Glycol 3350 (By mouth), Opioid Safety, Patient Portal & Mauro Instructions Activity Restrictions/Additional Instructions: General surgery instructions: Please take your stool softener as indicated if your stool is still not coming soft and at least once a day please increase the dose to 2 times a day. Return to the hospital Severe abdominal pain bloating nausea and vomiting. Discharge Attestations Time Spent in Discharge Care*: greater than 30 min Specific Discharge Activities: educating patient, educating and/or supporting family/caregiver, discussing with pcp/other providers, discussing with onsite case manager/social workers/dc planners, documenting/other paperwork and evaluating patient/reviewing data Status at Discharge: Cognitive status at discharge: cognitively intact, Behavioral status at discharge: cooperative, Functional status at discharge: independent ambulation, Overall status at discharge: patient is back to baseline Quality Metrics Clinical Quality Measures [ No reported AMI, CVA or VTE this stay] Coding Level of Care Code 46627 Diagnoses Small bowel obstruction K56.609
--- NOTE | 2025-04-11 15:57 | PC.NURSE ---
All discharge instructions were given to the patient. Patient's prescriptions were sent to their preferred pharmacy. Ivs were discontinued. Patient was stable during discharge.
== END 2025-04-11 15:39 | disposition home or self-care (01) | DRG 389 ==
LOC: ER 13:53 → ICU 14:05 → ER IP 15:50 → MEDSURG 16:03 → ER IP 16:08 → CSU 16:16
PROVIDERS: Admitting Provider Internal Medicine; Emergency Provider Family Medicine; PCP Family Medicine Geriatric Medicine; Visit Provider Student in an Organized Health Care Education/Training Program
DX: K56.51 Intestinal adhesions [bands], with partial obstruction (principal); I48.20 Chronic atrial fibrillation, unspecified; N39.0 Urinary tract infection, site not specified; N17.9 Acute kidney failure, unspecified; I12.9 Hypertensive chronic kidney disease with stage 1 through stage 4 chronic kidney disease, or unspecified chronic kidney disease; E11.22 Type 2 diabetes mellitus with diabetic chronic kidney disease; N18.9 Chronic kidney disease, unspecified; N40.0 Benign prostatic hyperplasia without lower urinary tract symptoms; E78.5 Hyperlipidemia, unspecified; K59.00 Constipation, unspecified; E86.0 Dehydration; Z79.01 Long term (current) use of anticoagulants; Z79.891 Long term (current) use of opiate analgesic; Z90.49 Acquired absence of other specified parts of digestive tract; Z87.442 Personal history of urinary calculi; Z85.038 Personal history of other malignant neoplasm of large intestine; Z87.891 Personal history of nicotine dependence
CPT/HCPCS: 36415; 36416; 71045; 74018; 74176; 80048; 80053; 81001; 82962; 83605; 83690; 83735; 85025; 87086; 96372; 96374; 96375; 99285; J0283; J0696; J1650; J2270; J2405; J3480; J7120; J9999; Q9963

== ENCOUNTER → 2025-04-23 11:01 | Outpatient (BNVA) | payer OTHER, SELFPAY | PROVIDERS: PCP Family Medicine Geriatric Medicine; Visit Provider Surgery | DX: Z09 Encounter for follow-up examination after completed treatment for conditions other than malignant neoplasm (principal) | CPT/HCPCS: 99213 ==

== ENCOUNTER 2025-05-20 08:52 | Outpatient (CLI) | payer OTHER, SELFPAY ==
[2025-05-20 09:32] LABS: Hematocrit 44.6 % (37-53); Hemoglobin 14.80 g/dL (11.27-16.99); Mean Corpuscular HGB Conc 33.2 g/dL (30-55); Mean Corpuscular Hemoglobin 30.5 pg (27-33); Mean Corpuscular Volume 92.0 fl (82-101); Nucleated Red Blood Cells % 0 %; Platelet Count 211 10^3/cmm (157-399); Red Blood Count 4.85 10^6/uL (3.85-5.65); White Blood Count 7.35 10^3/uL (3.29-11.43)
[2025-05-20 10:08] LABS: Creatinine Urine, Random 100 mg/dL (39-259); Microalbum Creatinine Ratio Ur 130 mg/dL (0-20)
[2025-05-20 10:13] LABS: Albumin Level 4.4 g/dL (3.5-5.2); Anion Gap 16.8 (5-19); Blood Urea Nitrogen 22 mg/dL (8-23); Calcium 9.3 mg/dL (8.5-10.5); Carbon Dioxide 25 mmol/L (22-29); Chloride 106 mmol/L (98-107); Glucose 126 mg/dL (65-115); Potassium 3.8 mmol/L (3.5-5.1); Sodium 144 mmol/L (136-145)
[2025-05-20 10:14] LABS: Calcium 9.5 mg/dL (8.5-10.5)
== END 2025-05-20 08:53 | disposition home or self-care (01) ==
LOC: LAB 08:56
PROVIDERS: PCP Family Medicine Geriatric Medicine; Visit Provider Registered Nurse
DX: N18.32 Chronic kidney disease, stage 3b (principal)
CPT/HCPCS: 80069; 82044; 82310; 83970; 85025

== ENCOUNTER → 2025-08-04 12:39 | Outpatient (BNVA) | payer MEDICARE, SELFPAY | PROVIDERS: PCP Family Medicine Geriatric Medicine; Visit Provider Internal Medicine | DX: E78.5 Hyperlipidemia, unspecified (principal); I10 Essential (primary) hypertension; E11.9 Type 2 diabetes mellitus without complications; I48.91 Unspecified atrial fibrillation; Z79.01 Long term (current) use of anticoagulants; I35.0 Nonrheumatic aortic (valve) stenosis; Z87.891 Personal history of nicotine dependence; R07.9 Chest pain, unspecified | CPT/HCPCS: 99214 ==

== ENCOUNTER → 2025-08-05 13:01 | Outpatient (BNVA) | payer MEDICARE, SELFPAY | PROVIDERS: PCP Family Medicine Geriatric Medicine; Visit Provider Nurse Practitioner Family | DX: D48.5 Neoplasm of uncertain behavior of skin (principal); L57.0 Actinic keratosis; L72.0 Epidermal cyst; L57.8 Other skin changes due to chronic exposure to nonionizing radiation | CPT/HCPCS: 11102; 17000; 99213 ==